=== PATIENT | female | born 1945 | race Caucasian/White ===

== ENCOUNTER → 2018-11-30 11:26 | Outpatient (CLI) | payer MEDICARE, SELFPAY ==
[2018-11-30 14:16] LABS: Anion Gap 6 (5-15); BUN 9 mg/dL (7-18); BUN/Creat Ratio 12.3 RATIO (10-20); Calcium,Total 8.5 mg/dL (8.5-10.1); Chloride 96 mmol/L (98-107); Creatinine, Serum 0.73 mg/dL (0.55-1.02); EST Glomerular Filtration Rate 82 mL/min (>60); Est Glom Filt Rate - Afr Amer 100 mL/min (>60); Glucose 95 mg/dL (74-106); Potassium 3.1 mmol/L (3.5-5.1); Sodium Level 130 mmol/L (136-145)
== END ==
PROVIDERS: Family Provider Family Medicine; PCP Family Medicine; Referring Provider Family Medicine; Visit Provider Family Medicine
DX: I10 Essential (primary) hypertension (principal)
CPT/HCPCS: 36415; 80048

== ENCOUNTER → 2019-10-04 09:54 | Outpatient (CLI) | payer MEDICARE, SELFPAY ==
[2019-10-04 12:54] LABS: ALB/GLOB Ratio 1.2 RATIO (0.9-2.4); AST(SGOT) 18 U/L (15-37); Alanine Aminotransfer ALT/SGPT 34 U/L (13-56); Alkaline Phosphatase 69 U/L (45-117); Anion Gap 4 (5-15); BUN 12 mg/dL (7-18); BUN/Creat Ratio 14.2 RATIO (10-20); Chloride 99 mmol/L (98-107); Cholesterol 236 mg/dL (200); Creatinine, Serum 0.84 mg/dL (0.55-1.02); EST Glomerular Filtration Rate 70 mL/min (>60); Est Glom Filt Rate - Afr Amer 84 mL/min (>60); Globulin 3.2 g/dL (2.2-4.2); Glucose 102 mg/dL (74-106); High Density Lipoprotein 63 mg/dL; Potassium 3.9 mmol/L (3.5-5.1); Protein, Total 7.2 g/dL (6.4-8.2); Sodium Level 133 mmol/L (136-145); Triglycerides 148 mg/dL; Very Low Density Lipoprotein 30 mg/dL (5-40)
== END ==
PROVIDERS: PCP Family Medicine; Referring Provider Family Medicine; Visit Provider Family Medicine
DX: I10 Essential (primary) hypertension (principal)
CPT/HCPCS: 36415; 80053; 80061

== ENCOUNTER → 2020-06-11 09:18 | Outpatient (CLI) | payer MEDICARE, SELFPAY ==
--- NOTE | 2020-06-11 09:27 | BD_ITS ---
STUDY: DUAL ENERGY X-RAY ABSORPTIOMETRY / DXA REASON FOR EXAM: Female, 74 years old. Age of vince 24. No hysterectomy pat just stopped having periods. Pat is 157.7# and 61.5 and quot; a loss of and gt;5 and quot; per pat. Does a little exercising. Hx of ribs and a toe fx. TECHNIQUE: Bone Mineral Density (BMD) measurements of lumbar spine and bilateral hips were obtained. COMPARISON: None. FINDINGS: Lumbar Spine (L1-L4): g/cm2 (0.719) / T-score (-4.0) / Z-score (-2.2) Findings are suggestive of osteoporosis with a high fracture risk. Left Femur Total: g/cm2 (0.742) / T-score (-2.1) / Z-score (-0.3) Left Femoral Neck: g/cm2 (0.706) / T-score (-2.4) / Z-score (-0.4) Right Femur Total: g/cm2 (0.759) / T-score (-2.0) / Z-score (-0.2) Right Femoral Neck: g/cm2 (0.75) / T-score (-2.1) / Z-score (-0.1) BD/Dexa Bone Density Study IMPRESSION: The patient is considered osteoporotic as outlined below according to World Juan David Organization (WHO) criteria with a high fracture risk. Reference Information: The T-score is the number of standard deviations above or below the standard which is normal for young adults at their peak bone mineral density. The World Health Organization (WHO) interprets the T-scores as follows: Above -1 Normal bone density Between -1 and -2.5 Osteopenia Equal to / or below -2.5 Osteoporosis As a practical clinical guideline, osteopenia may be graded as follows: Mild -1 through -1.5 Moderate -1.6 through -2.0 Severe -2.1 through -2.4 The Z-score is the number of standard deviations above or below age-matched controls. A Z-score of less than -1.5 would be considered abnormal. References: 1. NIH Osteoporosis and Related Bone Diseases http://www.osteo.org 2. International Society for Clinical Densitometry http://www.iscd.org 3. National Osteoporosis Foundation http://www.nof.org Electronically Signed: Ezekiel Hudson, at 11:11 EDT , Service support ,
== END ==
PROVIDERS: PCP Family Medicine; Referring Provider Family Medicine; Visit Provider Family Medicine
DX: M81.0 Age-related osteoporosis without current pathological fracture (principal)
CPT/HCPCS: 77080

== ENCOUNTER → 2020-11-17 10:06 | Outpatient (CLI) | payer MEDICARE, SELFPAY ==
[2020-11-17 12:37] LABS: ALB/GLOB Ratio 1.2 RATIO (0.9-2.4); AST(SGOT) 13 U/L (15-37); Alanine Aminotransfer ALT/SGPT 22 U/L (13-56); Albumin, Serum 3.8 g/dL (3.2-5.0); Alkaline Phosphatase 60 U/L (45-117); Anion Gap 6 (5-15); BUN 9 mg/dL (7-18); BUN/Creat Ratio 8.7 RATIO (10-20); Calcium,Total 8.4 mg/dL (8.5-10.1); Chloride 99 mmol/L (98-107); Cholesterol 240 mg/dL (200); Creatinine, Serum 1.03 mg/dL (0.55-1.02); EST Glomerular Filtration Rate 55 mL/min (>60); Est Glom Filt Rate - Afr Amer 67 mL/min (>60); Globulin 3.2 g/dL (2.2-4.2); Glucose 90 mg/dL (74-106); High Density Lipoprotein 44 mg/dL; Potassium 3.6 mmol/L (3.5-5.1); Sodium Level 136 mmol/L (136-145); Triglycerides 339 mg/dL; Very Low Density Lipoprotein 68 mg/dL (5-40)
== END ==
PROVIDERS: PCP Family Medicine; Referring Provider Family Medicine; Visit Provider Family Medicine
DX: M81.0 Age-related osteoporosis without current pathological fracture (principal); I10 Essential (primary) hypertension
CPT/HCPCS: 36415; 80053; 80061; 82306

== ENCOUNTER → 2021-02-22 09:50 | Outpatient (CLI) | payer MEDICARE, SELFPAY ==
[2021-02-22 12:23] LABS: ALB/GLOB Ratio 1.2 RATIO (0.9-2.4); AST(SGOT) 14 U/L (15-37); Alanine Aminotransfer ALT/SGPT 23 U/L (13-56); Albumin, Serum 3.7 g/dL (3.2-5.0); Alkaline Phosphatase 70 U/L (45-117); Anion Gap 8 (5-15); BUN 18 mg/dL (7-18); BUN/Creat Ratio 20.3 RATIO (10-20); Calcium,Total 8.9 mg/dL (8.5-10.1); Chloride 102 mmol/L (98-107); Cholesterol 139 mg/dL (200); Creatinine, Serum 0.89 mg/dL (0.55-1.02); EST Glomerular Filtration Rate 66 mL/min (>60); Est Glom Filt Rate - Afr Amer 79 mL/min (>60); Globulin 3.1 g/dL (2.2-4.2); Glucose 107 mg/dL (74-106); High Density Lipoprotein 48 mg/dL; Potassium 3.9 mmol/L (3.5-5.1); Protein, Total 6.8 g/dL (6.4-8.2); Sodium Level 138 mmol/L (136-145); Triglycerides 115 mg/dL; Very Low Density Lipoprotein 23 mg/dL (5-40)
== END ==
PROVIDERS: PCP Family Medicine; Visit Provider Family Medicine
DX: I10 Essential (primary) hypertension (principal)
CPT/HCPCS: 36415; 80053; 80061

== ENCOUNTER 2021-12-28 09:35 | Outpatient (CLI) | payer MEDICARE, SELFPAY ==
[2021-12-28 12:25] LABS: Anion Gap 8 (5-15); BUN 11 mg/dL (7-18); BUN/Creat Ratio 13.9 RATIO (10-20); Calcium,Total 8.7 mg/dL (8.5-10.1); Chloride 101 mmol/L (98-107); Cholesterol 139 mg/dL (200); Creatinine, Serum 0.79 mg/dL (0.55-1.02); EST Glomerular Filtration Rate 75 mL/min (>60); Est Glom Filt Rate - Afr Amer 91 mL/min (>60); Glucose 119 mg/dL (74-106); High Density Lipoprotein 54 mg/dL; Potassium 3.7 mmol/L (3.5-5.1); Sodium Level 134 mmol/L (136-145); Triglycerides 177 mg/dL; Very Low Density Lipoprotein 35 mg/dL (5-40)
[2021-12-29 08:26] LABS: Hepatitis C Antibody Non-Reactive (Nonreactive)
== END 2021-12-28 23:59 | disposition home or self-care (01) ==
LOC: MFPLAB 09:37
PROVIDERS: Registered Nurse; Visit Provider Nurse Practitioner Family
DX: E78.5 Hyperlipidemia, unspecified (principal); Z11.59 Encounter for screening for other viral diseases; I10 Essential (primary) hypertension
CPT/HCPCS: 36415; 80048; 80061; 86803

== ENCOUNTER → 2022-06-14 | Outpatient (CLI) | payer MEDICARE, SELFPAY ==
--- NOTE | 2022-06-14 09:17 | BD_ITS ---
STUDY: DUAL ENERGY X-RAY ABSORPTIOMETRY / DXA REASON FOR EXAM: Female, 76 years old. N95.9. The patient is postmenopausal. TECHNIQUE: Bone Mineral Density (BMD) measurements of lumbar spine and bilateral hips were obtained. COMPARISON: Comparison is made with prior study 06/11/2020. FINDINGS: Lumbar Spine (L1-L4): g/cm2 (0.772) / T-score (-2.5) / Z-score (0.1) Findings are suggestive of osteopenia with a high fracture risk. Left Femur Total: g/cm2 (0.735) / T-score (-1.7) / Z-score (0.2) Left Femoral Neck: g/cm2 (0.639) / T-score (-1.9) / Z-score (0.3) Right Femur Total: g/cm2 (0.763) / T-score (-1.5) / Z-score (0.5) Right Femoral Neck: g/cm2 (0.667) / T-score (-1.6) / Z-score (0.6) The T-Scores on the most recent prior examination were: Lumbar Spine (L1-L4): There has been improvement of bone density since the previous examination. Left Femur Total: which represents an improvement of 7.5%. Right Femur Total: which represents an improvement of 9%. BD/Dexa Bone Density Study IMPRESSION: The patient is considered osteopenic as outlined below according to World Juan David Organization (WHO) criteria with a high fracture risk. There has been improvement of bone density since the previous examination. Reference Information: The T-score is the number of standard deviations above or below the standard which is normal for young adults at their peak bone mineral density. The World Health Organization (WHO) interprets the T-scores as follows: Above -1 Normal bone density Between -1 and -2.5 Osteopenia Equal to / or below -2.5 Osteoporosis As a practical clinical guideline, osteopenia may be graded as follows: Mild -1 through -1.5 Moderate -1.6 through -2.0 Severe -2.1 through -2.4 The Z-score is the number of standard deviations above or below age-matched controls. A Z-score of less than -1.5 would be considered abnormal. References: 1. NIH Osteoporosis and Related Bone Diseases www osteo.org 2. International Society for Clinical Densitometry www iscd.org 3. National Osteoporosis Foundation www nof.org Electronically Signed: Ezekiel Hudson MD at 10:24 EDT ,
== END | disposition home or self-care (01) ==
LOC: OPBD 09:04
PROVIDERS: PCP Family Medicine; Visit Provider Nurse Practitioner Family
DX: Z78.0 Asymptomatic menopausal state (principal); M85.80 Other specified disorders of bone density and structure, unspecified site; N95.9 Unspecified menopausal and perimenopausal disorder
CPT/HCPCS: 77080

== ENCOUNTER → 2022-12-29 | Outpatient (CLI) | payer MEDICARE, SELFPAY ==
[2022-12-29 18:06] LABS: ALB/GLOB Ratio 1.3 RATIO (0.9-2.4); AST(SGOT) 18 U/L (15-37); Alanine Aminotransfer ALT/SGPT 30 U/L (13-56); Albumin, Serum 3.8 g/dL (3.2-5.0); Alkaline Phosphatase 85 U/L (45-117); Anion Gap 6 (5-15); BUN 15 mg/dL (7-18); BUN/Creat Ratio 17.2 RATIO (10-20); Calcium,Total 9.2 mg/dL (8.5-10.1); Chloride 100 mmol/L (98-107); Cholesterol 153 mg/dL (200); Creatinine, Serum 0.87 mg/dL (0.55-1.02); EST Glomerular Filtration Rate 67 mL/min (>60); Est Glom Filt Rate - Afr Amer 81 mL/min (>60); Globulin 2.9 g/dL (2.2-4.2); Glucose 122 mg/dL (74-106); High Density Lipoprotein 50 mg/dL; Potassium 3.7 mmol/L (3.5-5.1); Protein, Total 6.7 g/dL (6.4-8.2); Sodium Level 135 mmol/L (136-145); Triglycerides 189 mg/dL; Very Low Density Lipoprotein 38 mg/dL (5-40)
[2022-12-29 18:48] LABS: Hemoglobin A1c 5.9 % (3.8-5.6)
[2022-12-29 18:53] LABS: Microalbumin,Random Urine 14.4 mg/L (NO RANGE EST.)
== END | disposition home or self-care (01) ==
LOC: MFPLAB 15:35
PROVIDERS: PCP Family Medicine; Visit Provider Family Medicine
DX: I10 Essential (primary) hypertension (principal); R73.09 Other abnormal glucose; E78.00 Pure hypercholesterolemia, unspecified
CPT/HCPCS: 36415; 80053; 80061; 82043; 83036

== ENCOUNTER 2023-07-25 14:00 | Outpatient (RCR) | payer MEDICARE, SELFPAY ==
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
== END 2023-07-25 19:00 | disposition home or self-care (01) ==
LOC: PT 14:00
PROVIDERS: PCP Family Medicine; Referring Provider Orthopaedic Surgery; Visit Provider Orthopaedic Surgery
DX: M17.0 Bilateral primary osteoarthritis of knee (principal)
CPT/HCPCS: 97110; 97162

== ENCOUNTER → 2024-07-16 | Outpatient (CLI) | payer MEDICARE, SELFPAY ==
[2024-07-16 15:27] LABS: Absolute Lymphocyte Count 1.41 X10^3/uL (0.83-4.51); Absolute Neutrophil Count 5.3 X10^3/uL (2.0-7.7); Basophil# 0.05 X10^3/uL; Basophil% 0.7 % (0-1); Eosinophil# 0.05 X10^3/uL; Eosinophils% 0.7 % (0-5); Hemoglobin 13.8 g/dL (12.0-15.0); Lymphocyte # 1.41 X10^3/ul (0.83-4.51); Lymphocyte % 19.3 % (19-41); Mean Corp Hgb Conc 33.7 g/dL (32-36); Mean Corpuscular Hgb 30.4 pg (27.0-32.0); Mean Corpuscular Volume 90.3 fL (81-99); Mean Platelet Vol. 10.6 fl (6.2-12.0); Monocyte# 0.44 X10^3/uL; NRBC Flagged by Analyzer 0 % (0-5); Neutrophil # 5.33 X10^3/uL (2.7-7.7); Neutrophil % 72.9 % (47-70); Platelet Count 320 K/mm3 (150-450); RBC Distribution Width CV 12.3 % (11.6-14.6); RBC Distribution Width SD 40.6 fl (35.1-43.9); Red Blood Count 4.54 M/mm3 (4.2-5.4); White Blood Count 7.3 K/mm3 (4.4-11.0)
[2024-07-16 15:50] LABS: Vitamin D,25 Hydroxy 13.4 ng/mL
[2024-07-16 15:57] LABS: ALB/GLOB Ratio 1.3 RATIO (0.9-2.4); AST(SGOT) 32 U/L (15-37); Alanine Aminotransfer ALT/SGPT 37 U/L (13-56); Albumin, Serum 3.8 g/dL (3.2-5.0); Alkaline Phosphatase 70 U/L (45-117); Anion Gap 6 (5-15); BUN 11 mg/dL (7-18); BUN/Creat Ratio 13.1 RATIO (10-20); Calcium,Total 9.3 mg/dL (8.5-10.1); Chloride 98 mmol/L (98-107); Cholesterol 193 mg/dL (200); Creatinine, Serum 0.84 mg/dL (0.55-1.02); EST Glomerular Filtration Rate 69 mL/min (>60); Est Glom Filt Rate - Afr Amer 84 mL/min (>60); Globulin 2.9 g/dL (2.2-4.2); Glucose 96 mg/dL (74-106); High Density Lipoprotein 46 mg/dL; Potassium 3.4 mmol/L (3.5-5.1); Protein, Total 6.7 g/dL (6.4-8.2); Sodium Level 135 mmol/L (136-145); Thyroid Stim Hormone (TSH) 0.939 uIU/mL (0.358-3.740); Triglycerides 150 mg/dL; Very Low Density Lipoprotein 30 mg/dL (5-40)
[2024-07-16 16:13] LABS: Hemoglobin A1c 6.4 % (3.8-5.6)
== END | disposition home or self-care (01) ==
LOC: MFPLAB 11:06
PROVIDERS: PCP Family Medicine; Visit Provider Family Medicine
DX: R41.3 Other amnesia (principal); I10 Essential (primary) hypertension; E78.00 Pure hypercholesterolemia, unspecified; Z78.0 Asymptomatic menopausal state; R73.03 Prediabetes
CPT/HCPCS: 36415; 80053; 80061; 82306; 83036; 84443; 85025

== ENCOUNTER → 2024-10-01 | Outpatient (CLI) | payer MEDICARE, SELFPAY ==
[2024-10-01 17:37] LABS: Absolute Lymphocyte Count 1.27 X10^3/uL (0.83-4.51); Absolute Neutrophil Count 4.6 X10^3/uL (2.0-7.7); Basophil# 0.04 X10^3/uL; Basophil% 0.6 % (0-1); Eosinophil# 0.04 X10^3/uL; Eosinophils% 0.6 % (0-5); Hematocrit 39.1 % (37-47); Hemoglobin 12.7 g/dL (12.0-15.0); Lymphocyte # 1.27 X10^3/ul (0.83-4.51); Lymphocyte % 20.1 % (19-41); Mean Corp Hgb Conc 32.5 g/dL (32-36); Mean Corpuscular Hgb 30.1 pg (27.0-32.0); Mean Corpuscular Volume 92.7 fL (81-99); Mean Platelet Vol. 10.5 fl (6.2-12.0); Monocyte# 0.31 X10^3/uL; Monocyte% 4.9 % (0-10); NRBC Flagged by Analyzer 0 % (0-5); Neutrophil # 4.63 X10^3/uL (2.7-7.7); Neutrophil % 73.2 % (47-70); Platelet Count 315 K/mm3 (150-450); RBC Distribution Width CV 12.6 % (11.6-14.6); RBC Distribution Width SD 43.1 fl (35.1-43.9); Red Blood Count 4.22 M/mm3 (4.2-5.4); White Blood Count 6.3 K/mm3 (4.4-11.0)
[2024-10-01 17:56] LABS: ALB/GLOB Ratio 1.2 RATIO (0.9-2.4); AST(SGOT) 17 U/L (15-37); Alanine Aminotransfer ALT/SGPT 33 U/L (13-56); Albumin, Serum 3.5 g/dL (3.2-5.0); Alkaline Phosphatase 53 U/L (45-117); Anion Gap 6 (5-15); BUN 8 mg/dL (7-18); BUN/Creat Ratio 10.7 RATIO (10-20); Calcium,Total 9.3 mg/dL (8.5-10.1); Chloride 106 mmol/L (98-107); Creatinine, Serum 0.75 mg/dL (0.55-1.02); EST Glomerular Filtration Rate 79 mL/min (>60); Est Glom Filt Rate - Afr Amer 96 mL/min (>60); Globulin 2.9 g/dL (2.2-4.2); Glucose 108 mg/dL (74-106); Potassium 3.7 mmol/L (3.5-5.1); Protein, Total 6.4 g/dL (6.4-8.2); Sodium Level 139 mmol/L (136-145)
[2024-10-01 18:00] LABS: BNP,B-Type NATRIURETIC PEPTIDE 96.8 pg/mL (0-100)
== END | disposition home or self-care (01) ==
PROVIDERS: PCP Family Medicine; Referring Provider Family Medicine; Visit Provider Family Medicine
DX: R60.0 Localized edema (principal); R39.9 Unspecified symptoms and signs involving the genitourinary system
CPT/HCPCS: 36415; 80053; 83880; 84443; 85025

== ENCOUNTER → 2024-11-13 | Outpatient (REF) | payer MEDICARE, SELFPAY ==
[2024-11-13 08:47] LABS: Hematocrit 41.6 % (37-47); Hemoglobin 14.3 g/dL (12.0-15.0); Mean Corp Hgb Conc 34.4 g/dL (32-36); Mean Corpuscular Hgb 30.7 pg (27.0-32.0); Mean Corpuscular Volume 89.3 fL (81-99); Mean Platelet Vol. 10.5 fl (6.2-12.0); Platelet Count 314 K/mm3 (150-450); RBC Distribution Width SD 38.9 fl (35.1-43.9); Red Blood Count 4.66 M/mm3 (4.2-5.4); White Blood Count 8.2 K/mm3 (4.4-11.0)
[2024-11-13 09:22] LABS: ALB/GLOB Ratio 1.7 RATIO (0.9-2.4); AST(SGOT) 19 U/L (<=31); Alanine Aminotransfer ALT/SGPT 16 U/L (<=34); Alkaline Phosphatase 63 U/L (35-104); Anion Gap 11 (5-15); BUN 12 mg/dL (4-19); BUN/Creat Ratio 16.4 RATIO (10-20); Calcium,Total 8.9 mg/dL (7.6-11.0); Chloride 99 mmol/L (98-108); Cholesterol 212 mg/dL (<=200); Creatinine, Serum 0.73 mg/dL (0.70-1.20); EST Glomerular Filtration Rate 84 (>60); Globulin 2.4 g/dL (2.2-4.2); Glucose 111 mg/dL (70-99); High Density Lipoprotein 59 mg/dL; Low Density Lipoprotein Calc. 133 mg/dL; Protein, Total 6.4 g/dL (5.9-8.4); Sodium Level 134 mmol/L (133-145); T4 Total, Thyroxin 8.6 ug/dL (4.8-13.9); Total Bilirubin 0.46 mg/dL (0.00-1.30); Triglycerides 103 mg/dL; Very Low Density Lipoprotein 21 mg/dL (5-40); Vitamin D,25 Hydroxy 37.1 ng/mL (30-100); cholesterol:hdl ratio screen 3.62
[2024-11-13 09:26] LABS: Hemoglobin A1c 5.9 % (<=5.6)
== END ==
LOC: OLS.BROOKB 05:00
PROVIDERS: PCP Family Medicine; Visit Provider Family Medicine
DX: F03.90 Unspecified dementia, unspecified severity, without behavioral disturbance, psychotic disturbance, mood disturbance, and anxiety (principal)
CPT/HCPCS: 36415; 80053; 80061; 82306; 83036; 84436; 84443; 85027

== ENCOUNTER 2024-11-16 18:15 | Emergency (ER) | payer MEDICARE, SELFPAY ==
[2024-11-16 18:16] VITALS: BP 167/63; PULSE 83; RESP 18; TEMP 36.5; O2SAT 99; BMI 32.5
--- NOTE | 2024-11-16 18:30 | RAD_ITS ---
PROCEDURE: SHOULDER MIN 2 VIEWS REASON FOR EXAM: Status post fall. Pain. TECHNIQUE: 4 view(s) of the left shoulder COMPARISON: None. FINDINGS: No fracture. No suspicious bone lesion. Normal alignment of the acromioclavicular and glenohumeral joints. Soft tissues are unremarkable. RAD/Shoulder min 2 Views IMPRESSION: NO ACUTE FRACTURE OR DISLOCATION. Reading Location: [facility]
--- NOTE | 2024-11-16 18:31 | EX.ED.DYSGE1 ---
HPI <RUSTAM Shepard - Last Filed: 11/16/24 20:10> History of Present Illness Chief Complaint: Fall Narrative Narrative: 79-year-old female had an unwitnessed fall at [facility] care unit. She was apparently found on the ground facedown near the dining area. She has no external signs of injury but complains of left shoulder pain. She is not on blood thinners. Daughter states she has dementia and moved into [place] in September 2024 and since then has fallen a total of 2 times including today. She ambulates well without assistance or assistive devices. Patient is not sure why she fell off but can provide limited history secondary to dementia. Her daughter is here and states she is acting at baseline. [facility] <RUSTAM Shepard - Last Filed: 11/16/24 20:10> [facility] Medical History (Updated 11/16/24 @ 19:22 by RUSTAM Shepard) Dementia Basal cell carcinoma Hypertension Osteoporosis Hypercholesteremia Prediabetes Home Medications ?Medication ?Instructions ?Recorded ?Last Taken ?Type alendronate 70 mg tablet 70 mg PO QWEEK 09/30/24 Unknown History atorvastatin 20 mg tablet 20 mg PO QHS 09/30/24 Unknown History azelastine 137 mcg (0.1 %) nasal 2 spray intranasal BID 09/30/24 Unknown History spray diphenhydramine HCl 25 mg capsule 25 mg PO BID PRN 09/30/24 Unknown History ergocalciferol (vitamin D2) 1,250 1,250 mcg PO QWEEK 09/30/24 Unknown History mcg (50,000 unit) capsule hydrochlorothiazide 25 mg tablet 25 mg PO QDAY 09/30/24 Unknown History potassium chloride 10 mEq 10 meq PO QDAY 09/30/24 Unknown History capsule,extended release Allergy/AdvReac Type Severity Reaction Status Date / Time albuterol Allergy swollen Verified 09/30/24 14:37 lips Corticosteroids Allergy other Verified 09/30/24 14:37 (Glucocorticoids) (steroids) diphtheria, pertussis, Allergy unknown Verified 09/30/24 14:37 tetanus vacc doxycycline Allergy GI upset Verified 09/30/24 14:37 influenza virus vaccine, Allergy unknown Verified 09/30/24 14:37 specific montelukast (From Singulair) Allergy Hives Verified 09/30/24 14:37 Penicillins Allergy unknown Verified 09/30/24 14:37 Family History Mother , 85 Heart disease Myocardial infarction Father , 91 Heart disease Surgical History History of phacoemulsification of cataract of left eye with intraocular lens implantation Social History household members: none current occupational status: retired pets and animals: Yes pets and animals: dog(s) Smoking Status: Never smoker alcohol intake: never caffeine: No do you feel safe at home: Yes ROS <RUSTAM Shepard - Last Filed: 11/16/24 20:10> ROS ED ROS Narrative Denies headache, nausea or vomiting. EXAM <RUSTAM Shepard - Last Filed: 11/16/24 20:10> Physical Exam Narrative Exam Narrative: CONST: Patient sitting in no acute distress. EYES: Normal inspection. PERRL, EOMI. HEAD: Normocephalic atraumatic. NECK: Normal inspection. No midline tenderness or step-offs. RESP: No respiratory distress, CTAB. Tender over left ribs without deformity or crepitus. CVS: Regular rate and rhythm, no murmur, no gallop. ABD: Soft and nontender, no guarding or rebound, nondistender. Back: Normal inspection, no midline tenderness. SKIN: Color normal, no rash, warm, dry, intact. EXTREMITIES: Normal appearance, tender over left anterior shoulder and left distal radius. No deformity or crepitus. Full passive range of motion. Normal sensation in axillary median radial and ulnar distributions. 2+ radial pulses. Brisk cap refill. No tenderness right upper extremity. Pelvis stable, no tenderness of lower extremities, 2+ DP pulses. NEURO: Alert and oriented to self, age, place PSYCH: Normal affect. Const Vital Signs: 11/16/24 18:16 11/16/24 18:28 Temperature 97.7 F L Temperature Source Temporal Pulse Rate 83 Respiratory Rate 18 Respiratory Effort Normal Non-Labored Respiratory Depth Normal Respiratory Pattern Normal Blood Pressure 167/63 H Blood Pressure Mean 97 Pulse Ox 99 Oxygen Delivery Method Room Air <Dr. Kalyan Dozier MD - Last Filed: 11/16/24 20:26> Physical Exam Const Vital Signs: 11/16/24 18:16 11/16/24 18:28 Temperature 97.7 F L Temperature Source Temporal Pulse Rate 83 Respiratory Rate 18 Respiratory Effort Normal Non-Labored Respiratory Depth Normal Respiratory Pattern Normal Blood Pressure 167/63 H Blood Pressure Mean 97 Pulse Ox 99 Oxygen Delivery Method Room Air MDM <RUSTAM Shepard - Last Filed: 11/16/24 20:10> [facility] MDM Narrative Medical decision making narrative: History gathered from: Patient and daughter Differential includes but not limited to extremity contusion versus fracture, rib contusion, fracture, pneumothorax 79-year-old female from memory care unit had an unwitnessed fall. She is awake and alert x 3. She cannot provide further history due to dementia. She has no external signs of trauma. No neurological deficits. Since she is DNR CC and has no signs of head trauma and is acting at baseline per her daughter I do not think CT imaging of the head or neck is indicated. She is tender over the left shoulder, left wrist, and left ribs so x-rays were obtained of these areas and are all negative. She was treated with Tylenol and advised to use ice. She was discharged in stable condition. I have personally performed a face to face assessment of the patient and have reviewed the REI Note. I performed a substantive portion of the visit including all aspects of the following. My ochoa findings include: History is remarkable for fall. Patient landed against a piece of furniture/dresser. She is complaining of left shoulder pain, left wrist pain and left chest pain anteriorly. She is DNR CCA only. There is no complaint of headache. There is no known history of head trauma. She denies ringing or ears or decreased hearing. She is right-hand dominant. She denies shortness of breath. She denies abdominal pain. Denies flank pain. She has not urinated since this occurred. Incident occurred at approximately 1700. Exam is remarkable for pleasant elderly woman who appears in no distress. HEENT exams unremarkable with no evidence of trauma or clinical findings of basilar skull fracture. Neck is nontender full active range of motion. She has pain ovation over the proximal humerus left shoulder. There is no point tenderness over the left clavicle or AC joint. There is superficial tenderness over the left elbow. There is no point tenderness over the lateral medial epicondyle, olecranon process or radial head with supination pronation. She complained of wrist pain and there is an area of discomfort over the distal radius. Axillary, median, radial and ulnar function intact. Radial pulses palpable. Patient has significant tenderness to palpation anterior left chest ribs 5 through 8. There is no crepitus subcutaneous air. Breath sounds are symmetric but diminished because she is reluctant take a deep breath. Heart is regular. There is no murmur, gallop or rub. There is no click noted. Abdomen is soft nontender with no evidence hepatosplenomegaly. There is no CVA tenderness noted. Medical Decision Making since patient is DNR comfort care only CT of the head and neck was not obtained and especially since patient has no objective findings or subjective findings of trauma. X-ray of the shoulder, wrist and ribs were obtained to evaluate contusion versus fracture. Patient was offered pain medicine. Daughter states this makes her very confused and would like to hold off at this time. Other additions or changes: [None] Radiography Diagnostic Testing: Clinical Impression(s) from Imaging Studies Shoulder X-Ray 11/16/24 18:30 IMPRESSION: NO ACUTE FRACTURE OR DISLOCATION. Reading Location: [facility] Ribs w/Chest X-Ray 11/16/24 18:41 IMPRESSION: NO EVIDENCE OF ACUTE RIB FRACTURE OR PNEUMOTHORAX. Reading Location: [facility] Wrist X-Ray 11/16/24 18:41 IMPRESSION: No acute fracture or dislocation. Reading Location: [facility] ED attending interpretation of left shoulder shows no fracture or dislocation. ED attending interpretation of left wrist shows no fracture or dislocation. ED attending interpretation of left rib series shows no displaced rib fracture or pneumothorax. <Dr. Kalyan Dozier MD - Last Filed: 11/16/24 20:26> [facility] Narrative Medical decision making narrative: I have personally performed a face to face assessment of the patient and have reviewed the REI Note. I performed a substantive portion of the visit including all aspects of the following. My ochoa findings include: History is remarkable for fall. Patient landed against a piece of furniture/dresser. She is complaining of left shoulder pain, left wrist pain and left chest pain anteriorly. She is DNR CCA only. There is no complaint of headache. There is no known history of head trauma. She denies ringing or ears or decreased hearing. She is right-hand dominant. She denies shortness of breath. She denies abdominal pain. Denies flank pain. She has not urinated since this occurred. Incident occurred at approximately 1700. Exam is remarkable for pleasant elderly woman who appears in no distress. HEENT exams unremarkable with no evidence of trauma or clinical findings of basilar skull fracture. Neck is nontender full active range of motion. She has pain ovation over the proximal humerus left shoulder. There is no point tenderness over the left clavicle or AC joint. There is superficial tenderness over the left elbow. There is no point tenderness over the lateral medial epicondyle, olecranon process or radial head with supination pronation. She complained of wrist pain and there is an area of discomfort over the distal radius. Axillary, median, radial and ulnar function intact. Radial pulses palpable. Patient has significant tenderness to palpation anterior left chest ribs 5 through 8. There is no crepitus subcutaneous air. Breath sounds are symmetric but diminished because she is reluctant take a deep breath. Heart is regular. There is no murmur, gallop or rub. There is no click noted. Abdomen is soft nontender with no evidence hepatosplenomegaly. There is no CVA tenderness noted. Medical Decision Making since patient is DNR comfort care only CT of the head and neck was not obtained and especially since patient has no objective findings or subjective findings of trauma. X-ray of the shoulder, wrist and ribs were obtained to evaluate contusion versus fracture. Patient was offered pain medicine. Daughter states this makes her very confused and would like to hold off at this time. Other additions or changes: [None] Radiography Chest X-Ray - ED: 2 View (Three-view x-ray of the wrist reveals no evidence of fracture, subluxation dislocation. The spaces of the carpal bones are symmetric. There is no evidence of a volar fat pad.) and Read by ED Physician (Three-view x-ray of the left shoulder reveals no acute abnormality i.e. fracture, subluxation or dislocation. There is minimal arthritic changes of the AC joint. The clavicle appears normal as well. There is no evidence of pneumothorax.) CTA PE Study: - (5 view x-ray of the left ribs with chest x-ray reveals normal cardiac silhouette and size. No evidence of pneumothorax or hemothorax. There is no fractured ribs noted. Plan is to discharge to home.) Diagnostic Testing: Clinical Impression(s) from Imaging Studies Shoulder X-Ray 11/16/24 18:30 IMPRESSION: NO ACUTE FRACTURE OR DISLOCATION. Reading Location: [facility] Ribs w/Chest X-Ray 11/16/24 18:41 IMPRESSION: NO EVIDENCE OF ACUTE RIB FRACTURE OR PNEUMOTHORAX. Reading Location: [facility] Wrist X-Ray 11/16/24 18:41 IMPRESSION: No acute fracture or dislocation. Reading Location: [facility] Discharge Plan Triage Chief Complaint: Fall ED Midlevel Provider: Astrid Monae ED Provider: Kalyan Dozier Dx/Rx/DC Orders Clinical Impression: Fall, Contusion of left shoulder, Contusion of left wrist, Contusion of rib on left side Instructions: Bruises (Contusions) Prescriptions: No Action hydrochlorothiazide 25 mg tablet 25 mg PO QDAY azelastine 137 mcg (0.1 %) spray,non-aerosol 2 spray intranasal BID Rx Instructions: administer into each nostril alendronate 70 mg tablet 70 mg PO QWEEK atorvastatin 20 mg tablet 20 mg PO QHS ergocalciferol (vitamin D2) 1,250 mcg (50,000 unit) capsule 1,250 mcg PO QWEEK potassium chloride 10 mEq capsule, extended release 10 meq PO QDAY diphenhydramine HCl 25 mg capsule 25 mg PO BID PRN Primary Care Provider: Epifanio Zamora Referrals: Roseann Eli MD [Med Staff - [facility]] - Activity Restrictions/Additional Instructions: The x-ray showed no broken bones. I would treat your contusions with ice and Tylenol every 6 hours as needed. Print Language: Finnish Disposition Disposition: Home, Self Care
--- NOTE | 2024-11-16 18:41 | RAD_ITS ---
PROCEDURE: WRIST MIN 3 VIEWS REASON FOR EXAM: Trauma. Pain. TECHNIQUE: 3 views of the left wrist COMPARISON: None FINDINGS: No visible fracture. No suspicious bone lesion. Normal alignment. Soft tissues are unremarkable. RAD/Wrist min 3 Views IMPRESSION: No acute fracture or dislocation. [facility]
--- NOTE | 2024-11-16 18:41 | RAD_ITS ---
PROCEDURE: RIBS UNI MIN 3V W/PA CHEST REASON FOR EXAM: Trauma. TECHNIQUE: Frontal and oblique views of the left ribs. Frontal view of the chest. COMPARISON: None. FINDINGS: The heart size is normal. The lungs are clear. No pneumothorax or pleural effusion. No displaced rib fractures are identified. RAD/Ribs Uni Min 3V w/PA Chest IMPRESSION: NO EVIDENCE OF ACUTE RIB FRACTURE OR PNEUMOTHORAX. Reading Location: [facility]
[2024-11-16] MEDS: Acetaminophen 325 MG Tablet 650 MG PO (19:18)
[2024-11-16 20:28] VITALS: BP 149/73; PULSE 72; RESP 18; TEMP 36.7; O2SAT 97
== END 2024-11-16 20:35 | disposition home or self-care (01) ==
PROVIDERS: Emergency Provider Emergency Medicine; Visit Provider Emergency Medicine
DX: S40.012A Contusion of left shoulder, initial encounter (principal); F03.90 Unspecified dementia, unspecified severity, without behavioral disturbance, psychotic disturbance, mood disturbance, and anxiety; S20.212A Contusion of left front wall of thorax, initial encounter; S60.212A Contusion of left wrist, initial encounter; W01.190A Fall on same level from slipping, tripping and stumbling with subsequent striking against furniture, initial encounter; R73.03 Prediabetes; I10 Essential (primary) hypertension; E78.00 Pure hypercholesterolemia, unspecified; Z66 Do not resuscitate; Z79.899 Other long term (current) drug therapy
CPT/HCPCS: 71101; 73030; 73110; 99284

== ENCOUNTER 2024-11-29 11:49 | Emergency (ER) | payer MEDICARE, SELFPAY ==
--- NOTE | 2024-11-29 12:19 | CT_ITS ---
PROCEDURE: BRAIN/HEAD WITHOUT CONTRAST (CTBR), 11/29/2024 REASON FOR EXAM: VERTIGO, FALL COMPARISON: None TECHNIQUE: CT head was performed without IV contrast. Multiplanar reformats were generated. RADIATION DOSE SUMMARY: CTDlvol: 47.06 mGy DLP: 837.39 mGycm One or more dose reduction techniques were used (e.g., Automated exposure control, adjustment of the mA and/or kV according to patient size, use of iterative reconstruction technique). FINDINGS: Cerebrum: No visible intracranial hemorrhage, definite acute territorial infarct, or mass. Mild/moderate cerebral volume loss. Minimal patchy supratentorial white matter hypodensity, nonspecific but compatible with chronic microvascular ischemic changes. Cerebellum/brainstem: Unremarkable. Note slight limitation due to beam hardening artifact. Ventricles/extra-axial spaces: 3rd and lateral ventriculomegaly appears borderline slightly out of proportion to the degree of volume loss with relative sulcal effacement at the vertex. Paranasal sinuses/mastoid air cells: Mild mucosal thickening in the ethmoid air cells.. Scalp/calvarium: Unremarkable. Other: Intracranial atherosclerosis. CT/Brain/Head without Contrast IMPRESSION: 1. No visible acute intracranial findings. If there is persistent concern for a n acute intracranial process, consider MRI. 2. Borderline findings which are nonspecific but may be seen in the setting of communicating/normal pressure hydrocephalus, given the appropriate clinical context. 3. Mild ethmoid paranasal sinus disease. 4. Additional description as above. Reading Location: [id number]
--- NOTE | 2024-11-29 12:19 | RAD_ITS ---
PROCEDURE: RIBS UNI MIN 3V W/PA CHEST 11/29/2024 REASON FOR EXAM: INJURY/FALL TECHNIQUE: Frontal and bilateral oblique views of the bilateral ribs. COMPARISON: Comparison is made with prior study dated November 16, 2024. FINDINGS: Findings: The lungs are well inflated. No focal infiltrate is seen. No evidence of pneumothorax. Other: No rib fracture is seen. Degenerative changes of the visualized thoracic vertebrae. Calcification of the aortic arch. RAD/Ribs Uni Min 3V w/PA Chest IMPRESSION: No acute abnormality is seen. Reading Location: [facility]
--- NOTE | 2024-11-29 12:19 | EX.ED.DYSGE1 ---
HPI History of Present Illness Chief Complaint: Fall Informant: patient Narrative Narrative: 79-year-old female states she has had intermittent episodic dizziness that feels like spinning/movement for the last 3 days. This morning she had an episode when she turned her head and she fell while in the hallway of her building, injuring her left chest wall/rib cage, she denies pain or injury elsewhere. She is not currently feeling dizzy. She denies any vomiting. No recent illness. PFSH PFS Medical History Dementia Basal cell carcinoma Hypertension Osteoporosis Hypercholesteremia Prediabetes Home Medications ?Medication ?Instructions ?Recorded ?Last Taken ?Type alendronate 70 mg tablet 70 mg PO QWEEK 09/30/24 Unknown History atorvastatin 20 mg tablet 20 mg PO QHS 09/30/24 Unknown History azelastine 137 mcg (0.1 %) nasal 2 spray intranasal BID 09/30/24 Unknown History spray diphenhydramine HCl 25 mg capsule 25 mg PO BID PRN 09/30/24 Unknown History ergocalciferol (vitamin D2) 1,250 1,250 mcg PO QWEEK 09/30/24 Unknown History mcg (50,000 unit) capsule hydrochlorothiazide 25 mg tablet 25 mg PO QDAY 09/30/24 Unknown History potassium chloride 10 mEq 10 meq PO QDAY 09/30/24 Unknown History capsule,extended release Allergy/AdvReac Type Severity Reaction Status Date / Time albuterol Allergy swollen Verified 09/30/24 14:37 lips Corticosteroids Allergy other Verified 09/30/24 14:37 (Glucocorticoids) (steroids) diphtheria, pertussis, Allergy unknown Verified 09/30/24 14:37 tetanus vacc doxycycline Allergy GI upset Verified 09/30/24 14:37 influenza virus vaccine, Allergy unknown Verified 09/30/24 14:37 specific montelukast (From Singulair) Allergy Hives Verified 09/30/24 14:37 Penicillins Allergy unknown Verified 09/30/24 14:37 Family History Mother , 85 Heart disease Myocardial infarction Father , 91 Heart disease Surgical History History of phacoemulsification of cataract of left eye with intraocular lens implantation Social History household members: none current occupational status: retired pets and animals: Yes pets and animals: dog(s) Smoking Status: Never smoker alcohol intake: never caffeine: No do you feel safe at home: Yes ROS ROS ED Review of Systems ROS Unobtainable: due to mental condition Constitutional Constitutional ED: Denies chills or fever(s) Eyes Eyes: Denies change in vision or diplopia ENT ENT ED: Reports vertigo; Denies rhinorrhea or sore throat Cardiovascular Cardiovascular: Reports as per HPI and chest pain; Denies palpitations Respiratory/Chest Respiratory/Chest: Denies cough or dyspnea Gastrointestinal Gastrointestinal: Denies abdominal pain, diarrhea, nausea or vomiting Musculoskeletal Musculoskeletal: Denies back pain or neck pain Integumentary Denies abscess or rash Neurologic Neurologic: Denies headache(s), paresthesias or weakness Psychiatric Psychiatric: Denies anxiety or suicidal thoughts EXAM Physical Exam Const Vital Signs: 11/29/24 11:58 11/29/24 12:30 11/29/24 12:35 Temperature 98.0 F Temperature Source Oral Pulse Rate 78 79 Respiratory Rate 14 18 Respiratory Effort Normal Non-Labored Respiratory Depth Normal Respiratory Pattern Normal Blood Pressure 183/72 H 183/72 H Blood Pressure Mean 109 109 Pulse Ox 99 99 Oxygen Delivery Method Room Air Room Air Room Air Positive well nourished and well developed General Appearance ED: well developed and NAD HEENT Reports TM's clear and moist mucous membranes HEENT Narrative: Kan[place]-Hallpike recreates dizziness transiently bilaterally. No direction changing nystagmus. normocephalic and atraumatic Tympanic Membrane ED: Yes TM's clear Eyes PERRL and EOMs intact bilaterally Neck full ROM and supple Chest Wall Chest Narrative: Chest wall tender left anterior axillary line, no subcutaneous emphysema or step-off, no splinting with deep inspiration no other areas of chest wall tenderness. Resp normal respiratory effort and clear to auscultation bilaterally Cardio regular rate and regular rhythm Rate: other Other Details: Soft systolic ejection murmur GI non-tender and non-distended Auscultation: normoactive bowel sounds Palpation: soft Back/Spine no CVA tenderness General Back: other FROM Extremity normal to inspection General Extremety ED: Negative for edema, pulses abnormal or tenderness General Extremity: Negative for edema or pulses abnormal Neuro oriented x3, CN's II-XII intact bilaterally and no sensory deficits noted Sensorium / Orientation: awake and alert Motor Exam: strength 5/5 throughout Skin no rashes or lesions noted and no wounds MDM MDM MDM Narrative Medical decision making narrative: Obtain CT of the head given that her pressure is up a little, and she has cognitive impairment and is not a great historian; I reviewed the images and report which I agree with, it is negative for any acute. Basic labs unremarkable. Patient was observed, she did walk to and from the bathroom with the nurse without any recurrent symptoms. She has positive Kanosh-Hallpike but she reports symptoms bilaterally and I cannot get her to follow commands enough to show me if she has nystagmus or not but there certainly is no spontaneous nonfatigable nystagmus or direction changing nystagmus at all. I suspect this is all peripheral given that it is episodic, brief, and triggered by position changes according to the patient's report. She is in assisted living. I am comfortable with her going home. I prescribed her a walker to use. She is comfortable with that. Lab Data Attestation: I reviewed the patient's lab results. Labs: Laboratory Results - last 24 hr 11/29/24 13:01 WBC 9.2 RBC 4.55 Hgb 13.9 Hct 39.8 MCV 87.5 MCH 30.5 MCHC 34.9 RDW Std Deviation 38.4 RDW Coeff of Becki 11.9 Plt Count 302 MPV 9.7 Immature Gran % (Auto) 0.300 Neut % (Auto) 81.5 H Lymph % (Auto) 12.8 L Ceiba % (Auto) 4.5 Eos % (Auto) 0.4 Baso % (Auto) 0.5 Absolute Neuts (auto) 7.5 Absolute Lymphs (auto) 1.17 Nucleated RBC % 0 Sodium 129 L Potassium 4.8 Chloride 94 L Carbon Dioxide 22.8 Anion Gap 12 BUN 13 Creatinine 0.78 Estim Creat Clear Calc 57.61 Est GFR (MDRD) Non-Af 77 BUN/Creatinine Ratio 16.9 Glucose 114 H Calcium 9.2 Radiography Diagnostic Testing: Clinical Impression(s) from Imaging Studies Brain CT 11/29/24 12:19 IMPRESSION: 1. No visible acute intracranial findings. If there is persistent concern for an acute intracranial process, consider MRI. 2. Borderline findings which are nonspecific but may be seen in the setting of communicating/normal pressure hydrocephalus, given the appropriate clinical context. 3. Mild ethmoid paranasal sinus disease. 4. Additional description as above. Reading Location: [facility] Ribs w/Chest X-Ray 11/29/24 12:19 IMPRESSION: No acute abnormality is seen. [facility] Rhythm Strip Rhythm Strip: Sinus Rhythm Rate: 79 Ectopy: None Discharge Plan Triage Chief Complaint: Fall ED Provider: Kenney Weber Dx/Rx/DC Orders Clinical Impression: Episodic peripheral vertigo, Cognitive impairment, Bradykinesia, Contusion of rib on left side Instructions: ED BPV Vertigo, ED Bruise, Rib Prescriptions: No Action hydrochlorothiazide 25 mg tablet 25 mg PO QDAY azelastine 137 mcg (0.1 %) spray,non-aerosol 2 spray intranasal BID Rx Instructions: administer into each nostril alendronate 70 mg tablet 70 mg PO QWEEK atorvastatin 20 mg tablet 20 mg PO QHS ergocalciferol (vitamin D2) 1,250 mcg (50,000 unit) capsule 1,250 mcg PO QWEEK potassium chloride 10 mEq capsule, extended release 10 meq PO QDAY diphenhydramine HCl 25 mg capsule 25 mg PO BID PRN Other Ambulatory Orders: Wheeled Walker (Routine) Location: None Selected Ordered By: Dr. Kenney Weber Primary Care Provider: Epifanio Zamora Referrals: Pierre Manning MD [Med Staff - Active Staff] - 1 Week if not improving Epifanio Zamora DO [Primary Care Provider] - Print Language: Korean Disposition Disposition: Home, Self Care
[2024-11-29 12:30] VITALS: BP 183/72; PULSE 78; RESP 14; O2SAT 99
[2024-11-29 12:35] VITALS: BP 183/72; PULSE 79; RESP 18; TEMP 36.7; O2SAT 99; BMI 26.2
[2024-11-29 13:15] LABS: Absolute Lymphocyte Count 1.17 X10^3/uL (0.83-4.51); Absolute Neutrophil Count 7.5 X10^3/uL (2.0-7.7); Basophil# 0.05 X10^3/uL; Basophil% 0.5 % (0-1); Eosinophil# 0.04 X10^3/uL; Eosinophils% 0.4 % (0-5); Hematocrit 39.8 % (37-47); Hemoglobin 13.9 g/dL (12.0-15.0); Lymphocyte # 1.17 X10^3/ul (0.83-4.51); Lymphocyte % 12.8 % (19-41); Mean Corp Hgb Conc 34.9 g/dL (32-36); Mean Corpuscular Hgb 30.5 pg (27.0-32.0); Mean Corpuscular Volume 87.5 fL (81-99); Mean Platelet Vol. 9.7 fl (6.2-12.0); Monocyte# 0.41 X10^3/uL; Monocyte% 4.5 % (0-10); NRBC Flagged by Analyzer 0 % (0-5); Neutrophil # 7.45 X10^3/uL (2.7-7.7); Neutrophil % 81.5 % (47-70); Platelet Count 302 K/mm3 (150-450); RBC Distribution Width CV 11.9 % (11.6-14.6); RBC Distribution Width SD 38.4 fl (35.1-43.9); Red Blood Count 4.55 M/mm3 (4.2-5.4); White Blood Count 9.2 K/mm3 (4.4-11.0)
[2024-11-29 13:47] LABS: Anion Gap 12 (5-15); BUN 13 mg/dL (4-19); BUN/Creat Ratio 16.9 RATIO (10-20); Calcium,Total 9.2 mg/dL (7.6-11.0); Carbon Dioxide 22.8 mmol/L (21.0-32.0); Chloride 94 mmol/L (98-108); Creatinine, Serum 0.78 mg/dL (0.70-1.20); EST Glomerular Filtration Rate 77 (>60); Estimated Creatinine Clearance 57.61 ml/min (50-250); Glucose 114 mg/dL (70-99); Potassium 4.8 mmol/L (3.3-5.1); Sodium Level 129 mmol/L (133-145)
[2024-11-29 15:46] VITALS: BP 183/72; PULSE 79; RESP 18; TEMP 36.7; O2SAT 99
== END 2024-11-29 15:48 | disposition home or self-care (01) ==
PROVIDERS: Emergency Provider Emergency Medicine; Visit Provider Emergency Medicine
DX: S20.212A Contusion of left front wall of thorax, initial encounter (principal); F03.90 Unspecified dementia, unspecified severity, without behavioral disturbance, psychotic disturbance, mood disturbance, and anxiety; R25.8 Other abnormal involuntary movements; H81.399 Other peripheral vertigo, unspecified ear; W19.XXXA Unspecified fall, initial encounter; R73.03 Prediabetes; I10 Essential (primary) hypertension; E78.00 Pure hypercholesterolemia, unspecified; Z79.899 Other long term (current) drug therapy
CPT/HCPCS: 70450; 71101; 80048; 85025; 99284

== ENCOUNTER 2024-12-05 12:11 | Emergency (ER) | payer MEDICARE, SELFPAY ==
[2024-12-05 12:11] VITALS: BP 182/71; PULSE 76; RESP 16; TEMP 36.4; O2SAT 98; BMI 25.7
--- NOTE | 2024-12-05 12:58 | RAD_ITS ---
PROCEDURE: KNEE 4 OR MORE VIEWS 12/05/2024 REASON FOR EXAM: INJURY TECHNIQUE: 4 view(s) of the right knee COMPARISON: 12/05/2024 FINDINGS: No acute fracture or dislocation.No degenerative changes. No joint effusion. No soft tissue abnormality. RAD/Knee 4 or More Views IMPRESSION: No acute abnormality. Reading Location: [facility]
--- NOTE | 2024-12-05 12:58 | CT_ITS ---
PROCEDURE: BRAIN/HEAD WITHOUT CONTRAST 12/05/2024 REASON FOR EXAM: FALL INJURY TECHNIQUE: Head CT without intravenous contrast. Coronal and Sagittal reconstruction series were provided. One or more dose reduction techniques were used (e.g., Automated exposure control, adjustment of the mA and/or kV according to patient size, use of iterative reconstruction technique. COMPARISON: 11/29/2024 FINDINGS: No acute intracranial hemorrhage. No loss of young-white differentiation.The ventricles and sulci are normal in appearance. The osseous structures are unremarkable. No soft tissue abnormality identified. There is a small mucous retention cyst or polyp in the left maxillary sinus. CT/Brain/Head without Contrast IMPRESSION: 1. No acute intracranial abnormality. Reading Location: [facility]
--- NOTE | 2024-12-05 13:35 | RAD_ITS ---
PROCEDURE: HIP, UNI W/ PELVIS 2-3 VIEWS 12/05/2024 REASON FOR EXAM: INJURY TECHNIQUE: Single frontal view of the pelvis and two views of the right hip. COMPARISON: 12/05/2024 FINDINGS: No acute fracture or dislocation.Very mild degenerative loss of joint space and marginal spurring is present. No soft tissue abnormality. The pelvic soft tissues are unremarkable. RAD/HIP, UNI W/ Pelvis 2-3 Views IMPRESSION: 1. No acute abnormality. Reading Location: [facility]
--- NOTE | 2024-12-05 14:23 | ED.VIS.FALL ---
HPI HPI - Fall History of Present Illness Chief Complaint: Fall Informant: patient, family, EMS and SNF Narrative Narrative: 79-year-old female from long-term facility presenting to the emergency room with a fall. Patient herself has significant dementia and cannot provide accurate history. It was reported that she fell off her bed today possibly injuring her right knee. Patient states she has pain in her right hip. But she also forgets about the right hip pain and tells me that her pain is in her knee. She then also forgets about her knee. There is no reported head injury. Patient's denying any neck or significant back pain. There is no report of being on anticoagulants. [facility] Medical History Dementia Basal cell carcinoma Hypertension Osteoporosis Hypercholesteremia Prediabetes Home Medications ?Medication ?Instructions ?Recorded ?Last Taken ?Type alendronate 70 mg tablet 70 mg PO QWEEK 09/30/24 Unknown History atorvastatin 20 mg tablet 20 mg PO QHS 09/30/24 Unknown History azelastine 137 mcg (0.1 %) nasal 2 spray intranasal BID 09/30/24 Unknown History spray diphenhydramine HCl 25 mg capsule 25 mg PO BID PRN 09/30/24 Unknown History ergocalciferol (vitamin D2) 1,250 1,250 mcg PO QWEEK 09/30/24 Unknown History mcg (50,000 unit) capsule hydrochlorothiazide 25 mg tablet 25 mg PO QDAY 09/30/24 Unknown History potassium chloride 10 mEq 10 meq PO QDAY 09/30/24 Unknown History capsule,extended release Allergy/AdvReac Type Severity Reaction Status Date / Time albuterol Allergy swollen Verified 12/05/24 12:18 lips Corticosteroids Allergy other Verified 12/05/24 12:18 (Glucocorticoids) (steroids) diphtheria, pertussis, Allergy unknown Verified 12/05/24 12:18 tetanus vacc doxycycline Allergy GI upset Verified 12/05/24 12:18 influenza virus vaccine, Allergy unknown Verified 12/05/24 12:18 specific montelukast (From Singulair) Allergy Hives Verified 12/05/24 12:18 Penicillins Allergy unknown Verified 12/05/24 12:18 Family History Mother , 85 Heart disease Myocardial infarction Father , 91 Heart disease Surgical History History of phacoemulsification of cataract of left eye with intraocular lens implantation Social History household members: none current occupational status: retired pets and animals: Yes pets and animals: dog(s) Smoking Status: Never smoker alcohol intake: never caffeine: No do you feel safe at home: Yes ROS ROS ED Constitutional Constitutional ED: Denies chills or weight loss Eyes Eyes: Denies change in vision or diplopia ENT ENT ED: Denies ear pain, rhinorrhea or sore throat Cardiovascular Cardiovascular: Denies chest pain, orthopnea, palpitations or racing heartbeat Respiratory/Chest Respiratory/Chest: Denies cough, dyspnea or orthopnea Gastrointestinal Gastrointestinal: Denies abdominal pain, diarrhea, nausea or vomiting Genitourinary Genitourinary ED: Denies dysuria, hematuria or urinary frequency Musculoskeletal Musculoskeletal: Reports other Details: See history of present illness ; Denies arthralgias, back pain, myalgias or neck pain Integumentary Denies abscess or rash Neurologic Neurologic: Denies headache(s) or weakness Psychiatric Psychiatric: Denies anxiety, depression, suicidal ideation or suicidal thoughts Endocrine Endocrinology: Denies polydipsia, polyphagia or polyuria Allergic/Immunologic Allergic/Immunologic ED: Denies mouth swelling, tongue swelling or urticaria EXAM Physical Exam Const Vital Signs: 12/05/24 12:11 Temperature 97.6 F L Temperature Source Oral Pulse Rate 76 Respiratory Rate 16 Blood Pressure 182/71 H Blood Pressure Mean 108 Pulse Ox 98 Oxygen Delivery Method Room Air Positive well nourished and well developed General Appearance ED: well developed HEENT Reports normocephalic, head/scalp atraumatic and moist mucous membranes Eyes PERRL and EOMs intact bilaterally Neck no lymphadenopathy, supple and no JVD Resp normal respiratory effort and clear to auscultation bilaterally Cardio regular rate, regular rhythm and no murmurs GI normal to inspection, nondistended, normoactive bowel sounds and non-tender Palpation: soft Back/Spine no CVA tenderness and normal ROM Extremity Extremity Narrative: Right knee demonstrates no significant effusion ecchymosis or swelling. She reports tenderness over the patella. Ligaments appear stable. Right hip does not demonstrate any shortening. No pain with logroll. Unable to range the hip. No contusion is seen. General Extremety ED: Negative for edema General Extremity: Negative for edema Neuro CN's II-XII intact bilaterally Neuro Narrative: Patient is alert but pleasantly demented. She tells a story of getting the kids on and off the bus in a man with keys that is causing problems getting her door unlocked. Sensorium / Orientation: alert Motor Exam: strength 5/5 throughout Psych mental status grossly normal Mood & Affect: Negative for depressed or tearful Skin no rashes or lesions noted and no wounds MDM MDM MDM Narrative Medical decision making narrative: Differential diagnosis includes but not limited to knee and hip contusion knee fracture hip fracture pelvic fracture intracranial hemorrhage contusion sprain strain My independent interpretation the plain films of the right knee is no acute fracture. My independent interpretation of the plain films of the right hip with pelvis is no acute fracture. CT of the brain was negative for intracranial hemorrhage. At this point I believe the patient can be discharged back to long-term facility. Follow-up as needed Tylenol for pain.. History & Record Review Discussion w/independent historian: Patient and Family Radiography Diagnostic Testing: Clinical Impression(s) from Imaging Studies Brain CT 12/05/24 12:58 IMPRESSION: 1. No acute intracranial abnormality. Reading Location: [facility] Knee X-Ray 12/05/24 12:58 IMPRESSION: No acute abnormality. Reading Location: [facility] Hip/Pelvis X-Ray 12/05/24 13:35 IMPRESSION: 1. No acute abnormality. Reading Location: [facility] Discharge Plan Triage Chief Complaint: Fall ED Provider: Sushil Gutierrez Dx/Rx/DC Orders Clinical Impression: Fall, Acute knee pain, Acute hip pain Instructions: ED Fall Prevention Prescriptions: No Action hydrochlorothiazide 25 mg tablet 25 mg PO QDAY azelastine 137 mcg (0.1 %) spray,non-aerosol 2 spray intranasal BID Rx Instructions: administer into each nostril alendronate 70 mg tablet 70 mg PO QWEEK atorvastatin 20 mg tablet 20 mg PO QHS ergocalciferol (vitamin D2) 1,250 mcg (50,000 unit) capsule 1,250 mcg PO QWEEK potassium chloride 10 mEq capsule, extended release 10 meq PO QDAY diphenhydramine HCl 25 mg capsule 25 mg PO BID PRN Primary Care Provider: Epifanio Zamora Referrals: Epifanio Zamora DO [Primary Care Provider] - As Needed Print Language: German Disposition Disposition: Home, Self Care
[2024-12-05 16:56] VITALS: BP 119/94; PULSE 73; RESP 16; TEMP 35.9; O2SAT 100
== END 2024-12-05 16:56 | disposition home or self-care (01) ==
PROVIDERS: Emergency Provider Emergency Medicine; Visit Provider Emergency Medicine
DX: M25.561 Pain in right knee (principal); F03.90 Unspecified dementia, unspecified severity, without behavioral disturbance, psychotic disturbance, mood disturbance, and anxiety; M25.551 Pain in right hip; W06.XXXA Fall from bed, initial encounter; Y92.122 Bedroom in nursing home as the place of occurrence of the external cause; I10 Essential (primary) hypertension; E78.00 Pure hypercholesterolemia, unspecified; R73.03 Prediabetes; Z79.899 Other long term (current) drug therapy
CPT/HCPCS: 70450; 73502; 73564; 99284

== ENCOUNTER 2025-02-26 09:43 | Emergency (ER) | payer MEDICARE, SELFPAY ==
[2025-02-26 09:44] VITALS: BP 189/64; PULSE 74; RESP 14; TEMP 36.5; O2SAT 98; BMI 26.1
--- NOTE | 2025-02-26 09:57 | CT_ITS ---
PROCEDURE: BRAIN/HEAD WITHOUT CONTRAST 02/26/2025 REASON FOR EXAM: FALL Dizziness. TECHNIQUE: BRAIN/HEAD WITHOUT CONTRAST Coronal and Sagittal reconstruction series were provided. One or more dose reduction techniques were used (e.g., Automated exposure control, adjustment of the mA and/or kV according to patient size, use of iterative reconstruction technique. RADIATION DOSE SUMMARY: CTDlvol: 44.99 mGy DLP: 779.24 mGycm COMPARISON: Prior study dated December 05, 2004. FINDINGS: Brain: Low density in the periventricular white matter suggests mild chronic small vessel ischemic changes. CSF Spaces: Mild generalized cerebral atrophy Sinuses/Mastoids: Clear at visualized levels Bones: Hyperostosis frontalis interna. CT/Brain/Head without Contrast IMPRESSION: CHRONIC CHANGES. NO ACUTE FINDINGS. Reading Location: [place] [id number]
--- NOTE | 2025-02-26 09:58 | EDS_ITS ---
HPI History of Present Illness Chief Complaint: Fall Detail of Chief Complaint: Fall Informant: patient Narrative Narrative: Patient presents to the emergency department complaint of a fall that occurred today. Patient states she think she got dizzy which happens frequently. She injured her left hip. She is not sure if she hit her head. There is no loss of consciousness. Patient from a long term and has history of dementia. Pat ient not anticoagulated. She denies neck pain. She denies chest pain or abdominal pain. [facility] Medical History (Updated 02/26/25 @ 11:[address] Sofia Marrero, DO) Type 1 diabetes mellitus without complications Dementia Basal cell carcinoma Hypertension Osteoporosis Hypercholesteremia Prediabetes Home Medications ?Medication ?Instructions ?Recorded ?Last Taken ?Type alendronate 70 mg tablet 70 mg PO QWEEK SUPPLEMENT Unknown History ergocalciferol (vitamin D2) 1,250 1,250 mcg PO QWEEK S UPPLEMENT 09/30/24 Unknown History mcg (50,000 unit) capsule hydrochlorothiazide 25 mg tablet 25 mg PO DAILY SUPPLE MENT 09/30/24 Unknown History potassium chloride 10 mEq 10 meq PO DAILY SUPPLEMENT 0 09/30/24 Unknown History capsule,extended release acetaminophen 500 mg tablet 500 mg PO TID PRN fever or pain 02/26/25 Unknown History folic acid 1 mg tablet 1 mg PO DAILY SUPPLEMENT Unknown History loperamide 2 mg capsule 2 mg PO DAILY 02/26/25 Unkno wn History loratadine 10 mg tablet 10 mg PO DAILY 02/26/25 Unkn own History (Allerclear) meclizine 25 mg tablet 12.5 mg PO TID VERTIGO 02/26 Unknown History mecobalamin (vitamin B12) 1,000 1,000 mcg PO DAILY SUP PLEMENT 02/26/25 Unknown History mcg chewable tablet Allergy/AdvReac Type Severity Reaction Status Date / Time albuterol Allergy swollen Verified 02/26/25 09:48 lips Corticosteroids Allergy other Verified 02/26/25 09:48 (Glucocorticoids) (steroids) diphtheria, pertussis, Allergy unknown Verified 02/26/25 09:48 tetanus vacc doxycycline Allergy GI upset Verified 02/26/25 09:48 influenza virus vaccine, Allergy unknown Verified 02/26/25 09:48 specific montelukast (From Singulair) Allergy Hives Verified 02/26/25 09:48 Penicillins Allergy unknown Verified 02/26/25 09:48 Family History Mother , 85 Heart disease Myocardial infarction Father , 91 Heart disease Surgical History History of phacoemulsification of cataract of left eye with intraocular lens implantation Social History household members: none current occupational status: retired pets and animals: Yes pets and animals: dog(s) Smoking Status: Never smoker alcohol intake: never caffeine: No do you feel safe at home: Yes ROS ROS ED ROS Narrative Fall Review of Systems ROS Unobtainable: other Constitutional Constitutional ED: Reports lethargy; Denies chills, fever(s), sweats or weight loss Eyes Eyes: Denies blurry vision, change in vision or diplopia ENT ENT ED: Denies rhinorrhea or sore throat Cardiovascular Cardiovascular: Denies chest pain, orthopnea or racing heartbeat Respiratory/Chest Respiratory/Chest: Denies cough, dyspnea, dyspnea on exertion, orthopnea or sputum Gastrointestinal Gastrointestinal: Denies abdominal pain, diarrhea, nausea or vomiting Genitourinary Genitourinary ED: Denies dysuria, hematuria or urinary frequency Musculoskeletal Musculoskeletal: Reports other Details: Left hip pain ; Denies arthralgias, back pain, myalgias or neck pain Integumentary Denies abscess, Abrasions or rash Neurologic Neurologic: Denies headache(s) or weakness Psychiatric Psychiatric: Denies anxiety, depression or suicidal thoughts Endocrine Endocrinology: Denies polydipsia, polyphagia or polyuria Hematologic/Lymphatic Hematologic/Lymphatic: Denies easy bleeding, easy bruising or lymphadenopathy Allergic/Immunologic Allergic/Immunologic ED: Denies mouth swelling, tongue swelling or urticaria EXAM Physical Exam Const Vital Signs: 02/26/25 09:44 02/26/25 09:50 Temperature 97.7 F L Temperature Source Oral Pulse Rate 74 Respiratory Rate 14 Respiratory Effort Normal Non-Labored Blood Pressure 189/64 H Blood Pressure Mean 105 Pulse Ox 98 Oxygen Delivery Method Room Air Positive well nourished and well developed General Appearance ED: well developed and NAD HEENT Reports TM's clear and moist mucous membranes normocephalic and atraumatic; Negative for trauma or tenderness Tympanic Membrane ED: Yes TM's clear Eyes PERRL and EOMs intact bilaterally General Eye ED: Negative for pale conjunctiva or scleral icterus Neck no lymphadenopathy, supple and no JVD General: Negative for tenderness Chest Wall inspection of chest normal and palpation of chest normal Chest: Negative for tenderness Resp normal respiratory effort and clear to auscultation bilaterally Effort and Inspection: Negative for respiratory distress or pain with movement Auscultation: Negative for rhonchi, wheezes or diminished lung sounds Cardio regular rate, regular rhythm, S1 normal heart sound, S2 normal heart sound and no murmurs Peripheral Pulses: pulses 2+ throughout GI normal to inspection, nondistended, normoactive bowel sounds, soft to palpation, non-tender, non-distended and no masses Back/Spine no CVA tenderness and no thoracic nor lumbar tenderness Extremity Extremity Narrative: Left hip-no obvious deformity or shortening. She has some tenderness over the left hip on exam. Some mild pain with logrolling. Neurovascular intact distall y. General Extremety ED: Negative for edema General Extremity: Negative for edema Neuro oriented x3, CN's II-XII intact bilaterally, no sensory deficits noted and gait normal Sensorium / Orientation: awake, alert, oriented to person, oriented to place and oriented to time Motor Exam: strength 5/5 throughout and strength abnormal Psych mental status grossly normal Skin no rashes or lesions noted and no wounds MDM MDM MDM Narrative Medical decision making narrative: Patient presents from long term after a fall. She is a poor historian and has history of dementia. She states that she got dizzy which happens frequently. Injured her left hip. Denies loss of consciousness. No significant evidence of trauma to her head. She has no C-spine tenderness. CT scan of the brain without contrast obtained was unremarkable other than atrophy. CBC with a show white count 7.9 with hemoglobin 14 and platelet count of 297. X-rays of the left hip and pelvis obtained showed no fractures on my interpretation. Patient was able to ambulate in the department without difficulty and is asking to the long term. She clinically looks well. Lab Data Attestation: I reviewed the patient's lab results. Labs: Laboratory Results - last 24 hr 02/26/25 10:10 WBC 7.9 RBC 4.67 Hgb 14.0 Hct 39.7 MCV 85.0 MCH 30.0 MCHC 35.3 RDW Std Deviation 37.8 RDW Coeff of Becki 12.3 Plt Count 297 MPV 9.6 Immature Gran % (Auto) 0.500 Neut % (Auto) 78.9 H Lymph % (Auto) 14.4 L Jennings % (Auto) 5.1 Eos % (Auto) 0.5 Baso % (Auto) 0.6 Absolute Neuts (auto) 6.2 Absolute Lymphs (auto) 1.13 Nucleated RBC % 0 Sodium Cancelled Potassium Cancelled Chloride Cancelled Carbon Dioxide Cancelled Anion Gap Cancelled BUN Cancelled Creatinine Cancelled Estim Creat Clear Calc Cancelled Est GFR (MDRD) Non-Af Cancelled BUN/Creatinine Ratio Cancelled Glucose Cancelled Calcium Cancelled Radiography Diagnostic Testin view x-rays left hip and pelvis obtained interpreted by myself as no evidence of fracture or dislocation Discharge Plan Triage Chief Complaint: Fall ED Provider: Sofia Marrero Dx/Rx/DC Orders Clinical Impression: Fall, Contusion of hip, left Instructions: ED Mechanical Fall, ED Hip Contusion Prescriptions: No Action hydrochlorothiazide 25 mg tablet 25 mg PO DAILY alendronate 70 mg tablet 70 mg PO QWEEK Patient Comments: PT TAKES ON SATURDAYS ergocalciferol (vitamin D2) 1,250 mcg (50,000 unit) capsule 1,250 mcg PO QWEEK Patient Comments: PT TAKES ON MONDAYS potassium chloride 10 mEq capsule, extended release 10 meq PO DAILY acetaminophen 500 mg tablet 500 mg PO TID PRN (Reason: fever or pain) folic acid 1 mg tablet 1 mg PO DAILY loperamide 2 mg capsule 2 mg PO DAILY loratadine [Allerclear] 10 mg tablet 10 mg PO DAILY meclizine 25 mg tablet 12.5 mg PO TID mecobalamin (vitamin B12) 1,000 mcg tablet,chewable 1,000 mcg PO DAILY Primary Care Provider: Epifanio Zamora Referrals: Epifanio Zamora DO [Primary Care Provider] - 3-5 Days Print Language: Algerian Disposition Disposition: Home, Self Care
[2025-02-26 10:23] LABS: Absolute Lymphocyte Count 1.13 X10^3/uL (0.83-4.51); Absolute Neutrophil Count 6.2 X10^3/uL (2.0-7.7); Basophil# 0.05 X10^3/uL; Basophil% 0.6 % (0-1); Eosinophil# 0.04 X10^3/uL; Eosinophils% 0.5 % (0-5); Hematocrit 39.7 % (37-47); Lymphocyte # 1.13 X10^3/ul (0.83-4.51); Lymphocyte % 14.4 % (19-41); Mean Corp Hgb Conc 35.3 g/dL (32-36); Mean Platelet Vol. 9.6 fl (6.2-12.0); Monocyte% 5.1 % (0-10); NRBC Flagged by Analyzer 0 % (0-5); Neutrophil # 6.21 X10^3/uL (2.7-7.7); Neutrophil % 78.9 % (47-70); Platelet Count 297 K/mm3 (150-450); RBC Distribution Width CV 12.3 % (11.6-14.6); RBC Distribution Width SD 37.8 fl (35.1-43.9); Red Blood Count 4.67 M/mm3 (4.2-5.4); White Blood Count 7.9 K/mm3 (4.4-11.0)
--- NOTE | 2025-02-26 10:50 | RAD_ITS ---
PROCEDURE: HIP, UNI W/ PELVIS 2-3 VIEWS 02/26/2025 REASON FOR EXAM: FALL TECHNIQUE: HIP, UNI W/ PELVIS 2-3 VIEWS COMPARISON: Prior study dated December 05, 2024. FINDINGS: Bones: No fracture. Joints: Joint space narrowing involving both hip joints. Soft tissues: Calcified phleboliths are seen in the pelvis. Other: No acute abnormality is seen. RAD/HIP, UNI W/ Pelvis 2-3 Views IMPRESSION: No acute abnormality is seen. Reading Location: [place] [id number]
[2025-02-26 12:02] LABS: Anion Gap 12 (5-15); BUN 10 mg/dL (4-19); BUN/Creat Ratio 13.4 RATIO (10-20); Calcium,Total 9.2 mg/dL (7.6-11.0); Carbon Dioxide 25.9 mmol/L (21.0-32.0); Chloride 93 mmol/L (98-108); Creatinine, Serum 0.72 mg/dL (0.70-1.20); EST Glomerular Filtration Rate 85 (>60); Glucose 117 mg/dL (70-99); Sodium Level 130 mmol/L (133-145)
[2025-02-26 12:07] VITALS: BP 160/72; PULSE 78; RESP 18; TEMP 36.5; O2SAT 100
--- NOTE | 2025-02-26 12:08 | ED.RN ---
spoke with Jailyn atkins at [facility] for pt update that she will be being discharged back to facility. Nurse stated that daughter Anyi has been notified.
--- OUTSIDE RECORDS SUMMARY | 2025-02-26 20:49 | XMS RPT_ITS | CCD ---
Author Organization [facility] Care Team Providers Care Meters Superintendent Name Role Phone Mylene JONES, Pili Primary Care Provider [phone] Mylene JONES, Pili Referring Provider Dr. Silver Doe MD Attending Provider Dr. Roseann Eli MD Primary Care Provider Dr. Roseann Eli MD Attending Provider Dr. Roseann Eli MD Referring Provider Dr. Epifanio Zamora MD Attending Provider Unavail Dr. Kalyan Khan MD Emergency Provider Dr. Epifanio Zamora DO Primary Care Provider [phone] Mylene JONES, Pili Primary Care Provider Pili Chakraborty MD Referring Provider Dr. Silver Doe MD Attending Provider Dr. Roseann Eli MD Primary Care Provider Dr. Roseann Eli MD Attending Provider Dr. Roseann Eli MD Referring Provider Dr. Epifanio Zamora MD Attending Provider Unavail Dr. Kalyan Khan MD Attending Provider Dr. Kalyan Dozier MD Emergency Provider Dr. Epifanio Zamora DO Primary Care Provider [phone] Dr. Kenney Weber MD Emergency Provider Dr. Sushil Gutierrez DO Emergency Provider Dr. Kenney Weber MD Attending Provider Mylene, Chalon Primary Care Unavailable Mylene, Chalon Referring Unavailable Silver Doe Attending Unavailable Noah, Epifanio Primary Care Unavailable Sushil Gutierrez Attending Unavailable Santiagoer, Brianna Attending Unavailable Sherlydner, Brianna Referring Unavailable Jolliff, Roseann S Primary Care Unavailable Jolliff, Roseann S Primary Care Unavailable Mylene, Chalon Attending Unavailable Mylene, Chalon Referring Unavailable Jolliff, Roseann S Primary Care Unavailable Epifanio Bowman Attending Unavailable Jolliff, Roseann S Primary Care Unavailable Jolliff, Roseann S Attending Unavailable Jolliff, Roseann S Referring Unavailable Mylene, Chalon Primary Care Unavailable Mylene, Pili Attending Unavailable Noah, Epifanio Primary Care Unavailable Dozier, Kalyan Attending Unavailable Epifanio Zamora Primary Care Unavailable Kenney Weber Attending Unavailable Dr. Roseann Eli MD Primary Care Provider [phone] Dr. Sushil Gutierrez DO Attending Provider [phone] Dr. 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 and steroids can make this worse (5 sources) montelukast Drug Allergy 5 Hives [facility] (5 sources) Penicillins Allergy to substance 5 unknown [facility] (6 sources) diphtheria, pertussis, tetanus vacc; Translations: [diphtheria, pertussis, tetanus vacc] Allergy to substance 5 [facility] (6 sources) influenza virus vaccine, specific; Translations: [influenza virus vaccine, specific] Allergy to substance 5 [facility] (1 source) Albuterol Drug Allergy 5 [facility] (1 source) Corticosteroids Drug allergy (disorder) 5 [facility] (1 source) Doxycycline Drug Allergy 5 [facility] (1 source) montelukast Drug Allergy 5 [facility] (1 source) Penicillins Drug allergy (disorder) 5 [facility] Medications Current Medications Medication Drug Class(es) Dates Sig (Normalized) Sig (Original) acetaminophen 500 mg oral tablet (1 source) Start: 02-27-20 take 1 tablet by mouth three times daily as needed for pain Acetaminophen 500 mg tablet Active 500 mg PO THREE TIMES A DAY as needed for fever or pain February 26, 2025 12:00am alendronic acid 70 mg oral tablet (5 sources) Bisphosphonate Start: 09-30-19 take 1 tablet by mouth every week Alendronate 70 mg tablet Active 70 mg PO EVERY WEEK September 30, 2024 1:00am ergocalciferol 1.25 mg oral capsule (5 sources) Provitamin D2 Compound Start: 09-30-19 Ergocalciferol (Vitamin D2) 1,250 mcg (50,000 unit) capsule Active 1250 ug PO EVERY WEEK September 30, 2024 1:00am folic acid 1 mg oral tablet (1 source) Start: 02-27-20 take 1 tablet by mouth once daily Folic Acid 1 mg tablet Active 1 mg PO DAILY February 26, 2025 12:00am hydroCHLOROthiazide 25 mg oral tablet (5 sources) Thiazide Diuretic Start: 09-30-19 take 1 tablet by mouth once daily Hydrochlorothiazide 25 mg tablet Active 25 mg PO DAILY September 30, 2024 1:00am loperamide hydrochloride 2 mg oral capsule (1 source) Opioid Agonist Start: 02-27-20 take 1 capsule by mouth once daily Loperamide 2 mg capsule Active 2 mg PO DAILY February 26, 2025 12:00am loratadine 10 mg oral tablet (1 source) Start: 02-27-20 take 1 tablet by mouth once daily Loratadine (Allerclear) 10 mg tablet Active 10 mg PO DAILY February 26, 2025 12:00am meclizine hydrochloride 25 mg oral tablet (1 source) Antiemetic Start: 02-27-20 Meclizine 25 mg tablet Active 12.5 mg PO THREE TIMES A DAY February 26, 2025 12:00am mecobalamin 1 mg chewable tablet (1 source) Start: 02-27-20 take 1 tablet by mouth once daily Mecobalamin (Vitamin B12) 1,000 mcg tablet,chewable Active 1000 ug PO DAILY February 26, 2025 12:00am potassium chloride 10 meq extended release oral capsule (5 sources) Start: 09-30-19 take 1 capsule by mouth once daily Potassium Chloride 10 mEq capsule, extended release Active 10 meq PO DAILY September 30, 2024 1:00am Completed/Discontinued Medications Medication Drug Class(es) Dates Sig (Normalized) Sig (Original) atorvastatin 20 mg oral tablet (5 sources) HMG-CoA Reductase Inhibitor Start: 09-30-2024 End: 02-26-2025 take 1 tablet by mouth at bedtime Atorvastatin 20 mg tablet Discontinued 20 mg PO AT BEDTIME September 30, 2024 1:00am February 26, 2025 10:22am azelastine hydrochloride 0.137 mg/actuat metered dose nasal spray (5 sources) Histamine-1 Receptor Antagonist Start: 09-30-2024 End: 02-26-2025 Azelastine 137 mcg (0.1 %) spray,non-aerosol Discontinued 2 NMA INTRANASAL TWICE A DAY September 30, 2024 1:00am February 26, 2025 10:22am administer into each nostril diphenhydrAMINE hydrochloride 25 mg oral capsule (5 sources) Histamine-1 Receptor Antagonist Start: 09-30-2024 End: 02-26-2025 take 1 capsule by mouth twice daily as needed Diphenhydramine Hcl 25 mg capsule Discontinued 25 mg PO TWICE A DAY as needed September 30, 2024 1:00am February 26, 2025 10:22am Problems Active Problems Problem Classification Problem Date Documented Date Episodic/Chronic Conditions associated with dizziness or vertigo (4 sources) Peripheral vertigo; Translations: [Other peripheral vertigo, unspecified ear] 11-29-2024 Episodic Delirium, dementia, and amnestic and other cognitive disorders (2 sources) Unspecified dementia without behavioral disturbance; Translations: [Unspecified dementia, unspecified severity, without behavioral disturbance, psychotic disturbance, mood disturbance, and anxiety] Onset: 10-18-2024 Chronic E Codes: Fall (9 sources) Fall; Translations: [Unspecified fall, initial encounter] 11-16-2024 Episodic Other injuries and conditions due to external causes (1 source) Encounter for examination and observation following other accident; Translations: [Encounter for examination and observation following other accident] Onset: 01-17-2025 Episodic Other nervous system disorders (9 sources) Bradykinesia; Translations: [Other abnormal involuntary movements] 09-30-2024 Ep[facility]odic Comment on above: Suspect patient's br adykinesia is chronic and present at least a year. Other nervous system disorders (9 sources) Impaired cognition; Translations: [Other symptoms and signs involving cognitive functions and awareness] 09-30-2024 Episodic Comment on above: Patient appears to h ave had cognitive decline over a period of time which I suspect is at least 1 year. More recently is becoming a greater problem and patient has expressed concerns about being at home alone because of a possibly disruptive neighbor who is not necessarily doing anything to her. She is concerned that he uses drugs and that he has friends over and makes her worry.No obvious paranoia or delusional thinking identified. Isolation, loneliness and depression may warrant consideration although patient denies this is a problem.Recommendation would be to consider an MRI of the brain without contrast to assess for areas of atrophy and cerebrovascular disease. Other non-traumatic joint disorders (3 sources) Hip pain; Translations: [Pain in unspecified hip] 12-05-2024 Episodic Other non-traumatic joint disorders (3 sources) Pain in unspecified knee; Translations: [Acute knee pain] 12-05-2024 Episodic Residual codes; unclassified (1 source) Localized edema; Translations: [Localized edema] Onset: 10-23-2024 Episodic Residual codes; unclassified (1 source) Other amnesia; Translations: [Other amnesia] Onset: 10-28-2024 Episodic Superficial injury; contusion (20 sources) Contusion of left front wall of thorax, initial encounter; Translations: [Contusion of rib on left side] 11-16-2024 Episodic Past or Other Problems Problem Classification Problem Date Documented Da te Episodic/Chronic Other nervous system disorders (2 sources) Other symptoms and signs involving cognitive functions and awareness; Translations: [Other symptoms and signs involving cognitive functions and awareness] Onset: 09-30-2024 Episodic Results Test Name Value Interpretation Reference Range Facility Absolute lymphocyte countOrd ered By: Sofia Marrero on 02-26-2025 Lymphocytes Auto (Unsp spec) [#/Vol] 1.13 10*3/uL 0.83-4.51 [facility] Absolute neutrophil countOrd ered By: Sofia Janes on 02-26-2025 Neutrophils (Bld) [#/Vol] 6.2 10*3/uL 2.0-7.7 [facility] Anion gap in Serum or Plasma Ordered By: Sofia Marrero on 02-26-2025 Anion gap [Moles/Vol] 12 mmol/L 5-15 [facility] Automated lymphocyte count a s percentage of total leukocytesOrdered By: Sofia Marrero on 02-26-2025 Lymphocytes/100 WBC Auto (Unsp spec) 14.4 % Low 19-41 [facility] BUN/creatinine ratioOrdered By: Sofia Marrero on 02-26-2025 Urea nitrogen/Creatinine [Mass ratio] 13.4 mg/mg 10-20 [facility] Basophil percentageOrdered B y: Sofia Marrero on 02-26-2025 Basophils/100 WBC (Bld) 0.6 % 0-1 [facility] Carbon dioxide, total [Moles /volume] in Central venous bloodOrdered By: Sofia Marrero on 02-26-2025 CO2 [Moles/Vol] 25.9 mmol/L 21.0-32.0 [facility] Chloride assayOrdered By: Re rudy Marrero on 02-26-2025 Chloride [Moles/Vol] 93 mmol/L Low 98-108 [facility] Eosinophil percentageOrdered By: Sofia Marrero on 02-26-2025 Eosinophils/100 WBC (Bld) 0.5 % 0-5 [facility] Erythrocyte distribution wid th ratioOrdered By: Remus Marrero on 02-26-2025 Erythrocyte distribution width (RBC) [Ratio] 12.3 % 11.6-14.6 [facility] Erythrocyte distribution wid th standard deviationOrdered By: Rem Ungrhina on 02-26-2025 Erythrocyte distribution width (RBC) [Ratio] 37.8 fl 35.1-43.9 [facility] Glomerular filtration rate ( GFR) estimation/1.73 sq m using serum, plasma, or whole bOrdered By: Sofia Marrero on 02-26-2025 GFR/1.73 sq M.predicted among non-blacks MDRD (S/P/Bld) [Vol rate/Area] 85 mL/min/{1.73_m2} >60 [facility] Comment on above: mL/min/1.73m2 CKD-EP I Creatinine Equation (2020) Hematocrit Auto (Bld) [Volum e fraction]Ordered By: Sofia Marrero on 02-26-2025 Hematocrit (Bld) [Volume fraction] 39.7 % 37-47 [facility] Hemoglobin measurementOrdere d By: Sofia Marrero on 02-26-2025 Hemoglobin (Bld) [Mass/Vol] 14.0 g/dL 12.0-15.0 [facility] Immature granulocytes/100 WB C Auto (Bld)Ordered By: Sofia Marrero on 02-26-2025 Immature granulocytes/100 WBC (Bld) 0.500 % 0.0-0.9 [facility] Comment on above: IG% - Immature Granu locytes (promyelocytes, myelocytes and metamyelocytes) > 1% indicates that a LEFT SHIFT is Present. MCV (mean corpuscular volume ) determinationOrdered By: Sofia Marrero on 02-26-2025 MCV (RBC) [Entitic vol] 85.0 fL 81-99 [facility] Mean corpuscular hemoglobin (MCH) determinationOrdered By: Sofia Marrero on 02-26-2025 MCH (RBC) [Entitic mass] 30.0 pg 27.0-32.0 [facility] Mean corpuscular hemoglobin concentration (MCHC) determinationOrdered By: Sofia Marrero on 02-26-2025 MCHC (RBC) [Mass/Vol] 35.3 g/dL 32-36 [facility] Mean platelet volume determi nationOrdered By: Sofia Marrero on 02-26-2025 Platelet mean volume (Bld) [Entitic vol] 9.6 fL 6.2-12.0 [facility] Monocyte percentageOrdered B y: Sofia Marrero on 02-26-2025 Monocytes/100 WBC (Bld) 5.1 % 0-10 [facility] Neutrophil percentageOrdered By: Sofia Marrero on 02-26-2025 Neutrophils/100 WBC (Bld) 78.9 % High 47-70 [facility] Nucleated red blood cell per centageOrdered By: Sofia Marrero on 02-26-2025 Nucleated RBC/100 WBC (Bld) [Ratio] 0 % 0-5 [facility] Platelet countOrdered By: Radha Marrero on 02-26-2025 Platelets (Bld) [#/Vol] 297 10*3/uL 150-450 [facility] Potassium measurement (mass/ volume)Ordered By: Sofia Marrero on 02-26-2025 Potassium (Unsp spec) [Mass/Vol] 4.0 mmol/L 3.3-5.1 [facility] Comment on above: Hemolysis present, R esults could be affected. RBC Auto (Bld) [#/Vol]Ordere d By: Sofia Marrero on 02-26-2025 RBC (Bld) [#/Vol] 4.67 10*6/uL 4.2-5.4 [facility] Serum creatinine measurement (mass/volume)Ordered By: Sofia Marrero on 02-26-2025 Creatinine [Mass/Vol] 0.72 mg/dL 0.70-1.20 [facility] Serum glucose measurement (m ass/volume)Ordered By: Sofia Marrero on 02-26-2025 Glucose [Mass/Vol] 117 mg/dL High 70-99 [facility] Serum or plasma calcium roel urement (mass/volume)Ordered By: Sofia Marrero on 02-26-2025 Calcium [Mass/Vol] 9.2 mg/dL 7.6-11.0 [facility] Serum or plasma urea nitroge n measurement (mass/volume)Ordered By: Sofia Marrero on 02-26-2025 Urea nitrogen [Mass/Vol] 10 mg/dL 4-19 [facility] Sodium levelOrdered By: Edwina juan diego Janes on 02-26-2025 Sodium [Moles/Vol] 130 mmol/L Low 133-145 [facility] White blood cell (WBC) count Ordered By: Sofia Marrero on 02-26-2025 WBC (Bld) [#/Vol] 7.9 10*3/uL 4.4-11.0 [facility] Brain/Head without Contrasto n 12-05-2024 Brain/Head without Contrast [facility] Imaging Services [address] [place] [address] Brain/Head without Contrast MR#: [id number] Acct: [id number] Name: ZHENG ROY Rep #: [id number] : 1945 F 79 From: Mary Ann Llanos MD PCP: Dr. Epifanio Zamora DO Status: REG ER Study: Brain/Head without Contrast Date of Exam: 11/10 04/04 Exam# [id number] Ordering Dr: Sushil Gutierrez DO PROCEDURE: BRAIN/HEAD WITHOUT CONTRAST 12/05/2024 REASON FOR EXAM: FALL INJURY TECHNIQUE: Head CT without intravenous contrast. Coronal and Sagittal reconstruction series were provided. One or more dose reduction techniques were used (e.g., Automated exposure control, adjustment of the mA and/or kV according to patient size, use of iterative reconstruction technique. COMPARISON: 11/29/2024 FINDINGS: No acute intracranial hemorrhage. No loss of young-white differentiation.The ventricles and sulci are normal in appearance. The osseous structures are unremarkable. No soft tissue abnormality identified. There is a small mucous retention cyst or polyp in the left maxillary sinus. CT/Brain/Head without Contrast IMPRESSION: 1. No acute intracranial abnormality. Reading Location: [facility] CC: Dr. Sushil Gutierrez DO; Dr. Epifanio Zamora DO Board Certified Family Physician: Signed Normal [facility] Emergency Department Summary on 12-05-2024 Emergency Department Summary [facility] Medical Records Department [address] [place] [address] Emergency Department Summary 12/05/24 MR#: [id number] Acct: [id number] Name: ZHENG ROY Rep #: [id number] : 1945 79 From: Sushil Gutierrez DO PCP: Dr. Epifanio Zamora DO Status:REG ER Location: ED HPI HPI - Fall History of Present Illness Chief Complaint: Fall Informant: patient, family, EMS and SNF Narrative Narrative: 79[facility]-old [facility] presenting [facility] emergency room with a fall. Patient herself has significant dementia and cannot provide accurate history. It was reported that she fell off her bed today possibly injuring her right knee. Patient states she has pain in her right hip. But she also forgets about the right hip pain and tells me that her pain is in her knee. She then also forgets about her knee. There is no reported head injury. Patient's denying any neck or significant back pain. There is no report of being on anticoagulants. [facility] Medical History Dementia Basal cell carcinoma Hypertension Osteoporosis Hypercholesteremia Prediabetes Home Medications ???Medication ???Instructions ???Recorded ???Last Taken ???Type alendronate 70 mg tablet 70 mg PO QWEEK 09/30/24 Unknown Hi story atorvastatin 20 mg tablet 20 mg PO QHS 09/30/24 Unknown Hist ory azelastine 137 mcg (0.1 %) nasal 2 spray intranasal BID 09/30/24 Un known History spray diphenhydramine HCl 25 mg capsule 25 mg PO BID PRN 09/30/24 Unknown History ergocalciferol (vitamin D2) 1,250 1,250 mcg PO QWEEK 09/30/24 Unkno wn History mcg (50,000 unit) capsule hydrochlorothiazide 25 mg tablet 25 mg PO QDAY 09/30/24 Unknown His tory potassium chloride 10 mEq 10 meq PO QDAY 09/30/24 Unknown Hi story capsule,extended release Allergy/AdvReac Type Severity Reaction Status Date / Time albuterol Allergy swollen Verified 12/05/24 12:18 lips Corticosteroids Allergy other Verified 12/05/24 12:18 (Glucocorticoids) (steroids) diphtheria, pertussis, Allergy unknown Verified 12/05/24 12:18 tetanus vacc doxycycline Allergy GI upset Verified 12/05/24 12:18 influenza virus vaccine, Allergy unknown Verified 12/05/24 12:18 specific montelukast (From Singulair) Allergy Hives Verified 12/05/24 12:18 Penicillins Allergy unknown Verified 12/05/24 12:18 Family History Mother , 85 Heart disease Myocardial infarction Father , 91 Heart disease Surgical History History of phacoemulsification of cataract of left eye with intraocular lens implantation Social History household members: none current occupational status: retired pets and animals: Yes pets and animals: dog(s) Smoking Status: Never smoker alcohol intake: never caffeine: No do you feel safe at home: Yes ROS ROS ED Constitutional Constitutional ED: Denies chills or weight loss Eyes Eyes: Denies change in vision or diplopia ENT ENT ED: Denies ear pain, rhinorrhea or sore throat Cardiovascular Cardiovascular: Denies chest pain, orthopnea, palpitations or racing heartbeat Respiratory/Chest Respiratory/Chest: Denies cough, dyspnea or orthopnea Gastrointestinal Gastrointestinal: Denies abdominal pain, diarrhea, nausea or vomiting Genitourinary Genitourinary ED: Denies dysuria, hematuria or urinary frequency Musculoskeletal Musculoskeletal: Reports other Details: See history of present illness ; Denies arthralgias, back pain, myalgias or neck pain Integumentary Denies abscess or rash Neurologic Neurologic: Denies headache(s) or weakness Psychiatric Psychiatric: Denies anxiety, depression, suicidal ideation or suicidal thoughts Endocrine Endocrinology: Denies polydipsia, polyphagia or polyuria Allergic/Immunologic Allergic/Immunologic ED: Denies mouth swelling, tongue swelling or urticaria EXAM Physical Exam Const Vital Signs: 12/05/24 12:11 Temperature 97.6 F L Temperature Source Oral Pulse Rate 76 Respiratory Rate 16 Blood Pressure 182/71 H Blood Pressure Mean 108 Pulse Ox 98 Oxygen Delivery Method Room Air Positive well nourished and well developed General Appearance ED: well developed HEENT Reports normocephalic, head/scalp atraumatic and moist mucous membranes Eyes PERRL and EOMs intact bilaterally Neck no lymphadenopathy, supple and no JVD Resp normal respiratory effort and clear to auscultation bilaterally Cardio regular rate, regular rhythm and no murmurs GI normal to inspection, nondistended, normoactive bowel sounds and non-tender Palpation: (more content not included)... Normal [facility] HIP, UNI W/ Pelvis 2-3 Views on 12-05-2024 HIP, UNI W/ Pelvis 2-3 Views [facility] Imaging Services [address] [place], [place] [id number] HIP, UNI W/ Pelvis 2-3 Views MR#: [id number] Acct: [id number] Name: ZHENG ROY Rep #: [id number] : 1945 F 79 From: Mary Ann Llanos MD PCP: Dr. Epifanio Zamora DO Status: REG ER Study: HIP, UNI W/ Pelvis 2-3 Views Date of Exam: Exam# [id number] Ordering Dr: Sushil Gutierrez DO PROCEDURE: HIP, UNI W/ PELVIS 2-3 VIEWS 12/05/2024 REASON FOR EXAM: INJURY TECHNIQUE: Single frontal view of the pelvis and two views of the right hip. COMPARISON: 12/05/2024 FINDINGS: No acute fracture or dislocation.Very mild degenerative loss of joint space and marginal spurring is present. No soft tissue abnormality. The pelvic soft tissues are unremarkable. RAD/HIP, UNI W/ Pelvis 2-3 Views IMPRESSION: 1. No acute abnormality. Reading Location: [facility] CC: Dr. Sushil Gutierrez DO; Dr. Epifanio Zamora DO Board Certified Family Physician: Signed Normal [facility] Knee 4 or More Viewson 12-05 Knee 4 or More Views [facility] Imaging Services [address] [place] [address] [id number] Knee 4 or More Views MR#: [id number] Acct: [id number] Name: ZHENG ROY Rep #: [id number] : 1945 F 79 From: Mary Ann Llanos MD PCP: Dr. Epifanio Zamora DO Status: REG ER Study: Knee 4 or More Views Date of Exam: 12/05/24 Exam# [id number] Ordering Dr: Sushil Gutierrez DO PROCEDURE: KNEE 4 OR MORE VIEWS 12/05/2024 REASON FOR EXAM: INJURY TECHNIQUE: 4 view(s) of the right knee COMPARISON: 12/05/2024 FINDINGS: No acute fracture or dislocation.No degenerative changes. No joint effusion. No soft tissue abnormality. RAD/Knee 4 or More Views IMPRESSION: No acute abnormality. [facility] CC: Dr. Sushil Gutierrez DO; Dr. Epifanio Zamora DO Board Certified Family Physician: Signed Normal [facility] Absolute lymphocyte countOrd ered By: Kenney Weber on 11-29-2024 Lymphocytes Auto (Unsp spec) [#/Vol] 1.17 10*3/uL 0.83-4.51 [facility] Absolute neutrophil countOrd ered By: Kenney Weber on 11-29-2024 Neutrophils (Bld) [#/Vol] 7.5 10*3/uL 2.0-7.7 [facility] Anion gap in Serum or Plasma Ordered By: Kenney Weber on 11-29-2024 Anion gap [Moles/Vol] 12 mmol/L 5-15 [facility] Automated lymphocyte count a s percentage of total leukocytesOrdered By: Kenney Weber on 11-29-2024 Lymphocytes/100 WBC Auto (Unsp spec) 12.8 % Low 19-41 [facility] BUN/creatinine ratioOrdered By: Kenney Weber on 11-29-2024 Urea nitrogen/Creatinine [Mass ratio] 16.9 mg/mg 10- [facility] Basic Metabolic Profile (BMP )on 11-29-2024 BUN/CRE 16.9 RATIO Normal - [facility] Comment on above: Performed By: #### L 100.0100, L500.2500 ####[facility] [address] [place], [address] Calcium [Mass/Vol] 9.2 mg/dL Normal 7.6-11.0 [facility] Comment on above: Performed By: #### L 100.0100, L500.2500 ####[facility] [address] [place], [address] Chloride [Moles/Vol] 94 mmol/L Low 98-108 [facility] Comment on above: Performed By: #### L 100.0100, L500.2500 ####[facility] [address] [place], [address] CO2 [Moles/Vol] 22.8 mmol/L Normal 21.0-32.0 [facility] Comment on above: Performed By: #### L 100.0100, L500.2500 ####[facility] [address] [place], [address] Creatinine [Mass/Vol] 0.78 mg/dL Normal 0.70-1.20 [facility] Comment on above: Performed By: #### L 100.0100, L500.2500 ####[facility] [address] [place], [address] ECRCL 57.61 ml/min Normal 50-250 [facility] Comment on above: Performed By: #### L 100.0100, L500.2500 ####[facility] [address] [place], [address] GAP 12 Normal 5-15 [facility] Comment on above: Performed By: #### L 100.0100, L500.2500 ####[facility] [address] [place], [address] GFR/1.73 sq M.predicted among non-blacks MDRD (S/P/Bld) [Vol rate/Area] 77 mL/min/{1.73_m2} Normal >60 [facility] Comment on above: Result Comment: mL/m in/1.73m2 CKD-EPI Creatinine Equation (2020) Performed By: #### L 100.0100, L500.2500 ####[facility] [address] [place], [address] Glucose [Mass/Vol] 114 mg/dL High 70-99 [facility] Comment on above: Performed By: #### L 100.0100, L500.2500 ####[facility] [address] [place], [address] Potassium [Moles/Vol] 4.8 mmol/L Normal 3.3-5.1 [facility] Comment on above: Result Comment: Hemo lysis present, Results??could be affected. ?? Performed By: #### L 100.0100, L500.2500 ####[facility] [address] [place], [address] Sodium [Moles/Vol] 129 mmol/L Low 133-145 [facility] Comment on above: Performed By: #### L 100.0100, L500.2500 ####[facility] [address] [place], [address] Urea nitrogen [Mass/Vol] 13 mg/dL Normal 4-19 [facility] Comment on above: Performed By: #### L 100.0100, L500.2500 ####[facility] [address] [place], [address] Basophil percentageOrdered B y: Kenney Weber on 11-29-2024 Basophils/100 WBC (Bld) 0.5 % 0-1 [facility] Brain/Head without Contrasto n 11-29-2024 Brain/Head without Contrast [facility] Imaging Services [address] [place] [address] Brain/Head without Contrast MR#: [id number] Acct: [id number] Name: ZHENG ROY Rep #: [id number] : 1945 F 79 From: Cornell Pressley MD PCP: Dr. Epifanio Zamora, DO Status: REG ER Study: Brain/Head without Contrast Date of Exam: 11/10 10/05 Exam# [id number] Ordering Dr: Kenney Weber MD PROCEDURE: BRAIN/HEAD WITHOUT CONTRAST (CTBR), 11/29/2024 REASON FOR EXAM: VERTIGO, FALL COMPARISON: None TECHNIQUE: CT head was performed without IV contrast. Multiplanar reformats were generated. RADIATION DOSE SUMMARY: CTDlvol: 47.06 mGy DLP: 837.39 mGycm One or more dose reduction techniques were used (e.g., Automated exposure control, adjustment of the mA and/or kV according to patient size, use of iterative reconstruction technique). FINDINGS: Cerebrum: No visible intracranial hemorrhage, definite acute territorial infarct, or mass. Mild/moderate cerebral volume loss. Minimal patchy supratentorial white matter hypodensity, nonspecific but compatible with chronic microvascular ischemic changes. Cerebellum/brainstem: Unremarkable. Note slight limitation due to beam hardening artifact. Ventricles/extra-axial spaces: 3rd and lateral ventriculomegaly appears borderline slightly out of proportion to the degree of volume loss with relative sulcal effacement at the vertex. Paranasal sinuses/mastoid air cells: Mild mucosal thickening in the ethmoid air cells.. Scalp/calvarium: Unremarkable. Other: Intracranial atherosclerosis. CT/Brain/Head without Contrast IMPRESSION: 1. No visible acute intracranial findings. If there is persistent concern for an acute intracranial process, consider MRI. 2. Borderline findings which are nonspecific but may be seen in the setting of communicating/normal pressure hydrocephalus, given the appropriate clinical context. 3. Mild ethmoid paranasal sinus disease. 4. Additional description as above. Reading Location: [id number] CC: Dr. Kenney Weber MD; Dr. Epifanio Zamora DO Board Certified Family Physician: Signed Normal [facility] CBC W/Diff, Automatedon 11-10 Absolute Lymph 1.17 X10 3/uL Normal 0.83-4.51 [facility] Comment on above: Performed By: #### L 100.0100, L500.2500 ####[facility] [address] [place], [address] Absolute Neut 7.5 X10 3/uL Normal 2.0-7.7 [facility] Comment on above: Performed By: #### L 100.0100, L500.2500 ####[facility] [address] [place], [address] Basophils/100 WBC (Bld) 0.5 % Normal 0-1 [facility] Comment on above: Performed By: #### L 100.0100, L500.2500 ####[facility] [address] [place], [address] Eosinophils/100 WBC (Bld) 0.4 % Normal 0-5 [facility] Comment on above: Performed By: #### L 100.0100, L500.2500 ####[facility] [address] [place], [address] Erythrocyte distribution width (RBC) [Ratio] 11.9 % Normal 11.6-14.6 [facility] Comment on above: Performed By: #### L 100.0100, L500.2500 ####[facility] [address] [place], [address] Hematocrit (Bld) [Volume fraction] 39.8 % Normal 37-47 [facility] Comment on above: Performed By: #### L 100.0100, L500.2500 ####[facility] [address] [place], [address] Hemoglobin (Bld) [Mass/Vol] 13.9 g/dL Normal 12.0-15.0 [facility] Comment on above: Performed By: #### L 100.0100, L500.2500 ####[facility] [address] [place], [address] IG% 0.300 Normal 0.0-0.9 [facility] Comment on above: Result Comment: IG% - Immature Granulocytes (promyelocytes, myelocytes and metamyelocytes) > 1% indicates that a LEFT SHIFT is Present. Performed By: #### L 100.0100, L500.2500 ####[facility] [address] [place], [address] Lymphocytes/100 WBC (Bld) 12.8 % Low 19-41 [facility] Comment on above: Performed By: #### L 100.0100, L500.2500 ####[facility] [address] [place], [address] MCH (RBC) [Entitic mass] 30.5 pg Normal 27.0-32.0 [facility] Comment on above: Performed By: #### L 100.0100, L500.2500 ####[facility] [address] [place], [address] MCHC (RBC) [Mass/Vol] 34.9 g/dL Normal 32-36 [facility] Comment on above: Performed By: #### L 100.0100, L500.2500 ####[facility] [address] [place], [address] MCV (RBC) [Entitic vol] 87.5 fL Normal 81-99 [facility] Comment on above: Performed By: #### L 100.0100, L500.2500 ####[facility] [address] [place], [address] Monocytes/100 WBC (Bld) 4.5 % Normal 0-10 [facility] Comment on above: Performed By: #### L 100.0100, L500.2500 ####[facility] [address] [place], [address] Neutrophils/100 WBC (Bld) 81.5 % High 47-70 [facility] Comment on above: Performed By: #### L 100.0100, L500.2500 ####[facility] [address] [place], [address] Nucleated RBC (Bld) [#/Vol] 0 10*3/uL Normal 0-5 [facility] Comment on above: Performed By: #### L 100.0100, L500.2500 ####[facility] [address] [place], [address] Platelet mean volume (Bld) [Entitic vol] 9.7 fL Normal 6.2-12.0 [facility] Comment on above: Performed By: #### L 100.0100, L500.2500 ####[facility] [address] [place], [address] Platelets (Bld) [#/Vol] 302 10*3/uL Normal 150-450 [facility] Comment on above: Performed By: #### L 100.0100, L500.2500 ####[facility] [address] [place], [address] RBC (Bld) [#/Vol] 4.55 10*6/uL Normal 4.2-5.4 [facility] Comment on above: Performed By: #### L 100.0100, L500.2500 ####[facility] [address] [place], [address] RDW SD 38.4 fl Normal 35.1-43.9 [facility] Comment on above: Performed By: #### L 100.0100, L500.2500 ####[facility] [address] [place], [address] WBC (Bld) [#/Vol] 9.2 10*3/uL Normal 4.4-11.0 [facility] Comment on above: Performed By: #### L 100.0100, L500.2500 ####[facility] [address] [place], [address] Carbon dioxide, total [Moles /volume] in Central venous bloodOrdered By: Kenney Weber on 11-29-2024 CO2 [Moles/Vol] 22.8 mmol/L 21.0-32.0 [facility] Chloride assayOrdered By: Jostin Weber on 11-29-2024 Chloride [Moles/Vol] 94 mmol/L Low 98-108 [facility] Summary on 11-29-2024 Emergency Department Summary [facility] Medical Records Department [address] [place] [address] Emergency Department Summary 11/29/24 MR#: [id number] Acct: [id number] Name: ZHENG ROY Rep #: [id number] : 1945 79 From: Kenney Weber MD PCP: Dr. Epifanio Zamora, DO Status:DEP ER Location: ED HPI History of Present Illness Chief Complaint: Fall Informant: patient Narrative Narrative: 79-year-old female states she has had intermittent episodic dizziness that feels like spinning/movement for the last 3 days. This morning she had an episode when she turned her head and she fell while in the hallway of her building, injuring her left chest wall/rib cage, she denies pain or injury elsewhere. She is not currently feeling dizzy. She denies any vomiting. No recent illness. [facility] Medical History Dementia Basal cell carcinoma Hypertension Osteoporosis Hypercholesteremia Prediabetes Home Medications ???Medication ???Instructions ???Recorded ???Last Taken ???Type alendronate 70 mg tablet 70 mg PO QWEEK 09/30/24 Unknown Hi story atorvastatin 20 mg tablet 20 mg PO QHS 09/30/24 Unknown Hist ory azelastine 137 mcg (0.1 %) nasal 2 spray intranasal BID 09/30/24 Un known History spray diphenhydramine HCl 25 mg capsule 25 mg PO BID PRN 09/30/24 Unknown History ergocalciferol (vitamin D2) 1,250 1,250 mcg PO QWEEK 09/30/24 Unkno wn History mcg (50,000 unit) capsule hydrochlorothiazide 25 mg tablet 25 mg PO QDAY 09/30/24 Unknown His tory potassium chloride 10 mEq 10 meq PO QDAY 09/30/24 Unknown Hi story capsule,extended release Allergy/AdvReac Type Severity Reaction Status Date / Time albuterol Allergy swollen Verified 09/30/24 14:37 lips Corticosteroids Allergy other Verified 09/30/24 14:37 (Glucocorticoids) (steroids) diphtheria, pertussis, Allergy unknown Verified 09/30/24 14:37 tetanus vacc doxycycline Allergy GI upset Verified 09/30/24 14:37 influenza virus vaccine, Allergy unknown Verified 09/30/24 14:37 specific montelukast (From Singulair) Allergy Hives Verified 09/30/24 14:37 Penicillins Allergy unknown Verified 09/30/24 14:37 Family History Mother , 85 Heart disease Myocardial infarction Father , 91 Heart disease Surgical History History of phacoemulsification of cataract of left eye with intraocular lens implantation Social History household members: none current occupational status: retired pets and animals: Yes pets and animals: dog(s) Smoking Status: Never smoker alcohol intake: never caffeine: No do you feel safe at home: Yes ROS ROS ED Review of Systems ROS Unobtainable: due to mental condition Constitutional Constitutional ED: Denies chills or fever(s) Eyes Eyes: Denies change in vision or diplopia ENT ENT ED: Reports vertigo; Denies rhinorrhea or sore throat Cardiovascular Cardiovascular: Reports as per HPI and chest pain; Denies palpitations Respiratory/Chest Respiratory/Chest: Denies cough or dyspnea Gastrointestinal Gastrointestinal: Denies abdominal pain, diarrhea, nausea or vomiting Musculoskeletal Musculoskeletal: Denies back pain or neck pain Integumentary Denies abscess or rash Neurologic Neurologic: Denies headache(s), paresthesias or weakness Psychiatric Psychiatric: Denies anxiety or suicidal thoughts EXAM Physical Exam Const Vital Signs: 11/29/24 11:58 11/29/24 12:30 11/29/24 12:35 Temperature 98.0 F Temperature Source Oral Pulse Rate 78 79 Respiratory Rate 14 18 Respiratory Effort Normal Non-Labored Respiratory Depth Normal Respiratory Pattern Normal Blood Pressure 183/72 H 183/72 H Blood Pressure Mean 109 109 Pulse Ox 99 99 Oxygen Delivery Method Room Air Room Air Room Air Positive well nourished and well developed General Appearance ED: well developed and NAD HEENT Reports TM's clear and moist mucous membranes HEENT Narrative: [place] recreates dizziness transiently bilaterally. No direction changing nystagmus. normocephalic and atraumatic Tympanic Membrane ED: Yes TM's clear Eyes PERRL and EOMs intact bilaterally Neck full ROM and supple Chest Wall Chest Narrative: Chest wall tender left anterior axillary line, no subcutaneous emphysema or step-off, no splinting with deep inspiration no other areas of chest wall tenderness. Resp normal respiratory effort and clear to auscultation bilaterally Cardio regular rate and regular rhythm Rate: other Other Details: Soft systolic ejection murmur GI non-tender and non-distended Aus (more content not included)... Normal [facility] Eosinophil percentageOrdered By: Kenney Weber on 11-29-2024 Eosinophils/100 WBC (Bld) 0.4 % 0-5 [facility] Erythrocyte distribution wid th ratioOrdered By: Kenney Weber on 11-29-2024 Erythrocyte distribution width (RBC) [Ratio] 11.9 % 11.6-14.6 [facility] Erythrocyte distribution wid th standard deviationOrdered By: Kenney Weber on 11-29-2024 Erythrocyte distribution width (RBC) [Entitic vol] 38.4 fL 35.1-43.9 [facility] Erythrocyte distribution width (RBC) [Ratio] 38.4 fl 35.1-43.9 [facility] Estimation of creatinine quinn aranceOrdered By: Kenney Weber on 11-29-2024 Estimated Creatinine Clearance Calc 57.61 ml/min 50-250 [facility] GFR/1.73 sq M.predicted anali g non-blacks MDRD (S/P/Bld) [Vol rate/Area]Ordered By: Kenney Weber on 11-29-2024 Estimated GFR (MDRD) Non-Af Amer 77 >60 [facility] Comment on above: mL/min/1.73m2 CKD-EP I Creatinine Equation (2020) Glomerular filtration rate ( GFR) estimation/1.73 sq m using serum, plasma, or whole bOrdered By: Kenney Weber on 11-29-2024 GFR/1.73 sq M.predicted among non-blacks MDRD (S/P/Bld) [Vol rate/Area] 77 mL/min/{1.73_m2} >60 [facility] Comment on above: mL/min/1.73m2 CKD-EP I Creatinine Equation (2020) Hematocrit Auto (Bld) [Volum e fraction]Ordered By: Kenney Weber on 11-29-2024 Hematocrit (Bld) [Volume fraction] 39.8 % 37-47 [facility] Hemoglobin measurementOrdere d By: Kenney Weber on 11-29-2024 Hemoglobin (Bld) [Mass/Vol] 13.9 g/dL 12.0-15.0 [facility] Immature granulocytes/100 WB C Auto (Bld)Ordered By: Kenney Weber on 11-29-2024 Immature granulocytes/100 WBC (Bld) 0.300 % 0.0-0.9 [facility] Comment on above: IG% - Immature Granu locytes (promyelocytes, myelocytes and metamyelocytes) > 1% indicates that a LEFT SHIFT is Present. Lymphocytes Auto (Unsp spec) [#/Vol]Ordered By: Kenney Weber on 11-29-2024 Lymphocytes (Bld) [#/Vol] 1.17 10*3/uL 0.83-4.51 [facility] Lymphocytes/100 WBC Auto (Un sp spec)Ordered By: Kenney Weber on 11-29-2024 Lymphocytes/100 WBC (Bld) 12.8 % Low 19-41 [facility] MCV (mean corpuscular volume ) determinationOrdered By: Kenney Weber on 11-29-2024 MCV (RBC) [Entitic vol] 87.5 fL 81-99 [facility] Mean corpuscular hemoglobin (MCH) determinationOrdered By: Kenney Weber on 11-29-2024 MCH (RBC) [Entitic mass] 30.5 pg 27.0-32.0 [facility] Mean corpuscular hemoglobin concentration (MCHC) determinationOrdered By: Kenney Weber on 11-29-2024 MCHC (RBC) [Mass/Vol] 34.9 g/dL 32-36 [facility] Mean platelet volume determi nationOrdered By: Kenney Weber on 11-29-2024 Platelet mean volume (Bld) [Entitic vol] 9.7 fL 6.2-12.0 [facility] Monocyte percentageOrdered B y: Kenney Weber on 11-29-2024 Monocytes/100 WBC (Bld) 4.5 % 0-10 [facility] Neutrophil percentageOrdered By: Kenney Weber on 11-29-2024 Neutrophils/100 WBC (Bld) 81.5 % High 47-70 [facility] Nucleated red blood cell per centageOrdered By: Kennye Weber on 11-29-2024 Nucleated RBC/100 WBC (Bld) [Ratio] 0 % 0-5 [facility] Platelet countOrdered By: Jostin Weber on 11-29-2024 Platelets (Bld) [#/Vol] 302 10*3/uL 150-450 [facility] Potassium (Unsp spec) [Mass/ Vol]Ordered By: Kenney Weber on 11-29-2024 Potassium [Moles/Vol] 4.8 mmol/L 3.3-5.1 [facility] Comment on above: Hemolysis present, R esults could be affected. Potassium measurement (mass/ volume)Ordered By: Kenney Weber on 11-29-2024 Potassium (Unsp spec) [Mass/Vol] 4.8 mmol/L 3.3-5.1 [facility] Comment on above: Hemolysis present, R esults could be affected. RBC Auto (Bld) [#/Vol]Ordere d By: Kenney Weber on 11-29-2024 RBC (Bld) [#/Vol] 4.55 10*6/uL 4.2-5.4 [facility] Ribs Uni Min 3V w/PA Cheston 11-29-2024 Ribs Uni Min 3V w/PA Chest [facility] Imaging Services [address] [place] [address] Ribs Uni Min 3V w/PA Chest MR#: [id number] Acct: [id number] Name: ZHENG ROY Rep #: [id number] : 1945 F 79 From: Ezekiel lovelace MD PCP: Dr. Epifanio Zamora, DO Status: [facility] ER Study: Ribs Uni Min 3V w/PA Chest Date of Exam: 11/29 Exam# [id number] Ordering Dr: Kenney Weber MD PROCEDURE: RIBS UNI MIN 3V W/PA CHEST 11/29/2024 REASON FOR EXAM: INJURY/FALL TECHNIQUE: Frontal and bilateral oblique views of the bilateral ribs. COMPARISON: Comparison is made with prior study dated November 16, 2024. FINDINGS: Findings: The lungs are well inflated. No focal infiltrate is seen. No evidence of pneumothorax. Other: No rib fracture is seen. Degenerative changes of the visualized thoracic vertebrae. Calcification of the aortic arch. RAD/Ribs Uni Min 3V w/PA Chest IMPRESSION: No acute abnormality is seen. Reading Location: [place] [address] CC: Dr. Kenney Weber MD; Dr. Epifanio Zamora DO Board Certified Family Physician: Signed Normal [facility] Serum creatinine measurement (mass/volume)Ordered By: Kenney Weber on 11-29-2024 Creatinine [Mass/Vol] 0.78 mg/dL 0.70-1.20 [facility] Serum glucose measurement (m ass/volume)Ordered By: Kenney Weber on 11-29-2024 Glucose [Mass/Vol] 114 mg/dL High 70-99 [facility] Serum or plasma calcium roel urement (mass/volume)Ordered By: Kenney Weber on 11-29-2024 Calcium [Mass/Vol] 9.2 mg/dL 7.6-11.0 [facility] Serum or plasma urea nitroge n measurement (mass/volume)Ordered By: Kenney Weber on 11-29-2024 Urea nitrogen [Mass/Vol] 13 mg/dL 4-19 [facility] Sodium levelOrdered By: Favio Weber on 11-29-2024 Sodium [Moles/Vol] 129 mmol/L Low 133-145 [facility] White blood cell (WBC) count Ordered By: Kenney Weber on 11-29-2024 WBC (Bld) [#/Vol] 9.2 10*3/uL 4.4-11.0 [facility] Emergency Department Summary on 11-16-2024 Emergency Department Summary [facility] Medical Records Department [address] [place] [address] Emergency Department Summary 11/16/24 MR#: [id number] Acct: [id number] Name: ZHENG ROY Rep #: [id number] : 1945 79 From: Astrid EASTON PCP: Dr. Epifanio Zamora DO Status:REG ER Location: ED HPI History of Present Illness Chief Complaint: Fall Narrative Narrative: 79-year-old female had an unwitnessed fall at [facility]. She was apparently found on the ground facedown near the dining area. She has no external signs of injury but complains of left shoulder pain. She is not on blood thinners. Daughter states she has dementia and moved into [facility] in September 2024 and since then has fallen a total of 2 times including today. She ambulates well without assistance or assistive devices. Patient is not sure why she fell off but can provide limited history secondary to dementia. Her daughter is here and states she is acting at baseline. [facility] Medical History (Updated 11/16/24 @ 19:22 by RUSTAM Shepard) Dementia Basal cell carcinoma Hypertension Osteoporosis Hypercholesteremia Prediabetes Home Medications ???Medication ???Instructions ???Recorded ???Last Taken ???Type alendronate 70 mg tablet 70 mg PO QWEEK 09/30/24 Unknown Hi story atorvastatin 20 mg tablet 20 mg PO QHS 09/30/24 Unknown Hist ory azelastine 137 mcg (0.1 %) nasal 2 spray intranasal BID 09/30/24 Un known History spray diphenhydramine HCl 25 mg capsule 25 mg PO BID PRN 09/30/24 Unknown History ergocalciferol (vitamin D2) 1,250 1,250 mcg PO QWEEK 09/30/24 Unkno wn History mcg (50,000 unit) capsule hydrochlorothiazide 25 mg tablet 25 mg PO QDAY 09/30/24 Unknown His tory potassium chloride 10 mEq 10 meq PO QDAY 09/30/24 Unknown Hi story capsule,extended release Allergy/AdvReac Type Severity Reaction Status Date / Time albuterol Allergy swollen Verified 09/30/24 14:37 lips Corticosteroids Allergy other Verified 09/30/24 14:37 (Glucocorticoids) (steroids) diphtheria, pertussis, Allergy unknown Verified 09/30/24 14:37 tetanus vacc doxycycline Allergy GI upset Verified 09/30/24 14:37 influenza virus vaccine, Allergy unknown Verified 09/30/24 14:37 specific montelukast (From Singulair) Allergy Hives Verified 09/30/24 14:37 Penicillins Allergy unknown Verified 09/30/24 14:37 Family History Mother , 85 Heart disease Myocardial infarction Father , 91 Heart disease Surgical History History of phacoemulsification of cataract of left eye with intraocular lens implantation Social History household members: none current occupational status: retired pets and animals: Yes pets and animals: dog(s) Smoking Status: Never smoker alcohol intake: never caffeine: No do you feel safe at home: Yes ROS ROS ED ROS Narrative Denies headache, nausea or vomiting. EXAM Physical Exam Narrative Exam Narrative: CONST: Patient sitting in no acute distress. EYES: Normal inspection. PERRL, EOMI. HEAD: Normocephalic atraumatic. NECK: Normal inspection. No midline tenderness or step-offs. RESP: No respiratory distress, CTAB. Tender over left ribs without deformity or crepitus. CVS: Regular rate and rhythm, no murmur, no gallop. ABD: Soft and nontender, no guarding or rebound, nondistender. Back: Normal inspection, no midline tenderness. SKIN: Color normal, no rash, warm, dry, intact. EXTREMITIES: Normal appearance, tender over left anterior shoulder and left distal radius. No deformity or crepitus. Full passive range of motion. Normal sensation in axillary median radial and ulnar distributions. 2+ radial pulses. Brisk cap refill. No tenderness right upper extremity. Pelvis stable, no tenderness of lower extremities, 2+ DP pulses. NEURO: Alert and oriented to self, age, place PSYCH: Normal affect. Const Vital Signs: 11/16/24 18:16 11/16/24 18:28 Temperature 97.7 F L Temperature Source Temporal Pulse Rate 83 Respiratory Rate 18 Respiratory Effort Normal Non-Labored Respiratory Depth Normal Respiratory Pattern Normal Blood Pressure 167/63 H Blood Pressure Mean 97 Pulse Ox 99 Oxygen Delivery Method Room Air Physical Exam Const Vital Signs: 11/16/24 18:16 11/16/24 18:28 Temperature 97.7 F L Temperature Source Temporal Pulse Rate 83 Respiratory Rate 18 Respiratory Effort Normal Non-Labored Respiratory Depth Normal Respiratory Pattern Normal Blood Pressure 167/63 H Blood Pressure Mean 97 Pulse Ox 99 Oxygen Delivery Method Room (more content not included)... Normal [facility] Ribs Uni Min 3V w/PA Cheston 11-16-2024 Ribs Uni Min 3V w/PA Chest [facility] Imaging Services [address] [place], [place] [address] Ribs Uni Min 3V w/PA Chest MR#: [id number] Acct: [id number] Name: ZHENG ROY Rep #: [id number] : 1945 F 79 From: Meron Rocha DO PCP: Dr. Epifanio Zamora DO Status: REG ER Study: Ribs Uni Min 3V w/PA Chest Date of Exam: 11/16 Exam# [id number] Ordering Dr: Kalyan Dozier MD PROCEDURE: RIBS UNI MIN 3V W/PA CHEST REASON FOR EXAM: Trauma. TECHNIQUE: Frontal and oblique views of the left ribs. Frontal view of the chest. COMPARISON: None. FINDINGS: The heart size is normal. The lungs are clear. No pneumothorax or pleural effusion. No displaced rib fractures are identified. RAD/Ribs Uni Min 3V w/PA Chest IMPRESSION: NO EVIDENCE OF ACUTE RIB FRACTURE OR PNEUMOTHORAX. Reading Location: [facility] CC: Dr. Epifanio Zamora DO; Dr. Kalyan Dozier MD Board Certified Family Physician: Signed Normal [facility] Shoulder min 2 Viewson 11-16 Shoulder min 2 Views [facility] Imaging Services [address] [place] [address] Shoulder min 2 Views MR#: [id number] Acct: [id number] Name: ZHENG ROY Rep #: [id number] : 1945 F 79 From: Meron Rocha DO PCP: Dr. Epifanio Zamora DO Status: REG ER Study: Shoulder min 2 Views Date of Exam: 11/16/24 Exam# [id number] Ordering Dr: Astrid Monae PROCEDURE: SHOULDER MIN 2 VIEWS REASON FOR EXAM: Status post fall. Pain. TECHNIQUE: 4 view(s) of the left shoulder COMPARISON: None. FINDINGS: No fracture. No suspicious bone lesion. Normal alignment of the acromioclavicular and glenohumeral joints. Soft tissues are unremarkable. RAD/Shoulder min 2 Views IMPRESSION: NO ACUTE FRACTURE OR DISLOCATION. Reading Location: [facility] CC: Dr. Epifanio Zamora DO; RUSTAM Shepard Board Certified Family Physician: Signed Normal [facility] Wrist min 3 Viewson 11-17-19 Wrist min 3 Views [facility] Imaging Services [address], [place] [address] Wrist min 3 Views MR#: [id number] Acct: [id number] Name: ZHENG ROY Rep #: [id number] : 1945 F 79 From: Meron Rocha DO PCP: Dr. Epifanio Zamora DO Status: REG ER Study: Wrist min 3 Views Date of Exam: 11/16/24 Exam# [id number] Ordering Dr: Kalyan Dozier MD PROCEDURE: WRIST MIN 3 VIEWS REASON FOR EXAM: Trauma. Pain. TECHNIQUE: 3 views of the left wrist COMPARISON: None FINDINGS: No visible fracture. No suspicious bone lesion. Normal alignment. Soft tissues are unremarkable. RAD/Wrist min 3 Views IMPRESSION: No acute fracture or dislocation. [facility]: Dr. Epifanio Zamora DO; Dr. Kalyan Dozier MD Board Certified Family Physician: Signed Normal [facility] Anion gap in Serum or Plasma Ordered By: Epifanio Zamora on 11-13-2024 Anion gap [Moles/Vol] 11 mmol/L - [facility] BUN/creatinine ratioOrdered By: Epifanio Zamora on 11-13-2024 Urea nitrogen/Creatinine [Mass ratio] 16.4 mg/mg - [facility] Bilirubin, totalOrdered By: Epifanio Zamora on 11-13-2024 Bilirubin [Mass/Vol] 0.46 mg/dL 0.00-1.30 [facility] Calculated very low density lipoprotein (VLDL) cholesterol measurementOrdered By: Epifanio Zamora on 11-13-2024 Calculated very low density lipoprotein (VLDL) cholesterol measurement 21 mg/dL 5-40 [facility] VLDL Cholesterol 21 mg/dL 5-40 [facility] Carbon dioxide, total [Moles /volume] in Central venous bloodOrdered By: Epifanio Zamora on 11-13-2024 CO2 [Moles/Vol] 24.0 mmol/L 21.0-32.0 [facility] Chloride assayOrdered By: Oswaldo Zamora on 11-13-2024 Chloride [Moles/Vol] 99 mmol/L 98-108 [facility] Erythrocyte distribution wid th ratioOrdered By: Epifanio Zamora on 11-13-2024 Erythrocyte distribution width (RBC) [Ratio] 12.0 % 11.6-14.6 [facility] Erythrocyte distribution wid th standard deviationOrdered By: Epifanio Zamora on 11-13-2024 Erythrocyte distribution width (RBC) [Entitic vol] 38.9 fL 35.1-43.9 [facility] Erythrocyte distribution width (RBC) [Ratio] 38.9 fl 35.1-43.9 [facility] GFR/1.73 sq M.predicted anali g non-blacks MDRD (S/P/Bld) [Vol rate/Area]Ordered By: Epifanio Zamora on 11-13-2024 Estimated GFR (MDRD) Non-Af Amer 84 >60 [facility] Comment on above: mL/min/1.73m2 CKD-EP I Creatinine Equation (2020) Glomerular filtration rate ( GFR) estimation/1.73 sq m using serum, plasma, or whole bOrdered By: Epifanio Zamora on 11-13-2024 GFR/1.73 sq M.predicted among non-blacks MDRD (S/P/Bld) [Vol rate/Area] 84 mL/min/{1.73_m2} >60 [facility] Comment on above: mL/min/1.73m2 CKD-EP I Creatinine Equation (2020) Hematocrit Auto (Bld) [Volum e fraction]Ordered By: Epifanio Zamora on 11-13-2024 Hematocrit (Bld) [Volume fraction] 41.6 % 37-47 [facility] Hemoglobin A1c percentageOrd ered By: Epifanio Zamora on 11-13-2024 HbA1c (Bld) [Mass fraction] 5.9 % >5.7 [facility] Hemoglobin measurementOrdere d By: Epifanio Zamora on 11-13-2024 Hemoglobin (Bld) [Mass/Vol] 14.3 g/dL 12.0-15.0 [facility] LDL calc ser/plasOrdered By: Epifanio Zamora on 11-13-2024 Cholesterol in LDL [Mass/Vol] 133 mg/dL [facility] Comment on above: Xkvpisnpbo=505-605 m g/dL & Higher Htmu=637 mg/dL or greater LDL Cholesterol, Calculated 133 mg/dL [facility] Comment on above: Jxzaqifaja=742-047 m g/dL & Higher Vcwt=650 mg/dL or greater Laboratory - Chemistry and C hemistry - challengeOrdered By: Epifanio Zamora on 11-13-2024 AST [Catalytic activity/Vol] 19 U/L <32 [facility] MCV (mean corpuscular volume ) determinationOrdered By: Epifanio Zamora on 11-13-2024 MCV (RBC) [Entitic vol] 89.3 fL 81-99 [facility] Mean corpuscular hemoglobin (MCH) determinationOrdered By: Epifanio Zamora on 11-13-2024 MCH (RBC) [Entitic mass] 30.7 pg 27.0-32.0 [facility] Mean corpuscular hemoglobin concentration (MCHC) determinationOrdered By: Epifanio Zamora on 11-13-2024 MCHC (RBC) [Mass/Vol] 34.4 g/dL 32-36 [facility] Mean platelet volume determi nationOrdered By: Epifanio Zamora on 11-13-2024 Platelet mean volume (Bld) [Entitic vol] 10.5 fL 6.2-12.0 [facility] Platelet countOrdered By: Oswaldo Zamora on 11-13-2024 Platelets (Bld) [#/Vol] 314 10*3/uL 150-450 [facility] Potassium (Unsp spec) [Mass/ Vol]Ordered By: Epifanio Zamora on 11-13-2024 Potassium [Moles/Vol] 4.0 mmol/L 3.3-5.1 [facility] Potassium measurement (mass/ volume)Ordered By: Epifanio Zamora on 11-13-2024 Potassium (Unsp spec) [Mass/Vol] 4.0 mmol/L 3.3-5.1 [facility] RBC Auto (Bld) [#/Vol]Ordere d By: Epifanio Zamora on 11-13-2024 RBC (Bld) [#/Vol] 4.66 10*6/uL 4.2-5.4 [facility] Screening total cholesterol/ high density lipoprotein (HDL) cholesterol ratioOrdered By: Epifanio Zamora on 11-13-2024 Cholesterol.total/Genia sterol in HDL [Mass ratio] 3.62 {ratio} [facility] Serum creatinine measurement (mass/volume)Ordered By: Epifanio Zamora on 11-13-2024 Creatinine [Mass/Vol] 0.73 mg/dL 0.70-1.20 [facility] Serum globulin measurementOr dered By: Epifanio Zamora on 11-13-2024 Globulin (S) [Mass/Vol] 2.4 g/dL 2.2-4.2 [facility] Serum glucose measurement (m ass/volume)Ordered By: Epifanio Zamora on 11-13-2024 Glucose [Mass/Vol] 111 mg/dL High 70-99 [facility] Serum or plasma alanine anguiano otransferase (ALT) measurementOrdered By: Epifanio Zamora on 11-13-2024 ALT [Catalytic activity/Vol] 16 U/L <35 [facility] Serum or plasma albumin roel urement (mass/volume)Ordered By: Epifanio Zamora on 11-13-2024 Albumin [Mass/Vol] 4.0 g/dL 3.4-4.8 [facility] Serum or plasma albumin/glob ulin mass ratioOrdered By: Epifanio Zamora on 11-13-2024 Albumin/Globulin [Mass ratio] 1.7 {ratio} 0.9-2.4 [facility] Serum or plasma alkaline miguel sphatase measurementOrdered By: Epifanio Zamora on 11-13-2024 ALP [Catalytic activity/Vol] 63 U/L 35-104 [facility] Serum or plasma calcium roel urement (mass/volume)Ordered By: Epifanio Zamora on 11-13-2024 Calcium [Mass/Vol] 8.9 mg/dL 7.6-11.0 [facility] Serum or plasma cholesterol in HDL measurement (mass/volume)Ordered By: Epifanio Zamora on 11-13-2024 Cholesterol in HDL [Mass/Vol] 59 mg/dL >40 [facility] Comment on above: National Cholesterol Education Program (NCEP) guidelines:<40 mg/dL: Low HDL-cholesterol (major risk factor for CHD)>= 60 mg/dL: High HDL-cholesterol (negative risk factor for CHD)HDL-cholesterol is affected by a number of factors, e.g. smoking, exercise, hormones, sex and age. Serum or plasma cholesterol measurement (mass/volume)Ordered By: Epifanio Zamora on 11-13-2024 Cholesterol [Mass/Vol] 212 mg/dL High <201 [facility] Comment on above: Cholesterol level, D esirable <200 mg/dLBorderline high cholesterol 200-239 mg/dLHigh cholesterol >=240 mg/dLRecommendations of the NCEP Adult Treatment Panel for the following risk-cutoff thresholds for the [place] population. Serum or plasma urea nitroge n measurement (mass/volume)Ordered By: Epifanio Zamora on 11-13-2024 Urea nitrogen [Mass/Vol] 12 mg/dL 4-19 [facility] Sodium levelOrdered By: Delvin Zamora on 11-13-2024 Sodium [Moles/Vol] 134 mmol/L 133-145 [facility] TSH DL <= 0.005 mIU/L QnOrde red By: Epifanio Zamora on 11-13-2024 Thyroid Stimulating Hormone (TSH) 1.320 uIU/mL 0.300-4.200 [facility] TSH Qn 1.320 uIU/mL 0.300-4.200 [facility] ThyroxineOrdered By: Epifanio arevalo on 11-13-2024 T4 [Mass/Vol] 8.6 ug/dL 4.8-13.9 [facility] Total proteinOrdered By: Eliezer Zamora on 11-13-2024 Protein [Mass/Vol] 6.4 g/dL 5.9-8.4 [facility] Triglycerides measurementOrd ered By: Epifanio Zamora on 11-13-2024 Triglyceride [Mass/Vol] 103 mg/dL <199 [facility] Comment on above: The drugs N-Acetylcy steine and Metamizole may falsely depress this assay. Normal range: <150 mg/dLBorderline High: 150-199 mg/dLHigh: 200-499 mg/dLVery High: >500 mg/dL Vitamin D, 25-hydroxyOrdered By: Epifanio Zamora on 11-13-2024 Vitamin D 25-Hydroxy 37.1 ng/mL 30-100 [facility] Comment on above: Vitamin D StatusDefi ciency: <20 ng/mL (50nmol/L)Insufficiency: 20-30 ng/mL (50-75 nmol/L)Sufficiency: 30-100 ng/mL (75-250 nmol/L)Toxicity: >100 ng/mL (>250 nmol/L) White blood cell (WBC) count Ordered By: Epifanio Zamora on 11-13-2024 WBC (Bld) [#/Vol] 8.2 10*3/uL 4.4-11.0 [facility] Absolute neutrophil countOrd ered By: Roseann Eli on 10-01-2024 Neutrophils (Bld) [#/Vol] 4.6 10*3/uL 2.0-7.7 [facility] Albumin to globulin ratioOrd ered By: Roseann Eli on 10-01-2024 Albumin/Globulin [Mass ratio] 1.2 {ratio} 0.9-2.4 [facility] BNP (brain natriuretic pepti de measurement)Ordered By: Roseann Eli on 10-01-2024 Natriuretic peptide B (Bld) [Mass/Vol] 96.8 pg/mL Normal 0-100 [facility] Comment on above: Performed By: #### L 501.9520, L100.0100, L503.6620, L500.4050 ####[facility] [address] [place], [place], [address] Basophil percentageOrdered B y: Roseann Eli on 10-01-2024 Basophils/100 WBC (Bld) 0.6 % 0-1 [facility] Bilirubin, totalOrdered By: Roseann Eli on 10-01-2024 Bilirubin [Mass/Vol] 0.30 mg/dL 0.20-1.00 [facility] Comment on above: For patients on eltr ombopag therapy, use of Dimension [place] TBIL is not recommended. Blood urea nitrogen (BUN)/cr eatinine ratioOrdered By: Roseann Eli on 10-01-2024 Urea nitrogen/Creatinine [Mass ratio] 10.7 mg/mg 10-20 [facility] CBC W/Diff, Automatedon 09-12 Absolute Lymph 1.27 X10 3/uL Normal 0.83-4.51 [facility] Comment on above: Performed By: #### L 501.9520, L100.0100, L503.6620, L500.4050 ####[facility] [address] [place], [address] Absolute Neut 4.6 X10 3/uL Normal 2.0-7.7 [facility] Comment on above: Performed By: #### L 501.9520, L100.0100, L503.6620, L500.4050 ####[facility] [address] [place], [address] Basophils/100 WBC (Bld) 0.6 % Normal 0-1 [facility] Comment on above: Performed By: #### L 501.9520, L100.0100, L503.6620, L500.4050 ####[facility] [address] [place], [address] Eosinophils/100 WBC (Bld) 0.6 % Normal 0-5 [facility] Comment on above: Performed By: #### L 501.9520, L100.0100, L503.6620, L500.4050 ####[facility] [address] [place], [address] Erythrocyte distribution width (RBC) [Ratio] 12.6 % Normal 11.6-14.6 [facility] Comment on above: Performed By: #### L 501.9520, L100.0100, L503.6620, L500.4050 ####[facility] [address] [place], [address] Hematocrit (Bld) [Volume fraction] 39.1 % Normal 37-47 [facility] Comment on above: Performed By: #### L 501.9520, L100.0100, L503.6620, L500.4050 ####[facility] [address] [place], [address] Hemoglobin (Bld) [Mass/Vol] 12.7 g/dL Normal 12.0-15.0 [facility] Comment on above: Performed By: #### L 501.9520, L100.0100, L503.6620, L500.4050 ####[facility] [address] [place], [address] IG% 0.600 Normal 0.0-0.9 [facility] Comment on above: Result Comment: IG% - Immature Granulocytes (promyelocytes, myelocytes and metamyelocytes) > 1% indicates that a LEFT SHIFT is Present. Performed By: #### L 501.9520, L100.0100, L503.6620, L500.4050 ####[facility] [address] [place], [address] Lymphocytes/100 WBC (Bld) 20.1 % Normal 19-41 [facility] Comment on above: Performed By: #### L 501.9520, L100.0100, L503.6620, L500.4050 ####[facility] [address] [place], [address] MCH (RBC) [Entitic mass] 30.1 pg Normal 27.0-32.0 [facility] Comment on above: Performed By: #### L 501.9520, L100.0100, L503.6620, L500.4050 ####[facility] [address] [place], [address] MCHC (RBC) [Mass/Vol] 32.5 g/dL Normal 32-36 [facility] Comment on above: Performed By: #### L 501.9520, L100.0100, L503.6620, L500.4050 ####[facility] [address] [place], [address] MCV (RBC) [Entitic vol] 92.7 fL Normal 81-99 [facility] Comment on above: Performed By: #### L 501.9520, L100.0100, L503.6620, L500.4050 ####[facility] [address] [place], [address] Monocytes/100 WBC (Bld) 4.9 % Normal 0-10 [facility] Comment on above: Performed By: #### L 501.9520, L100.0100, L503.6620, L500.4050 ####[facility] [address] [place], [address] Neutrophils/100 WBC (Bld) 73.2 % High 47-70 [facility] Comment on above: Performed By: #### L 501.9520, L100.0100, L503.6620, L500.4050 ####[facility] [address] [place], [address] Nucleated RBC (Bld) [#/Vol] 0 10*3/uL Normal 0-5 [facility] Comment on above: Performed By: #### L 501.9520, L100.0100, L503.6620, L500.4050 ####[facility] [address] [place], [address] Platelet mean volume (Bld) [Entitic vol] 10.5 fL Normal 6.2-12.0 [facility] Comment on above: Performed By: #### L 501.9520, L100.0100, L503.6620, L500.4050 ####[facility] [address] [place], [address] Platelets (Bld) [#/Vol] 315 10*3/uL Normal 150-450 [facility] Comment on above: Performed By: #### L 501.9520, L100.0100, L503.6620, L500.4050 ####[facility] [address] [place], [address] RBC (Bld) [#/Vol] 4.22 10*6/uL Normal 4.2-5.4 [facility] Comment on above: Performed By: #### L 501.9520, L100.0100, L503.6620, L500.4050 ####[facility] [address] [place], [address] RDW SD 43.1 fl Normal 35.1-43.9 [facility] Comment on above: Performed By: #### L 501.9520, L100.0100, L503.6620, L500.4050 ####[facility] [address] [place], [address] WBC (Bld) [#/Vol] 6.3 10*3/uL Normal 4.4-11.0 [facility] Comment on above: Performed By: #### L 501.9520, L100.0100, L503.6620, L500.4050 ####[facility] [address] [place], [address] Carbon dioxide measurementOr dered By: Roseann Eli on 10-01-2024 CO2 [Moles/Vol] 28.0 mmol/L 21.0-32.0 [facility] Chloride measurementOrdered By: Roseann Eli on 10-01-2024 Chloride [Moles/Vol] 106 mmol/L 98-107 [facility] Comprehensive Metabolic Prof ilon 10-01-2024 Albumin [Mass/Vol] 3.5 g/dL Normal 3.2-5.0 [facility] Comment on above: Performed By: #### L 501.9520, L100.0100, L503.6620, L500.4050 ####[facility] [address] [place], [address] Albumin/Globulin [Mass ratio] 1.2 {ratio} Normal 0.9-2.4 [facility] Comment on above: Performed By: #### L 501.9520, L100.0100, L503.6620, L500.4050 ####[facility] [address] [place], [address] ALK P 53 U/L Normal 45-117 [facility] Comment on above: Performed By: #### L 501.9520, L100.0100, L503.6620, L500.4050 ####[facility] [address] [place], [address] ALT [Catalytic activity/Vol] 33 U/L Normal 13-56 [facility] Comment on above: Performed By: #### L 501.9520, L100.0100, L503.6620, L500.4050 ####[facility] [address] [place], [address] AST [Catalytic activity/Vol] 17 U/L Normal 15-37 [facility] Comment on above: Performed By: #### L 501.9520, L100.0100, L503.6620, L500.4050 ####[facility] [address] [place], [address] Bilirubin [Mass/Vol] 0.30 mg/dL Normal 0.20-1.00 [facility] Comment on above: Result Comment: For patients on eltrombopag therapy, use of Dimension [place] TBIL is not recommended. Performed By: #### L 501.9520, L100.0100, L503.6620, L500.4050 ####[facility] [address] [place], [address] BUN/CRE 10.7 RATIO Normal 10-20 [facility] Comment on above: Performed By: #### L 501.9520, L100.0100, L503.6620, L500.4050 ####[facility] [address] [place], [address] CA,Total 9.3 mg/dL Normal 8.5-10.1 [facility] Comment on above: Performed By: #### L 501.9520, L100.0100, L503.6620, L500.4050 ####[facility] [address] [place], [address] Chloride [Moles/Vol] 106 mmol/L Normal 98-107 [facility] Comment on above: Performed By: #### L 501.9520, L100.0100, L503.6620, L500.4050 ####[facility] [address] [place], [address] CO2 [Moles/Vol] 28.0 mmol/L Normal 21.0-32.0 [facility] Comment on above: Performed By: #### L 501.9520, L100.0100, L503.6620, L500.4050 ####[facility] [address] [place], [address] Creatinine [Mass/Vol] 0.75 mg/dL Normal 0.55-1.02 [facility] Comment on above: Result Comment: The validity of the calculated GFR GFRAA in patients over 70 years has not been determined. Clinical correlation is essential. Performed By: #### L 501.9520, L100.0100, L503.6620, L500.4050 ####[facility] [address] [place], [address] EST GFR - AA 96 mL/min Normal >60 [facility] Comment on above: Result Comment: Afri can [place] GFR Calc Performed By: #### L 501.9520, L100.0100, L503.6620, L500.4050 ####[facility] [address] [place], [address] GAP 6 Normal 5-15 [facility] Comment on above: Performed By: #### L 501.9520, L100.0100, L503.6620, L500.4050 ####[facility] [address] [place], [address] GFR/1.73 sq M.predicted among non-blacks MDRD (S/P/Bld) [Vol rate/Area] 79 mL/min/{1.73_m2} Normal >60 [facility] Comment on above: Result Comment: Non- GFR Calc Performed By: #### L 501.9520, L100.0100, L503.6620, L500.4050 ####[facility] [address] [place], [address] Globulin (S) [Mass/Vol] 2.9 g/dL Normal 2.2-4.2 [facility] Comment on above: Performed By: #### L 501.9520, L100.0100, L503.6620, L500.4050 ####[facility] [address] [place], [address] Glucose [Mass/Vol] 108 mg/dL High 74-106 [facility] Comment on above: Result Comment: Fast ing Glucose result from 100 to 125 mg/dL suggests IMPAIRED HOMEOSTASIS per A.D.A. criteria. Performed By: #### L 501.9520, L100.0100, L503.6620, L500.4050 ####[facility] [address] [place], [address] Potassium [Moles/Vol] 3.7 mmol/L Normal 3.5-5.1 [facility] Comment on above: Performed By: #### L 501.9520, L100.0100, L503.6620, L500.4050 ####[facility] [address] [place], [address] Sodium [Moles/Vol] 139 mmol/L Normal 136-145 [facility] Comment on above: Performed By: #### L 501.9520, L100.0100, L503.6620, L500.4050 ####[facility] [address] [place], [address] T PROT 6.4 g/dL Normal 6.4-8.2 [facility] Comment on above: Performed By: #### L 501.9520, L100.0100, L503.6620, L500.4050 ####[facility] [address] [place], [address] Urea nitrogen [Mass/Vol] 8 mg/dL Normal 7-18 [facility] Comment on above: Performed By: #### L 501.9520, L100.0100, L503.6620, L500.4050 ####[facility] [address] [place], [address] Eosinophil percentageOrdered By: Roseann Eli on 10-01-2024 Eosinophils/100 WBC (Bld) 0.6 % 0-5 [facility] Erythrocyte distribution wid th ratioOrdered By: Roseann Eli on 10-01-2024 Erythrocyte distribution width (RBC) [Ratio] 12.6 % 11.6-14.6 [facility] Erythrocyte distribution wid th standard deviationOrdered By: Roseann Eli on 10-01-2024 Erythrocyte distribution width (RBC) [Entitic vol] 43.1 fL 35.1-43.9 [facility] Estimated glomerular filtrat ion rate (GFR) AmericanOrdered By: Roseann Eli on 10-01-2024 Estimated GFR (MDRD) Amer 96 mL/min >60 [facility] Comment on above: GFR Calc Glomerular filtration rate ( GFR) estimationOrdered By: Roseann Eli on 10-01-2024 Estimated GFR (MDRD) Non-Af Amer 79 mL/min >60 [facility] Comment on above: Non- GFR Calc Glucose measurementOrdered B y: Roseann Eli on 10-01-2024 Glucose [Mass/Vol] 108 mg/dL High 74-106 [facility] Comment on above: Fasting Glucose resu lt from 100 to 125 mg/dL suggests IMPAIRED HOMEOSTASIS per A.D.A. criteria. Hematocrit Auto (Bld) [Volum e fraction]Ordered By: Roseann Eli on 10-01-2024 Hematocrit (Bld) [Volume fraction] 39.1 % 37-47 [facility] Hemoglobin measurementOrdere d By: Roseann Eli on 10-01-2024 Hemoglobin (Bld) [Mass/Vol] 12.7 g/dL 12.0-15.0 [facility] Immature granulocytes/100 WB C Auto (Bld)Ordered By: Roseann Eli on 10-01-2024 Immature granulocytes/100 WBC (Bld) 0.600 % 0.0-0.9 [facility] Comment on above: IG% - Immature Granu locytes (promyelocytes, myelocytes and metamyelocytes) > 1% indicates that a LEFT SHIFT is Present. Laboratory - Chemistry and C hemistry - challengeOrdered By: Roseann Eli on 10-01-2024 AST [Catalytic activity/Vol] 17 U/L 15-37 [facility] Lymphocytes Auto (Unsp spec) [#/Vol]Ordered By: Roseann Eli on 10-01-2024 Lymphocytes (Bld) [#/Vol] 1.27 10*3/uL 0.83-4.51 [facility] Lymphocytes/100 WBC Auto (Un sp spec)Ordered By: Roseann Eli on 10-01-2024 Lymphocytes/100 WBC (Bld) 20.1 % 19-41 [facility] MCV (mean corpuscular volume ) determinationOrdered By: Roseann Eli on 10-01-2024 MCV (RBC) [Entitic vol] 92.7 fL 81-99 [facility] Mean corpuscular hemoglobin (MCH) determinationOrdered By: Roseann Eli on 10-01-2024 MCH (RBC) [Entitic mass] 30.1 pg 27.0-32.0 [facility] Mean corpuscular hemoglobin concentration (MCHC) determinationOrdered By: Roseann Eli on 10-01-2024 MCHC (RBC) [Mass/Vol] 32.5 g/dL 32-36 [facility] Mean platelet volume determi nationOrdered By: Roseann Eli on 10-01-2024 Platelet mean volume (Bld) [Entitic vol] 10.5 fL 6.2-12.0 [facility] Monocyte percentageOrdered B y: Roseann Eli on 10-01-2024 Monocytes/100 WBC (Bld) 4.9 % 0-10 [facility] Neutrophil percentageOrdered By: Roseann Eli on 10-01-2024 Neutrophils/100 WBC (Bld) 73.2 % High 47-70 [facility] Nucleated red blood cell per centageOrdered By: Roseann Eli on 10-01-2024 Nucleated RBC/100 WBC (Bld) [Ratio] 0 % 0-5 [facility] Platelet countOrdered By: Nathaly Eli on 10-01-2024 Platelets (Bld) [#/Vol] 315 10*3/uL 150-450 [facility] Potassium measurementOrdered By: Roseann Eli on 10-01-2024 Potassium [Moles/Vol] 3.7 mmol/L 3.5-5.1 [facility] RBC Auto (Bld) [#/Vol]Ordere d By: Roseann Eli on 10-01-2024 RBC (Bld) [#/Vol] 4.22 10*6/uL 4.2-5.4 [facility] Serum anion gap measurementO rdered By: Roseann Eli on 10-01-2024 Anion gap [Moles/Vol] 6 mmol/L 5-15 [facility] Serum globulin measurementOr dered By: Roseann Eli on 10-01-2024 Globulin (S) [Mass/Vol] 2.9 g/dL 2.2-4.2 [facility] Serum or plasma alanine anguiano otransferase (ALT) measurementOrdered By: Roseann Eli on 10-01-2024 ALT [Catalytic activity/Vol] 33 U/L 13-56 [facility] Serum or plasma albumin roel urement (mass/volume)Ordered By: Roseann Eli on 10-01-2024 Albumin [Mass/Vol] 3.5 g/dL 3.2-5.0 [facility] Serum or plasma alkaline miguel sphatase measurementOrdered By: Roseann Eli on 10-01-2024 ALP [Catalytic activity/Vol] 53 U/L 45-117 [facility] Serum or plasma calcium roel urement (mass/volume)Ordered By: Roseann Eli on 10-01-2024 Calcium [Mass/Vol] 9.3 mg/dL 8.5-10.1 [facility] Serum or plasma creatinine m easurement (mass/volume)Ordered By: Roseann Eli on 10-01-2024 Creatinine [Mass/Vol] 0.75 mg/dL 0.55-1.02 [facility] Comment on above: The validity of the calculated GFR & GFRAA in patients over 70 years has not been determined. Clinical correlation is essential. Serum or plasma urea nitroge n measurement (mass/volume)Ordered By: Roseann Eli on 10-01-2024 Urea nitrogen [Mass/Vol] 8 mg/dL 7-18 [facility] Sodium levelOrdered By: Roseann Eli on 10-01-2024 Sodium [Moles/Vol] 139 mmol/L 136-145 [facility] TSH QnOrdered By: Roseann hewitt on 10-01-2024 Thyroid Stimulating Hormone (TSH) 1.010 uIU/mL 0.358-3.740 [facility] Thyroid Stim Hormone (TSH)on 10-01-2024 TSH 1.010 uIU/mL Normal 0.358-3.740 [facility] Comment on above: Performed By: #### L 501.9520, L100.0100, L503.6620, L500.4050 ####[facility] [address] [place], [address] Total proteinOrdered By: Roseann Eli on 10-01-2024 Protein [Mass/Vol] 6.4 g/dL 6.4-8.2 [facility] White blood cell (WBC) count Ordered By: Roseann Eli on 10-01-2024 WBC (Bld) [#/Vol] 6.3 10*3/uL 4.4-11.0 [facility] Neurology Visit Reporton Neurology Visit Report [facility] [address], [address] [place] [address] OFFICE VISIT Date of Service: 09/30/24 MR#: [id number] Acct: [id number] Name: ZHENG ROY Rep #: [id number] : 1945 Provider: Dr. Silver sanchez MD Age/Sex: 79/F Location: [facility]. Status: Signed HPI HPI Chief Complaint: Establish Care Details: The patient is a 79-year-old right handed female who presents to [facility]. She was referred 08/07/[address] Pili Chakraborty with [facility] for cognitive impairment.??? This lady presents with her agpbtd-vc-dpk for evaluation of cognitive impairment. Patient had a recent episode of calling her kvjxbt-eb-zmg for help. It seems that there was a disruptive neighbor that was of concern for the patient. Patient does live alone. Family members feel that she has been withdrawing from social activity although she states that she likes to see her grandchildren. She likes to talk about her grandchildren and their various activities. Patient does not seem to have a great deal of perception with her current functional capabilities. She has lost perhaps 6 pounds recently for reasons that are not entirely clear. She states that she cooks and eats. Patient seems to have waxing and waning performance at times she does not recall day month or year or gets confused about her birthday and her age versus current day month and year and her current age. At other times she has misinterpretations which may possibly be related to hearing impairment. She has had bilateral IOLs placed and her vision appears intact. There are some concerns about the patient's ability to care for herself and some indication that she has more than mild cognitive impairment. Family history as far as I can determine is not positive for cognitive impairment. Patient does not appear to have a psychiatric history of depression with psychomotor retardation either. Patient is medically intact. There is evidence that patient is becoming socially isolated and withdrawn. Patient denies having feelings of isolation or loneliness. ROS Head no headache or head injury Eyes bilateral IOLs Ears appears to have intact hearing Respiratory no respiratory difficulties no hemoptysis Cardiac no chest pain or palpitations although she is said to have mitral valve prolapse and a murmur. Abdomen not distended does not cough up blood vomit blood past blood in stool urine not incontinent of urine Extremities no evidence of trauma or injury Skin intact Exam Const Other: Blood pressure is 142/68 pulse is 86 respiration 15 temperature 98.4 O2 sat 99%. HEENT: Normocephalic. Conjunctiva clear. Hearing grossly intact. Respiratory: Clear to auscultation Cardiac there is a cardiac murmur however I think it is along the aortic outflow tract. Exam limited. Abdomen not distended Extremities without trauma Skin intact on visualized areas. Neurologic examination: Mental status: Patient is awake and alert. When asked for her day month and year she gave her birthdate and said that she was 44. She did not perceive her air until sometime later on not sure she even did identify the year later. When asked months she sat June. When she asked today she said Monday. When asked the year she said 1945. Later on during the Mini-Mental Status portion of the examination she goes those questions correct. No immediate recall she was able to encode 3 words but in 5-minute recall she had 0. Language was fluent but delayed response time. She could follow commands but in a very limited fashion. Given a command to walk down the hallway she walked down the hallway and then turned the corner to go down another hallway. We had instructed her to return. Patient tends to perseverate. Patient appears to have difficulty planning and executing multiple task. Cranial nerves II through XII: Pupils appear to be equal and round about 3 mm. Attempts to check visual chapin is limited. I think she did not fully understand the questions that are being presented but did give an accurate statement when she had more precise guidelines. Extraocular muscles appear to be intact. She had intact vertical up-and-down gaze. No nystagmus noted. Smooth pursuit noted. Facial sensation expression appeared intact. Hearing may be slightly impaired. Speech was hypophonic. Swallowing appeared to be intact. Tongue was midline. Facial expression was limited and she gave the impression of having a masked facies. Motor examination no definite focal weakness identified. Muscle tone appeared normal. Cerebellar testing no cogwheeling rigidity. There is bradykinesia. When walking she has decreased arm swing. She tended to turn en bloc. Reflexes muted biceps and knees. Toes signs not checked at this time. Sensory exam showed that she did respond to tactile and vibratory sense all 4 extre (more content not included)... Normal [facility] CBC W/Diff, Automatedon 11-0 5-2023 Absolute Lymph 1.41 X10 3/uL Normal 0.83-4.51 [facility] Comment on above: Order Comment: Order Date: 07/16/24 Order Info: 0184- - CBCD Performed By: #### L 500.4050, L501.9985, L506.1000, L500.4100, L100.0100 #### [facility] [address] [place], [address] Absolute Neut 5.3 X10 3/uL Normal 2.0-7.7 [facility] Comment on above: Order Comment: Order Date: 07/16/24 Order Info: 0184- - CBCD Performed By: #### L 500.4050, L501.9985, L506.1000, L500.4100, L100.0100 #### [facility] [address] [place], [address] Basophils/100 WBC (Bld) 0.7 % Normal 0-1 [facility] Comment on above: Order Comment: Order Date: 07/16/24 Order Info: 0184 - CBCD Performed By: #### L 500.4050, L501.9985, L506.1000, L500.4100, L100.0100 #### [facility] [address] [place], [address] Eosinophils/100 WBC (Bld) 0.7 % Normal 0-5 [facility] Comment on above: Order Comment: Order Date: 07/16/24 Order Info: 0184- - CBCD Performed By: #### L 500.4050, L501.9985, L506.1000, L500.4100, L100.0100 #### [facility] [address] [place], [address] Erythrocyte distribution width (RBC) [Ratio] 12.3 % Normal 11.6-14.6 [facility] Comment on above: Order Comment: Order Date: 07/16/24 Order Info: 0184-1 - CBCD Performed By: #### L 500.4050, L501.9985, L506.1000, L500.4100, L100.0100 #### [facility] [address] [place], [address] Hematocrit (Bld) [Volume fraction] 41.0 % Normal 37-47 [facility] Comment on above: Order Comment: Order Date: 07/16/24 Order Info: 0184-1 - CBCD Performed By: #### L 500.4050, L501.9985, L506.1000, L500.4100, L100.0100 #### [facility] [address] [place], [address] Hemoglobin (Bld) [Mass/Vol] 13.8 g/dL Normal 12.0-15.0 [facility] Comment on above: Order Comment: Order Date: 07/16/24 Order Info: 0184-1 - CBCD Performed By: #### L 500.4050, L501.9985, L506.1000, L500.4100, L100.0100 #### [facility] [address] [place], [address] IG% 0.400 Normal 0.0-0.9 [facility] Comment on above: Order Comment: Order Date: 07/16/24 Order Info: 0184-1 - CBCD Result Comment: IG% - Immature Granulocytes (promyelocytes, myelocytes and metamyelocytes) > 1% indicates that a LEFT SHIFT is Present. Performed By: #### L 500.4050, L501.9985, L506.1000, L500.4100, L100.0100 #### [facility] [address] [place], [address] Lymphocytes/100 WBC (Bld) 19.3 % Normal 19-41 [facility] Comment on above: Order Comment: Order Date: 07/16/24 Order Info: 0184-1 - CBCD Performed By: #### L 500.4050, L501.9985, L506.1000, L500.4100, L100.0100 #### [facility] [address] [place], [address] MCH (RBC) [Entitic mass] 30.4 pg Normal 27.0-32.0 [facility] Comment on above: Order Comment: Order Date: 07/16/24 Order Info: 0184- - CBCD Performed By: #### L 500.4050, L501.9985, L506.1000, L500.4100, L100.0100 #### [facility] [address] [place], [address] MCHC (RBC) [Mass/Vol] 33.7 g/dL Normal 32-36 [facility] Comment on above: Order Comment: Order Date: 07/16/24 Order Info: 0184- - CBCD Performed By: #### L 500.4050, L501.9985, L506.1000, L500.4100, L100.0100 #### [facility] [address] [place], [address] MCV (RBC) [Entitic vol] 90.3 fL Normal 81-99 [facility] Comment on above: Order Comment: Order Date: 07/16/24 Order Info: 0184- - CBCD Performed By: #### L 500.4050, L501.9985, L506.1000, L500.4100, L100.0100 #### [facility] [address] [place], [address] Monocytes/100 WBC (Bld) 6.0 % Normal 0-10 [facility] Comment on above: Order Comment: Order Date: 07/16/24 Order Info: 0184- - CBCD Performed By: #### L 500.4050, L501.9985, L506.1000, L500.4100, L100.0100 #### [facility] [address] [place], [address] Neutrophils/100 WBC (Bld) 72.9 % High 47-70 [facility] Comment on above: Order Comment: Order Date: 07/16/24 Order Info: 0184-1 - CBCD Performed By: #### L 500.4050, L501.9985, L506.1000, L500.4100, L100.0100 #### [facility] [address] [place], [address] Nucleated RBC (Bld) [#/Vol] 0 10*3/uL Normal 0-5 [facility] Comment on above: Order Comment: Order Date: 07/16/24 Order Info: 0184- - CBCD Performed By: #### L 500.4050, L501.9985, L506.1000, L500.4100, L100.0100 #### [facility] [address] [place], [address] Platelet mean volume (Bld) [Entitic vol] 10.6 fL Normal 6.2-12.0 [facility] Comment on above: Order Comment: Order Date: 07/16/24 Order Info: 0184-1 - CBCD Performed By: #### L 500.4050, L501.9985, L506.1000, L500.4100, L100.0100 #### [facility] [address] [place], [address] Platelets (Bld) [#/Vol] 320 10*3/uL Normal 150-450 [facility] Comment on above: Order Comment: Order Date: 07/16/24 Order Info: 0184-1 - CBCD Performed By: #### L 500.4050, L501.9985, L506.1000, L500.4100, L100.0100 #### [facility] [address] [place], [address] RBC (Bld) [#/Vol] 4.54 10*6/uL Normal 4.2-5.4 [facility] Comment on above: Order Comment: Order Date: 07/16/24 Order Info: 0184-1 - CBCD Performed By: #### L 500.4050, L501.9985, L506.1000, L500.4100, L100.0100 #### [facility] [address] [place], [address] RDW SD 40.6 fl Normal 35.1-43.9 [facility] Comment on above: Order Comment: Order Date: 07/16/24 Order Info: 0184-1 - CBCD Performed By: #### L 500.4050, L501.9985, L506.1000, L500.4100, L100.0100 #### [facility] [address] [place], [place], [address] [phone] WBC (Bld) [#/Vol] 7.3 10*3/uL Normal 4.4-11.0 [facility] Comment on above: Order Comment: Order Date: 07/16/24 Order Info: 0184-1 - CBCD Performed By: #### L 500.4050, L501.9985, L506.1000, L500.4100, L100.0100 #### [facility] [address] [place], [place], [address] Comprehensive Metabolic Prof mson 07-16-2024 Albumin [Mass/Vol] 3.8 g/dL Normal 3.2-5.0 [facility] Comment on above: Order Comment: Order Date: 07/16/24 Order Info: 0786-1 - CMP Order Info: [id number] - LIPID Order Info: 3016-3 - TSH Performed By: #### L 500.4050, L501.9985, L506.1000, L500.4100, L100.0100 #### [facility] [address] [place], [address] Albumin/Globulin [Mass ratio] 1.3 {ratio} Normal 0.9-2.4 [facility] Comment on above: Order Comment: Order Date: 07/16/24 Order Info: 0786- - CMP Order Info: [id number] - LIPID Order Info: 3015-11 - TSH Performed By: #### L 500.4050, L501.9985, L506.1000, L500.4100, L100.0100 #### [facility] [address] [place], [address] ALK P 70 U/L Normal 45-117 [facility] Comment on above: Order Comment: Order Date: 07/16/24 Order Info: 0786- - CMP Order Info: [id number] - LIPID Order Info: 3015-11 - TSH Performed By: #### L 500.4050, L501.9985, L506.1000, L500.4100, L100.0100 #### [facility] [address] [place], [address] ALT [Catalytic activity/Vol] 37 U/L Normal 13-56 [facility] Comment on above: Order Comment: Order Date: 07/16/24 Order Info: 0786- - CMP Order Info: [id number] - LIPID Order Info: 3015-11 - TSH Performed By: #### L 500.4050, L501.9985, L506.1000, L500.4100, L100.0100 #### [facility] [address] [place], [address] AST [Catalytic activity/Vol] 32 U/L Normal 15-37 [facility] Comment on above: Order Comment: Order Date: 07/16/24 Order Info: 0786-1 - CMP Order Info: [id number] - LIPID Order Info: 3015-11 - TSH Performed By: #### L 500.4050, L501.9985, L506.1000, L500.4100, L100.0100 #### [facility] [address] [place], [place], [address] Bilirubin [Mass/Vol] 0.70 mg/dL Normal 0.20-1.00 [facility] Comment on above: Order Comment: Order Date: 07/16/24 Order Info: 785- - CMP Order Info: - LIPID Order Info: [id number] - TSH Result Comment: For patients on eltrombopag therapy, use of Dimension [place] TBIL is not recommended. Performed By: #### L 500.4050, L501.9985, L506.1000, L500.4100, L100.0100 #### [facility] [address] [place], [place], [address] BUN/CRE 13.1 RATIO Normal 10-20 [facility] Comment on above: Order Comment: Order Date: 07/16/24 Order Info: 785-09 - CMP Order Info: - LIPID Order Info: [id number] - TSH Performed By: #### L 500.4050, L501.9985, L506.1000, L500.4100, L100.0100 #### [facility] [address] [place], [place], [address] CA,Total 9.3 mg/dL Normal 8.5-10.1 [facility] Comment on above: Order Comment: Order Date: 07/16/24 Order Info: 785-09 - CMP Order Info: - LIPID Order Info: [id number] - TSH Performed By: #### L 500.4050, L501.9985, L506.1000, L500.4100, L100.0100 #### [facility] [address] [place], [place], [address] Chloride [Moles/Vol] 98 mmol/L Normal 98-107 [facility] Comment on above: Order Comment: Order Date: 07/16/24 Order Info: 785-09 - CMP Order Info: - LIPID Order Info: [id number] - TSH Performed By: #### L 500.4050, L501.9985, L506.1000, L500.4100, L100.0100 #### [facility] [address] [place], [address] CO2 [Moles/Vol] 31.0 mmol/L Normal 21.0-32.0 [facility] Comment on above: Order Comment: Order Date: 07/16/24 Order Info: 0786-1 - CMP Order Info: [id number] - LIPID Order Info: 3 - TSH Performed By: #### L 500.4050, L501.9985, L506.1000, L500.4100, L100.0100 #### [facility] [address] [place], [address] Creatinine [Mass/Vol] 0.84 mg/dL Normal 0.55-1.02 [facility] Comment on above: Order Comment: Order Date: 07/16/24 Order Info: 0786 - CMP Order Info: [id number] - LIPID Order Info: 3 - TSH Result Comment: The validity of the calculated GFR GFRAA in patients over 70 years has not been determined. Clinical correlation is essential. Performed By: #### L 500.4050, L501.9985, L506.1000, L500.4100, L100.0100 #### [facility] [address] [place], [address] EST GFR - AA 84 mL/min Normal >60 [facility] Comment on above: Order Comment: Order Date: 07/16/24 Order Info: 0786-1 - CMP Order Info: [id number] - LIPID Order Info: 6-3 - TSH Result Comment: Afri can [place] GFR Calc Performed By: #### L 500.4050, L501.9985, L506.1000, L500.4100, L100.0100 #### [facility] [address] [place], [address] GAP 6 Normal 5-15 [facility] Comment on above: Order Comment: Order Date: 07/16/24 Order Info: 785-09 - CMP Order Info: - LIPID Order Info: [id number] - TSH Performed By: #### L 500.4050, L501.9985, L506.1000, L500.4100, L100.0100 #### [facility] [address] [place], [address] GFR/1.73 sq M.predicted among non-blacks MDRD (S/P/Bld) [Vol rate/Area] 69 mL/min/{1.73_m2} Normal >60 [facility] Comment on above: Order Comment: Order Date: 07/16/24 Order Info: 785-09 - CMP Order Info: - LIPID Order Info: [id number] - TSH Result Comment: Non- GFR Calc Performed By: #### L 500.4050, L501.9985, L506.1000, L500.4100, L100.0100 #### [facility] [address] [place], [address] Globulin (S) [Mass/Vol] 2.9 g/dL Normal 2.2-4.2 [facility] Comment on above: Order Comment: Order Date: 07/16/24 Order Info: 785-09 - CMP Order Info: [id number] - LIPID Order Info: 3015-11 - TSH Performed By: #### L 500.4050, L501.9985, L506.1000, L500.4100, L100.0100 #### [facility] [address] [place], [address] Glucose [Mass/Vol] 96 mg/dL Normal 74-106 [facility] Comment on above: Order Comment: Order Date: 07/16/24 Order Info: 785-09 - CMP Order Info: - LIPID Order Info: [id number] - TSH Performed By: #### L 500.4050, L501.9985, L506.1000, L500.4100, L100.0100 #### [facility] [address] [place], [address] Potassium [Moles/Vol] 3.4 mmol/L Low 3.5-5.1 [facility] Comment on above: Order Comment: Order Date: 07/16/24 Order Info: 0786-1 - CMP Order Info: [id number] - LIPID Order Info: 3015-11 - TSH Performed By: #### L 500.4050, L501.9985, L506.1000, L500.4100, L100.0100 #### [facility] [address] [place], [address] Sodium [Moles/Vol] 135 mmol/L Low 136-145 [facility] Comment on above: Order Comment: Order Date: 07/16/24 Order Info: 0786- - CMP Order Info: - LIPID Order Info: [id number] - TSH Performed By: #### L 500.4050, L501.9985, L506.1000, L500.4100, L100.0100 #### [facility] [address] [place], [address] T PROT 6.7 g/dL Normal 6.4-8.2 [facility] Comment on above: Order Comment: Order Date: 07/16/24 Order Info: 0786- - CMP Order Info: [id number] - LIPID Order Info: 3015-11 - TSH Performed By: #### L 500.4050, L501.9985, L506.1000, L500.4100, L100.0100 #### [facility] [address] [place], [address] Urea nitrogen [Mass/Vol] 11 mg/dL Normal 7-18 [facility] Comment on above: Order Comment: Order Date: 07/16/24 Order Info: 0786-1 - CMP Order Info: [id number] - LIPID Order Info: 3015-11 - TSH Performed By: #### L 500.4050, L501.9985, L506.1000, L500.4100, L100.0100 #### [facility] [address] [place], [address] Hemoglobin A1con 07-16-2024 HbA1c (Bld) [Mass fraction] 6.4 % High 3.8-5.6 [facility] Comment on above: Order Comment: Order Date: 07/16/24Order Info: [id number] - A1C Result Comment: Norm al < 5.7 % Prediabetic 5.7 - 6.4 % Diabetic >or= 6.5 % Please note range changes. Performed By: #### L 500.4050, L501.9985, L506.1000, L500.4100, L100.0100 ####[facility] [address] [place], [address] Lipid Profileon 07-16-2024 Cholesterol [Mass/Vol] 193 mg/dL Normal 200 [facility] Comment on above: Order Comment: Order Date: 07/16/24 Order Info: 0786-1 - CMP Order Info: [id number] - LIPID Order Info: 3016-3 - TSH Result Comment: <200 mg/dL Desirable 200-240 mg/dL Borderline >240 mg/dL High Risk Performed By: #### L 500.4050, L501.9985, L506.1000, L500.4100, L100.0100 #### [facility] [address] [place], [address] Cholesterol in HDL [Mass/Vol] 46 mg/dL Normal [facility] Comment on above: Order Comment: Order Date: 07/16/24 Order Info: 0786-1 - CMP Order Info: [id number] - LIPID Order Info: [id number] - TSH Result Comment: The drugs N-Acetylcysteine and Metamizole may falsely depress this assay. Reference Range HDL <40 mg/dL Low HDL Cholesterol HDL >or= 60 mg/dL High HDL Cholesterol Performed By: #### L 500.4050, L501.9985, L506.1000, L500.4100, L100.0100 #### [facility] [address] [place], [address] Cholesterol in LDL [Mass/Vol] 117 mg/dL Normal 0-130 [facility] Comment on above: Order Comment: Order Date: 07/16/24 Order Info: 0786-1 - CMP Order Info: [id number] - LIPID Order Info: [id number] - TSH Performed By: #### L 500.4050, L501.9985, L506.1000, L500.4100, L100.0100 #### [facility] [address] [place], [address] Cholesterol in VLDL [Mass/Vol] 30 mg/dL Normal 5-40 [facility] Comment on above: Order Comment: Order Date: 07/16/24 Order Info: 0786-1 - CMP Order Info: [id number] - LIPID Order Info: 3016-3 - TSH Performed By: #### L 500.4050, L501.9985, L506.1000, L500.4100, L100.0100 #### [facility] [address] [place], [address] Triglyceride [Mass/Vol] 150 mg/dL Normal [facility] Comment on above: Order Comment: Order Date: 07/16/24 Order Info: 0786-1 - CMP Order Info: [id number] - LIPID Order Info: [id number] - TSH Result Comment: The drugs N-Acetylcysteine and Metamizole may falsely depress this assay. Serum Triglycerides Reference Interval Normal <150 mg/dL Borderline high 150 - 199 mg/dL High 200 - 499 mg/dL Very High > or = 500 mg/dL Performed By: #### L 500.4050, L501.9985, L506.1000, L500.4100, L100.0100 #### [facility] [address] [place], [address] Thyroid Stim Hormone (TSH)on 07-16-2024 TSH 0.939 uIU/mL Normal 0.358-3.740 [facility] Comment on above: Order Comment: Order Date: 07/16/24Order Info: 0786-1 - CMPOrder Info: [id number] - LIPIDOrder Info: [id number] - TSH Performed By: #### L 501.9520 ####[facility] [address] [place], [address] Vitamin D,25 Hydroxyon 07-16 Vitamin D 25-OH 13.4 ng/mL Normal [facility] Comment on above: Order Comment: Order Date: 07/16/24 Order Info: [id number] - VITD25 Result Comment: Meli min D 25(OH) Status Range Deficiency <20 ng/mL (50nmol/L) Insufficiency 20 - 30 ng/mL (50 - 75 nmol/L) Sufficiency 30 - 100 ng/mL (75 - 250 nmol/L) Toxicity >100 ng/mL (>250 nmol/L) Performed By: #### L 500.4050, L501.9985, L506.1000, L500.4100, L100.0100 #### [facility] [address] [place], [address] Basophil percentageOrdered B y: Maame Annanger on 12-29-2022 Bilirubin [Mass/Vol] 0.50 mg/dL 0.20-1.00 [facility] Comment on above: For patients on eltr ombopag therapy, use of Dimension [place] TBIL is not recommended. Chloride [Moles/Vol] 100 mmol/L 98-107 [facility] Cholesterol [Mass/Vol] 153 mg/dL <200 [facility] Comment on above: <200 mg/dL Desirable 200-240 mg/dL Borderline >240 mg/dL High Risk Glucose [Mass/Vol] 122 mg/dL 74-106 [facility] Comment on above: Fasting Glucose resu lt from 100 to 125 mg/dL suggests IMPAIRED HOMEOSTASIS per A.D.A. criteria. Potassium [Moles/Vol] 3.7 mmol/L 3.5-5.1 [facility] Comment on above: Slight Hemolysis, Re sult may be falsely increased. Protein [Mass/Vol] 6.7 g/dL 6.4-8.2 [facility] Sodium [Moles/Vol] 135 mmol/L 136-145 [facility] Triglyceride [Mass/Vol] 189 mg/dL <199 [facility] Comment on above: The drugs N-Acetylcy steine and Metamizole may falsely depress this assay.Serum Triglycerides Reference Interval Normal <150 mg/dL Borderline high 150 - 199 mg/dL High 200 - 499 mg/dL Very High > or = 500 mg/dL Laboratory - Chemistry and C hemistry - challengeOrdered By: Maame Chang on 12-29-2022 ALP [Catalytic activity/Vol] 85 U/L 45-117 [facility] ALT [Catalytic activity/Vol] 30 U/L 13-56 [facility] CO2 [Moles/Vol] 29.0 mmol/L 21.0-32.0 [facility] Globulin (S) [Mass/Vol] 2.9 g/dL 2.2-4.2 [facility] Urea nitrogen/Creatinine [Mass ratio] 17.2 mg/mg 10-20 [facility] No Panel InformationOrdered By: Maame Chang on 12-29-2022 Estimated GFR (MDRD) Amer 81 mL/min >60 [facility] Comment on above: GFR Calc Estimated GFR (MDRD) Non-Af Amer 67 mL/min >60 [facility] Comment on above: Non- GFR Calc Serum or plasma albumin roel urement (mass/volume)Ordered By: Maame Chang on 12-29-2022 Albumin [Mass/Vol] 3.8 g/dL 3.2-5.0 [facility] Serum or plasma albumin/glob ulin mass ratioOrdered By: Maame Chang on 12-29-2022 Albumin/Globulin [Mass ratio] 1.3 {ratio} 0.9-2.4 [facility] Serum or plasma calcium roel urement (mass/volume)Ordered By: Maame Chang on 12-29-2022 Calcium [Mass/Vol] 9.2 mg/dL 8.5-10.1 [facility] Serum or plasma cholesterol in HDL measurement (mass/volume)Ordered By: Maame Chang on 12-29-2022 Cholesterol in HDL [Mass/Vol] 50 mg/dL >40 [facility] Comment on above: The drugs N-Acetylcy steine and Metamizole may falsely depress this assay. Reference Range HDL <40 mg/dL Low HDL Cholesterol HDL >or= 60 mg/dL High HDL Cholesterol Serum or plasma cholesterol in VLDL measurement (mass/volume)Ordered By: Maame Chang on 12-29-2022 Cholesterol in VLDL [Mass/Vol] 38 mg/dL 5-40 [facility] Serum or plasma creatinine m easurement (mass/volume)Ordered By: Maame Chang on 12-29-2022 Creatinine [Mass/Vol] 0.87 mg/dL 0.55-1.02 [facility] Comment on above: The validity of the calculated GFR & GFRAA in patients over 70 years has not been determined. Clinical correlation is essential. Serum or plasma low density lipoprotein (LDL) cholesterol measurement (mass/volume)Ordered By: Maame Chang on 12-29-2022 Cholesterol in LDL [Mass/Vol] 65 mg/dL 0-130 [facility] Serum or plasma urea nitroge n measurement (mass/volume)Ordered By: Maame Chang on 12-29-2022 Urea nitrogen [Mass/Vol] 15 mg/dL 7-18 [facility] Thin prep Papanicolaou smear with manual screeningOrdered By: Maame Chang on 12-29-2022 Thin prep Papanicolaou smear with manual screening 18 U/L 15-37 [facility] Comment on above: Slight Hemolysis, Re sult may be falsely increased. Thin prep Papanicolaou smear with manual screening 6 5-15 [facility] Thin prep Papanicolaou smear with manual screening 14.4 mg/L NO RANGE EST. [facility] Whole blood hemoglobin A1c/t otal hemoglobin ratio (mass fraction)Ordered By: Maame Chang on 12-29-2022 HbA1c (Bld) [Mass fraction] 5.9 % 3.8-5.6 [facility] Comment on above: Normal < 5.7 % Predi abetic 5.7 - 6.4 % Diabetic >or= 6.5 % Please note range changes. Basophil percentageon 2021 Chloride [Moles/Vol] 101 mmol/L 98-107 [facility] Work Phone: Cholesterol [Mass/Vol] 139 mg/dL <200 [facility] Work Phone: Comment on above: <200 mg/dL Desirable 200-240 mg/dL Borderline >240 mg/dL High Risk Glucose [Mass/Vol] 119 mg/dL 74-106 [facility] Work Phone: Comment on above: Fasting Glucose resu lt from 100 to 125 mg/dL suggests IMPAIRED HOMEOSTASIS per A.D.A. criteria. Potassium [Moles/Vol] 3.7 mmol/L 3.5-5.1 [facility] Work Phone: Sodium [Moles/Vol] 134 mmol/L 136-145 [facility] Work Phone: Triglyceride [Mass/Vol] 177 mg/dL [facility] Work Phone: Comment on above: The drugs N-Acetylcy steine and Metamizole may falsely depress this assay.Serum Triglycerides Reference Interval Normal <150 mg/dL Borderline high 150 - 199 mg/dL High 200 - 499 mg/dL Very High > or = 500 mg/dL Laboratory - Chemistry and C hemistry - challengeon 12-28-2021 CO2 [Moles/Vol] 25.0 mmol/L 21.0-32.0 [facility] Work Phone: Urea nitrogen/Creatinine [Mass ratio] 13.9 mg/mg 10-20 [facility] Work Phone: No Panel Informationon 12-28 Hepatitis C Antibody Non-Reactive Nonreactive [facility] Work Phone: Comment on above: Non Reactive: < 0.8 Equivocal: >/= 0.8 to < 1.0 Reactive: >/= 1.0The CDC recommends that a reactive/equivocal HCV antibody result be followed up by the HCV Nucleic Acid Amplificationtest (996295) Estimated GFR (MDRD) Amer 91 mL/min >60 [facility] Work Phone: Comment on above: GFR Calc Estimated GFR (MDRD) Non-Af Amer 75 mL/min >60 [facility] Work Phone: Comment on above: Non- GFR Calc Serum or plasma calcium roel urement (mass/volume)on 12-28-2021 Calcium [Mass/Vol] 8.7 mg/dL 8.5-10.1 [facility] Work Phone: Serum or plasma cholesterol in HDL measurement (mass/volume)on 12-28-2021 Cholesterol in HDL [Mass/Vol] 54 mg/dL [facility] Work Phone: Comment on above: The drugs N-Acetylcy steine and Metamizole may falsely depress this assay. Reference Range HDL <40 mg/dL Low HDL Cholesterol HDL >or= 60 mg/dL High HDL Cholesterol Serum or plasma cholesterol in VLDL measurement (mass/volume)on 12-28-2021 Cholesterol in VLDL [Mass/Vol] 35 mg/dL 5-40 [facility] Work Phone: Serum or plasma creatinine m easurement (mass/volume)on 12-28-2021 Creatinine [Mass/Vol] 0.79 mg/dL 0.55-1.02 [facility] Work Phone: Comment on above: The validity of the calculated GFR & GFRAA in patients over 70 years has not been determined. Clinical correlation is essential. Serum or plasma low density lipoprotein (LDL) cholesterol measurement (mass/volume)on 12-28-2021 Cholesterol in LDL [Mass/Vol] 50 mg/dL 0-130 [facility] Work Phone: Serum or plasma urea nitroge n measurement (mass/volume)on 12-28-2021 Urea nitrogen [Mass/Vol] 11 mg/dL 7-18 [facility] Work Phone: Thin prep Papanicolaou smear with manual screeningon 12-28-2021 Thin prep Papanicolaou smear with manual screening 8 5-15 [facility] Work Phone: CNPTOUTREACHon 10-29-2020 CNPTOUTREACH Patient Outreach ([facility]) ZHENG ROY ([id number]) 1945 F Date Time Provider Department 10/29/20 JUSTINS, PENELOPE RIGGINS During your visit today, we recorded the following information about you: Allergies As of Date: 10/29/2020 Noted Allergy Reaction LYRICA (PREGABALIN) 05/24/2010 Comments: Muscle pain. PENICILLINS 05/24/2010 Comments: Rash. STEROIDS (BETAMETHASONE DIPROPION*05/24/2010 Comments: Eye doctor states patient is not able to take steroids of any kind due to possible loss of sight. TETANUS VACCINES AND TOXOID 05/24/2010 Comments: High fever and lips blister . Date Reviewed: 03/23/2019 Reviewed by: Marielos ([facility]) Raciel Plascencia Fully Assessed Order(s):SARS-COVID VACCINE 1ST DOSE APPT [[id number]] Order #: [id number] FUTURE Prescriptions as of 10/29/2020 Sig: POTASSIUM CHLORIDE ER 10 MEQ * HYDROCHLOROTHIAZIDE 25 MG TAB* AZELASTINE 137 MCG (0.1 %) NA* ASPIR-81 MG TABLET,DELAYED RE* Take one(1) tablet daily. * CALCIUM 500 MG TABLET takes as directed * PRILOSEC 20 MG CAPSULE,DELAYE* Take one(1) capsule daily. * DAILY VITAMIN TABLET Take one(1) tablet daily. Problem List As Of Date: 10/29/2020 (None) Letter Text Encounter Status:Closed by MARITZA PRODUSER on 11/02/20 Normal [facility] Vital Signs Date Time Vital Sign Value Performing Clinician Corie capps 02-26-2025 12:07-0400 Body temperature 97.7 [degF] Dr. Roseann Eli MD Work Phone: [facility] 02-26-2025 12:07-0400 Diastolic blood pressure 72 mm[Hg] Dr. Roseann Eli MD Work Phone: [facility] 02-26-2025 12:07-0400 Heart rate 78 /min Dr. Roseann Eli MD Work Phone: [facility] 02-26-2025 12:07-0400 Respiratory rate 18 /min Dr. Roseann Eli MD Work Phone: [facility] 02-26-2025 12:07-0400 SaO2% (BldA) [Mass fraction] 100 % Dr. Roseann Eli MD Work Phone: [facility] 02-26-2025 12:07-0400 Systolic blood pressure 160 mm[Hg] Dr. Roseann Eli MD Work Phone: [facility] 02-26-2025 09:44-0400 Body height 167.[address] Roseann Eli MD Work Phone: [facility] 02-26-2025 09:44-0400 Body mass index (BMI) [Ratio] 26.1 kg/m2 Dr. Roseann Eli MD Work Phone: [facility] 02-26-2025 09:44-0400 Body weight 73.[address] Roseann Eli MD Work Phone: [facility] 12-05-2024 16:56-0400 Body temperature 96.6 [degF] Pili Chakraborty MD Work Phone: [facility] 12-05-2024 16:56-0400 Diastolic blood pressure 94 mm[Hg] Pili Chakraborty MD Work Phone: [facility] 12-05-2024 16:56-0400 Heart rate 73 /min Pili Chakraborty MD Work Phone: [facility] 12-05-2024 16:56-0400 Respiratory rate 16 /min Pili Chakraborty MD Work Phone: [facility] 12-05-2024 16:56-0400 SaO2% (BldA) [Mass fraction] 100 % Pili Chakraborty MD Work Phone: [facility] 12-05-2024 16:56-0400 Systolic blood pressure 119 mm[Hg] Pili Chakraborty MD Work Phone: [facility] 12-05-2024 12:11-0400 Body height 167.64 cm Pili Chakraborty MD Work Phone: [facility] 12-05-2024 12:11-0400 Body mass index (BMI) [Ratio] 25.7 kg/m2 Pili Chakraborty MD Work Phone: [facility] 12-05-2024 12:11-0400 Body weight 72.5 kg Pili Chakraborty MD Work Phone: [facility] 11-29-2024 15:46-0400 Body temperature 98 [degF] Pili Chakraborty MD Work Phone: [facility] 11-29-2024 15:46-0400 Diastolic blood pressure 72 mm[Hg] Pili Chakraborty MD Work Phone: [facility] 11-29-2024 15:46-0400 Heart rate 79 /min Pili Chakraborty MD Work Phone: [facility] 11-29-2024 15:46-0400 Respiratory rate 18 /min Pili Chakraborty MD Work Phone: [facility] 11-29-2024 15:46-0400 SaO2% (BldA) [Mass fraction] 99 % Pili Chakraborty MD Work Phone: [facility] 11-29-2024 15:46-0400 Systolic blood pressure 183 mm[Hg] Pili Chakraborty MD Work Phone: [facility] 11-29-2024 12:35-0400 Body height 167.64 cm Pili Chakraborty MD Work Phone: [facility] 11-29-2024 12:35-0400 Body mass index (BMI) [Ratio] 26.2 kg/m2 Pili Chakraborty MD Work Phone: [facility] 11-29-2024 12:35-0400 Body weight 73.7 kg Pili Chakraborty MD Work Phone: [facility] 11-16-2024 20:28-0500 Body temperature 98 [degF] Pili Chakraborty MD Work Phone: [facility] 11-16-2024 20:28-0500 Diastolic blood pressure 73 mm[Hg] Pili Chakraborty MD Work Phone: [facility] 11-16-2024 20:28-0500 Heart rate 72 /min Pili Chakraborty MD Work Phone: [facility] 11-16-2024 20:28-0500 Respiratory rate 18 /min Pili Chakraborty MD Work Phone: [facility] 11-16-2024 20:28-0500 SaO2% (BldA) [Mass fraction] 97 % Pili Chakraborty MD Work Phone: [facility] 11-16-2024 20:28-0500 Systolic blood pressure 149 mm[Hg] Pili Chakraborty MD Work Phone: [facility] 11-16-2024 18:16-0500 Body height 154.99 cm Pili Chakraborty MD Work Phone: [facility] 11-16-2024 18:16-0500 Body mass index (BMI) [Ratio] 32.5 kg/m2 Pili Chakraborty MD Work Phone: [facility] 11-16-2024 18:16-0500 Body weight 78.2 kg Pili Chakraborty MD Work Phone: [facility] 09-30-2024 14:26-0500 Body mass index (BMI) [Ratio] 29.8 kg/m2 Pili Chakraborty MD Work Phone: [facility] 09-30-2024 14:26-0500 Body temperature 98.4 [degF] Pili Chakraborty MD Work Phone: [facility] 09-30-2024 14:26-0500 Body weight 71.66 kg Pili Chakraborty MD Work Phone: [facility] 09-30-2024 14:26-0500 Diastolic blood pressure 68 mm[Hg] Pili Chakraborty MD Work Phone: [facility] 09-30-2024 14:26-0500 Heart rate 86 /min Pili Chakraborty MD Work Phone: [facility] 09-30-2024 14:26-0500 Respiratory rate 15 /min Pili Chakraborty MD Work Phone: [facility] 09-30-2024 14:26-0500 SaO2% (BldA) [Mass fraction] 99 % Pili Chakraborty MD Work Phone: [facility] 09-30-2024 14:26-0500 Systolic blood pressure 142 mm[Hg] Pili Chakraborty MD Work Phone: [facility] 06-14-2022 09:13-0400 Body height 156.21 cm [facility] Work Phone: Encounters Encounter Date Encounter Type Care Provider Facility Start: 02-26-2025 End: 02-26-2025 Emergency department patient visit Dr. Roseann Eli MD Work Phone: -Emergency Department Work Phone: Start: 12-05-2024 End: 12-05-2024 Emergency department patient visit Pili Chakraborty MD Work Phone: -Emergency Department Work Phone: Start: 11-29-2024 End: 11-29-2024 Emergency department patient visit Pili Chakraborty MD Work Phone: -Emergency Department Work Phone: Start: 11-16-2024 End: 11-16-2024 Emergency department patient visit Pili Chakraborty MD Work Phone: -Emergency Department Work Phone: Start: 11-13-2024 End: 11-13-2024 ambulatory Pili Chakraborty MD Work Phone: [facility] Work Phone: Start: 11-13-2024 End: 11-13-[address] Epifanio Zamora MD -[facility] [place] Work Phone: Start: 11-13-[address] Epifanio adamson MD -[facility] [place] Work Phone: Start: 11-13-2024 End: 11-13-2024 ambulatory Roseann S Ximenaescobar Facility:[facility] Start: 11-01-2024 ambulatory Brianna Mora Facility: [facility] Start: 10-21-2024 ambulatory Roseann S Jolliff Facility: [facility] Start: 10-01-2024 End: 10-01-[address] [facility] Start: 09-30-2024 End: 09-30-[address] Silver Doe MD -[facility] Work Phone: Start: 09-30-2024 End: 10-01-2024 ambulatory Roseann S Joescobar Facility:[facility] Start: 07-16-2024 End: 07-16-2024 ambulatory Pili Chakraborty Facility:[facility] Start: 07-25-2023 End: 07-25-2023 ambulatory [facility] Work Phone: Start: 07-25-2023 End: 07-25-2023 Discharged Recurring [facility]-Physical Therapy Work Phone: Start: 12-29-2022 End: 12-29-2022 ambulatory [facility] Work Phone: Start: 12-29-2022 End: 12-29-2022 [facility] Start: 06-14-2022 End: 06-14-2022 ambulatory [facility] Work Phone: Start: 06-14-2022 End: 06-14-2022 Patient encounter procedure [facility]-Outpatient Bone Densitometry Start: 12-28-2021 End: 12-28-2021 [facility] Procedures Date Procedure Procedure Detail Performing Clinician Start: 02-26-[address] Roseann Eli MD Work Phone: Start: 02-26-2025 CT of head without contrast Dr. Roseann Eli MD Work Phone: Start: 12-05-2024 Plain x-ray of pelvi s and lower extremity Pili Chakraborty MD Work Phone: Start: 12-05-2024 CT of head without contrast Pili Chakraborty MD Work Phone: Start: 12-05-2024 X-ray of knee, four or more views Pili Chakraborty MD Work Phone: Start: 11-29-[address] Roseann Eli MD Work Phone: Start: 11-29-2024 CT of head without contrast Pili Chakraborty MD Work Phone: Start: 11-29-2024 X-ray of chest posteroanterior view Pili Chakraborty MD Work Phone: Start: 11-16-2024 Plain x-ray of wrist Ch emily Chakraborty MD Work Phone: Start: 11-16-2024 X-ray of chest posteroanterior view Pili Chakraborty MD Work Phone: Start: 11-16-2024 Plain X-ray of shoulder Pili Chakraborty MD Work Phone: Start: 11-13-2024 Vitamin D, 25-hydrox y measurement Dr. Roseann Eli MD Work Phone: Comment on above: Vitamin D StatusDefi ciency: <20 ng/mL (50nmol/L)Insufficiency: 20-30 ng/mL (50-75 nmol/L)Sufficiency: 30-100 ng/mL (75-250 nmol/L)Toxicity: >100 ng/mL (>250 nmol/L) Start: 06-14-2022 Dual energy X-ray absorptiometry Plan of Treatment Date Care Activity Detail Author Start: 02-26-2025 [facility] Start: 02-26-2025 Plain x-ray of pelvi s and lower extremity HIP, UNI W/ Pelvis 2-3 Views [facility] Start: 02-26-2025 XR Pelvis and Hip Views [facility] Start: 12-05-2024 [facility] Start: 11-29-2024 [facility] Start: 11-29-2024 [facility] Start: 11-16-2024 [facility] MR Brain WO contrast [facility] Patient Education [facility] Work Phone: Patient referral [facility] Work Phone: Payers Date Payer Category Payer Self-pay [id number] 2021 Unknown [id number] Unknown [id number] 2.16.8 [id number] Unknown [id number] 2.16.8 [id number] Unknown [id number] 2.16.8 [id number] Unknown [id number] 2.16.8 [id number] Unknown [id number] 2.16.8 [id number] Unknown [id number] 2.16.8 [id number] Unknown [id number] 2.16.8 [id number] Unknown [id number] 2.16.8 [id number] Unknown [id number] 2.16.8 [id number] Social History Date Type Detail [facility] Work Phone: Start: 1945 Sex Assigned At Female [facility] Start: 11-16-2024 End: 02-26-2025 Tobacco smoking status NHIS Never smoked tobacco (finding) [facility] Start: 11-16-2024 End: 12-10-2024 Sex Female (finding) [facility] Clinical Notes 09-30-2024 to 02-26-2025 Note Date & Type Note Facility 02-26-2025 Radiology Diagnostic study note [facility] Imaging Services [address] [place] [address] Brain/Head without Contrast MR#: [id number] Acct: [id number] Name: ZHENG ROY Rep #: [id number] : 1945 F 79 From: Christopher Hudson MD PCP: Dr. Epifanio Zamora DO Status: REG ER Study:Brain/Head without Contrast Date of Exa m: 02/26/25 Exam# [id number] Ordering Dr: Radha Marrero DO PROCEDURE: BRAIN/HEAD WITHOUT CONTRAST 02/26/2025 REASON FOR EXAM: FALL Dizziness. TECHNIQUE: BRAIN/HEAD WITHOUT CONTRAST Coronal and Sagittal reconstruction series were provided. One or more dose reduction techniques were used (e.g., Automated exposure control, adjustment of the mA and/or kV according to patient size, use of iterative reconstruction technique. RADIATION DOSE SUMMARY: CTDlvol: 44.99 mGy DLP: 779.24 mGycm COMPARISON: Prior study dated December 05, 2004. FINDINGS: Brain: Low density in the periventricular white matter suggests mild chronic small vessel ischemic changes. CSF Spaces: Mild generalized cerebral atrophy Sinuses/Mastoids: Clear at visualized levels Bones: Hyperostosis frontalis interna. CT/Brain/Head without Contrast IMPRESSION: CHRONIC CHANGES. NO ACUTE FINDINGS. Reading Location: [facility] CC: Dr. Sofia Marrero DO; Dr. Epifanio Zamora DO ~ Board Certified Family Physician: Signed [facility] 12-05-2024 Discharge summary [facility] 12-05-2024 Radiology Diagnostic study note [facility] Imaging Services [address] [place] [address] Knee 4 or More Views MR#: [id number] Acct: [id number] Name: ZHENG ROY Rep #: [id number] : 1945 F 79 From: Veronika Llanos MD PCP: Dr. Epifanio Zamora DO Status: REG ER Study:Knee 4 or More Views Date of Exam: 12/05/24 Exam# [id number] Ordering Dr: David Gutierrez DO PROCEDURE: KNEE 4 OR MORE VIEWS 12/05/2024 REASON FOR EXAM: INJURY TECHNIQUE: 4 view(s) of the right knee COMPARISON: 12/05/2024 FINDINGS: No acute fracture or dislocation.No degenerative changes. No joint effusion. No soft tissue abnormality. RAD/Knee 4 or More Views IMPRESSION: No acute abnormality. Reading Location: [facility] CC: Dr. Sushil Gutierrez DO; Dr. Epifanio Zamora DO ~ Board Certified Family Physician: Signed [facility] 12-05-2024 Radiology Diagnostic study note [facility] Imaging Services [address] [place] [id number] HIP, UNI W/ Pelvis 2-3 Views MR#: [id number] Acct: [id number] Name: ZHENG ROY Rep #: [id number] : 1945 F 79 From: Veronika Llanos MD PCP: Dr. Epifanio Zamora DO Status: REG ER Study:HIP, UNI W/ Pelvis 2-3 Views Date of Ex am: 12/05/24 Exam# [id number] Ordering Dr: David Gutierrez DO PROCEDURE: HIP, UNI W/ PELVIS 2-3 VIEWS 12/05/2024 REASON FOR EXAM: INJURY TECHNIQUE: Single frontal view of the pelvis and two views of the right hip. COMPARISON: 12/05/2024 FINDINGS: No acute fracture or dislocation.Very mild degenerative loss of joint space and marginal spurring is present. No soft tissue abnormality. The pelvic soft tissues are unremarkable. RAD/HIP, UNI W/ Pelvis 2-3 Views IMPRESSION: 1. No acute abnormality. [facility] CC: Dr. Sushil Gutierrez DO; Dr. Epifanio Zamora DO ~ Board Certified Family Physician: Signed [facility] 12-05-2024 Radiology Diagnostic study note [facility] Imaging Services [address] [place] [address] Brain/Head without Contrast MR#: [id number] Acct: [id number] Name: ZHENG ROY Rep #: [id number] : 1945 F 79 From: Veronika Llanos MD PCP: Dr. Epifanio Zamora DO Status: REG ER Study:Brain/Head without Contrast Date of Exa m: 12/05/24 Exam# [id number] Ordering Dr: David Gutierrez DO PROCEDURE: BRAIN/HEAD WITHOUT CONTRAST 12/05/2024 REASON FOR EXAM: FALL INJURY TECHNIQUE: Head CT without intravenous contrast. Coronal and Sagittal reconstruction serieswere provided. One or more dose reduction techniques were used (e.g., Automated exposure control, adjustment of the mA and/or kV according to patient size, use of iterative reconstruction technique. COMPARISON: 11/29/2024 FINDINGS: No acute intracranial hemorrhage. No loss of young-white differentiation.The ventricles and sulci are normal in appearance. The osseous structures are unremarkable. No soft tissue abnormality identified. There is a small mucous retention cyst or polyp in the left maxillary sinus. CT/Brain/Head without Contrast IMPRESSION: 1. No acute intracranial abnormality. Reading Location: [facility] CC: Dr. Sushil Gutierrez DO; Dr. Epifanio Zamora DO ~ Board Certified Family Physician: Signed [facility] 12-05-2024 Discharge summary Note Date/Time December 05, 2024 4:30pm [facility] Medical Records Department [address] [place] [address] Emergency Department Summary 12/05/24 MR#: [id number] Acct: [id number] Name: ZHENG ROY Rep #:[id number] : 1945 79 From: Sushil Gilliland PCP: Dr. Epifanio Zamora, DO Status:REG ER Location: ED HPI HPI - Fall History of Present Illness Chief Complaint: Fall Informant: patient, family, EMS and SNF Narrative Narrative: 79[facility]-old [facility] room with a fall. Patient herself has significant dementia and cannot provide accurate history. It was reported that she fell off her bed today possibly injuring her right knee. Patient states she has pain in her right hip. But shealso forgets about the right hip pain and tells me that her pain is in her knee. She then also forgets about her knee. There is no reported head injury. Patient's denying any neck or significant back pain. There is no report of being on anticoagulants. [facility] Medical History Dementia Basal cell carcinoma Hypertension Osteoporosis Hypercholesteremia Prediabetes Home Medications ?Medication ?Instructions ?Recorded ?Last Taken ?Type alendronate 70 mg tablet 70 mg PO QWEEK 09/30/24 Unkn own History atorvastatin 20 mg tablet 20 mg PO QHS 09/30/24 Unknow n History azelastine 137 mcg (0.1 %) nasal 2 spray intranasal BI D 09/30/24 Unknown History spray diphenhydramine HCl 25 mg capsule 25 mg PO BID PRN Unknown History ergocalciferol (vitamin D2) 1,250 1,250 mcg PO QWEEK 0 09/30/24 Unknown History mcg (50,000 unit) capsule hydrochlorothiazide 25 mg tablet 25 mg PO QDAY 5 Unknown History potassium chloride 10 mEq 10 meq PO QDAY 09/30/24 Unkn own History capsule,extended release Allergy/AdvReac Type Severity Reaction Status Date / Time albuterol Allergy swollen Verified 12/05/24 12:18 lips Corticosteroids Allergy other Verified 12/05/24 12:18 (Glucocorticoids) (steroids) diphtheria, pertussis, Allergy unknown Verified 12/05/24 12:18 tetanus vacc doxycycline Allergy GI upset Verified 12/05/24 12:18 influenza virus vaccine, Allergy unknown Verified 12/05/24 12:18 specific montelukast (From Singulair) Allergy Hives Verified 12/05/24 12:18 Penicillins Allergy unknown Verified 12/05/24 12:18 Family History Mother , 85 Heart disease Myocardial infarction Father , 91 Heart disease Surgical History History of phacoemulsification of cataract of left eye with intraocular lens implantation Social History household members: none current occupational status: retired pets and animals: Yes pets and animals: dog(s) Smoking Status: Never smoker alcohol intake: never caffeine: No do you feel safe at home: Yes ROS ROS ED Constitutional Constitutional ED: Denies chills or weight loss Eyes Eyes: Denies change in vision or diplopia ENT ENT ED: Denies ear pain, rhinorrhea or sore throat Cardiovascular Cardiovascular: Denies chest pain, orthopnea, palpitations or racing heartbeat Respiratory/Chest Respiratory/Chest: Denies cough, dyspnea or orthopnea Gastrointestinal Gastrointestinal: Denies abdominal pain, diarrhea, nausea or vomiting Genitourinary Genitourinary ED: Denies dysuria, hematuria or urinary frequency Musculoskeletal Musculoskeletal: Reports other Details: See history of present illness ; Denies arthralgias, back pain, myalgias or neck pain Integumentary Denies abscess or rash Neurologic Neurologic: Denies headache(s) or weakness Psychiatric Psychiatric: Denies anxiety, depression, suicidal ideation or suicidal thoughts Endocrine Endocrinology: Denies polydipsia, polyphagia or polyuria Allergic/Immunologic Allergic/Immunologic ED: Denies mouth swelling, tongue swelling or urticaria EXAM Physical Exam Const Vital Signs: 12/05/24 12:11 Temperature 97.6 F L Temperature Source Oral Pulse Rate 76 Respiratory Rate 16 Blood Pressure 182/71 H Blood Pressure Mean 108 Pulse Ox 98 Oxygen Delivery Method Room Air Positive well nourished and well developed General Appearance ED: well developed HEENT Reports normocephalic, head/scalp atraumatic and moist mucous membranes Eyes PERRL and EOMs intact bilaterally Neck no lymphadenopathy, supple and no JVD Resp normal respiratory effort and clear to auscultation bilaterally Cardio regular rate, regular rhythm and no murmurs GI normal to inspection, nondistended, normoactive bowel sounds and non-tender Palpation: soft Back/Spine no CVA tenderness and normal ROM Extremity Extremity Narrative: Right knee demonstrates no significant effusion ecchymosis or swelling. She reports tenderness over the patella. Ligaments appear stable. Right hip does not demonstrate any shortening. No pain with logroll. Unable to range the hip. No contusion is seen. General Extremety ED: Negative for edema General Extremity: Negative for edema Neuro CN's II-XII intact bilaterally Neuro Narrative: Patient is alert but pleasantly demented. She tells a story of getting the [place] and off the bus in a man with keys that is causing problems getting her door unlocked. Sensorium / Orientation: alert Motor Exam: strength 5/5 throughout Psych mental status grossly normal Mood & Affect: Negative for depressed or tearful Skin no rashes or lesions noted and no wounds MDM MDM MDM Narrative Medical decision making narrative: Differential diagnosis includes but not limited to knee and hip contusion knee fracture hip fracture pelvic fracture intracranial hemorrhage contusion sprain strain My independent interpretation the plain films of the right knee is no acute fracture. My independent interpretation of the plain films of the right hip with pelvis is no acute fracture. CT of the brain was negative for intracranialhemorrhage. At this point I believe the patient can be [facility]. Follow-up as needed Tylenol for pain.. History & Record Review Discussion w/independent historian: Patient and Family Radiography Diagnostic Testing: Clinical Impression(s) from Imaging Studies Brain CT 12/05/24 12:58 IMPRESSION: 1. No acute intracranial abnormality. Reading Location: [facility] Knee X-Ray 12/05/24 12:58 IMPRESSION: No acute abnormality. Reading Location: [facility] Hip/Pelvis X-Ray 12/05/24 13:35 IMPRESSION: 1. No acute abnormality. Reading Location: [facility] Discharge Plan Triage Chief Complaint: Fall ED Provider: Sushil Gutierrez Dx/Rx/DC Orders Clinical Impression: Fall, Acute knee pain, Acute hip pain Instructions: ED Fall Prevention Prescriptions: No Action hydrochlorothiazide 25 mg tablet 25 mg PO QDAY azelastine 137 mcg (0.1 %) spray,non-aerosol 2 spray intranasal BID Rx Instructions: administer into each nostril alendronate 70 mg tablet 70 mg PO QWEEK atorvastatin 20 mg tablet 20 mg PO QHS ergocalciferol (vitamin D2) 1,250 mcg (50,000 unit) capsule 1,250 mcg PO QWEEK potassium chloride 10 mEq capsule, extended release 10 meq PO QDAY diphenhydramine HCl 25 mg capsule 25 mg PO BID PRN Primary Care Provider: Epifanio Zamora Referrals: Epifanio Zamora DO [Primary Care Provider] - As Needed Print Language: Romanian Disposition Disposition: Home, Self Care What to do if you have Problems For any increased pain, shortness of breath, bleeding, nausea or vomiting, chestpain, or any unexpected problems, contact your Primary Care Provider. Call [facility] ([phone]) or report to the closest Emergency Room. Call 911 if necessary. 12/05/24 1630 <Electronically signed by Sushil Gutierrez DO> Cosigner Signature (if applicable): CC: Dr. Epifanio Zamora DO ~ Signed [facility] Work Phone: [phone] 637-751803-21-2025 Radiology Diagnostic study note [facility] Imaging Services [address] [place] [id number] Ribs Uni Min 3V w/PA Chest MR#: [id number] Acct: [id number] Name: ZHENG ROY Rep #: [id number] : 1945 F 79 From: Christopher Hudson MD PCP: Dr. Epifanio Zamora DO Status: REG ER Study:Ribs Uni Min 3V w/PA Chest Date of Exam : 11/29/24 Exam# [id number] Ordering Dr: Behzad Weber MD PROCEDURE: RIBS UNI MIN 3V W/PA CHEST 11/29/2024 REASON FOR EXAM: INJURY/FALL TECHNIQUE: Frontal and bilateral oblique views of the bilateral ribs. COMPARISON: Comparison is made with prior study dated November 16, 2024. FINDINGS: Findings: The lungs are well inflated. No focal infiltrate is seen. No evidence of pneumothorax. Other: No rib fracture is seen. Degenerative changes of the visualized thoracic vertebrae. Calcification of the aortic arch. RAD/Ribs Uni Min 3V w/PA Chest IMPRESSION: No acute abnormality is seen. Reading Location: [place] [address] CC: Dr. Kenney Weber MD; Dr. Epifanio Zamora DO ~ Board Certified Family Physician: Signed [facility]03-21-2025 Radiology Diagnostic study note [facility] Imaging Services [address] [place], [place] [address] Brain/Head without Contrast MR#: [id number] Acct: [id number] Name: ZHENG ROY Rep #: [id number] : 1945 F 79 From: Bobbi Pressley MD PCP: Dr. Epifanio Zamora DO Status: REG ER Study:Brain/Head without Contrast Date of Exa m: 11/29/24 Exam# [id number] Ordering Dr: Behzad Weber MD PROCEDURE: BRAIN/HEAD WITHOUT CONTRAST (CTBR), 11/29/2024 REASON FOR EXAM: VERTIGO, FALL COMPARISON: None TECHNIQUE: CT head was performed without IV contrast. Multiplanar reformats were generated. RADIATION DOSE SUMMARY: CTDlvol: 47.06 mGy DLP: 837.39 mGycm One or more dose reduction techniques were used (e.g., Automated exposure control, adjustment of the mA and/or kV according to patient size, use of iterative reconstruction technique). FINDINGS: Cerebrum: No visible intracranial hemorrhage, definite acute territorial infarct, or mass. Mild/moderate cerebral volume loss. Minimal patchy supratentorial white matter hypodensity, nonspecific but compatible with chronic microvascular ischemic changes. Cerebellum/brainstem: Unremarkable. Note slight limitation due to beam hardeningartifact. Ventricles/extra-axial spaces: 3rd and lateral ventriculomegaly appears borderline slightly out of proportion to the degree of volume loss with relative sulcal effacement at the vertex. Paranasal sinuses/mastoid air cells: Mild mucosal thickening in the ethmoid air cells.. Scalp/calvarium: Unremarkable. Other: Intracranial atherosclerosis. CT/Brain/Head without Contrast IMPRESSION: 1. No visible acute intracranial findings. If there is persistent concern for anacute intracranial process, consider MRI. 2. Borderline findings which are nonspecific but may be seen in the setting of communicating/normalpressure hydrocephalus, given the appropriate clinical context. 3. Mild ethmoid paranasal sinus disease. 4. Additional description as above. Reading Location: [id number] CC: Dr. Kenney Weber MD; Dr. Epifanio Zamora DO ~ Board Certified Family Physician: Signed [facility]03-08-2025 Discharge summary [facility] Medical Records Department [address] [place] [address] Emergency Department Summary 11/16/24 MR#: [id number] Acct: [id number] Name: ZHENG ROY Rep #:[id number] : 1945 79 From: Astrid EASTON PCP: Dr. Epifanio Zamora DO Status:REG ER Location: ED HPI History of Present Illness Chief Complaint: Fall Narrative Narrative: 79-year-old female had an unwitnessed fall at [facility]. She was apparently found on the ground facedown near the dining area. She has no external signs of injury but complains of left shoulder pain. She is not on blood thinners. Daughter states she has dementia and moved into [facility] in September 2024 and since then has fallen a total of 2 times including today. She ambulates well without assistance or assistive devices. Patient is not sure whyshe fell off but can provide limited history secondary to dementia. Her daughter is here and states she is acting at baseline. [facility] Medical History (Updated 11/16/24 @ 19:22 by RUSTAM Shepard) Dementia Basal cell carcinoma Hypertension Osteoporosis Hypercholesteremia Prediabetes Home Medications ?Medication ?Instructions ?Recorded ?Last Taken ?Type alendronate 70 mg tablet 70 mg PO QWEEK 09/30/24 Unkn own History atorvastatin 20 mg tablet 20 mg PO QHS 09/30/24 Unknow n History azelastine 137 mcg (0.1 %) nasal 2 spray intranasal BI D 09/30/24 Unknown History spray diphenhydramine HCl 25 mg capsule 25 mg PO BID PRN Unknown History ergocalciferol (vitamin D2) 1,250 1,250 mcg PO QWEEK 0 09/30/24 Unknown History mcg (50,000 unit) capsule hydrochlorothiazide 25 mg tablet 25 mg PO QDAY 5 Unknown History potassium chloride 10 mEq 10 meq PO QDAY 09/30/24 Unkn own History capsule,extended release Allergy/AdvReac Type Severity Reaction Status Date / Time albuterol Allergy swollen Verified 09/30/24 14:37 lips Corticosteroids Allergy other Verified 09/30/24 14:37 (Glucocorticoids) (steroids) diphtheria, pertussis, Allergy unknown Verified 09/30/24 14:37 tetanus vacc doxycycline Allergy GI upset Verified 09/30/24 14:37 influenza virus vaccine, Allergy unknown Verified 09/30/24 14:37 specific montelukast (From Singulair) Allergy Hives Verified 09/30/24 14:37 Penicillins Allergy unknown Verified 09/30/24 14:37 Family History Mother , 85 Heart disease Myocardial infarction Father , 91 Heart disease Surgical History History of phacoemulsification of cataract of left eye with intraocular lens implantation Social History household members: none current occupational status: retired pets and animals: Yes pets and animals: dog(s) Smoking Status: Never smoker alcohol intake: never caffeine: No do you feel safe at home: Yes ROS ROS ED ROS Narrative Denies headache, nausea or vomiting. EXAM Physical Exam Narrative Exam Narrative: CONST: Patient sitting in no acute distress. EYES: Normal inspection. PERRL, EOMI. HEAD: Normocephalic atraumatic. NECK: Normal inspection. No midline tenderness or step-offs. RESP: No respiratory distress, CTAB. Tender over left ribs without deformity orcrepitus. CVS: Regular rate and rhythm, no murmur, no gallop. ABD: Soft and nontender, no guarding or rebound, nondistender. Back: Normal inspection, no midline tenderness. SKIN: Color normal, no rash, warm, dry, intact. EXTREMITIES: Normal appearance, tender over left anterior shoulder and left distal radius. No deformity or crepitus. Full passive range of motion. Normalsensation in axillary median radial and ulnar distributions. 2+ radial pulses. Brisk cap refill. No tenderness right upper extremity. Pelvis stable, no tenderness of lower extremities, 2+ DP pulses. NEURO: Alert and oriented to self, age, place PSYCH: Normal affect. Const Vital Signs: 11/16/24 18:16 11/16/24 18:28 Temperature 97.7 F L Temperature Source Temporal Pulse Rate 83 Respiratory Rate 18 Respiratory Effort Normal Non-Labored Respiratory Depth Normal Respiratory Pattern Normal Blood Pressure 167/63 H Blood Pressure Mean 97 Pulse Ox 99 Oxygen Delivery Method Room Air Physical Exam Const Vital Signs: 11/16/24 18:16 11/16/24 18:28 Temperature 97.7 F L Temperature Source Temporal Pulse Rate 83 Respiratory Rate 18 Respiratory Effort Normal Non-Labored Respiratory Depth Normal Respiratory Pattern Normal Blood Pressure 167/63 H Blood Pressure Mean 97 Pulse Ox 99 Oxygen Delivery Method Room Air MDM MDM MDM Narrative Medical decision making narrative: History gathered from: Patient and daughter Differential includes but not limited to extremity contusion versus fracture, rib contusion, fracture, pneumothorax 79-year-old female from memory care unit had an unwitnessed fall. She is awake and alert x 3. She cannot provide further history due to dementia. She has no external signs of trauma. No neurological deficits. Since she is DNR CC and has no signs of head trauma and is acting at baseline per her daughter I do not think CT imaging of the head or neck is indicated. She is tender over the left shoulder, left wrist, and left ribs so x-rays were obtained of these areas and are all negative. She was treated with Tylenol and advised to use ice. She wasdischarged in stable condition. I have personally performed a face to face assessment of the patient and have reviewed the REI Note. I performed a substantive portion of the visit including all aspects of the following. My ochoa findings include: History is remarkable for fall. Patient landed against a piece of furniture/dresser. She is complaining of left shoulder pain, left wrist pain and left chest pain anteriorly. She is DNR CCA only. There is no complaint of headache. There is no known history of head trauma. She denies ringing or earsor decreased hearing. She is right-hand dominant. She denies shortness of breath. She denies abdominal pain. Denies flank pain. She has not urinated since thisoccurred. Incident occurred at approximately 1700. Exam is remarkable for pleasant elderly woman who appears in no distress. HEENTexams unremarkable with no evidence of trauma or clinical findings of basilar skull fracture. Neck is nontender full active range of motion. She has pain ovation over the proximal humerus left shoulder. There is no point tenderness over the left clavicle or AC joint. There is superficial tenderness over the left elbow.There is no point tenderness over the lateral medial epicondyle, olecranon process or radial head with supination pronation. She complained of wrist pain and there is an area of discomfort over the distal radius. Axillary,median, radial and ulnar function intact. Radial pulses palpable. Patient hassignificant tenderness to palpation anterior left chest ribs 5 through 8. Thereis no crepitus subcutaneous air. Breath sounds are symmetric but diminished because she is reluctant take a deep breath.Heart is regular. There is no murmur, gallop or rub. There is no click noted. Abdomen is soft nontender withno evidence hepatosplenomegaly. There is no CVA tenderness noted. Medical Decision Making since patient is DNR comfort care only CT of the head and neck was not obtained and especially since patient has no objective findingsor subjective findings of trauma. X-ray of the shoulder, wrist and ribs were obtained to evaluate contusion versus fracture. Patient was offered pain medicine. Daughter states this makes her very confused and would like to hold off at this time. Other additions or changes: [None] Radiography Diagnostic Testing: Clinical Impression(s) from Imaging Studies Shoulder X-Ray 11/16/24 18:30 IMPRESSION: NO ACUTE FRACTURE OR DISLOCATION. Reading Location: [facility] Ribs w/Chest X-Ray 11/16/24 18:41 IMPRESSION: NO EVIDENCE OF ACUTE RIB FRACTURE OR PNEUMOTHORAX. Reading Location: [facility] Wrist X-Ray 11/16/24 18:41 IMPRESSION: No acute fracture or dislocation. [facility] attending interpretation of left shoulder shows no fracture or dislocation. ED attending interpretation of left wrist shows no fracture or dislocation. ED attending interpretation of left rib series shows no displaced rib fracture or pneumothorax. MDM MDM Narrative Medical decision making narrative: I have personally performed a face to face assessment of the patient and have reviewed the REI Note. I performed a substantive portion of the visit including all aspects of the following. My ochoa findings include: History is remarkable for fall. Patient landed against a piece of furniture/dresser. She is complaining of left shoulder pain, left wrist pain and left chest pain anteriorly. She is DNR CCA only. There is no complaint of headache. There is no known history of head trauma. She denies ringing or earsor decreased hearing. She is right-hand dominant. She denies shortness of breath. She denies abdominal pain. Denies flank pain. She has not urinated since this occurred. Incident occurred at approximately 1700. Exam is remarkable for pleasant elderly woman who appears in no distress. HEENT exams unremarkable with no evidence of trauma or clinical findings of basilar skull fracture. Neck is nontender full active range of motion. She has pain ovation over the proximal humerus left shoulder. There is no point tenderness over the left clavicle or AC joint. There is superficial tenderness over the left elbow. There is no point tenderness over the lateral medial epicondyle, olecranon process or radial head with supination pronation. She complained of wrist pain and there is an area of discomfort over the distal radius. Axillary, median, radial and ulnar function intact. Radial pulses palpable. Patient has significant tenderness to palpation anterior left chest ribs 5 through 8. There is no crepitus subcutaneous air. Breath sounds are symmetric but diminished because she is reluctant take a deep breath. Heart is regular. There is no murmur, gallop or rub. There is no click noted. Abdomen is soft nontender with no evidence hepatosplenomegaly. There is no CVA tenderness noted. Medical Decision Making since patient is DNR comfort care only CT of the head and neck was not obtained and especially since patient has no objective findings or subjective findings of trauma. X-ray of the shoulder, wrist and ribs were obtained to evaluate contusion versus fracture. Patient was offered pain medicine. Daughter states this makes her very confused and would like to hold off at this time. Other additions or changes: [None] Radiography Chest X-Ray - ED: 2 View (Three-view x-ray of the wrist reveals no evidence of fracture, subluxation dislocation. The spaces of the carpal bones are symmetric. There is no evidence of a volar fat pad.) and Read by ED Physician (Three-view x-ray of the left shoulder reveals no acute abnormality i.e.fracture, subluxation or dislocation. There is minimal arthritic changes of the AC joint. The clavicle appears normal as well. There is no evidence of pneumothorax.) CTA PE Study: - (5 view x-ray of the left ribs with chest x-ray reveals normal cardiac silhouette and size. No evidence of pneumothorax or hemothorax. There is no fractured ribs noted. Plan is to discharge to home.) Diagnostic Testing: Clinical Impression(s) from Imaging Studies Shoulder X-Ray 11/16/24 18:30 IMPRESSION: NO ACUTE FRACTURE OR DISLOCATION. Reading Location: [facility] Ribs w/Chest X-Ray 11/16/24 18:41 IMPRESSION: NO EVIDENCE OF ACUTE RIB FRACTURE OR PNEUMOTHORAX. Reading Location: [facility] Wrist X-Ray 11/16/24 18:41 IMPRESSION: No acute fracture or dislocation. Reading Location: [facility] Discharge Plan Triage Chief Complaint: Fall ED Midlevel Provider: Astrid Monae ED Provider: Kalyan Dozier Dx/Rx/DC Orders Clinical Impression: Fall, Contusion of left shoulder, Contusion of left wrist, Contusion of rib on left side Instructions: Bruises (Contusions) Prescriptions: No Action hydrochlorothiazide 25 mg tablet 25 mg PO QDAY azelastine 137 mcg (0.1 %) spray,non-aerosol 2 spray intranasal BID Rx Instructions: administer into each nostril alendronate 70 mg tablet 70 mg PO QWEEK atorvastatin 20 mg tablet 20 mg PO QHS ergocalciferol (vitamin D2) 1,250 mcg (50,000 unit) capsule 1,250 mcg PO QWEEK potassium chloride 10 mEq capsule, extended release 10 meq PO QDAY diphenhydramine HCl 25 mg capsule 25 mg PO BID PRN Primary Care Provider: Epifanio Zamora Referrals: Roseann Eli MD [Med Staff - Lead Mechanic] - Activity Restrictions/Additional Instructions: The x-ray showed no broken bones. I would treat your contusions with ice and Tylenol every 6 hours as needed. Print Language: Romanian Disposition Disposition: Home, Self Care What to do if you have Problems For any increased pain, shortness of breath, bleeding, nausea or vomiting, chestpain, or any unexpected problems, contact your Primary Care Provider. Call [facility] ([phone]) or report tothe closest Emergency Room. Call 911 if necessary. 11/16/242009 Cosigner Signature (if applicable): 11/16/242025 CC: Dr. Epifanio Zamora, ~ Signed [facility]03-08-2025 Radiology Diagnostic study note [facility] Imaging Services [address] [place] [address] Ribs Uni Min 3V w/PA Chest MR#: [id number] Acct: [id number] Name: ZHENG ROY Rep #: [id number] : 1945 F 79 From: Tyson Rocha DO PCP: Dr. Epifanio Zamora DO Status: REG ER Study:Ribs Uni Min 3V w/PA Chest Date of Exam : 11/16/24 Exam# [id number] Ordering Dr: Anil Dozier MD PROCEDURE: RIBS UNI MIN 3V W/PA CHEST REASON FOR EXAM: Trauma. TECHNIQUE: Frontal and oblique views of the left ribs. Frontal view of the chest. COMPARISON: None. FINDINGS: The heart size is normal. The lungs are clear. No pneumothorax or pleural effusion. No displaced rib fractures are identified. RAD/Ribs Uni Min 3V w/PA Chest IMPRESSION: NO EVIDENCE OF ACUTE RIB FRACTURE OR PNEUMOTHORAX. Reading Location: [facility] CC: Dr. Epifanio Zamora DO; Dr. Kalyan Dozier MD ~ Board Certified Family Physician: Signed [facility]03-08-2025 Radiology Diagnostic study note [facility] Imaging Services [address] [place], [place] [id number] ([phone] Wrist min 3 Views MR#: [id number] Acct: [id number] Name: ZHENG ROY Rep #: [id number] : 1945 F 79 From: Tyson Rocha DO PCP: Dr. Epifanio Zamora DO Status: REG ER Study:Wrist min 3 Views Date of Exam: Exam# [id number] Ordering Dr: Anil Dozier MD PROCEDURE: WRIST MIN 3 VIEWS REASON FOR EXAM: Trauma. Pain. TECHNIQUE: 3 views of the left wrist COMPARISON: None FINDINGS: No visible fracture. No suspicious bone lesion. Normal alignment. Soft tissues are unremarkable. RAD/Wrist min 3 Views IMPRESSION: No acute fracture or dislocation. Reading Location: [facility] CC: Dr. Epifanio Zamora DO; Dr. Kalyan Dozier MD ~ Board Certified Family Physician: Signed [facility]03-08-2025 Radiology Diagnostic study note [facility] Imaging Services [facility] [place] [address] Shoulder min 2 Views MR#: [id number] Acct: [id number] Name: ZHENG ROY Rep #: [id number] : 1945 F 79 From: Tyson Rocha DO PCP: Dr. Epifanio Zamora DO Status: REG ER Study:Shoulder min 2 Views Date of Exam: 11/16/24 Exam# [id number] Ordering Dr: Astrid Saleh PROCEDURE: SHOULDER MIN 2 VIEWS REASON FOR EXAM: Status post fall. Pain. TECHNIQUE: 4 view(s) of the left shoulder COMPARISON: None. FINDINGS: No fracture. No suspicious bone lesion. Normal alignment of the acromioclavicular and glenohumeral joints. Soft tissues are unremarkable. RAD/Shoulder min 2 Views IMPRESSION: NO ACUTE FRACTURE OR DISLOCATION. Reading Location: [facility] CC: Dr. Epifanio Zamora DO; RUSTAM Shepard ~ Board Certified Family Physician: Signed [facility]03-08-2025 Discharge summary Author Astrid Monae [facility] Note Date/Time November 16, 2024 8:26 pm [facility] Medical Records Department [address] [place] [address] Emergency Department Summary 11/16/24 MR#: [id number] Acct: [id number] Name: ZHENG ROY Rep #:[id number] : 1945 79 From: Astrid EASTON PCP: Dr. Epifanio Zamora DO Status:REG ER Location: ED HPI <RUSTAM Shepard - Last Filed: 11/16/24 20:10> History of Present Illness Chief Complaint: Fall Narrative Narrative: 79-year-old female had an unwitnessed fall at [facility] care [facility]. She was apparently found on the ground facedown near the dining area. She has no external signs of injury but complains of left shoulder pain. She is not on blood thinners. Daughter states she has dementia and moved into [place] in September 2024 and since then has fallen a total of 2 times including today. She ambulates well without assistance or assistive devices. Patient is not sure whyshe fell off but can provide limited history secondary to dementia. Her daughter is here and states she is acting at baseline. [facility] <RUSTAM Shepard - Last Filed: 11/16/24 20:10> [facility] Medical History (Updated 11/16/24 @ 19:22 by RUSTAM Shepard) Dementia Basal cell carcinoma Hypertension Osteoporosis Hypercholesteremia Prediabetes Home Medications ?Medication ?Instructions ?Recorded ?Last Taken ?Type alendronate 70 mg tablet 70 mg PO QWEEK 09/30/24 Unkn own History atorvastatin 20 mg tablet 20 mg PO QHS 09/30/24 Unknow n History azelastine 137 mcg (0.1 %) nasal 2 spray intranasal BI D 09/30/24 Unknown History spray diphenhydramine HCl 25 mg capsule 25 mg PO BID PRN Unknown History ergocalciferol (vitamin D2) 1,250 1,250 mcg PO QWEEK 0 09/30/24 Unknown History mcg (50,000 unit) capsule hydrochlorothiazide 25 mg tablet 25 mg PO QDAY 5 Unknown History potassium chloride 10 mEq 10 meq PO QDAY 09/30/24 Unkn own History capsule,extended release Allergy/AdvReac Type Severity Reaction Status Date / Time albuterol Allergy swollen Verified 09/30/24 14:37 lips Corticosteroids Allergy other Verified 09/30/24 14:37 (Glucocorticoids) (steroids) diphtheria, pertussis, Allergy unknown Verified 09/30/24 14:37 tetanus vacc doxycycline Allergy GI upset Verified 09/30/24 14:37 influenza virus vaccine, Allergy unknown Verified 09/30/24 14:37 specific montelukast (From Singulair) Allergy Hives Verified 09/30/24 14:37 Penicillins Allergy unknown Verified 09/30/24 14:37 Family History Mother , 85 Heart disease Myocardial infarction Father , 91 Heart disease Surgical History History of phacoemulsification of cataract of left eye with intraocular lens implantation Social History household members: none current occupational status: retired pets and animals: Yes pets and animals: dog(s) Smoking Status: Never smoker alcohol intake: never caffeine: No do you feel safe at home: Yes ROS <RUSTAM Shepard - Last Filed: 11/16/24 20:10> ROS ED ROS Narrative Denies headache, nausea or vomiting. EXAM <RUSTAM Shepard - Last Filed: 11/16/24 20:10> Physical Exam Narrative Exam Narrative: CONST: Patient sitting in no acute distress. EYES: Normal inspection. PERRL, EOMI. HEAD: Normocephalic atraumatic. NECK: Normal inspection. No midline tenderness or step-offs. RESP: No respiratory distress, CTAB. Tender over left ribs without deformity orcrepitus. CVS: Regular rate and rhythm, no murmur, no gallop. ABD: Soft and nontender, no guarding or rebound, nondistender. Back: Normal inspection, no midline tenderness. SKIN: Color normal, no rash, warm, dry, intact. EXTREMITIES: Normal appearance, tender over left anterior shoulder and left distal radius. No deformity or crepitus. Full passive range of motion. Normalsensation in axillary median radial and ulnar distributions. 2+ radial pulses. Brisk cap refill. No tenderness right upper extremity. Pelvis stable, no tenderness of lower extremities, 2+ DP pulses. NEURO: Alert and oriented to self, age, place PSYCH: Normal affect. Const Vital Signs: 11/16/24 18:16 11/16/24 18:28 Temperature 97.7 F L Temperature Source Temporal Pulse Rate 83 Respiratory Rate 18 Respiratory Effort Normal Non-Labored Respiratory Depth Normal Respiratory Pattern Normal Blood Pressure 167/63 H Blood Pressure Mean 97 Pulse Ox 99 Oxygen Delivery Method Room Air <Dr. Kalyan Dozier MD - Last Filed: 11/16/24 20:26> Physical Exam Const Vital Signs: 11/16/24 18:16 11/16/24 18:28 Temperature 97.7 F L Temperature Source Temporal Pulse Rate 83 Respiratory Rate 18 Respiratory Effort Normal Non-Labored Respiratory Depth Normal Respiratory Pattern Normal Blood Pressure 167/63 H Blood Pressure Mean 97 Pulse Ox 99 Oxygen Delivery Method Room Air MDM <RUSTAM Shepard - Last Filed: 11/16/24 20:10> [facility] Narrative Medical decision making narrative: History gathered from: Patient and daughter Differential includes but not limited to extremity contusion versus fracture, rib contusion, fracture, pneumothorax 79-year-old female from memory care unit had an unwitnessed fall. She is awake and alert x 3. She cannot provide further history due to dementia. She has no external signs of trauma. No neurological deficits. Since she is DNR CC and has no signs of head trauma and is acting at baseline per her daughter I do not think CT imaging of the head or neck is indicated. She is tender over the left shoulder, left wrist, and left ribs so x-rays were obtained of these areas and are all negative. She was treated with Tylenol and advised to use ice. She wasdischarged in stable condition. I have personally performed a face to face assessment of the patient and have reviewed the REI Note. I performed a substantive portion of the visit including all aspects of the following. My ochoa findings include: History is remarkable for fall. Patient landed against a piece of furniture/dresser. She is complaining of left shoulder pain, left wrist pain and left chest pain anteriorly. She is DNR CCA only. There is no complaint of headache. There is no known history of head trauma. She denies ringing or ears or decreased hearing. She is right-hand dominant. She denies shortness of breath. She denies abdominal pain. Denies flank pain. She has not urinated since thisoccurred. Incident occurred at approximately 1700. Exam is remarkable for pleasant elderly woman who appears in no distress. HEENTexams unremarkable with no evidence of trauma or clinical findings of basilar skull fracture. Neck is nontender full active range of motion. She has pain ovation over the proximal humerus left shoulder. There is no point tenderness over the left clavicle or AC joint. There is superficial tenderness over the left elbow. There is no point tenderness over the lateral medial epicondyle, olecranon process or radial head with supination pronation. She complained of wrist pain and there is an area of discomfort over the distal radius. Axillary,median, radial and ulnar function intact. Radial pulses palpable. Patient has significant tenderness to palpation anterior left chest ribs 5 through 8. Thereis no crepitus subcutaneous air. Breath sounds are symmetric but diminished because she is reluctant take a deep breath. Heart is regular. There is no murmur, gallop or rub. There is no click noted. Abdomen is soft nontender withno evidence hepatosplenomegaly. There is no CVA tenderness noted. Medical Decision Making since patient is DNR comfort care only CT of the head and neck was not obtained and especially since patient has no objective findingsor subjective findings of trauma. X-ray of the shoulder, wrist and ribs were obtained to evaluate contusion versus fracture. Patient was offered pain medicine. Daughter states this makes her very confused and would like to hold off at this time. Other additions or changes: [None] Radiography Diagnostic Testing: Clinical Impression(s) from Imaging Studies Shoulder X-Ray 11/16/24 18:30 IMPRESSION: NO ACUTE FRACTURE OR DISLOCATION. [facility] w/Chest [facility] 11/16/24 18:41 IMPRESSION: NO EVIDENCE OF ACUTE RIB FRACTURE OR PNEUMOTHORAX. Reading [facility] Wrist X-Ray 11/16/24 18:41 IMPRESSION: No acute fracture or dislocation. Reading Location: [facility] ED attending interpretation of left shoulder shows no fracture or dislocation. ED attending interpretation of left wrist shows no fracture or dislocation. ED attending interpretation of left rib series shows no displaced rib fracture or pneumothorax. <Dr. Kalyan Dozier MD - Last Filed: 11/16/24 20:26> [facility] MDM Narrative Medical decision making narrative: I have personally performed a face to face assessment of the patient and have reviewed the REI Note. I performed a substantive portion of the visit including all aspects of the following. My ochoa findings include: History is remarkable for fall. Patient landed against a piece of furniture/dresser. She is complaining of left shoulder pain, left wrist pain and left chest pain anteriorly. She is DNR CCA only. There is no complaint of headache. There is no known history of head trauma. She denies ringing or ears or decreased hearing. She is right-hand dominant. She denies shortness of breath. She denies abdominal pain. Denies flank pain. She has not urinated since this occurred. Incident occurred at approximately 1700. Exam is remarkable for pleasant elderly woman who appears in no distress. HEENT exams unremarkable with no evidence of trauma or clinical findings of basilar skull fracture. Neck is nontender full active range of motion. She has pain ovation over the proximal humerus left shoulder. There is no point tenderness over the left clavicle or AC joint. There is superficial tenderness over the left elbow. There is no point tenderness over the lateral medial epicondyle, olecranon process or radial head with supination pronation. She complained of wrist pain and there is an area of discomfort over the distal radius. Axillary, median, radial and ulnar function intact. Radial pulses palpable. Patient has significant tenderness to palpation anterior left chest ribs 5 through 8. There is no crepitus subcutaneous air. Breath sounds are symmetric but diminished because she is reluctant take a deep breath. Heart is regular. There is no murmur, gallop or rub. There is no click noted. Abdomen is soft nontender with no evidence hepatosplenomegaly. There is no CVA tenderness noted. Medical Decision Making since patient is DNR comfort care only CT of the head and neck was not obtained and especially since patient has no objective findings or subjective findings of trauma. X-ray of the shoulder, wrist and ribs were obtained to evaluate contusion versus fracture. Patient was offered pain medicine. Daughter states this makes her very confused and would like to hold off at this time. Other additions or changes: [None] Radiography Chest X-Ray - ED: 2 View (Three-view x-ray of the wrist reveals no evidence of fracture, subluxation dislocation. The spaces of the carpal bones are symmetric. There is no evidence of a volar fat pad.) and Read by ED Physician (Three-view x-ray of the left shoulder reveals no acute abnormality i.e. fracture, subluxation or dislocation. There is minimal arthritic changes of the AC joint. The clavicle appears normal as well. There is no evidence of pneumothorax.) CTA PE Study: - (5 view x-ray of the left ribs with chest x-ray reveals normal cardiac silhouette and size. No evidence of pneumothorax or hemothorax. There is no fractured ribs noted. Plan is to discharge to home.) Diagnostic Testing: Clinical Impression(s) from Imaging Studies Shoulder X-Ray 11/16/24 18:30 IMPRESSION: NO ACUTE FRACTURE OR DISLOCATION. Reading Location: [facility] Ribs w/Chest X-Ray 11/16/24 18:41 IMPRESSION: NO EVIDENCE OF ACUTE RIB FRACTURE OR PNEUMOTHORAX. Reading Location: [facility] Wrist X-Ray 11/16/24 18:41 IMPRESSION: No acute fracture or dislocation. Reading Location: [facility] Discharge Plan Triage Chief Complaint: Fall ED Midlevel Provider: Astrid Monae ED Provider: Kalyan Dozier Dx/Rx/DC Orders Clinical Impression: Fall, Contusion of left shoulder, Contusion of left wrist, Contusion of rib on left side Instructions: Bruises (Contusions) Prescriptions: No Action hydrochlorothiazide 25 mg tablet 25 mg PO QDAY azelastine 137 mcg (0.1 %) spray,non-aerosol 2 spray intranasal BID Rx Instructions: administer into each nostril alendronate 70 mg tablet 70 mg PO QWEEK atorvastatin 20 mg tablet 20 mg PO QHS ergocalciferol (vitamin D2) 1,250 mcg (50,000 unit) capsule 1,250 mcg PO QWEEK potassium chloride 10 mEq capsule, extended release 10 meq PO QDAY diphenhydramine HCl 25 mg capsule 25 mg PO BID PRN Primary Care Provider: Epifanio Zamora Referrals: Roseann Eli MD [[facility] Staff - Lead Mechanic] - Activity Restrictions/Additional Instructions: The x-ray showed no broken bones. I would treat your contusions with ice and Tylenol every 6 hours as needed. Print Language: Romanian Disposition Disposition: Home, Self Care What to do if you have Problems For any increased pain, shortness of breath, bleeding, nausea or vomiting, chestpain, or any unexpected problems, contact your Primary Care Provider. Call [facility] ([phone]) or report to the closest Emergency Room. Call 911 if necessary. 11/16/242009 <Electronically signed by Astrid EASTON> Cosigner Signature (if applicable): 11/16/242025 <Electronically signed by Blade JONES> CC: Dr. 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 I would treat your contusions with ice and Tylenol every 6 hours as needed.[facility] Work Phone: Hospital Discharge instructionsAmbulatory Orders* Wheeled Walker Location: None Selected [facility] Work Phone: Reason for referral (narrative)No reason for referral information availableWParkwood Hospital Work Phone: Summary Purpose Family History Relationship Condition Age at Onset Recorded Date/T paulo mother Cardiac disease Unknown Myocardial infarction Unknown father Cardiac disease Unknown Advance Directives Advance Directive Response Recorded Date/ Time Living Will Yes November 16, 2024 6:28pm Power of Steam Service Inspector Yes November 16 6:28pm Name of Medical Power of Steam Service Inspector ary November 16, 2024 6:28pm Advance Directive Response Recorded Date/ Time Living Will Yes November 16, 2024 7:28pm Do you have a Healthcare Power of Steam Service Inspector? Yes November 16, 2024 7:28pm Name of Medical Power of Steam Service Inspector ary November 16, 2024 7:28pm Living Will Yes November 29, 2024 12:42pm Do you have a Healthcare Power of Steam Service Inspector? Yes November 29, 2024 12:42pm Name of Medical Power of Steam Service Inspector daughter November 29, 2024 12:42pm Advance Directive Response Recorded Date/ Time Living Will Yes November 16, 2024 7:28pm Do you have a Healthcare Power of Steam Service Inspector? Yes November 16, 2024 7:28pm Name of Medical Power of Steam Service Inspector ary November 16, 2024 7:28pm Living Will Yes November 29, 2024 12:42pm Do you have a Healthcare Power of Steam Service Inspector? Yes November 29, 2024 12:42pm Name of Medical Power of Steam Service Inspector daughter November 29, 2024 12:42pm Living Will Yes December 05, 2024 12:18pm Do you have a Healthcare Power of Steam Service Inspector? Yes December 05, 2024 12:18pm Name of Medical Power of Steam Service Inspector ARY December 05, 2024 12:18pm Advance Directive Response Recorded Date/ Time Living Will Yes November 16, 2024 7:28pm Do you have a Healthcare Power of Steam Service Inspector? Yes November 16, 2024 7:28pm Name of Medical Power of Steam Service Inspector ary November 16, 2024 7:28pm Living Will Yes November 29, 2024 12:42pm Do you have a Healthcare Power of Steam Service Inspector? Yes November 29, 2024 12:42pm Name of Medical Power of Steam Service Inspector daughter November 29, 2024 12:42pm Living Will Yes December 05, 2024 12:18pm Do you have a Healthcare Power of Steam Service Inspector? Yes December 05, 2024 12:18pm Name of Medical Power of Steam Service Inspector ARY December 05, 2024 12:18pm Do you have a Healthcare Power of Steam Service Inspector? 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 Chief Complaint Admit Date cognitive impairment September 30, 2024 2:22pm fall November 16, 2024 6:15 pm Reason for Visit Admit Date Bradykinesia September 30, 2024 2 :22pm Cognitive impairment September 30, 2024 2:22pm Chief Complaint Admit Date cognitive impairment September 30, 2024 2:22pm fall November 16, 2024 6:15 pm fall with pain lt side rib area no loc M arch 2024 11:49am Chief Complaint Admit Date cognitive impairment September 30, 2024 2:22pm [facility] LAB WORK November 13, 2024 5: 00am fall November 16, 2024 6:15 pm fall with pain lt side rib area no loc M arch 2024 11:49am FALL December 05, 2024 12: 11pm Chief Complaint Admit Date USP LAB WORK November 13, 2024 5: 00am fall November 16, 2024 6:15 pm fall with pain lt side rib area no loc M arch 2024 11:49am FALL December 05, 2024 12: 11pm FALL February 26, 2025 9:43 am Additional Source Comments INFORMATION SOURCE (unrecogn ized section and content) DATE CREATED AUTHOR 11/02/2020 [facility] DATE CREATED AUTHOR AUTHOR'S REDD ATADRI 01/18/2025 [place] [facility] Goals (unrecognized section and content) Goals may be documented in a n alternate sectionGoals may be documented in an alternate sectionGoals may be documented in an alternate sectionGoals may be documented in an alternate sectionGoals may be documented in an alternate sectionGoals may be documented in an alternate sectionGoals may be documented in an alternate sectionGoals may be documented in an alternate sectionGoals may be documented in an alternate section Care Teams (unrecognized sec tion and content) Team Status: Active Member Role Status Dates Dr. Steven Kay MD Family Provider Active Maame Chang DO Primary Care Provider Active Team Status: Inactive Member Role Status Dates Maame Chang DO Primary Care Provider, Attending Provider Active Team Status: Inactive Member Role Status Dates Maame Chang DO Primary Care Provider Active Dr. Kristopher Zaldivar DO Attending Provider, Referring Provider Active Team Status: Active Member Role Status Dates Dr. Epifanio Zamora DO Primary Care Provider Active Team Status: Inactive Member Role Status Dates Pili Chakraborty MD Primary Care Provider Active St art: September 30, 2024 End: September 30, 2024 Pili Chakraborty MD Referring Provider Active Start : September 30, 2024 End: September 30, 2024 Dr. Silver Doe MD Attending Provider Active Start: September 30, 2024 End: September 30, 2024 Team Status: Inactive Member Role Status Dates Dr. Roseann Eli MD Primary Care Provider Active Start: October 01, 2024 End: October 01, 2024 Dr. Roseann Eli MD Attending Provider Active Start: October 01, 2024 End: October 01, 2024 Dr. Roseann Eli MD Referring Provider Active Start: October 01, 2024 End: October 01, 2024 Team Status: Active Member Role Status Dates Dr. Roseann Eli MD Primary Care Provider Active Start: November 13, 2024 Dr. Epifanio CARTER MD Attending Provider Active Start: November 13, 2024 Team Status: Inactive Member Role Status Dates Dr. Kalyan Dozier MD Emergency Provider Active Sta rt: November 16, 2024 End: November 16, 2024 Dr. Epifanio Zamora DO Primary Care Provider Active Start: November 16, 2024 End: November 16, 2024 Team Status: Inactive Member Role Status Dates Dr. Kalyan Dozier MD Attending Provider Active Sta rt: November 16, 2024 End: November 16, 2024 Dr. Kalyan Dozier MD Emergency Provider Active Sta rt: November 16, 2024 End: November 16, 2024 Dr. Epifanio Zamora DO Primary Care Provider Active Start: November 16, 2024 End: November 16, 2024 Team Status: Inactive Member Role Status Dates Dr. Epifanio Zamora DO Primary Care Provider Active Start: November 29, 2024 End: November 29, 2024 Dr. Kenney Weber MD Emergency Provider Active Start: November 29, 2024 End: November 29, 2024 Team Status: Inactive Member Role Status Dates Dr. Epifanio Zamora DO Primary Care Provider Active Start: December 05, 2024 End: December 05, 2024 Dr. Sushil Gutierrez DO Emergency Provider Active Start: December 05, 2024 End: December 05, 2024 Team Status: Inactive Member Role Status Dates Dr. Roseann Eli MD Primary Care Provider Active Start: November 13, 2024 End: November 13, 2024 Dr. Epifanio CARTER MD Attending Provider Active Start: November 13, 2024 End: November 13, 2024 Team Status: Inactive Member Role Status Dates Dr. Epifanio Zamora DO Primary Care Provider Active Start: November 29, 2024 End: November 29, 2024 Dr. Kenney Weber MD Attending Provider Active Start: November 29, 2024 End: November 29, 2024 Dr. Kenney Weber MD Emergency Provider Active Start: November 29, 2024 End: November 29, 2024 Team Status: Inactive Member Role Status Dates Dr. Epifanio Zamora DO Primary Care Provider Active Start: December 05, 2024 End: December 05, 2024 Dr. Sushil Gutierrez DO Attending Provider Active Start: December 05, 2024 End: December 05, 2024 Dr. Sushil Gutierrez DO Emergency Provider Active Start: December 05, 2024 End: December 05, 2024 Team Status: Inactive Member Role Status Dates Dr. Epifanio Zamora DO Primary Care Provider Active Start: February 26, 2025 End: February 26, 2025 Dr. Sofia Marrero DO Emergency Provider Active S tart: February 26, 2025 End: February 26, 2025 FOR RECORDS PERTAINING TO PATIENTS WHO ARE OR HAVE BEEN ENROLLED IN A CHEMICAL DEPENDENCY/SUBSTANCEABUSE PROGRAM, SOME INFORMATION MAY BE OMITTED. This clinical summary was aggregated from multiple sources. Caution should be exercised in using it in the provision of clinical care. This summary normalizes information from multiple sources, and as a consequence, information in this document may materially change the coding, format and clinical context of patient data. In addition, data may be omitted in some cases. CLINICAL DECISIONS SHOULD BE BASED ON THE PRIMARY CLINICAL RECORDS. [facility] provides no warranty or guarantee of the accuracy or completeness of information in this document.
== END 2025-02-26 12:40 | disposition home or self-care (01) ==
PROVIDERS: Emergency Provider Emergency Medicine; Visit Provider Emergency Medicine
DX: S70.02XA Contusion of left hip, initial encounter (principal); F03.90 Unspecified dementia, unspecified severity, without behavioral disturbance, psychotic disturbance, mood disturbance, and anxiety; E10.9 Type 1 diabetes mellitus without complications; E78.00 Pure hypercholesterolemia, unspecified; W19.XXXA Unspecified fall, initial encounter; I10 Essential (primary) hypertension; Z79.899 Other long term (current) drug therapy
CPT/HCPCS: 70450; 73502; 80048; 85025; 99285; A4216

== ENCOUNTER → 2025-03-24 | Outpatient (REF) | payer MEDICARE, SELFPAY ==
[2025-03-24 08:25] LABS: Mucous, Urine 0 SEEN /hpf (<or=2+); Red Blood Cells-Urine 0 SEEN /hpf (0-5)
[2025-03-24 09:04] LABS: Color, Urine Yellow (Yellow); Glucose, Dipstick Normal (Normal); Ketone-Dipstick Negative (Negative); Leukocyte Esterase-Dipstick 500 /ul (Negative); Nitrite-Dipstick Negative (Negative); Occult Blood-Urine Negative /ul (Negative); Protein-Dipstick 15 mg/dl (Negative); Specific Gravity, Urine 1.010 (1.002-1.030); Urine Bilirubin Dipstick Negative (Negative)
[2025-03-24 09:12] LABS: Squamous Epithelial Cells - UA 0-5 SEEN /hpf (5-10)
== END ==
LOC: OLS.BROOKB 02:30
PROVIDERS: Referring Provider Family Medicine; Visit Provider Family Medicine
DX: N39.0 Urinary tract infection, site not specified (principal)
CPT/HCPCS: 81001; 87086; 87088

== ENCOUNTER → 2025-03-28 | Outpatient (REF) | payer MEDICARE, SELFPAY ==
[2025-03-28 15:13] LABS: Mucous, Urine 0 SEEN /hpf (<or=2+); Red Blood Cells-Urine 0 SEEN /hpf (0-5)
[2025-03-28 15:34] LABS: Color, Urine Yellow (Yellow); Glucose, Dipstick Normal (Normal); Ketone-Dipstick Negative (Negative); Leukocyte Esterase-Dipstick 500 /ul (Negative); Nitrite-Dipstick Negative (Negative); Occult Blood-Urine Negative /ul (Negative); Protein-Dipstick 15 mg/dl (Negative); Specific Gravity, Urine 1.015 (1.002-1.030); Urine Bilirubin Dipstick Negative (Negative)
[2025-03-28 15:54] LABS: Squamous Epithelial Cells - UA 5-10 SEEN /hpf (5-10)
== END ==
LOC: OLS.BROOKB 11:00
PROVIDERS: Visit Provider Family Medicine
DX: I10 Essential (primary) hypertension (principal); N39.0 Urinary tract infection, site not specified; F03.90 Unspecified dementia, unspecified severity, without behavioral disturbance, psychotic disturbance, mood disturbance, and anxiety
CPT/HCPCS: 81001; 87086; 87088

== ENCOUNTER → 2025-04-01 | Outpatient (REF) | payer MEDICARE, SELFPAY ==
--- OUTSIDE RECORDS SUMMARY | 2025-04-01 04:16 | XMS RPT_ITS | CCD ---
Author Organization [facility] Care Team Providers Care Sole Leveler Machine Name Role Phone Pili Chakraborty MD Primary Care Provider Mylene JONES, Pili Referring Provider Dr. Silver Doe MD Attending Provider Dr. Roseann Eli MD Primary Care Provider Sreedhar JONES, Dr. Roseann Adamson Attending Provider Sreedhar JONES, Dr. Roseann Adamson Referring Provider Dr. Epifanio Zamora MD Attending Provider Unavail Dr. Kalyan Khan MD Emergency Provider Dr. Epifanio Zamora DO Primary Care Provider [phone] Pili Chakraborty MD Primary Care Provider Pili Chakraborty MD Referring Provider Dr. Silver Doe MD Attending Provider Dr. Roseann Eli MD Primary Care Provider Dr. Roseann Eli MD Attending Provider Dr. Roseann Eli MD Referring Provider Dr. Epifanio Zamora MD Attending Provider Unavail Dr. Kalyan Khan MD Attending Provider Dr. Kalyan Dozier MD Emergency Provider Dr. Epifanio Zamora DO Primary Care Provider [phone] Dr. Kenney Weber MD Emergency Provider Dr. Sushil Gutierrez DO Emergency Provider Dr. Kenney Weber MD Attending Provider Dr. Roseann Eli MD Primary Care Provider Dr. Sushil Gutierrez DO Attending Provider Dr. Sofia Marrero DO Emergency Provider [phone] Noah, Epifanio Primary Care Unavailable Sushil Gutierrez Attending Unavailable Jolliff, Roseann S Primary Care Unavailable SantiagoerBrianna Attending Unavailable Brianna Mora Referring Unavailable Jolliff, Roseann S Primary Care Unavailable Mylene, Chalon Attending Unavailable Mylene, Chalon Referring Unavailable Jolliff, Roseann S Primary Care Unavailable Zamora OLS, Epifanio Attending Unavailable Zamora OLS, Epifanio Attending Unavailable Zamora OLS, Epifanio Referring Unavailable Zamora, Epifanio Primary Care Unavailable Zamora OLS, Epifanio Attending Unavailable Zamora, Epifanio Primary Care Unavailable Jolliff, Roseann S Primary Care Unavailable Jolliff, Roseann S Attending Unavailable Jolliff, Roseann S Referring Unavailable Mylene, Chalon Primary Care Unavailable Mylene, Chalon Referring Unavailable Silver Doe Attending Unavailable Mylene, Chalon Primary Care Unavailable Mylene, Chalon Attending Unavailable Zamora, Epifanio Primary Care Unavailable Sofia Marrero Attending Unavailable Zamora, Epifanio Primary Care Unavailable Dozier, Kalyan Attending Unavailable Noah, Epifanio Primary Care Unavailable Kenney Weber Attending Unavailable Allergies Allergy Classification Reported Allergen(s) Allergy Type Date of Onset Reaction(s) Facility (5 sources) Albuterol Drug Allergy 5 swollen lips [facility] (5 sources) Doxycycline Drug Allergy 5 GI upset [facility] (5 sources) Glucocorticoid Receptor Agonists Allergy to substance 5 other [facility] Comment on above: 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 and steroids can make this worse (5 sources) montelukast Drug Allergy 5 Hives [facility] (5 sources) Penicillins Allergy to substance 5 unknown [facility] (6 sources) diphtheria, pertussis, tetanus vacc; Translations: [diphtheria, pertussis, tetanus vacc] Allergy to substance 5 unknown [facility] (6 sources) influenza virus vaccine, specific; Translations: [influenza virus vaccine, specific] Allergy to substance 5 unknown [facility] (1 source) Albuterol Drug Allergy 5 [facility] Repository (1 source) Corticosteroids Drug allergy (disorder) 5 [facility] Repository (1 source) Doxycycline Drug Allergy 5 [facility] Repository (1 source) montelukast Drug Allergy 5 [facility] Repository (1 source) Penicillins Drug allergy (disorder) 5 [facility] Repository Medications Current Medications Medication Drug Class(es) [...] psychotic disturbance, mood disturbance, and anxiety] Onset: 01-16-2025 Chronic E Codes: Fall (9 sources) Fall; Translations: [Unspecified fall, initial encounter] 11-16-2024 Episodic Essential hypertension (1 source) Essential (primary) hypertension; Translations: [Essential (primary) hypertension] Onset: 03-31-2025 Chronic Other injuries and conditions due to external causes (1 source) Encounter for examination and observation following other accident; Translations: [Encounter for examination and observation following other accident] Onset: 03-04-2025 Episodic Other nervous system disorders (9 sources) [...] knee; Translations: [Acute knee pain] 12-05-2024 Episodic Superficial injury; contusion (20 sources) Contusion of left front wall of thorax, initial encounter; Translations: [Contusion of rib on left side] 11-16-2024 Episodic Urinary tract infections (1 source) Urinary tract infection, site not specified; Translations: [Urinary tract infection, site not specified] Onset: 03-31-2025 Episodic Past or Other Problems Problem Classification Problem Date Documented Da te Episodic/Chronic Other nervous system disorders (2 sources) Other symptoms and signs involving cognitive functions and awareness; Translations: [Other symptoms and signs involving cognitive functions and awareness] Onset: 09-30-2024 Episodic Residual codes; unclassified (1 source) Localized edema; Translations: [Localized edema] Onset: 10-23-2024 Episodic Residual codes; unclassified (1 source) Other amnesia; Translations: [Other amnesia] Onset: 10-28-2024 Episodic Results Test Name Value Interpretation Reference Range Facility Absolute lymphocyte countOrd ered By: Sofia Marrero on 02-26-2025 Lymphocytes Auto (Unsp spec) [#/Vol] 1.13 10*3/uL 0.83-4.51 [facility] Absolute neutrophil countOrd ered By: [facility] Mar[facility] on 02-26-2025 Neutrophils (Bld) [#/Vol] 6.2 10*3/uL 2.0-7.7 [facility] Anion gap in Serum or Plasma Ordered By: [facility] Marrero on 02-26-2025 Anion gap [Moles/Vol] 12 mmol/L 5-15 [facility] Automated lymphocyte count a s percentage of total leukocytesOrdered By: [facility] Mar[facility] on 02-26-2025 Lymphocytes/100 WBC Auto (Unsp spec) 14.4 % Low 19-41 [facility] BUN/creatinine ratioOrdered By: [facility] on 02-26-2025 Urea nitrogen/Creatinine [Mass ratio] 13.4 mg/mg - [facility] Basic Metabolic Profile (BMP )on 02-26-2025 BUN/CRE 13.4 RATIO Normal - [facility] Comment on above: Performed By: #### L 500.2500 #### [facility] Laboratory [address] [facility] [address] Calcium [Mass/Vol] 9.2 mg/dL Normal 7.6-11.0 [facility] Comment on above: Performed By: #### L 500.2500 #### [facility] [address] [facility] [place], [address] Chloride [Moles/Vol] 93 mmol/L Low 98-108 [facility] Comment on above: Performed By: #### L 500.2500 #### [facility] Laboratory [address] [place], [address] CO2 [Moles/Vol] 25.9 mmol/L Normal 21.0-32.0 [facility] Comment on above: Performed By: #### L 500.2500 #### [facility] Laboratory [address] [place], [address] Creatinine [Mass/Vol] 0.72 mg/dL Normal 0.70-1.20 [facility] Comment on above: Performed By: #### L 500.2500 #### [facility] Laboratory [address] [place], [address] ECRCL 57.50 ml/min Normal 50-250 [facility] Comment on above: Performed By: #### L 500.2500 #### [facility] Laboratory [address] [place], [address] GAP 12 Normal 5-15 [facility] Comment on above: Performed By: #### L 500.2500 #### [facility] Laboratory [address] [place], [address] GFR/1.73 sq M.predicted among non-blacks MDRD (S/P/Bld) [Vol rate/Area] 85 mL/min/{1.73_m2} Normal >60 [facility] Comment on above: Result Comment: mL/m in/1.73m2 CKD-EPI Creatinine Equation (2020) Performed By: #### L 500.2500 #### [facility] Laboratory [address] [place], [address] Glucose [Mass/Vol] 117 mg/dL High 70-99 [facility] Comment on above: Performed By: #### L 500.2500 #### [facility] Laboratory [address] [place], [address] Potassium [Moles/Vol] 4.0 mmol/L Normal 3.3-5.1 [facility] Comment on above: Result Comment: Hemo lysis present, Results??could be affected. ?? Performed By: #### L 500.2500 #### [facility] Laboratory [address] [place], [address] Sodium [Moles/Vol] 130 mmol/L Low 133-145 [facility] Comment on above: Performed By: #### L 500.2500 #### [facility] Laboratory [address] [place], [address] Urea nitrogen [Mass/Vol] 10 mg/dL Normal 4-19 [facility] Comment on above: Performed By: #### L 500.2500 #### [facility] Laboratory [address] [place], [address] BUN Normal 4-19 [facility] Comment on above: Result Comment: This specimen has been REJECTED due to Laboratory criteria: Hemolyzed. Carrie (ED) has been notified of need of recollection. 02/26/25 1054 Ralf L White Performed By: #### L 500.2500, L100.0100 #### [facility] Laboratory [address] [place], [address] BUN/CRE Normal 10-20 [facility] Comment on above: Result Comment: This specimen has been REJECTED due to Laboratory criteria: Hemolyzed. Carrie (ED) has been notified of need of recollection. 02/26/25 1054 Ralf L White Performed By: #### L 500.2500, L100.0100 #### [facility] Laboratory [address] [place], [address] Calcium Normal 7.6-11.0 [facility] Comment on above: Result Comment: This specimen has been REJECTED due to Laboratory criteria: Hemolyzed. Carrie (ED) has been notified of need of recollection. 02/26/25 1054 Ralf L White Performed By: #### L 500.2500, L100.0100 #### [facility] Laboratory [address] [place], [address] CL Normal 98-108 [facility] Comment on above: Result Comment: This specimen has been REJECTED due to Laboratory criteria: Hemolyzed. Carrie (ED) has been notified of need of recollection. 02/26/25 1054 Ralf L White Performed By: #### L 500.2500, L100.0100 #### [facility] Laboratory [address] [place], [address] CO2 Normal 21.0-32.0 [facility] Comment on above: Result Comment: This specimen has been REJECTED due to Laboratory criteria: Hemolyzed. Carrie (ED) has been notified of need of recollection. 02/26/25 1054 Ralf L White Performed By: #### L 500.2500, L100.0100 #### [facility] Laboratory [address] [place], [address] CREAT,SERUM Normal 0.70-1.20 [facility] Comment on above: Result Comment: This specimen has been REJECTED due to Laboratory criteria: Hemolyzed. Carrie (ED) has been notified of need of recollection. 02/26/25 1054 Ralf L White Performed By: #### L 500.2500, L100.0100 #### [facility] Laboratory [address] [place], [address] eGFR Normal >60 [facility] Comment on above: Result Comment: This specimen has been REJECTED due to Laboratory criteria: Hemolyzed. Carrie (ED) has been notified of need of recollection. 02/26/25 1054 Ralf L White Performed By: #### L 500.2500, L100.0100 #### [facility] Laboratory [address] [place], [address] GAP Normal 5-15 [facility] Comment on above: Result Comment: This specimen has been REJECTED due to Laboratory criteria: Hemolyzed. Carrie (ED) has been notified of need of recollection. 02/26/25 1054 Ralf L White Performed By: #### L 500.2500, L100.0100 #### [facility] Laboratory [address] [place], [address] GLU Normal 70-99 [facility] Comment on above: Result Comment: This specimen has been REJECTED due to Laboratory criteria: Hemolyzed. Carrie (ED) has been notified of need of recollection. 02/26/25 1054 Ralf L White Performed By: #### L 500.2500, L100.0100 #### [facility] Laboratory [address] [place], [address] Potassium Normal 3.3-5.1 [facility] Comment on above: Result Comment: This specimen has been REJECTED due to Laboratory criteria: Hemolyzed. Carrie (ED) has been notified of need of recollection. 02/26/25 1054 Ralf L White Performed By: #### L 500.2500, L100.0100 #### [facility] Laboratory [address] [place], [address] Basic Metabolic Profile (BMP) Normal 133-145 [facility] Comment on above: Result Comment: This specimen has been REJECTED due to Laboratory criteria: Hemolyzed. Carrie (ED) has been notified of need of recollection. 02/26/25 1054 Ralf L White Performed By: #### L 500.2500, L100.0100 #### [facility] Laboratory [address] [place], [address] Basophil percentageOrdered B y: Remus Ungur on 02-26-2025 Basophils/100 WBC (Bld) 0.6 % 0-1 [facility] Brain/Head without Contrasto n 02-26-2025 Brain/Head without Contrast [facility] [address] [place] [address] Brain/Head without Contrast MR#: [id number] Acct: [id number] Name: ZHENG ROY Rep #: [id number] : 1945 F 79 From: Ezekiel lovelace MD PCP: Dr. Epifanio Zamora DO Status: REG ER Study: Brain/Head without Contrast Date of Exam: 02/09 05/05 Exam# [id number] Ordering Dr: Sofia Marrero DO PROCEDURE: BRAIN/HEAD WITHOUT CONTRAST 02/26/2025 [...] CHRONIC CHANGES. NO ACUTE FINDINGS. Reading Location: [place] [address] CC: Dr. Sofia Marrero DO; Dr. Epifanio Zamora DO Blade Filer: Signed Normal [facility] CBC W/Diff, Automatedon 02-09 Absolute Lymph 1.13 X10 3/uL Normal 0.83-4.51 [facility] Comment on above: Performed By: #### L 500.2500, L100.0100 #### [facility] Laboratory [address] [place], [address] Absolute Neut 6.2 X10 3/uL Normal 2.0-7.7 [facility] Comment on above: Performed By: #### L 500.2500, L100.0100 #### [facility] Laboratory [address] [place], [address] Basophils/100 WBC (Bld) 0.6 % Normal 0-1 [facility] Comment on above: Performed By: #### L 500.2500, L100.0100 #### [facility] Laboratory [address] [place], [address] Eosinophils/100 WBC (Bld) 0.5 % Normal 0-5 [facility] Comment on above: Performed By: #### L 500.2500, L100.0100 #### [facility] Laboratory [address] [place], [address] Erythrocyte distribution width (RBC) [Ratio] 12.3 % Normal 11.6-14.6 [facility] Comment on above: Performed By: #### L 500.2500, L100.0100 #### [facility] Laboratory [address] [place], [address] Hematocrit (Bld) [Volume fraction] 39.7 % Normal 37-47 [facility] Comment on above: Performed By: #### L 500.2500, L100.0100 #### [facility] Laboratory [address] [place], [address] Hemoglobin (Bld) [Mass/Vol] 14.0 g/dL Normal 12.0-15.0 [facility] Comment on above: Performed By: #### L 500.2500, L100.0100 #### [facility] Laboratory [address] [place], [address] IG% 0.500 Normal 0.0-0.9 [facility] Comment on above: Result Comment: IG% - Immature Granulocytes (promyelocytes, myelocytes and metamyelocytes) > 1% indicates that a LEFT SHIFT is Present. Performed By: #### L 500.2500, L100.0100 #### [facility] Laboratory [address] [place], [address] Lymphocytes/100 WBC (Bld) 14.4 % Low 19-41 [facility] Comment on above: Performed By: #### L 500.2500, L100.0100 #### [facility] Laboratory [address] [place], [address] MCH (RBC) [Entitic mass] 30.0 pg Normal 27.0-32.0 [facility] Comment on above: Performed By: #### L 500.2500, L100.0100 #### [facility] Laboratory [address] [place], [address] MCHC (RBC) [Mass/Vol] 35.3 g/dL Normal 32-36 [facility] Comment on above: Performed By: #### L 500.2500, L100.0100 #### [facility] Laboratory [address] [place], [address] MCV (RBC) [Entitic vol] 85.0 fL Normal 81-99 [facility] Comment on above: Performed By: #### L 500.2500, L100.0100 #### [facility] Laboratory [address] [place], [address] Monocytes/100 WBC (Bld) 5.1 % Normal 0-10 [facility] Comment on above: Performed By: #### L 500.2500, L100.0100 #### [facility] Laboratory [address] [place], [address] Neutrophils/100 WBC (Bld) 78.9 % High 47-70 [facility] Comment on above: Performed By: #### L 500.2500, L100.0100 #### [facility] Laboratory [address] [place], [address] Nucleated RBC (Bld) [#/Vol] 0 10*3/uL Normal 0-5 [facility] Comment on above: Performed By: #### L 500.2500, L100.0100 #### [facility] Laboratory [address] [place], [address] Platelet mean volume (Bld) [Entitic vol] 9.6 fL Normal 6.2-12.0 [facility] Comment on above: Performed By: #### L 500.2500, L100.0100 #### [facility] Laboratory [address] [place], [address] Platelets (Bld) [#/Vol] 297 10*3/uL Normal 150-450 [facility] Comment on above: Performed By: #### L 500.2500, L100.0100 #### [facility] Laboratory [address] [place], [address] RBC (Bld) [#/Vol] 4.67 10*6/uL Normal 4.2-5.4 [facility] Comment on above: Performed By: #### L 500.2500, L100.0100 #### [facility] Laboratory [address] [place], [address] RDW SD 37.8 fl Normal 35.1-43.9 [facility] Comment on above: Performed By: #### L 500.2500, L100.0100 #### [facility] Laboratory [address] [place], [address] WBC (Bld) [#/Vol] 7.9 10*3/uL Normal 4.4-11.0 [facility] Comment on above: Performed By: #### L 500.2500, L100.0100 #### [facility] Laboratory [address] [place], [address] Carbon dioxide, total [Moles /volume] in Central venous bloodOrdered By: Sofia Marrero on 02-26-2025 CO2 [Moles/Vol] 25.9 mmol/L 21.0-32.0 [facility] Chloride assayOrdered By: Radha Marrero on 02-26-2025 Chloride [Moles/Vol] 93 mmol/L Low 98-108 [facility] Emergency Department Summary on 02-26-2025 Emergency Department Summary [facility] Medical Records Department [address] [place] [address] Emergency Department Summary 02/26/25 MR#: [id number] Acct: [id number] Name: ZHENG ROY Rep #: [id number] : 1945 79 From: Sofia Marrero DO PCP: Dr. Epifanio Zamora DO Status:DEP ER Location: ED HPI History of Present Illness Chief Complaint: Fall Detail of Chief Complaint: Fall Informant: patient Narrative Narrative: Patient presents to the emergency department complaint of a fall that occurred today. Patient states she think she got dizzy which happens frequently. She injured her left hip. She is not sure if she hit her head. There is no loss of consciousness. Patient from a prison and has history of dementia. Patient not anticoagulated. She denies neck pain. She denies chest pain or abdominal pain. [facility] Medical History (Updated 02/26/25 @ 11:[address] Sofia Marrero DO) Type 1 diabetes mellitus without complications Dementia Basal cell carcinoma Hypertension Osteoporosis Hypercholesteremia Prediabetes Home Medications ???Medication ???Instructions ???Recorded ???Last Taken ???Type alendronate 70 mg tablet 70 mg PO QWEEK SUPPLEMENT 09/30/24 Unknown History ergocalciferol (vitamin D2) 1,250 1,250 mcg PO QWEEK SUPPLEMENT Unknown History mcg (50,000 unit) capsule hydrochlorothiazide 25 mg tablet 25 mg PO DAILY SUPPLEMENT 09/30/24 Unknown History potassium chloride 10 mEq 10 meq PO DAILY SUPPLEMENT 5 Unknown History capsule,extended release acetaminophen 500 mg tablet 500 mg PO TID PRN fever or pain Unknown History folic acid 1 mg tablet 1 mg PO DAILY SUPPLEMENT 02/26/25 Unknown History loperamide 2 mg capsule 2 mg PO DAILY 02/26/25 Unknown His tory loratadine 10 mg tablet 10 mg PO DAILY 02/26/25 Unknown Hi story (Allerclear) meclizine 25 mg tablet 12.5 mg PO TID VERTIGO 02/26/25 Un known History mecobalamin (vitamin B12) 1,000 1,000 mcg PO DAILY SUPPLEMENT 02/09 05/05 Unknown History mcg chewable tablet Allergy/AdvReac Type Severity Reaction Status Date / Time albuterol Allergy swollen Verified 02/26/25 09:48 lips Corticosteroids Allergy other Verified 02/26/25 09:48 (Glucocorticoids) (steroids) diphtheria, pertussis, Allergy unknown Verified 02/26/25 09:48 tetanus vacc doxycycline Allergy GI upset Verified 02/26/25 09:48 influenza virus vaccine, Allergy unknown Verified 02/26/25 09:48 specific montelukast (From Singulair) Allergy Hives Verified 02/26/25 09:48 Penicillins Allergy unknown Verified 02/26/25 09:48 Family History Mother , 85 Heart disease [...] home: Yes ROS ROS ED ROS Narrative Fall Review of Systems ROS Unobtainable: other Constitutional Constitutional ED: Reports lethargy; Denies chills, fever(s), sweats or weight loss Eyes Eyes: Denies blurry vision, change in vision or diplopia ENT ENT ED: Denies rhinorrhea or sore throat Cardiovascular Cardiovascular: Denies chest pain, orthopnea or racing heartbeat Respiratory/Chest Respiratory/Chest: Denies cough, dyspnea, dyspnea on exertion, orthopnea or sputum Gastrointestinal Gastrointestinal: Denies abdominal pain, diarrhea, nausea or vomiting Genitourinary Genitourinary ED: Denies dysuria, hematuria or urinary frequency Musculoskeletal Musculoskeletal: Reports other Details: Left hip pain ; Denies arthralgias, back pain, myalgias or neck pain Integumentary Denies abscess, Abrasions or rash Neurologic Neurologic: Denies headache(s) or weakness Psychiatric Psychiatric: Denies anxiety, depression or suicidal thoughts Endocrine Endocrinology: Denies polydipsia, polyphagia or polyuria Hematologic/Lymphatic Hematologic/Lymphatic: Denies easy bleeding, easy bruising or lymphadenopathy Allergic/Immunologic Allergic/Immunologic ED: Denies mouth swelling, tongue swelling or urticaria EXAM Physical Exam Const Vital Signs: 02/26/25 09:44 02/26/25 09:50 Temperature 97.7 F L Temperature Source Oral Pulse Rate 74 Respiratory Rate 14 Respiratory Effort Normal Non-Labored Blood Pressure 189/64 H Blood Pressure Mean 105 Pulse Ox 98 Oxygen Delivery Method Room Air Positive well nour (more content not included)... Normal [facility] Eosinophil percentageOrdered By: Sofia Marrero on 02-26-2025 Eosinophils/100 WBC (Bld) 0.5 % 0-5 [facility] [place] Erythrocyte distribution wid th ratioOrdered By: Sofia Marrero on 02-26-2025 Erythrocyte distribution width (RBC) [Ratio] 12.3 % 11.6-14.6 [facility] [place] Erythrocyte distribution wid th standard deviationOrdered By: Sofia Marrero on 02-26-2025 Erythrocyte distribution width (RBC) [Ratio] 37.8 fl 35.1-43.9 [facility] [place] Glomerular filtration rate ( GFR) estimation/1.73 sq m using serum, plasma, or whole bOrdered By: Sofia Marrero on 02-26-2025 GFR/1.73 sq M.predicted among non-blacks MDRD (S/P/Bld) [Vol rate/Area] 85 mL/min/{1.73_m2} >60 [facility] [place] Comment on above: mL/min/1.73m2 CKD-EP I Creatinine Equation (2020) HIP, UNI W/ Pelvis 2-3 Views on 02-26-2025 HIP, UNI W/ Pelvis 2-3 Views [facility] Imaging Services [address] [place] [address] HIP, UNI W/ Pelvis 2-3 Views MR#: [id number] Acct: [id number] Name: ZHENG ROY Rep #: [id number] : 1945 F 79 From: Ezekiel lovelace MD PCP: Dr. Epifanio Zamora DO Status: DEP ER Study: HIP, UNI W/ Pelvis 2-3 Views Date of Exam: Exam# [id number] Ordering Dr: Sofia Marrero DO PROCEDURE: HIP, UNI W/ PELVIS 2-3 VIEWS 02/26/2025 REASON FOR EXAM: FALL TECHNIQUE: HIP, UNI W/ PELVIS 2-3 VIEWS COMPARISON: Prior study dated December 05, 2024. FINDINGS: Bones: No fracture. Joints: Joint space narrowing involving both hip joints. Soft tissues: Calcified phleboliths are seen in the pelvis. Other: No acute abnormality is seen. RAD/HIP, UNI W/ Pelvis 2-3 Views IMPRESSION: No acute abnormality is seen. Reading Location: [facility] CC: Dr. Sofia Marrero, DO; Dr. Epifanio Zamora, DO Blade Filer: Signed Normal [facility] [place] Hematocrit Auto (Bld) [Volum e fraction]Ordered By: Sofia Marrero on 02-26-2025 Hematocrit (Bld) [Volume fraction] 39.7 % 37-47 [facility] [place] Hemoglobin measurementOrdere d By: Sofia Marrero on 02-26-2025 Hemoglobin (Bld) [Mass/Vol] 14.0 g/dL 12.0-15.0 [facility] [place] Immature granulocytes/100 WB C Auto (Bld)Ordered By: Sofia Marrero on 02-26-2025 Immature granulocytes/100 WBC (Bld) 0.500 % 0.0-0.9 [facility] [place] Comment on above: IG% - Immature Granu locytes (promyelocytes, myelocytes and metamyelocytes) > 1% indicates that a LEFT SHIFT is Present. MCV (mean corpuscular volume ) determinationOrdered By: Sofia Marrero on 02-26-2025 MCV (RBC) [Entitic vol] 85.0 fL 81-99 [facility] Mean corpuscular hemoglobin (MCH) determinationOrdered By: Sofia Marrero on 02-26-2025 MCH (RBC) [Entitic mass] 30.0 pg 27.0-32.0 [facility] [place] Mean corpuscular hemoglobin concentration (MCHC) determinationOrdered By: Sofia Marrero on 02-26-2025 MCHC (RBC) [Mass/Vol] 35.3 g/dL 32-36 [facility] Mean platelet volume determi nationOrdered By: Sofia Marrero on 02-26-2025 Platelet mean volume (Bld) [Entitic vol] 9.6 fL 6.2-12.0 [facility] [place] Monocyte percentageOrdered B y: Sofia Marrero on 02-26-2025 Monocytes/100 WBC (Bld) 5.1 % 0-10 [facility] Neutrophil percentageOrdered By: Sofia Marrero on 02-26-2025 Neutrophils/100 WBC (Bld) 78.9 % High 47-70 [facility] [place] Nucleated red blood cell per centageOrdered By: Sofia Marrero on 02-26-2025 Nucleated RBC/100 WBC (Bld) [Ratio] 0 % 0-5 [facility] [place] Platelet countOrdered By: Radha Marrero on 02-26-2025 Platelets (Bld) [#/Vol] 297 10*3/uL 150-450 [facility] [place] Potassium measurement (mass/ volume)Ordered By: Sofia Marrero on 02-26-2025 Potassium (Unsp spec) [Mass/Vol] 4.0 mmol/L 3.3-5.1 [facility] [place] Comment on above: Hemolysis present, R esults could be affected. RBC Auto (Bld) [#/Vol]Ordere d By: Sofia Marrero on 02-26-2025 RBC (Bld) [#/Vol] 4.67 10*6/uL 4.2-5.4 [facility] Serum creatinine measurement (mass/volume)Ordered By: Sofia Marrero on 02-26-2025 Creatinine [Mass/Vol] 0.72 mg/dL 0.70-1.20 [facility] Serum glucose measurement (m ass/volume)Ordered By: Sofia Marrero on 02-26-2025 Glucose [Mass/Vol] 117 mg/dL High 70-99 [facility] Serum or plasma calcium roel urement (mass/volume)Ordered By: Sofia Marrero on 02-26-2025 Calcium [Mass/Vol] 9.2 mg/dL 7.6-11.0 [facility] Serum or plasma urea nitroge n measurement (mass/volume)Ordered By: Sofia Marrero on 02-26-2025 Urea nitrogen [Mass/Vol] 10 mg/dL 4-19 [facility] [place] Sodium levelOrdered By: Edwina Marrero on 02-26-2025 Sodium [Moles/Vol] 130 mmol/L Low 133-145 [facility] White blood cell (WBC) count Ordered By: Sofia Marrero on 02-26-2025 WBC (Bld) [#/Vol] 7.9 10*3/uL 4.4-11.0 [facility] Brain/Head without Contrasto n 12-05-2024 Brain/Head without Contrast [facility] Imaging Services [address] [place] [address] Brain/Head without Contrast MR#: [id number] Acct: [id number] Name: ZHENG ROY Rep #: [id number] : 1945 F 79 From: Mary Ann Llanos MD PCP: Dr. Epifanio Zamora DO Status: REG ER Study: Brain/Head without Contrast Date of Exam: 11/10 04/04 Exam# [id number] Ordering Dr: Sushil Gutierrez DO PROCEDURE: BRAIN/HEAD [...] 1. No acute intracranial abnormality. [facility] CC: Dr. Sushil Gutierrez DO; Dr. Epifanio Zamora DO Blade Filer: Signed Normal [facility] [place] Emergency Department Summary on 12-05-2024 Emergency Department Summary [facility] Medical Records Department [address] [place] [address] Emergency Department Summary 12/05/24 MR#: [id number] Acct: [id number] Name: ZHENG ROY Rep #: [id number] : 1945 79 From: Sushil Gutierrez DO PCP: Dr. Epifanio Zamora DO Status:REG ER Location: ED HPI HPI - Fall History of Present Illness Chief Complaint: Fall Informant: patient, family, EMS and SNF Narrative Narrative: 79-year-old female from group home facility presenting to the emergency room with [...] is no report of being on anticoagulants. [facility] Medical History Dementia Basal cell carcinoma Hypertension [...] non-tender Palpation: (more content not included)... Normal [facility] HIP, UNI W/ Pelvis 2-3 Views on 12-05-2024 HIP, UNI W/ Pelvis 2-3 Views [facility] Imaging Services [address] [place], [place] [address] HIP, UNI W/ Pelvis 2-3 Views MR#: [id number] Acct: [id number] Name: ZHENG ROY Rep #: [id number] : 1945 F 79 From: Mary Ann Llanos MD PCP: Dr. Epifanio Zamora DO Status: REG ER Study: HIP, UNI W/ Pelvis 2-3 Views Date of Exam: Exam# [id number] Ordering Dr: Sushil Gutierrez DO PROCEDURE: HIP, [...] IMPRESSION: 1. No acute abnormality. Reading Location: [facility] CC: Dr. Sushil Gutierrez DO; Dr. Epifanio Zamora DO Blade Filer: Signed Normal [facility] Knee 4 or More Viewson 12-05 Knee 4 or More Views [facility] Imaging Services [address] [place] [address] Knee 4 or More Views MR#: [id number] Acct: [id number] Name: ZHENG ROY Rep #: [id number] : 1945 F 79 From: Mary Ann Llanos MD PCP: Dr. Epifanio Zamora DO Status: REG ER Study: Knee 4 or More Views Date of Exam: 12/05/24 Exam# [id number] Ordering Dr: Sushil Gutierrez DO PROCEDURE: KNEE 4 OR MORE VIEWS 12/05/2024 REASON FOR EXAM: INJURY TECHNIQUE: 4 view(s) of the right knee COMPARISON: 12/05/2024 FINDINGS: No acute fracture or dislocation.No degenerative changes. No joint effusion. No soft tissue abnormality. RAD/Knee 4 or More Views IMPRESSION: No acute abnormality. [facility] CC: Dr. Sushil Gutierrez, DO; Dr. Epiafnio Zamora, DO Blade Filer: Signed Normal [facility] [place] Absolute lymphocyte countOrd ered By: Kenney Weber on 11-29-2024 Lymphocytes Auto (Unsp spec) [#/Vol] 1.17 10*3/uL 0.83-4.51 [facility] [place] Absolute neutrophil countOrd ered By: Kenney Weber on 11-29-2024 Neutrophils (Bld) [#/Vol] 7.5 10*3/uL 2.0-7.7 [facility] [place] Anion gap in Serum or Plasma Ordered By: Kenney Weber on 11-29-2024 Anion gap [Moles/Vol] 12 mmol/L 5-15 [facility] Automated lymphocyte count a s percentage of total leukocytesOrdered By: Kenney Weber on 11-29-2024 Lymphocytes/100 WBC Auto (Unsp spec) 12.8 % Low 19-41 [facility] [place] BUN/creatinine ratioOrdered By: Kenney Weber on 11-29-2024 Urea nitrogen/Creatinine [Mass ratio] 16.9 mg/mg 10- [facility] Basic Metabolic Profile (BMP )on 11-29-2024 BUN/CRE 16.9 RATIO Normal - [facility] [place] Comment on above: Performed By: #### L 500.2500, L100.0100 ####[facility] [place] [address] [place], [address] Calcium [Mass/Vol] 9.2 mg/dL Normal 7.6-11.0 [facility] Comment on above: Performed By: #### L 500.2500, L100.0100 ####[facility] [address] [place], [address] Chloride [Moles/Vol] 94 mmol/L Low 98-108 [facility] Comment on above: Performed By: #### L 500.2500, L100.0100 ####[facility] [address] [place], [address] CO2 [Moles/Vol] 22.8 mmol/L Normal 21.0-32.0 [facility] [place] Comment on above: Performed By: #### L 500.2500, L100.0100 ####[facility] [address] [place], [address] Creatinine [Mass/Vol] 0.78 mg/dL Normal 0.70-1.20 [facility] Comment on above: Performed By: #### L 500.2500, L100.0100 ####[facility] [address] [place], [address] ECRCL 57.61 ml/min Normal 50-250 [facility] Comment on above: Performed By: #### L 500.2500, L100.0100 ####[facility] [address] [place], [address] GAP 12 Normal 5-15 [facility] Comment on above: Performed By: #### L 500.2500, L100.0100 ####[facility] [address] [place], [address] GFR/1.73 sq M.predicted among non-blacks MDRD (S/P/Bld) [Vol rate/Area] 77 mL/min/{1.73_m2} Normal >60 [facility] [place] Comment on above: Result Comment: mL/m in/1.73m2 CKD-EPI Creatinine Equation (2020) Performed By: #### L 500.2500, L100.0100 ####[facility] [place] [address] [place], [address] Glucose [Mass/Vol] 114 mg/dL High 70-99 [facility] Comment on above: Performed By: #### L 500.2500, L100.0100 ####[facility] [place] [address] [place], [address] Potassium [Moles/Vol] 4.8 mmol/L Normal 3.3-5.1 [facility] Comment on above: Result Comment: Hemo lysis present, Results??could be affected. ?? Performed By: #### L 500.2500, L100.0100 ####[facility] [place] [address] [place], [address] Sodium [Moles/Vol] 129 mmol/L Low 133-145 [facility] Comment on above: Performed By: #### L 500.2500, L100.0100 ####[facility] [place] [address] [place], [address] Urea nitrogen [Mass/Vol] 13 mg/dL Normal 4-19 [facility] [place] Comment on above: Performed By: #### L 500.2500, L100.0100 ####[facility] [address] [place], [address] Basophil percentageOrdered B y: Kenney Weber on 11-29-2024 Basophils/100 WBC (Bld) 0.5 % 0-1 [facility] Brain/Head without Contrasto n 11-29-2024 Brain/Head without Contrast [facility] Imaging Services [address] [facility] [address] Brain/Head without Contrast MR#: [id number] Acct: [id number] Name: ZHENG ROY Rep #: [id number] : 1945 F 79 From: Cornell Pressley MD PCP: Dr. Epifanio Zamora, DO Status: REG ER Study: Brain/Head without Contrast Date of Exam: 11/10 10/05 Exam# [id number] Ordering Dr: Kenney Weber MD PROCEDURE: BRAIN/HEAD [...] 4. Additional description as above. Reading Location: [id number] CC: Dr. Kenney Weber MD; Dr. Epifanio Zamora DO Blade Filer: Signed Normal [facility] CBC W/Diff, Automatedon 11-10 Absolute Lymph 1.17 X10 3/uL Normal 0.83-4.51 [facility] [place] Comment on above: Performed By: #### L 500.2500, L100.0100 ####[facility] [place] [address] [place], [address] Absolute Neut 7.5 X10 3/uL Normal 2.0-7.7 [facility] [place] Comment on above: Performed By: #### L 500.2500, L100.0100 ####[facility] [address] [place], [address] Basophils/100 WBC (Bld) 0.5 % Normal 0-1 [facility] Comment on above: Performed By: #### L 500.2500, L100.0100 ####[facility] [place] [address] [place], [address] Eosinophils/100 WBC (Bld) 0.4 % Normal 0-5 [facility] Comment on above: Performed By: #### L 500.2500, L100.0100 ####[facility] [place] [address] [place], [address] Erythrocyte distribution width (RBC) [Ratio] 11.9 % Normal 11.6-14.6 [facility] Comment on above: Performed By: #### L 500.2500, L100.0100 ####[facility] [address] [place], [address] Hematocrit (Bld) [Volume fraction] 39.8 % Normal 37-47 [facility] [place] Comment on above: Performed By: #### L 500.2500, L100.0100 ####[facility] [place] [address] [place], [address] Hemoglobin (Bld) [Mass/Vol] 13.9 g/dL Normal 12.0-15.0 [facility] Comment on above: Performed By: #### L 500.2500, L100.0100 ####[facility] [address] [place], [address] IG% 0.300 Normal 0.0-0.9 [facility] Comment on above: Result Comment: IG% - Immature Granulocytes (promyelocytes, myelocytes and metamyelocytes) > 1% indicates that a LEFT SHIFT is Present. Performed By: #### L 500.2500, L100.0100 ####[facility] [address] [place], [address] Lymphocytes/100 WBC (Bld) 12.8 % Low 19-41 [facility] Comment on above: Performed By: #### L 500.2500, L100.0100 ####[facility] [address] [place], [address] MCH (RBC) [Entitic mass] 30.5 pg Normal 27.0-32.0 [facility] Comment on above: Performed By: #### L 500.2500, L100.0100 ####[facility] [address] [place], [address] MCHC (RBC) [Mass/Vol] 34.9 g/dL Normal 32-36 [facility] Comment on above: Performed By: #### L 500.2500, L100.0100 ####[facility] [address] [place], [address] MCV (RBC) [Entitic vol] 87.5 fL Normal 81-99 [facility] Comment on above: Performed By: #### L 500.2500, L100.0100 ####[facility] [address] [place], [address] Monocytes/100 WBC (Bld) 4.5 % Normal 0-10 [facility] Comment on above: Performed By: #### L 500.2500, L100.0100 ####[facility] [address] [place], [address] Neutrophils/100 WBC (Bld) 81.5 % High 47-70 [facility] Comment on above: Performed By: #### L 500.2500, L100.0100 ####[facility] [address] [place], [address] Nucleated RBC (Bld) [#/Vol] 0 10*3/uL Normal 0-5 [facility] Comment on above: Performed By: #### L 500.2500, L100.0100 ####[facility] [address] [place], [address] Platelet mean volume (Bld) [Entitic vol] 9.7 fL Normal 6.2-12.0 [facility] Comment on above: Performed By: #### L 500.2500, L100.0100 ####[facility] [address] [place], [address] Platelets (Bld) [#/Vol] 302 10*3/uL Normal 150-450 [facility] Comment on above: Performed By: #### L 500.2500, L100.0100 ####[facility] [address] [place], [address] RBC (Bld) [#/Vol] 4.55 10*6/uL Normal 4.2-5.4 [facility] Comment on above: Performed By: #### L 500.2500, L100.0100 ####[facility] [address] [place], [address] RDW SD 38.4 fl Normal 35.1-43.9 [facility] Comment on above: Performed By: #### L 500.2500, L100.0100 ####[facility] [address] [place], [address] WBC (Bld) [#/Vol] 9.2 10*3/uL Normal 4.4-11.0 [facility] Comment on above: Performed By: #### L 500.2500, L100.0100 ####[facility] [address] [place], [address] Carbon dioxide, total [Moles /volume] in Central venous bloodOrdered By: Kenney Weber on 11-29-2024 CO2 [Moles/Vol] 22.8 mmol/L 21.0-32.0 [facility] Chloride assayOrdered By: Jostin Weber on 11-29-2024 Chloride [Moles/Vol] 94 mmol/L Low 98-108 [facility] Emergency Department Summary on 11-29-2024 Emergency Department Summary [facility] Medical Records Department [address] [place] [address] Emergency Department Summary 11/29/24 MR#: [id number] Acct: [id number] Name: ZHENG ROY Rep #: [id number] : 1945 79 From: Kenney Weber MD [...] She denies any vomiting. No recent illness. [facility] Medical History Dementia Basal cell carcinoma Hypertension [...] clear and moist mucous membranes HEENT Narrative: [place] recreates dizziness transiently bilaterally. No direction changing [...] non-distended Aus (more content not included)... Normal [facility] Eosinophil percentageOrdered By: Kenney Weber on 11-29-2024 Eosinophils/100 WBC (Bld) 0.4 % 0-5 [facility] Erythrocyte distribution wid th ratioOrdered By: Kenney Weber on 11-29-2024 Erythrocyte distribution width (RBC) [Ratio] 11.9 % 11.6-14.6 [facility] Erythrocyte distribution wid th standard deviationOrdered By: Kenney Weber on 11-29-2024 Erythrocyte distribution width (RBC) [Entitic vol] 38.4 fL 35.1-43.9 [facility] Erythrocyte distribution width (RBC) [Ratio] 38.4 fl 35.1-43.9 [facility] Estimation of creatinine quinn aranceOrdered By: Kenney Weber on 11-29-2024 Estimated Creatinine Clearance Calc 57.61 ml/min 50-250 [facility] GFR/1.73 sq M.predicted anali g non-blacks MDRD (S/P/Bld) [Vol rate/Area]Ordered By: Kenney Weber on 11-29-2024 Estimated GFR (MDRD) Non-Af Amer 77 >60 [facility] Comment on above: mL/min/1.73m2 CKD-EP I Creatinine Equation (2020) Glomerular filtration rate ( GFR) estimation/1.73 sq m using serum, plasma, or whole bOrdered By: Kenney Weber on 11-29-2024 GFR/1.73 sq M.predicted among non-blacks MDRD (S/P/Bld) [Vol rate/Area] 77 mL/min/{1.73_m2} >60 [facility] Comment on above: mL/min/1.73m2 CKD-EP I Creatinine Equation (2020) Hematocrit Auto (Bld) [Volum e fraction]Ordered By: Kenney Weber on 11-29-2024 Hematocrit (Bld) [Volume fraction] 39.8 % 37-47 [facility] Hemoglobin measurementOrdere d By: eKnney Weber on 11-29-2024 Hemoglobin (Bld) [Mass/Vol] 13.9 g/dL 12.0-15.0 [facility] Immature granulocytes/100 WB C Auto (Bld)Ordered By: Kenney Weber on 11-29-2024 Immature granulocytes/100 WBC (Bld) 0.300 % 0.0-0.9 [facility] Comment on above: IG% - Immature Granu locytes (promyelocytes, myelocytes and metamyelocytes) > 1% indicates that a LEFT SHIFT is Present. Lymphocytes Auto (Unsp spec) [#/Vol]Ordered By: Kenney Weber on 11-29-2024 Lymphocytes (Bld) [#/Vol] 1.17 10*3/uL 0.83-4.51 [facility] Lymphocytes/100 WBC Auto (Un sp spec)Ordered By: Kenney Weber on 11-29-2024 Lymphocytes/100 WBC (Bld) 12.8 % Low 19-41 [facility] MCV (mean corpuscular volume ) determinationOrdered By: Kenney Weber on 11-29-2024 MCV (RBC) [Entitic vol] 87.5 fL 81-99 [facility] Mean corpuscular hemoglobin (MCH) determinationOrdered By: Kenney Weber on 11-29-2024 MCH (RBC) [Entitic mass] 30.5 pg 27.0-32.0 [facility] Mean corpuscular hemoglobin concentration (MCHC) determinationOrdered By: Kenney Weber on 11-29-2024 MCHC (RBC) [Mass/Vol] 34.9 g/dL 32-36 [facility] Mean platelet volume determi nationOrdered By: Kenney Weber on 11-29-2024 Platelet mean volume (Bld) [Entitic vol] 9.7 fL 6.2-12.0 [facility] Monocyte percentageOrdered B y: Kenney Weber on 11-29-2024 Monocytes/100 WBC (Bld) 4.5 % 0-10 [facility] Neutrophil percentageOrdered By: Kenney Weber on 11-29-2024 Neutrophils/100 WBC (Bld) 81.5 % High 47-70 [facility] Nucleated red blood cell per centageOrdered By: Kenney Weber on 11-29-2024 Nucleated RBC/100 WBC (Bld) [Ratio] 0 % 0-5 [facility] Platelet countOrdered By: Jostin Weber on 11-29-2024 Platelets (Bld) [#/Vol] 302 10*3/uL 150-450 [facility] Potassium (Unsp spec) [Mass/ Vol]Ordered By: Kenney Weber on 11-29-2024 Potassium [Moles/Vol] 4.8 mmol/L 3.3-5.1 [facility] Comment on above: Hemolysis present, R esults could be affected. Potassium measurement (mass/ volume)Ordered By: Kenney Weber on 11-29-2024 Potassium (Unsp spec) [Mass/Vol] 4.8 mmol/L 3.3-5.1 [facility] Comment on above: Hemolysis present, R esults could be affected. RBC Auto (Bld) [#/Vol]Ordere d By: Kenney Weber on 11-29-2024 RBC (Bld) [#/Vol] 4.55 10*6/uL 4.2-5.4 [facility] Ribs Uni Min 3V w/PA Cheston 11-29-2024 Ribs Uni Min 3V w/PA Chest [facility] Imaging Services [address] [place] [address] Ribs Uni Min 3V w/PA Chest MR#: [id number] Acct: [id number] Name: ZHENG ROY Rep #: [id number] : 1945 F 79 From: Ezekiel lovelace MD PCP: Dr. Epifanio Zamora, DO Status: REG ER Study: Ribs Uni Min 3V w/PA Chest Date of Exam: 11/29 Exam# [id number] Ordering Dr: Kenney Weber MD PROCEDURE: RIBS [...] No acute abnormality is seen. Reading Location: [place] [address] CC: Dr. Kenney Weber MD; Dr. Epifanio Zamora DO Blade Filer: Signed Normal [facility] Serum creatinine measurement (mass/volume)Ordered By: Kenney Weber on 11-29-2024 Creatinine [Mass/Vol] 0.78 mg/dL 0.70-1.20 [facility] Serum glucose measurement (m ass/volume)Ordered By: Kenney Weber on 11-29-2024 Glucose [Mass/Vol] 114 mg/dL High 70-99 [facility] Serum or plasma calcium roel urement (mass/volume)Ordered By: Kenney Weber on 11-29-2024 Calcium [Mass/Vol] 9.2 mg/dL 7.6-11.0 [facility] Serum or plasma urea nitroge n measurement (mass/volume)Ordered By: Kenney Weber on 11-29-2024 Urea nitrogen [Mass/Vol] 13 mg/dL 4-19 [facility] Sodium levelOrdered By: Favio Weber on 11-29-2024 Sodium [Moles/Vol] 129 mmol/L Low 133-145 [facility] White blood cell (WBC) count Ordered By: Kenney Weber on 11-29-2024 WBC (Bld) [#/Vol] 9.2 10*3/uL 4.4-11.0 [facility] Emergency Department Summary on 11-16-2024 Emergency Department Summary [facility] Medical Records Department [address] [place] [address] Emergency Department Summary 11/16/24 MR#: [id number] Acct: [id number] Name: ZHENG ROY Rep #: [id number] : 1945 79 From: Astrid EASTON PCP: Dr. Epifanio Zamora, DO Status:REG ER Location: ED HPI History of Present Illness Chief Complaint: Fall Narrative Narrative: 79-year-old female had an unwitnessed fall at [facility] unit. She was apparently found on the ground facedown near the dining area. She has no external signs of injury but complains of left shoulder pain. She is not on blood thinners. Daughter states she has dementia and moved into [place] in September 2024 and since then has fallen a total of 2 times including today. She ambulates well without assistance or assistive devices. Patient is not sure why she fell off but can provide limited history secondary to dementia. Her daughter is here and states she is acting at baseline. [facility] Medical History (Updated 11/16/24 @ 19:22 by [...] Method Room (more content not included)... Normal [facility] Ribs Uni Min 3V w/PA Cheston 11-16-2024 Ribs Uni Min 3V w/PA Chest [facility] Imaging Services [address] [place] [address] Ribs Uni Min 3V w/PA Chest MR#: [id number] Acct: [id number] Name: ZHENG ROY Rep #: [id number] : 1945 F 79 From: Meron Rocha DO PCP: Dr. Epifanio Zamora DO Status: REG ER Study: Ribs Uni Min 3V w/PA Chest Date of Exam: 11/16 Exam# [id number] Ordering Dr: Kalyan Dozier MD PROCEDURE: RIBS [...] ACUTE RIB FRACTURE OR PNEUMOTHORAX. Reading Location: [facility] CC: Dr. Epifanio Zamora DO; Dr. Kalyan Dozier MD Blade Filer: Signed Normal [facility] Shoulder min 2 Viewson 11-16 Shoulder min 2 Views [facility] Imaging Services [address] [place] [address] Shoulder min 2 Views MR#: [id number] Acct: [id number] Name: ZHENG ROY Rep #: [id number] : 1945 F 79 From: Meron Rocha DO PCP: Dr. Epifanio Zamora DO Status: REG ER Study: Shoulder min 2 Views Date of Exam: 11/16/24 Exam# [id number] Ordering Dr: Astrid Monae PROCEDURE: SHOULDER MIN 2 VIEWS REASON FOR EXAM: Status post fall. Pain. TECHNIQUE: 4 view(s) of the left shoulder COMPARISON: None. FINDINGS: No fracture. No suspicious bone lesion. Normal alignment of the acromioclavicular and glenohumeral joints. Soft tissues are unremarkable. RAD/Shoulder min 2 Views IMPRESSION: NO ACUTE FRACTURE OR DISLOCATION. [facility]: Dr. Epifanio Zamora DO; RUSTAM Shepard Blade Filer: Signed Normal [facility] Wrist min 3 Viewson 11-17-19 25 Wrist min 3 Views [facility] Imaging Services [address] [place] [address] Wrist min 3 Views MR#: [id number] Acct: [id number] Name: ZHENG ROY Rep #: [id number] : 1945 F 79 From: Meron Rocha DO PCP: Dr. Epifanio Zamora DO Status: REG ER Study: Wrist min 3 Views Date of Exam: 11/16/24 Exam# [id number] Ordering Dr: Kalyan Dozier MD PROCEDURE: WRIST MIN 3 VIEWS REASON FOR EXAM: Trauma. Pain. TECHNIQUE: 3 views of the left wrist COMPARISON: None FINDINGS: No visible fracture. No suspicious bone lesion. Normal alignment. Soft tissues are unremarkable. RAD/Wrist min 3 Views IMPRESSION: No acute fracture or dislocation. Reading Location: [facility] CC: Dr. Epifanio Zamora DO; Dr. Kalyan Dozier MD Blade Filer: Signed Normal [facility] Anion gap in Serum or Plasma Ordered By: Epifanio Zamora on 11-13-2024 Anion gap [Moles/Vol] 11 mmol/L 5-15 [facility] BUN/creatinine ratioOrdered By: Epifanio Zamora on 11-13-2024 Urea nitrogen/Creatinine [Mass ratio] 16.4 mg/mg 10-20 [facility] Bilirubin, totalOrdered By: Epifanio Zamora on 11-13-2024 Bilirubin [Mass/Vol] 0.46 mg/dL 0.00-1.30 [facility] Calculated very low density lipoprotein (VLDL) cholesterol measurementOrdered By: Epifanio Zamora on 11-13-2024 Calculated very low density lipoprotein (VLDL) cholesterol measurement 21 mg/dL 5-40 [facility] VLDL Cholesterol 21 mg/dL 5-40 [facility] Carbon dioxide, total [Moles /volume] in Central venous bloodOrdered By: Epifanio Zamora on 11-13-2024 CO2 [Moles/Vol] 24.0 mmol/L 21.0-32.0 [facility] Chloride assayOrdered By: Oswaldo Zamora on 11-13-2024 Chloride [Moles/Vol] 99 mmol/L 98-108 [facility] Erythrocyte distribution wid th ratioOrdered By: Epifanio Zamora on 11-13-2024 Erythrocyte distribution width (RBC) [Ratio] 12.0 % 11.6-14.6 [facility] Erythrocyte distribution wid th standard deviationOrdered By: Epifanio Zamora on 11-13-2024 Erythrocyte distribution width (RBC) [Entitic vol] 38.9 fL 35.1-43.9 [facility] Erythrocyte distribution width (RBC) [Ratio] 38.9 fl 35.1-43.9 [facility] GFR/1.73 sq M.predicted anali g non-blacks MDRD (S/P/Bld) [Vol rate/Area]Ordered By: Epifanio Zamora on 11-13-2024 Estimated GFR (MDRD) Non-Af Amer 84 >60 [facility] Comment on above: mL/min/1.73m2 CKD-EP I Creatinine Equation (2020) Glomerular filtration rate ( GFR) estimation/1.73 sq m using serum, plasma, or whole bOrdered By: Epifanio Zamora on 11-13-2024 GFR/1.73 sq M.predicted among non-blacks MDRD (S/P/Bld) [Vol rate/Area] 84 mL/min/{1.73_m2} >60 [facility] Comment on above: mL/min/1.73m2 CKD-EP I Creatinine Equation (2020) Hematocrit Auto (Bld) [Volum e fraction]Ordered By: Epifanio Zamora on 11-13-2024 Hematocrit (Bld) [Volume fraction] 41.6 % 37-47 [facility] Hemoglobin A1c percentageOrd ered By: Epifanio Zamora on 11-13-2024 HbA1c (Bld) [Mass fraction] 5.9 % >5.7 [facility] Hemoglobin measurementOrdere d By: Epifanio Zamora on 11-13-2024 Hemoglobin (Bld) [Mass/Vol] 14.3 g/dL 12.0-15.0 [facility] LDL calc ser/plasOrdered By: Epifanio Zamora on 11-13-2024 Cholesterol in LDL [Mass/Vol] 133 mg/dL [facility] Comment on above: Gefbrcrfij=927-762 m g/dL & Higher Wxql=802 mg/dL or greater LDL Cholesterol, Calculated 133 mg/dL [facility] Comment on above: Wqilghkqnh=237-562 m g/dL & Higher Vses=606 mg/dL or greater Laboratory - Chemistry and C hemistry - challengeOrdered By: Epifanio Zamora on 11-13-2024 AST [Catalytic activity/Vol] 19 U/L <32 [facility] MCV (mean corpuscular volume ) determinationOrdered By: Epifanio Zamora on 11-13-2024 MCV (RBC) [Entitic vol] 89.3 fL 81-99 [facility] Mean corpuscular hemoglobin (MCH) determinationOrdered By: Epifanio Zamora on 11-13-2024 MCH (RBC) [Entitic mass] 30.7 pg 27.0-32.0 [facility] Mean corpuscular hemoglobin concentration (MCHC) determinationOrdered By: Epifanio Zamora on 11-13-2024 MCHC (RBC) [Mass/Vol] 34.4 g/dL 32-36 [facility] Mean platelet volume determi nationOrdered By: Epifanio Zamora on 11-13-2024 Platelet mean volume (Bld) [Entitic vol] 10.5 fL 6.2-12.0 [facility] Platelet countOrdered By: Oswaldo Zamora on 11-13-2024 Platelets (Bld) [#/Vol] 314 10*3/uL 150-450 [facility] Potassium (Unsp spec) [Mass/ Vol]Ordered By: Epifanio Zamora on 11-13-2024 Potassium [Moles/Vol] 4.0 mmol/L 3.3-5.1 [facility] Potassium measurement (mass/ volume)Ordered By: Epifanio Zamora on 11-13-2024 Potassium (Unsp spec) [Mass/Vol] 4.0 mmol/L 3.3-5.1 [facility] RBC Auto (Bld) [#/Vol]Ordere d By: Epifanio Zamora on 11-13-2024 RBC (Bld) [#/Vol] 4.66 10*6/uL 4.2-5.4 [facility] Screening total cholesterol/ high density lipoprotein (HDL) cholesterol ratioOrdered By: Epifanio Zamora on 11-13-2024 Cholesterol.total/Genia sterol in HDL [Mass ratio] 3.62 {ratio} [facility] Serum creatinine measurement (mass/volume)Ordered By: Epifanio Zamora on 11-13-2024 Creatinine [Mass/Vol] 0.73 mg/dL 0.70-1.20 [facility] Serum globulin measurementOr dered By: Epifanio Zamora on 11-13-2024 Globulin (S) [Mass/Vol] 2.4 g/dL 2.2-4.2 [facility] Serum glucose measurement (m ass/volume)Ordered By: Epifanio Zamora on 11-13-2024 Glucose [Mass/Vol] 111 mg/dL High 70-99 [facility] Serum or plasma alanine anguiano otransferase (ALT) measurementOrdered By: Epifanio Zamora on 11-13-2024 ALT [Catalytic activity/Vol] 16 U/L <35 [facility] Serum or plasma albumin roel urement (mass/volume)Ordered By: Epifanio Zamora on 11-13-2024 Albumin [Mass/Vol] 4.0 g/dL 3.4-4.8 [facility] Serum or plasma albumin/glob ulin mass ratioOrdered By: Epifanio Zamora on 11-13-2024 Albumin/Globulin [Mass ratio] 1.7 {ratio} 0.9-2.4 [facility] Serum or plasma alkaline miguel sphatase measurementOrdered By: Epifanio Zamora on 11-13-2024 ALP [Catalytic activity/Vol] 63 U/L 35-104 [facility] Serum or plasma calcium roel urement (mass/volume)Ordered By: Epifanio Zamora on 11-13-2024 Calcium [Mass/Vol] 8.9 mg/dL 7.6-11.0 [facility] Serum or plasma cholesterol in HDL measurement (mass/volume)Ordered By: Epifanio Zamora on 11-13-2024 Cholesterol in HDL [Mass/Vol] 59 mg/dL >40 [facility] Comment on above: National Cholesterol Education Program (NCEP) guidelines:<40 mg/dL: Low HDL-cholesterol (major risk factor for CHD)>= 60 mg/dL: High HDL-cholesterol (negative risk factor for CHD)HDL-cholesterol is affected by a number of factors, e.g. smoking, exercise, hormones, sex and age. Serum or plasma cholesterol measurement (mass/volume)Ordered By: Epifanio Zamora on 11-13-2024 Cholesterol [Mass/Vol] 212 mg/dL High <201 [facility] Comment on above: Cholesterol level, D esirable <200 mg/dLBorderline high cholesterol 200-239 mg/dLHigh cholesterol >=240 mg/dLRecommendations of the NCEP Adult Treatment Panel for the following risk-cutoff thresholds for the [place] population. Serum or plasma urea nitroge n measurement (mass/volume)Ordered By: Epifanio Zamora on 11-13-2024 Urea nitrogen [Mass/Vol] 12 mg/dL 4-19 [facility] Sodium levelOrdered By: Delvin Zamora on 11-13-2024 Sodium [Moles/Vol] 134 mmol/L 133-145 [facility] TSH DL <= 0.005 mIU/L QnOrde red By: Epifanio Zamora on 11-13-2024 Thyroid Stimulating Hormone (TSH) 1.320 uIU/mL 0.300-4.200 [facility] TSH Qn 1.320 uIU/mL 0.300-4.200 [facility] ThyroxineOrdered By: Epifanio arevalo on 11-13-2024 T4 [Mass/Vol] 8.6 ug/dL 4.8-13.9 [facility] Total proteinOrdered By: Eliezer Zamora on 11-13-2024 Protein [Mass/Vol] 6.4 g/dL 5.9-8.4 [facility] Triglycerides measurementOrd ered By: Epifanio Zamora on 11-13-2024 Triglyceride [Mass/Vol] 103 mg/dL <199 [facility] Comment on above: The drugs N-Acetylcy steine and Metamizole may falsely depress this assay. Normal range: <150 mg/dLBorderline High: 150-199 mg/dLHigh: 200-499 mg/dLVery High: >500 mg/dL Vitamin D, 25-hydroxyOrdered By: Epifanio Zamora on 11-13-2024 Vitamin D 25-Hydroxy 37.1 ng/mL 30-100 [facility] Comment on above: Vitamin D StatusDefi ciency: <20 ng/mL (50nmol/L)Insufficiency: 20-30 ng/mL (50-75 nmol/L)Sufficiency: 30-100 ng/mL (75-250 nmol/L)Toxicity: >100 ng/mL (>250 nmol/L) White blood cell (WBC) count Ordered By: Epifanio Zamora on 11-13-2024 WBC (Bld) [#/Vol] 8.2 10*3/uL 4.4-11.0 [facility] Absolute neutrophil countOrd ered By: Roseann Eli on 10-01-2024 Neutrophils (Bld) [#/Vol] 4.6 10*3/uL 2.0-7.7 [facility] Albumin to globulin ratioOrd ered By: Roseann Eli on 10-01-2024 Albumin/Globulin [Mass ratio] 1.2 {ratio} 0.9-2.4 [facility] BNP (brain natriuretic pepti de measurement)Ordered By: Roseann Eli on 10-01-2024 Natriuretic peptide B (Bld) [Mass/Vol] 96.8 pg/mL Normal 0-100 [facility] Comment on above: Performed By: #### L 501.9520, L100.0100, L503.6620, L500.4050 ####[facility] [address] [place], [address] Basophil percentageOrdered B y: Roseann Eli on 10-01-2024 Basophils/100 WBC (Bld) 0.6 % 0-1 [facility] Bilirubin, totalOrdered By: Roseann Eli on 10-01-2024 Bilirubin [Mass/Vol] 0.30 mg/dL 0.20-1.00 [facility] Comment on above: For patients on eltr ombopag therapy, use of Dimension [place] TBIL is not recommended. Blood urea nitrogen (BUN)/cr eatinine ratioOrdered By: Roseann Eli on 10-01-2024 Urea nitrogen/Creatinine [Mass ratio] 10.7 mg/mg - [facility] CBC W/Diff, Automatedon 09-12 Absolute Lymph 1.27 X10 3/uL Normal 0.83-4.51 [facility] Comment on above: Performed By: #### L 501.9520, L100.0100, L503.6620, L500.4050 #### [facility] Laboratory [address] [place], [address] Absolute Neut 4.6 X10 3/uL Normal 2.0-7.7 [facility] Comment on above: Performed By: #### L 501.9520, L100.0100, L503.6620, L500.4050 #### [facility] Laboratory [address] [place], [address] Basophils/100 WBC (Bld) 0.6 % Normal 0-1 [facility] Comment on above: Performed By: #### L 501.9520, L100.0100, L503.6620, L500.4050 #### [facility] Laboratory [address] [place], [address] Eosinophils/100 WBC (Bld) 0.6 % Normal 0-5 [facility] Comment on above: Performed By: #### L 501.9520, L100.0100, L503.6620, L500.4050 #### [facility] Laboratory [address] [place], [address] Erythrocyte distribution width (RBC) [Ratio] 12.6 % Normal 11.6-14.6 [facility] Comment on above: Performed By: #### L 501.9520, L100.0100, L503.6620, L500.4050 #### [facility] Laboratory [address] [place], [address] Hematocrit (Bld) [Volume fraction] 39.1 % Normal 37-47 [facility] Comment on above: Performed By: #### L 501.9520, L100.0100, L503.6620, L500.4050 #### [facility] Laboratory [address] [place], [address] Hemoglobin (Bld) [Mass/Vol] 12.7 g/dL Normal 12.0-15.0 [facility] Comment on above: Performed By: #### L 501.9520, L100.0100, L503.6620, L500.4050 #### [facility] Laboratory [address] [place], [address] IG% 0.600 Normal 0.0-0.9 [facility] Comment on above: Result Comment: IG% - Immature Granulocytes (promyelocytes, myelocytes and metamyelocytes) > 1% indicates that a LEFT SHIFT is Present. Performed By: #### L 501.9520, L100.0100, L503.6620, L500.4050 #### [facility] Laboratory [address] [place], [address] Lymphocytes/100 WBC (Bld) 20.1 % Normal 19-41 [facility] Comment on above: Performed By: #### L 501.9520, L100.0100, L503.6620, L500.4050 #### [facility] Laboratory [address] [place], [address] MCH (RBC) [Entitic mass] 30.1 pg Normal 27.0-32.0 [facility] Comment on above: Performed By: #### L 501.9520, L100.0100, L503.6620, L500.4050 #### [facility] Laboratory [address] [place], [address] MCHC (RBC) [Mass/Vol] 32.5 g/dL Normal 32-36 [facility] Comment on above: Performed By: #### L 501.9520, L100.0100, L503.6620, L500.4050 #### [facility] Laboratory [address] [place], [address] MCV (RBC) [Entitic vol] 92.7 fL Normal 81-99 [facility] Comment on above: Performed By: #### L 501.9520, L100.0100, L503.6620, L500.4050 #### [facility] Laboratory [address] [place], [address] Monocytes/100 WBC (Bld) 4.9 % Normal 0-10 [facility] Comment on above: Performed By: #### L 501.9520, L100.0100, L503.6620, L500.4050 #### [facility] Laboratory [address] [place], [address] Neutrophils/100 WBC (Bld) 73.2 % High 47-70 [facility] Comment on above: Performed By: #### L 501.9520, L100.0100, L503.6620, L500.4050 #### [facility] Laboratory [address] [place], [address] Nucleated RBC (Bld) [#/Vol] 0 10*3/uL Normal 0-5 [facility] Comment on above: Performed By: #### L 501.9520, L100.0100, L503.6620, L500.4050 #### [facility] Laboratory [address] [place], [address] Platelet mean volume (Bld) [Entitic vol] 10.5 fL Normal 6.2-12.0 [facility] Comment on above: Performed By: #### L 501.9520, L100.0100, L503.6620, L500.4050 #### [facility] Laboratory [address] [place], [address] Platelets (Bld) [#/Vol] 315 10*3/uL Normal 150-450 [facility] Comment on above: Performed By: #### L 501.9520, L100.0100, L503.6620, L500.4050 #### [facility] Laboratory [address] [place], [address] RBC (Bld) [#/Vol] 4.22 10*6/uL Normal 4.2-5.4 [facility] Comment on above: Performed By: #### L 501.9520, L100.0100, L503.6620, L500.4050 #### [facility] Laboratory [address] [place], [address] RDW SD 43.1 fl Normal 35.1-43.9 [facility] Comment on above: Performed By: #### L 501.9520, L100.0100, L503.6620, L500.4050 #### [facility] Laboratory [address] [place], [address] WBC (Bld) [#/Vol] 6.3 10*3/uL Normal 4.4-11.0 [facility] Comment on above: Performed By: #### L 501.9520, L100.0100, L503.6620, L500.4050 #### [facility] Laboratory [address] [place], [address] Carbon dioxide measurementOr dered By: Roseann Eli on 10-01-2024 CO2 [Moles/Vol] 28.0 mmol/L 21.0-32.0 [facility] Chloride measurementOrdered By: Roseann Eli on 10-01-2024 Chloride [Moles/Vol] 106 mmol/L 98-107 [facility] Comprehensive Metabolic Prof ilon 10-01-2024 Albumin [Mass/Vol] 3.5 g/dL Normal 3.2-5.0 [facility] Comment on above: Performed By: #### L 501.9520, L100.0100, L503.6620, L500.4050 ####[facility] [address] [place], [address] Albumin/Globulin [Mass ratio] 1.2 {ratio} Normal 0.9-2.4 [facility] Comment on above: Performed By: #### L 501.9520, L100.0100, L503.6620, L500.4050 ####[facility] [address] [place], [address] ALK P 53 U/L Normal 45-117 [facility] Comment on above: Performed By: #### L 501.9520, L100.0100, L503.6620, L500.4050 ####[facility] [address] [place], [address] ALT [Catalytic activity/Vol] 33 U/L Normal 13-56 [facility] Comment on above: Performed By: #### L 501.9520, L100.0100, L503.6620, L500.4050 ####[facility] [address] [place], [address] AST [Catalytic activity/Vol] 17 U/L Normal 15-37 [facility] Comment on above: Performed By: #### L 501.9520, L100.0100, L503.6620, L500.4050 ####[facility] [address] [place], [address] Bilirubin [Mass/Vol] 0.30 mg/dL Normal 0.20-1.00 [facility] Comment on above: Result Comment: For patients on eltrombopag therapy, use of Dimension [place] TBIL is not recommended. Performed By: #### L 501.9520, L100.0100, L503.6620, L500.4050 ####[facility] [address] [place], [address] BUN/CRE 10.7 RATIO Normal 10-20 [facility] Comment on above: Performed By: #### L 501.9520, L100.0100, L503.6620, L500.4050 ####[facility] [address] [place], [address] CA,Total 9.3 mg/dL Normal 8.5-10.1 [facility] Comment on above: Performed By: #### L 501.9520, L100.0100, L503.6620, L500.4050 ####[facility] [address] [place], [address] Chloride [Moles/Vol] 106 mmol/L Normal 98-107 [facility] Comment on above: Performed By: #### L 501.9520, L100.0100, L503.6620, L500.4050 ####[facility] [address] [place], [address] CO2 [Moles/Vol] 28.0 mmol/L Normal 21.0-32.0 [facility] Comment on above: Performed By: #### L 501.9520, L100.0100, L503.6620, L500.4050 ####[facility] [address] [place], [address] Creatinine [Mass/Vol] 0.75 mg/dL Normal 0.55-1.02 [facility] Comment on above: Result Comment: The validity of the calculated GFR GFRAA in patients over 70 years has not been determined. Clinical correlation is essential. Performed By: #### L 501.9520, L100.0100, L503.6620, L500.4050 ####[facility] [address] [place], [address] EST GFR - AA 96 mL/min Normal >60 [facility] Comment on above: Result Comment: Afri can [place] GFR Calc Performed By: #### L 501.9520, L100.0100, L503.6620, L500.4050 ####[facility] [address] [place], [address] GAP 6 Normal 5-15 [facility] Comment on above: Performed By: #### L 501.9520, L100.0100, L503.6620, L500.4050 ####[facility] [address] [place], [address] GFR/1.73 sq M.predicted among non-blacks MDRD (S/P/Bld) [Vol rate/Area] 79 mL/min/{1.73_m2} Normal >60 [facility] Comment on above: Result Comment: Non- GFR Calc Performed By: #### L 501.9520, L100.0100, L503.6620, L500.4050 ####[facility] [address] [place], [address] Globulin (S) [Mass/Vol] 2.9 g/dL Normal 2.2-4.2 [facility] Comment on above: Performed By: #### L 501.9520, L100.0100, L503.6620, L500.4050 ####[facility] [address] [place], [address] Glucose [Mass/Vol] 108 mg/dL High 74-106 [facility] Comment on above: Result Comment: Fast ing Glucose result from 100 to 125 mg/dL suggests IMPAIRED HOMEOSTASIS per A.D.A. criteria. Performed By: #### L 501.9520, L100.0100, L503.6620, L500.4050 ####[facility] [address] [place], [address] Potassium [Moles/Vol] 3.7 mmol/L Normal 3.5-5.1 [facility] Comment on above: Performed By: #### L 501.9520, L100.0100, L503.6620, L500.4050 ####[facility] [address] [place], [address] Sodium [Moles/Vol] 139 mmol/L Normal 136-145 [facility] Comment on above: Performed By: #### L 501.9520, L100.0100, L503.6620, L500.4050 ####[facility] [address] [place], [address] T PROT 6.4 g/dL Normal 6.4-8.2 [facility] Comment on above: Performed By: #### L 501.9520, L100.0100, L503.6620, L500.4050 ####[facility] [address] [place], [address] Urea nitrogen [Mass/Vol] 8 mg/dL Normal 7-18 [facility] Comment on above: Performed By: #### L 501.9520, L100.0100, L503.6620, L500.4050 ####[facility] [address] [place], [address] Eosinophil percentageOrdered By: Roseann Eli on 10-01-2024 Eosinophils/100 WBC (Bld) 0.6 % 0-5 [facility] Erythrocyte distribution wid th ratioOrdered By: Roseann Eli on 10-01-2024 Erythrocyte distribution width (RBC) [Ratio] 12.6 % 11.6-14.6 [facility] Erythrocyte distribution wid th standard deviationOrdered By: Roseann Eli on 10-01-2024 Erythrocyte distribution width (RBC) [Entitic vol] 43.1 fL 35.1-43.9 [facility] Estimated glomerular filtrat ion rate (GFR) AmericanOrdered By: Roseann Eli on 10-01-2024 Estimated GFR (MDRD) Amer 96 mL/min >60 [facility] Comment on above: GFR Calc Glomerular filtration rate ( GFR) estimationOrdered By: Roseann Eli on 10-01-2024 Estimated GFR (MDRD) Non-Af Amer 79 mL/min >60 [facility] Comment on above: Non- GFR Calc Glucose measurementOrdered B y: Roseann Eli on 10-01-2024 Glucose [Mass/Vol] 108 mg/dL High 74-106 [facility] Comment on above: Fasting Glucose resu lt from 100 to 125 mg/dL suggests IMPAIRED HOMEOSTASIS per A.D.A. criteria. Hematocrit Auto (Bld) [Volum e fraction]Ordered By: Roseann Eli on 10-01-2024 Hematocrit (Bld) [Volume fraction] 39.1 % 37-47 [facility] Hemoglobin measurementOrdere d By: Roseann Eli on 10-01-2024 Hemoglobin (Bld) [Mass/Vol] 12.7 g/dL 12.0-15.0 [facility] Immature granulocytes/100 WB C Auto (Bld)Ordered By: Roseann Eli on 10-01-2024 Immature granulocytes/100 WBC (Bld) 0.600 % 0.0-0.9 [facility] Comment on above: IG% - Immature Granu locytes (promyelocytes, myelocytes and metamyelocytes) > 1% indicates that a LEFT SHIFT is Present. Laboratory - Chemistry and C hemistry - challengeOrdered By: Roseann Eli on 10-01-2024 AST [Catalytic activity/Vol] 17 U/L 15-37 [facility] Lymphocytes Auto (Unsp spec) [#/Vol]Ordered By: Roseann Eli on 10-01-2024 Lymphocytes (Bld) [#/Vol] 1.27 10*3/uL 0.83-4.51 [facility] Lymphocytes/100 WBC Auto (Un sp spec)Ordered By: Roseann Eli on 10-01-2024 Lymphocytes/100 WBC (Bld) 20.1 % 19-41 [facility] MCV (mean corpuscular volume ) determinationOrdered By: Roseann Eli on 10-01-2024 MCV (RBC) [Entitic vol] 92.7 fL 81-99 [facility] Mean corpuscular hemoglobin (MCH) determinationOrdered By: Roseann Eli on 10-01-2024 MCH (RBC) [Entitic mass] 30.1 pg 27.0-32.0 [facility] Mean corpuscular hemoglobin concentration (MCHC) determinationOrdered By: Roseann Eli on 10-01-2024 MCHC (RBC) [Mass/Vol] 32.5 g/dL 32-36 [facility] Mean platelet volume determi nationOrdered By: Roseann Eli on 10-01-2024 Platelet mean volume (Bld) [Entitic vol] 10.5 fL 6.2-12.0 [facility] Monocyte percentageOrdered B y: Roseann Eli on 10-01-2024 Monocytes/100 WBC (Bld) 4.9 % 0-10 [facility] Neutrophil percentageOrdered By: Roseann Eli on 10-01-2024 Neutrophils/100 WBC (Bld) 73.2 % High 47-70 [facility] Nucleated red blood cell per centageOrdered By: Roseann Eli on 10-01-2024 Nucleated RBC/100 WBC (Bld) [Ratio] 0 % 0-5 [facility] Platelet countOrdered By: Nathaly Eli on 10-01-2024 Platelets (Bld) [#/Vol] 315 10*3/uL 150-450 [facility] Potassium measurementOrdered By: Roseann Eli on 10-01-2024 Potassium [Moles/Vol] 3.7 mmol/L 3.5-5.1 [facility] RBC Auto (Bld) [#/Vol]Ordere d By: Roseann Eli on 10-01-2024 RBC (Bld) [#/Vol] 4.22 10*6/uL 4.2-5.4 [facility] Serum anion gap measurementO rdered By: Roseann Eli on 10-01-2024 Anion gap [Moles/Vol] 6 mmol/L 5-15 [facility] Serum globulin measurementOr dered By: Roseann Eli on 10-01-2024 Globulin (S) [Mass/Vol] 2.9 g/dL 2.2-4.2 [facility] Serum or plasma alanine anguiano otransferase (ALT) measurementOrdered By: Roseann Eli on 10-01-2024 ALT [Catalytic activity/Vol] 33 U/L 13-56 [facility] Serum or plasma albumin roel urement (mass/volume)Ordered By: Roseann Eli on 10-01-2024 Albumin [Mass/Vol] 3.5 g/dL 3.2-5.0 [facility] Serum or plasma alkaline miguel sphatase measurementOrdered By: Roseann Eli on 10-01-2024 ALP [Catalytic activity/Vol] 53 U/L 45-117 [facility] Serum or plasma calcium roel urement (mass/volume)Ordered By: Roseann Eli on 10-01-2024 Calcium [Mass/Vol] 9.3 mg/dL 8.5-10.1 [facility] Serum or plasma creatinine m easurement (mass/volume)Ordered By: Roseann Eli on 10-01-2024 Creatinine [Mass/Vol] 0.75 mg/dL 0.55-1.02 [facility] Comment on above: The validity of the calculated GFR & GFRAA in patients over 70 years has not been determined. Clinical correlation is essential. Serum or plasma urea nitroge n measurement (mass/volume)Ordered By: Roseann Eli on 10-01-2024 Urea nitrogen [Mass/Vol] 8 mg/dL 7-18 [facility] Sodium levelOrdered By: Roseann lEi on 10-01-2024 Sodium [Moles/Vol] 139 mmol/L 136-145 [facility] TSH QnOrdered By: Roseann hewitt on 10-01-2024 Thyroid Stimulating Hormone (TSH) 1.010 uIU/mL 0.358-3.740 [facility] Thyroid Stim Hormone (TSH)on 10-01-2024 TSH 1.010 uIU/mL Normal 0.358-3.740 [facility] Comment on above: Performed By: #### L 501.9520, L100.0100, L503.6620, L500.4050 ####[facility] [address] [place], [address] Total proteinOrdered By: Roseann Eli on 10-01-2024 Protein [Mass/Vol] 6.4 g/dL 6.4-8.2 [facility] White blood cell (WBC) count Ordered By: Roseann Eli on 10-01-2024 WBC (Bld) [#/Vol] 6.3 10*3/uL 4.4-11.0 [facility] Neurology Visit Reporton Neurology Visit Report [facility] [address], [address] [place] [address] OFFICE VISIT Date of Service: 09/30/24 MR#: [id number] Acct: [id number] Name: ZHENG ROY Rep #: [id number] : 1945 Provider: Dr. Silver sanchez MD Age/Sex: 79/F Location: [facility] Status: Signed HPI HPI Chief Complaint: Establish Care Details: The patient is a 79-year-old right handed female who presents to [facility]. She was referred 08/07/[address] Pili Chakraborty with [facility] for cognitive impairment.??? This lady presents with her rarbzc-gm-mhu for evaluation of cognitive impairment. Patient had a recent episode of calling her ggewpi-dv-mbh for help. It seems that there was [...] 4 extre (more content not included)... Normal [facility] CBC W/Diff, Automatedon 11-0 -2023 Absolute Lymph 1.41 X10 3/uL Normal 0.83-4.51 [facility] Comment on above: Order Comment: Order Date: 07/16/24Order Info: [id number] - CBCD Performed By: #### L 500.4050, L501.9985, L506.1000, L500.4100, L100.0100 ####[facility] [address] [place], [address] Absolute Neut 5.3 X10 3/uL Normal 2.0-7.7 [facility] Comment on above: Order Comment: Order Date: 07/16/24Order Info: [id number] - CBCD Performed By: #### L 500.4050, L501.9985, L506.1000, L500.4100, L100.0100 ####[facility] [address] [place], [address] Basophils/100 WBC (Bld) 0.7 % Normal 0-1 [facility] Comment on above: Order Comment: Order Date: 07/16/24Order Info: [id number] - CBCD Performed By: #### L 500.4050, L501.9985, L506.1000, L500.4100, L100.0100 ####[facility] [address] [place], [address] Eosinophils/100 WBC (Bld) 0.7 % Normal 0-5 [facility] Comment on above: Order Comment: Order Date: 07/16/24Order Info: [id number] - CBCD Performed By: #### L 500.4050, L501.9985, L506.1000, L500.4100, L100.0100 ####[facility] [address] [place], [address] Erythrocyte distribution width (RBC) [Ratio] 12.3 % Normal 11.6-14.6 [facility] Comment on above: Order Comment: Order Date: 07/16/24Order Info: [id number] - CBCD Performed By: #### L 500.4050, L501.9985, L506.1000, L500.4100, L100.0100 ####[facility] [address] [place], [address] Hematocrit (Bld) [Volume fraction] 41.0 % Normal 37-47 [facility] Comment on above: Order Comment: Order Date: 07/16/24Order Info: [id number] - CBCD Performed By: #### L 500.4050, L501.9985, L506.1000, L500.4100, L100.0100 ####[facility] [address] [place], [address] Hemoglobin (Bld) [Mass/Vol] 13.8 g/dL Normal 12.0-15.0 [facility] Comment on above: Order Comment: Order Date: 07/16/24Order Info: [id number] - CBCD Performed By: #### L 500.4050, L501.9985, L506.1000, L500.4100, L100.0100 ####[facility] [address] [place], [address] IG% 0.400 Normal 0.0-0.9 [facility] Comment on above: Order Comment: Order Date: 07/16/24Order Info: [id number] - CBCD Result Comment: IG% - Immature Granulocytes (promyelocytes, myelocytes and metamyelocytes) > 1% indicates that a LEFT SHIFT is Present. Performed By: #### L 500.4050, L501.9985, L506.1000, L500.4100, L100.0100 ####[facility] [address] [place], [address] Lymphocytes/100 WBC (Bld) 19.3 % Normal 19-41 [facility] Comment on above: Order Comment: Order Date: 07/16/24Order Info: [id number] - CBCD Performed By: #### L 500.4050, L501.9985, L506.1000, L500.4100, L100.0100 ####[facility] [address] [place], [address] MCH (RBC) [Entitic mass] 30.4 pg Normal 27.0-32.0 [facility] Comment on above: Order Comment: Order Date: 07/16/24Order Info: [id number] - CBCD Performed By: #### L 500.4050, L501.9985, L506.1000, L500.4100, L100.0100 ####[facility] [address] [place], [address] MCHC (RBC) [Mass/Vol] 33.7 g/dL Normal 32-36 [facility] Comment on above: Order Comment: Order Date: 07/16/24Order Info: [id number] - CBCD Performed By: #### L 500.4050, L501.9985, L506.1000, L500.4100, L100.0100 ####[facility] [address] [place], [address] MCV (RBC) [Entitic vol] 90.3 fL Normal 81-99 [facility] Comment on above: Order Comment: Order Date: 07/16/24Order Info: [id number] - CBCD Performed By: #### L 500.4050, L501.9985, L506.1000, L500.4100, L100.0100 ####[facility] [address] [place], [address] Monocytes/100 WBC (Bld) 6.0 % Normal 0-10 [facility] Comment on above: Order Comment: Order Date: 07/16/24Order Info: [id number] - CBCD Performed By: #### L 500.4050, L501.9985, L506.1000, L500.4100, L100.0100 ####[facility] [address] [place], [address] Neutrophils/100 WBC (Bld) 72.9 % High 47-70 [facility] Comment on above: Order Comment: Order Date: 07/16/24Order Info: [id number] - CBCD Performed By: #### L 500.4050, L501.9985, L506.1000, L500.4100, L100.0100 ####[facility] [address] [place], [address] Nucleated RBC (Bld) [#/Vol] 0 10*3/uL Normal 0-5 [facility] Comment on above: Order Comment: Order Date: 07/16/24Order Info: [id number]- - CBCD Performed By: #### L 500.4050, L501.9985, L506.1000, L500.4100, L100.0100 ####[facility] [address] [place], [address] Platelet mean volume (Bld) [Entitic vol] 10.6 fL Normal 6.2-12.0 [facility] Comment on above: Order Comment: Order Date: 07/16/24Order Info: [id number] - CBCD Performed By: #### L 500.4050, L501.9985, L506.1000, L500.4100, L100.0100 ####[facility] [address] [place], [address] Platelets (Bld) [#/Vol] 320 10*3/uL Normal 150-450 [facility] Comment on above: Order Comment: Order Date: 07/16/24Order Info: [id number] - CBCD Performed By: #### L 500.4050, L501.9985, L506.1000, L500.4100, L100.0100 ####[facility] [address] [place], [address] RBC (Bld) [#/Vol] 4.54 10*6/uL Normal 4.2-5.4 [facility] Comment on above: Order Comment: Order Date: 07/16/24Order Info: [id number] - CBCD Performed By: #### L 500.4050, L501.9985, L506.1000, L500.4100, L100.0100 ####[facility] [address] [place], [address] RDW SD 40.6 fl Normal 35.1-43.9 [facility] Comment on above: Order Comment: Order Date: 07/16/24Order Info: [id number] - CBCD Performed By: #### L 500.4050, L501.9985, L506.1000, L500.4100, L100.0100 ####[facility] [address] [place], [address] WBC (Bld) [#/Vol] 7.3 10*3/uL Normal 4.4-11.0 [facility] Comment on above: Order Comment: Order Date: 07/16/24Order Info: [id number] - CBCD Performed By: #### L 500.4050, L501.9985, L506.1000, L500.4100, L100.0100 ####[facility] [address] [place], [address] Comprehensive Metabolic Prof ilon 07-16-2024 Albumin [Mass/Vol] 3.8 g/dL Normal 3.2-5.0 [facility] Comment on above: Order Comment: Order Date: 07/16/24Order Info: [id number] - CMPOrder Info: [id number] - LIPIDOrder Info: [id number] - TSH Performed By: #### L 500.4050, L501.9985, L506.1000, L500.4100, L100.0100 ####[facility] [address] [place], [address] Albumin/Globulin [Mass ratio] 1.3 {ratio} Normal 0.9-2.4 [facility] Comment on above: Order Comment: Order Date: 07/16/24Order Info: [id number] - CMPOrder Info: [id number] - LIPIDOrder Info: [id number] - TSH Performed By: #### L 500.4050, L501.9985, L506.1000, L500.4100, L100.0100 ####[facility] [address] [place], [address] ALK P 70 U/L Normal 45-117 [facility] Comment on above: Order Comment: Order Date: 07/16/24Order Info: [id number] - CMPOrder Info: [id number] - LIPIDOrder Info: [id number] - TSH Performed By: #### L 500.4050, L501.9985, L506.1000, L500.4100, L100.0100 ####[facility] [address] [place], [address] ALT [Catalytic activity/Vol] 37 U/L Normal 13-56 [facility] Comment on above: Order Comment: Order Date: 07/16/24Order Info: [id number] - CMPOrder Info: [id number] - LIPIDOrder Info: [id number] - TSH Performed By: #### L 500.4050, L501.9985, L506.1000, L500.4100, L100.0100 ####[facility] [address] [place], [address] AST [Catalytic activity/Vol] 32 U/L Normal 15-37 [facility] Comment on above: Order Comment: Order Date: 07/16/24Order Info: [id number] - CMPOrder Info: [id number] - LIPIDOrder Info: [id number] - TSH Performed By: #### L 500.4050, L501.9985, L506.1000, L500.4100, L100.0100 ####[facility] [address] [place], [address] Bilirubin [Mass/Vol] 0.70 mg/dL Normal 0.20-1.00 [facility] Comment on above: Order Comment: Order Date: 07/16/24Order Info: [id number] - CMPOrder Info: [id number] - LIPIDOrder Info: [id number] - TSH Result Comment: For patients on eltrombopag therapy, use of Dimension [place] TBIL is not recommended. Performed By: #### L 500.4050, L501.9985, L506.1000, L500.4100, L100.0100 ####[facility] [address] [place], [address] BUN/CRE 13.1 RATIO Normal 10-20 [facility] Comment on above: Order Comment: Order Date: 07/16/24Order Info: [id number] - CMPOrder Info: [id number] - LIPIDOrder Info: [id number] - TSH Performed By: #### L 500.4050, L501.9985, L506.1000, L500.4100, L100.0100 ####[facility] [address] [place], [address] CA,Total 9.3 mg/dL Normal 8.5-10.1 [facility] Comment on above: Order Comment: Order Date: 07/16/24Order Info: [id number] - CMPOrder Info: [id number] - LIPIDOrder Info: [id number] - TSH Performed By: #### L 500.4050, L501.9985, L506.1000, L500.4100, L100.0100 ####[facility] [address] [place], [address] Chloride [Moles/Vol] 98 mmol/L Normal 98-107 [facility] Comment on above: Order Comment: Order Date: 07/16/24Order Info: [id number] - CMPOrder Info: [id number] - LIPIDOrder Info: [id number] - TSH Performed By: #### L 500.4050, L501.9985, L506.1000, L500.4100, L100.0100 ####[facility] [address] [place], [address] CO2 [Moles/Vol] 31.0 mmol/L Normal 21.0-32.0 [facility] Comment on above: Order Comment: Order Date: 07/16/24Order Info: [id number] - CMPOrder Info: [id number] - LIPIDOrder Info: [id number] - TSH Performed By: #### L 500.4050, L501.9985, L506.1000, L500.4100, L100.0100 ####[facility] [address] [place], [address] Creatinine [Mass/Vol] 0.84 mg/dL Normal 0.55-1.02 [facility] Comment on above: Order Comment: Order Date: 07/16/24Order Info: [id number] - CMPOrder Info: - LIPIDOrder Info: [id number] - TSH Result Comment: The validity of the calculated GFR GFRAA in patients over 70 years has not been determined. Clinical correlation is essential. Performed By: #### L 500.4050, L501.9985, L506.1000, L500.4100, L100.0100 ####[facility] [address] [place], [address] EST GFR - AA 84 mL/min Normal >60 [facility] Comment on above: Order Comment: Order Date: 07/16/24Order Info: [id number] - CMPOrder Info: [id number] - LIPIDOrder Info: [id number] - TSH Result Comment: Afri can Camb[place]ian GFR Calc Performed By: #### L 500.4050, L501.9985, L506.1000, L500.4100, L100.0100 ####[facility] [address] [place], [address] GAP 6 Normal 5-15 [facility] Comment on above: Order Comment: Order Date: 07/16/24Order Info: [id number] - CMPOrder Info: [id number] - LIPIDOrder Info: [id number] - TSH Performed By: #### L 500.4050, L501.9985, L506.1000, L500.4100, L100.0100 ####[facility] [address] [place], [address] GFR/1.73 sq M.predicted among non-blacks MDRD (S/P/Bld) [Vol rate/Area] 69 mL/min/{1.73_m2} Normal >60 [facility] Comment on above: Order Comment: Order Date: 07/16/24Order Info: [id number] - CMPOrder Info: [id number] - LIPIDOrder Info: [id number] - TSH Result Comment: Non- GFR Calc Performed By: #### L 500.4050, L501.9985, L506.1000, L500.4100, L100.0100 ####[facility] [address] [facility] [place], [address] Globulin (S) [Mass/Vol] 2.9 g/dL Normal 2.2-4.2 [facility] Comment on above: Order Comment: Order Date: 07/16/24Order Info: [id number]- - CMPOrder Info: [id number] - LIPIDOrder Info: [id number] - TSH Performed By: #### L 500.4050, L501.9985, L506.1000, L500.4100, L100.0100 ####[facility] [address] [place], [address] Glucose [Mass/Vol] 96 mg/dL Normal 74-106 [facility] Comment on above: Order Comment: Order Date: 07/16/24Order Info: [id number] - CMPOrder Info: [id number] - LIPIDOrder Info: [id number] - TSH Performed By: #### L 500.4050, L501.9985, L506.1000, L500.4100, L100.0100 ####[facility] [address] [place], [address] Potassium [Moles/Vol] 3.4 mmol/L Low 3.5-5.1 [facility] Comment on above: Order Comment: Order Date: 07/16/24Order Info: [id number] - CMPOrder Info: [id number] - LIPIDOrder Info: [id number] - TSH Performed By: #### L 500.4050, L501.9985, L506.1000, L500.4100, L100.0100 ####[facility] [address] [place], [address] Sodium [Moles/Vol] 135 mmol/L Low 136-145 [facility] Comment on above: Order Comment: Order Date: 07/16/24Order Info: [id number] - CMPOrder Info: [id number] - LIPIDOrder Info: [id number] - TSH Performed By: #### L 500.4050, L501.9985, L506.1000, L500.4100, L100.0100 ####[facility] [address] [place], [address] T PROT 6.7 g/dL Normal 6.4-8.2 [facility] Comment on above: Order Comment: Order Date: 07/16/24Order Info: [id number] - CMPOrder Info: [id number] - LIPIDOrder Info: [id number] - TSH Performed By: #### L 500.4050, L501.9985, L506.1000, L500.4100, L100.0100 ####[facility] [address] [place], [address] Urea nitrogen [Mass/Vol] 11 mg/dL Normal 7-18 [facility] Comment on above: Order Comment: Order Date: 07/16/24Order Info: [id number] - CMPOrder Info: [id number] - LIPIDOrder Info: [id number] - TSH Performed By: #### L 500.4050, L501.9985, L506.1000, L500.4100, L100.0100 ####[facility] [address] [place], [address] Hemoglobin A1con 07-16-2024 HbA1c (Bld) [Mass fraction] 6.4 % High 3.8-5.6 [facility] Comment on above: Order Comment: Order Date: 07/16/24Order Info: [id number] - A1C Result Comment: Norm al < 5.7 % Prediabetic 5.7 - 6.4 % Diabetic >or= 6.5 % Please note range changes. Performed By: #### L 500.4050, L501.9985, L506.1000, L500.4100, L100.0100 ####[facility] [address] [place], [address] Lipid Profileon 07-16-2024 Cholesterol [Mass/Vol] 193 mg/dL Normal 200 [facility] Comment on above: Order Comment: Order Date: 07/16/24Order Info: [id number] - CMPOrder Info: [id number] - LIPIDOrder Info: [id number] - TSH Result Comment: <200 mg/dL Desirable 200-240 mg/dL Borderline >240 mg/dL High Risk Performed By: #### L 500.4050, L501.9985, L506.1000, L500.4100, L100.0100 ####[facility] [address] [place], [address] Cholesterol in HDL [Mass/Vol] 46 mg/dL Normal [facility] Comment on above: Order Comment: Order Date: 07/16/24Order Info: [id number] - CMPOrder Info: [id number] - LIPIDOrder Info: [id number] - TSH Result Comment: The drugs N-Acetylcysteine and Metamizole may falsely depress this assay. Reference Range HDL <40 mg/dL Low HDL Cholesterol HDL >or= 60 mg/dL High HDL Cholesterol Performed By: #### L 500.4050, L501.9985, L506.1000, L500.4100, L100.0100 ####[facility] [address] [place], [address] Cholesterol in LDL [Mass/Vol] 117 mg/dL Normal 0-130 [facility] Comment on above: Order Comment: Order Date: 07/16/24Order Info: [id number] - CMPOrder Info: [id number] - LIPIDOrder Info: [id number] - TSH Performed By: #### L 500.4050, L501.9985, L506.1000, L500.4100, L100.0100 ####[facility] [address] [place], [address] Cholesterol in VLDL [Mass/Vol] 30 mg/dL Normal 5-40 [facility] Comment on above: Order Comment: Order Date: 07/16/24Order Info: [id number] - CMPOrder Info: [id number] - LIPIDOrder Info: [id number] - TSH Performed By: #### L 500.4050, L501.9985, L506.1000, L500.4100, L100.0100 ####[facility] [address] [place], [address] Triglyceride [Mass/Vol] 150 mg/dL Normal [facility] Comment on above: Order Comment: Order Date: 07/16/24Order Info: [id number] - CMPOrder Info: [id number] - LIPIDOrder Info: [id number] - TSH Result Comment: The drugs N-Acetylcysteine and Metamizole may falsely depress this assay. Serum Triglycerides Reference Interval Normal <150 mg/dL Borderline high 150 - 199 mg/dL High 200 - 499 mg/dL Very High > or = 500 mg/dL Performed By: #### L 500.4050, L501.9985, L506.1000, L500.4100, L100.0100 ####[facility] [address] [place], [address] Thyroid Stim Hormone (TSH)on 07-16-2024 TSH 0.939 uIU/mL Normal 0.358-3.740 [facility] Comment on above: Order Comment: Order Date: 07/16/24Order Info: [id number] - CMPOrder Info: [id number] - LIPIDOrder Info: [id number] - TSH Performed By: #### L 501.9520 ####[facility] [address] [place], [address] Vitamin D,25 Hydroxyon 07-16 Vitamin D 25-OH 13.4 ng/mL Normal [facility] Comment on above: Order Comment: Order Date: 07/16/24Order Info: [id number] - VITD25 Result Comment: Meli min D 25(OH) Status Range Deficiency <20 ng/mL (50nmol/L) Insufficiency 20 - 30 ng/mL (50 - 75 nmol/L) Sufficiency 30 - 100 ng/mL (75 - 250 nmol/L) Toxicity >100 ng/mL (>250 nmol/L) Performed By: #### L 500.4050, L501.9985, L506.1000, L500.4100, L100.0100 ####[facility] [address] [place], [place], [id number] Basophil percentageOrdered B y: Maame Annanger on 12-29-2022 Bilirubin [Mass/Vol] 0.50 mg/dL 0.20-1.00 [facility] Comment on above: For patients on eltr ombopag therapy, use of Dimension [place] TBIL is not recommended. Chloride [Moles/Vol] 100 mmol/L 98-107 [facility] Cholesterol [Mass/Vol] 153 mg/dL <200 [facility] Comment on above: <200 mg/dL Desirable 200-240 mg/dL Borderline >240 mg/dL High Risk Glucose [Mass/Vol] 122 mg/dL 74-106 [facility] Comment on above: Fasting Glucose resu lt from 100 to 125 mg/dL suggests IMPAIRED HOMEOSTASIS per A.D.A. criteria. Potassium [Moles/Vol] 3.7 mmol/L 3.5-5.1 [facility] Comment on above: Slight Hemolysis, Re sult may be falsely increased. Protein [Mass/Vol] 6.7 g/dL 6.4-8.2 [facility] Sodium [Moles/Vol] 135 mmol/L 136-145 [facility] Triglyceride [Mass/Vol] 189 mg/dL <199 [facility] Comment on above: The drugs N-Acetylcy steine and Metamizole may falsely depress this assay.Serum Triglycerides Reference Interval Normal <150 mg/dL Borderline high 150 - 199 mg/dL High 200 - 499 mg/dL Very High > or = 500 mg/dL Laboratory - Chemistry and C hemistry - challengeOrdered By: Maame Chang on 12-29-2022 ALP [Catalytic activity/Vol] 85 U/L 45-117 [facility] ALT [Catalytic activity/Vol] 30 U/L 13-56 [facility] CO2 [Moles/Vol] 29.0 mmol/L 21.0-32.0 [facility] Globulin (S) [Mass/Vol] 2.9 g/dL 2.2-4.2 [facility] Urea nitrogen/Creatinine [Mass ratio] 17.2 mg/mg 10-20 [facility] No Panel InformationOrdered By: Maame Chang on 12-29-2022 Estimated GFR (MDRD) Amer 81 mL/min >60 [facility] Comment on above: GFR Calc Estimated GFR (MDRD) Non-Af Amer 67 mL/min >60 [facility] Comment on above: Non- GFR Calc Serum or plasma albumin roel urement (mass/volume)Ordered By: Maame Chang on 12-29-2022 Albumin [Mass/Vol] 3.8 g/dL 3.2-5.0 [facility] Serum or plasma albumin/glob ulin mass ratioOrdered By: Maame Chang on 12-29-2022 Albumin/Globulin [Mass ratio] 1.3 {ratio} 0.9-2.4 [facility] Serum or plasma calcium roel urement (mass/volume)Ordered By: Maame Chang on 12-29-2022 Calcium [Mass/Vol] 9.2 mg/dL 8.5-10.1 [facility] Serum or plasma cholesterol in HDL measurement (mass/volume)Ordered By: Maame Chang on 12-29-2022 Cholesterol in HDL [Mass/Vol] 50 mg/dL >40 [facility] Comment on above: The drugs N-Acetylcy steine and Metamizole may falsely depress this assay. Reference Range HDL <40 mg/dL Low HDL Cholesterol HDL >or= 60 mg/dL High HDL Cholesterol Serum or plasma cholesterol in VLDL measurement (mass/volume)Ordered By: Maame Chang on 12-29-2022 Cholesterol in VLDL [Mass/Vol] 38 mg/dL 5-40 [facility] Serum or plasma creatinine m easurement (mass/volume)Ordered By: Maame Chang on 12-29-2022 Creatinine [Mass/Vol] 0.87 mg/dL 0.55-1.02 [facility] Comment on above: The validity of the calculated GFR & GFRAA in patients over 70 years has not been determined. Clinical correlation is essential. Serum or plasma low density lipoprotein (LDL) cholesterol measurement (mass/volume)Ordered By: Maame Chang on 12-29-2022 Cholesterol in LDL [Mass/Vol] 65 mg/dL 0-130 [facility] Serum or plasma urea nitroge n measurement (mass/volume)Ordered By: Maame Chang on 12-29-2022 Urea nitrogen [Mass/Vol] 15 mg/dL 7-18 [facility] Thin prep Papanicolaou smear with manual screeningOrdered By: Maame Chang on 12-29-2022 Thin prep Papanicolaou smear with manual screening 18 U/L 15-37 [facility] Comment on above: Slight Hemolysis, Re sult may be falsely increased. Thin prep Papanicolaou smear with manual screening 6 5-15 [facility] Thin prep Papanicolaou smear with manual screening 14.4 mg/L NO RANGE EST. [facility] Whole blood hemoglobin A1c/t otal hemoglobin ratio (mass fraction)Ordered By: Maame Chang on 12-29-2022 HbA1c (Bld) [Mass fraction] 5.9 % 3.8-5.6 [facility] Comment on above: Normal < 5.7 % Predi abetic 5.7 - 6.4 % Diabetic >or= 6.5 % Please note range changes. Basophil percentageon 2021 Chloride [Moles/Vol] 101 mmol/L 98-107 [facility] Work Phone: Cholesterol [Mass/Vol] 139 mg/dL <200 [facility] Work Phone: Comment on above: <200 mg/dL Desirable 200-240 mg/dL Borderline >240 mg/dL High Risk Glucose [Mass/Vol] 119 mg/dL 74-106 [facility] Work Phone: Comment on above: Fasting Glucose resu lt from 100 to 125 mg/dL suggests IMPAIRED HOMEOSTASIS per A.D.A. criteria. Potassium [Moles/Vol] 3.7 mmol/L 3.5-5.1 [facility] Work Phone: Sodium [Moles/Vol] 134 mmol/L 136-145 [facility] Work Phone: Triglyceride [Mass/Vol] 177 mg/dL [facility] Work Phone: Comment on above: The drugs N-Acetylcy steine and Metamizole may falsely depress this assay.Serum Triglycerides Reference Interval Normal <150 mg/dL Borderline high 150 - 199 mg/dL High 200 - 499 mg/dL Very High > or = 500 mg/dL Laboratory - Chemistry and C hemistry - challengeon 12-28-2021 CO2 [Moles/Vol] 25.0 mmol/L 21.0-32.0 [facility] Work Phone: Urea nitrogen/Creatinine [Mass ratio] 13.9 mg/mg 10-20 [facility] Work Phone: No Panel Informationon 12-28 Hepatitis C Antibody Non-Reactive Nonreactive [facility] Work Phone: Comment on above: Non Reactive: < 0.8 Equivocal: >/= 0.8 to < 1.0 Reactive: >/= 1.0The CDC recommends that a reactive/equivocal HCV antibody result be followed up by the HCV Nucleic Acid Amplificationtest (684750) Estimated GFR (MDRD) Amer 91 mL/min >60 [facility] Work Phone: Comment on above: GFR Calc Estimated GFR (MDRD) Non-Af Amer 75 mL/min >60 [facility] Work Phone: Comment on above: Non- GFR Calc Serum or plasma calcium roel urement (mass/volume)on 12-28-2021 Calcium [Mass/Vol] 8.7 mg/dL 8.5-10.1 [facility] Work Phone: Serum or plasma cholesterol in HDL measurement (mass/volume)on 12-28-2021 Cholesterol in HDL [Mass/Vol] 54 mg/dL [facility] Work Phone: Comment on above: The drugs N-Acetylcy steine and Metamizole may falsely depress this assay. Reference Range HDL <40 mg/dL Low HDL Cholesterol HDL >or= 60 mg/dL High HDL Cholesterol Serum or plasma cholesterol in VLDL measurement (mass/volume)on 12-28-2021 Cholesterol in VLDL [Mass/Vol] 35 mg/dL 5-40 [facility] Work Phone: Serum or plasma creatinine m easurement (mass/volume)on 12-28-2021 Creatinine [Mass/Vol] 0.79 mg/dL 0.55-1.02 [facility] Work Phone: Comment on above: The validity of the calculated GFR & GFRAA in patients over 70 years has not been determined. Clinical correlation is essential. Serum or plasma low density lipoprotein (LDL) cholesterol measurement (mass/volume)on 12-28-2021 Cholesterol in LDL [Mass/Vol] 50 mg/dL 0-130 [facility] Work Phone: Serum or plasma urea nitroge n measurement (mass/volume)on 12-28-2021 Urea nitrogen [Mass/Vol] 11 mg/dL 7-18 [facility] Work Phone: Thin prep Papanicolaou smear with manual screeningon 12-28-2021 Thin prep Papanicolaou smear with manual screening 8 5-15 [facility] Work Phone: CNPTOUTREACHon 10-29-2020 CNPTOUTREACH Patient Outreach ([facility]) ZHENG ROY MARIE ([id number]) 1945 F Date Time Provider Department 10/29/20 PENELOPE HARRINGTON During your visit today, we recorded the [...] . Date Reviewed: 03/23/2019 Reviewed by: Marielos ([facility]) Raciel - Fully Assessed Order(s):SARS-COVID VACCINE 1ST DOSE APPT [10191CBW] Order #: [id number] FUTURE Prescriptions as of 10/29/2020 Sig: POTASSIUM [...] 10/29/2020 (None) Letter Text Encounter Status:Closed by MARITZA, PRODUSER on 11/02/[address] [facility] Vital Signs Date Time Vital Sign Value Performing Clinician Corie capps 02-26-2025 12:07-0400 Body temperature 97.7 [degF] Dr. Roseann Eli MD Work Phone: [facility] 02-26-2025 12:07-0400 Diastolic blood pressure 72 mm[Hg] Dr. Roseann Eli MD Work Phone: 4(981)827-172470 [place] [address] 02-26-2025 12:07-0400 Heart rate 78 /min Dr. Roseann Eli MD Work Phone: 2(145)080-345698 [place] [address] 02-26-2025 12:07-0400 Respiratory rate 18 /min Dr. Roseann Eli MD Work Phone: 2(010)388-012898 [place] [address] 02-26-2025 12:07-0400 SaO2% (BldA) [Mass fraction] 100 % Dr. Roseann Eli MD Work Phone: 0(211)532-303298 [place] [address] 02-26-2025 12:07-0400 Systolic blood pressure 160 mm[Hg] Dr. Roseann Eli MD Work Phone: 8(992)902-406098 [place] [address] 02-26-2025 09:44-0400 Body height 167.[address] Roseann Eli MD Work Phone: 8(770)091-846598 [place] [address] 02-26-2025 09:44-0400 Body mass index (BMI) [Ratio] 26.1 kg/m2 Dr. Roseann Eli MD Work Phone: 3(436)314-520998 [place] [address] 02-26-2025 09:44-0400 Body weight 73.[address] Roseann Eli MD Work Phone: 9(297)099-047798 [place] [address] 12-05-2024 16:56-0400 Body temperature 96.6 [degF] Pili Chakraborty MD Work Phone: 5(320)526-905298 [place] [address] 12-05-2024 16:56-0400 Diastolic blood pressure 94 mm[Hg] Pili Chakraborty MD Work Phone: 2(538)191-613798 [place] [address] 12-05-2024 16:56-0400 Heart rate 73 /min Pili Chakraborty MD Work Phone: 6(719)823-117798 [place] [address] 12-05-2024 16:56-0400 Respiratory rate 16 /min Pili Chakraborty MD Work Phone: 5(418)221-217170 [place] [address] 12-05-2024 16:56-0400 SaO2% (BldA) [Mass fraction] 100 % Pili Chakraborty MD Work Phone: [facility] 12-05-2024 16:56-0400 Systolic blood pressure 119 mm[Hg] Pili Chakraborty MD Work Phone: [facility] 12-05-2024 12:11-0400 Body height 167.64 cm Pili Chakraborty MD Work Phone: [facility] 12-05-2024 12:11-0400 Body mass index (BMI) [Ratio] 25.7 kg/m2 Pili Chakraborty MD Work Phone: [facility] 12-05-2024 12:11-0400 Body weight 72.5 kg Piil Chakraborty MD Work Phone: [facility] 11-29-2024 15:46-0400 Body temperature 98 [degF] Pili Chakraborty MD Work Phone: [facility] 11-29-2024 15:46-0400 Diastolic blood pressure 72 mm[Hg] Pili Chakraborty MD Work Phone: [facility] 11-29-2024 15:46-0400 Heart rate 79 /min Pili Chakraborty MD Work Phone: [facility] 11-29-2024 15:46-0400 Respiratory rate 18 /min Pili Chakraborty MD Work Phone: [facility] 11-29-2024 15:46-0400 SaO2% (BldA) [Mass fraction] 99 % Pili Chakraborty MD Work Phone: [facility] 11-29-2024 15:46-0400 Systolic blood pressure 183 mm[Hg] Pili Chakraborty MD Work Phone: [facility] 11-29-2024 12:35-0400 Body height 167.64 cm Pili Chakraborty MD Work Phone: [facility] 11-29-2024 12:35-0400 Body mass index (BMI) [Ratio] 26.2 kg/m2 Pili Chakraborty MD Work Phone: [facility] 11-29-2024 12:35-0400 Body weight 73.7 kg Pili Chakraborty MD Work Phone: [facility] 11-16-2024 20:28-0500 Body temperature 98 [degF] Pili Chakraborty MD Work Phone: [facility] 11-16-2024 20:28-0500 Diastolic blood pressure 73 mm[Hg] Pili Chakraborty MD Work Phone: [facility] 11-16-2024 20:28-0500 Heart rate 72 /min Pili Chakraborty MD Work Phone: 5(641)361-887298 [place] [address] 11-16-2024 20:28-0500 Respiratory rate 18 /min Pili Chakraborty MD Work Phone: 5(548)576-786549 [address] 11-16-2024 20:28-0500 SaO2% (BldA) [Mass fraction] 97 % Pili Chakraborty MD Work Phone: 7(730)482-515570 [place] [address] 11-16-2024 20:28-0500 Systolic blood pressure 149 mm[Hg] Pili Chakraborty MD Work Phone: 1(028)083-247898 [place] [address] 11-16-2024 18:16-0500 Body height 154.99 cm Pili Chakraborty MD Work Phone: 0(947)397-920098 [place] [address] 11-16-2024 18:16-0500 Body mass index (BMI) [Ratio] 32.5 kg/m2 Pili Chakraborty MD Work Phone: 7(789)396-991670 [place] [address] 11-16-2024 18:16-0500 Body weight 78.2 kg Pili Chakraborty MD Work Phone: 4(392)260-911249 [address] 09-30-2024 14:26-0500 Body mass index (BMI) [Ratio] 29.8 kg/m2 Pili Chakraborty MD Work Phone: 8(992)760-864370 [place] [address] 09-30-2024 14:26-0500 Body temperature 98.4 [degF] Pili Chakraborty MD Work Phone: 3(165)637-899370 [place] [address] 09-30-2024 14:26-0500 Body weight 71.66 kg Pili Chakraborty MD Work Phone: [facility] 09-30-2024 14:26-0500 Diastolic blood pressure 68 mm[Hg] Pili Chakraborty MD Work Phone: [facility] 09-30-2024 14:26-0500 Heart rate 86 /min Pili Chakraborty MD Work Phone: [facility] 09-30-2024 14:26-0500 Respiratory rate 15 /min Pili Chakraborty MD Work Phone: [facility] 09-30-2024 14:26-0500 SaO2% (BldA) [Mass fraction] 99 % Pili Chakraborty MD Work Phone: [facility] 09-30-2024 14:26-0500 Systolic blood pressure 142 mm[Hg] Pili Chakraborty MD Work Phone: [facility] 06-14-2022 09:13-0400 Body height 156.21 cm [facility] Work Phone: Encounters Encounter Date Encounter Type Care Provider Facility Start: 03-28-2025 ambulatory Epifanio Zamora OLS Facil ity:[facility] Start: 03-24-2025 ambulatory Epifanio Zamora OLS Facil ity:[facility] Start: 02-26-2025 End: 02-26-2025 Emergency department patient [...] 11-13-2024 ambulatory Pili Chakraborty MD Work Phone: [facility] Work Phone: Start: 11-13-2024 End: 11-13-[address] Epifanio Zamora MD -[facility] [place] Work Phone: Start: 11-13-[address] Epifanio adamson MD -[facility] [place] Work Phone: Start: 11-13-2024 End: 11-13-2024 ambulatory Roseann S Joescobar Facility:[facility] Start: 11-01-2024 ambulatory Roseann S Jollimmanuel Facility: [facility] Start: 10-21-2024 ambulatory Roseann S Jolliff Facility: [facility] Start: 10-01-2024 End: 10-01-[address] Roseann Eli MD -[facility] Start: 09-30-2024 End: 09-30-[address] Silver Doe MD -[facility] Work Phone: Start: 09-30-2024 End: 10-01-2024 ambulatory Roseann S Jolliff Facility:[facility] Start: 07-16-2024 End: 07-16-2024 ambulatory Pili Chakraborty Facility:[facility] Start: 07-25-2023 End: 07-25-2023 ambulatory [facility] Work Phone: Start: 07-25-2023 End: 07-25-2023 Discharged Recurring [facility]-Physical Therapy Work Phone: Start: 12-29-2022 End: 12-29-2022 ambulatory [facility] Work Phone: Start: 12-29-2022 End: 12-29-2022 Patient encounter procedure [facility] Start: 06-14-2022 End: 06-14-2022 ambulatory [facility] Work Phone: Start: 06-14-2022 End: 06-14-2022 Patient encounter procedure [facility]-Outpatient Bone Densitometry Start: 12-28-2021 End: 12-28-2021 Patient encounter procedure [facility]atory[facility] Procedures Date Procedure Procedure Detail Performing Clinician Start: 02-26-[address] Roseann Eli MD Work Phone: Start: 02-26-2025 CT of head without contrast Dr. Roseann Eil MD Work Phone: Start: 12-05-2024 Plain x-ray [...] Date Care Activity Detail Author Start: 02-26-2025 [facility] Start: 02-26-2025 Plain x-ray of pelvi s and lower extremity HIP, UNI W/ Pelvis 2-3 Views [facility] Start: 02-26-2025 XR Pelvis and Hip Views [facility] Start: 12-05-2024 [facility] Start: 11-29-2024 [facility] Start: 11-29-2024 [facility] Start: 11-16-2024 [facility] MR Brain contrast [facility] Patient Education [facility] Work Phone: Patient referral [facility] Work Phone: Payers Date Payer Category Payer Self-pay [id number] 2021 Unknown [id number] Unknown [id number] 2.16.8 [id number] Unknown [id number] 2.16.8 [id number] Unknown [id number] 2.16.8 [id number] Unknown [id number] 2.16.8 [id number] Unknown [id number] 2.16.8 [id number] Unknown [id number] 2.16.8 [id number] Unknown [id number] 2.16.8 [id number] Unknown [id number] 2.16.8 [id number] Unknown [id number] 2.16.8 [id number] Unknown [id number] 2.16.8 [id number] Unknown [id number] 2.16.8 [id number] Unknown [id number] 2.16.8 [id number] Social History Date Type Detail Facility Tobacco smoking stat us MNIS Unknown if ever smoked [facility] Work Phone: Start: 1945 Sex Assigned At Female [facility] Start: 11-16-2024 End: 02-26-2025 Tobacco smoking status NHIS Never smoked tobacco (finding) [facility] Start: 11-16-2024 End: 12-10-2024 Sex Female (finding) [facility] Clinical Notes 09-30-2024 to 02-26-2025 Note Date & Type Note Facility 02-26-2025 Radiology Diagnostic study note [facility] Imaging Services [address] [place] [address] [id number] Brain/Head without Contrast MR#: [id number] Acct: [id number] Name: ZHENG ROY Rep #: [id number] : 1945 F 79 From: Christopher Hudson MD PCP: Dr. Epifanio Zamora DO Status: REG ER Study:Brain/Head without Contrast Date of Exa m: 02/26/25 Exam# [id number] Ordering Dr: Radha Marrero DO PROCEDURE: BRAIN/HEAD [...] CHRONIC CHANGES. NO ACUTE FINDINGS. Reading Location: [place] [address] CC: Dr. Sofia Marrero DO; Dr. Epifanio Zamora DO ~ Blade Filer: Signed [facility] 12-05-2024 Discharge summary [facility] 12-05-2024 Radiology Diagnostic study note [facility] [address] [place] [address] Knee 4 or More Views MR#: [id number] Acct: [id number] Name: ZHENG ROY Rep #: [id number] : 1945 F 79 From: Veronika Llanos MD PCP: Dr. Epifanio Zamora DO Status: REG ER Study:Knee 4 or More Views Date of Exam: 12/05/24 Exam# [id number] Ordering Dr: David Gutierrez DO PROCEDURE: KNEE 4 OR MORE VIEWS 12/05/2024 REASON FOR EXAM: INJURY TECHNIQUE: 4 view(s) of the right knee COMPARISON: 12/05/2024 FINDINGS: No acute fracture or dislocation.No degenerative changes. No joint effusion. No soft tissue abnormality. RAD/Knee 4 or More Views IMPRESSION: No acute abnormality. Reading Location: [facility] CC: Dr. Sushil Gutierrez DO; Dr. Epifanio Zamora DO ~ Blade Filer: Signed [facility] 12-05-2024 Radiology Diagnostic study note [facility] Services [address] [place] [address] HIP, UNI W/ Pelvis 2-3 Views MR#: [id number] Acct: [id number] Name: KIRILLBALAJI Rep #: [id number] : 1945 F 79 From: Veronika Llanos MD PCP: Dr. Epifanio Zamora DO Status: REG ER Study:HIP, UNI W/ Pelvis 2-3 Views Date of Ex am: 12/05/24 Exam# [id number] Ordering Dr: David Gutierrez DO PROCEDURE: HIP, [...] Gutierrez DO; Dr. Epifanio Zamora DO ~ Blade Filer: Signed [facility] 12-05-2024 Radiology Diagnostic study note [facility] Imaging Services [address] [place] [address] [id number] Brain/Head without Contrast MR#: [id number] Acct: [id number] Name: ZHENG ROY Rep #: [id number] : 1945 F 79 From: Veronika Llanos MD PCP: Dr. Epifanio Zamora DO Status: REG ER Study:Brain/Head without Contrast Date of Exa m: 12/05/24 Exam# [id number] Ordering Dr: David Gutierrez DO PROCEDURE: BRAIN/HEAD [...] Gutierrez DO; Dr. Epifanio Zamora DO ~ Blade Filer: Signed [facility] 12-05-2024 Discharge summary Note Date/Time December 05, 2024 4:30pm [facility] Medical Records Department [address] [place] [address] Emergency Department Summary 12/05/24 MR#: [id number] Acct: [id number] Name: ZHENG ROY Rep #:[id number] : 1945 79 From: Sushil Gilliland PCP: Dr. Epifanio Zamora DO Status:REG ER Location: ED HPI HPI - Fall History of Present Illness Chief Complaint: Fall Informant: patient, family, EMS and SNF Narrative Narrative: 79-year-old female from group home facility presenting to the emergency room with [...] is no report of being on anticoagulants. [facility] Medical History Dementia Basal cell carcinoma Hypertension [...] the patient can be discharged back to group home facility. Follow-up as needed Tylenol for pain.. History & Record Review Discussion w/independent historian: Patient and Family Radiography Diagnostic Testing: Clinical Impression(s) from Imaging Studies Brain CT 12/05/24 12:58 IMPRESSION: 1. No acute intracranial abnormality. Reading Location: [facility] Knee X-Ray 12/05/24 12:58 IMPRESSION: No acute abnormality. Reading Location: [facility] Hip/Pelvis X-Ray 12/05/24 13:35 IMPRESSION: 1. No acute abnormality. Reading Location: [facility] Discharge Plan Triage Chief Complaint: Fall [...] Care Provider] - As Needed Print Language: Citizen Of [place] Disposition Disposition: Home, Self Care What to do if you have Problems For any increased pain, shortness of breath, bleeding, nausea or vomiting, chestpain, or any unexpected problems, contact your Primary Care Provider. Call [facility] ([phone]) or report to the closest Emergency Room. Call 911 if necessary. 12/05/24 1630 <Electronically signed by Sushil Gutierrez DO> Cosigner Signature (if applicable): CC: Dr. Epifanio Zamora DO ~ Signed [facility] Work Phone: 1(885) 297-917503-21-2025 Radiology Diagnostic study note [facility] Imaging Services [address] [place] [address] Ribs Uni Min 3V w/PA Chest MR#: [id number] Acct: [id number] Name: ZHENG ROY Rep #: [id number] : 1945 F 79 From: Christopher Hudson MD PCP: Dr. Epifanio Zamora DO Status: REG ER Study:Ribs Uni Min 3V w/PA Chest Date of Exam : 11/29/24 Exam# [id number] Ordering Dr: Behzad Weber MD PROCEDURE: RIBS [...] No acute abnormality is seen. Reading Location: [place] [address] CC: Dr. Kenney Weber MD; Dr. Epifaino Zamora DO ~ Blade Filer: Signed [facility]03-21-2025 Radiology Diagnostic study note [facility] Imaging Services [address] [place] [address] Brain/Head without Contrast MR#: [id number] Acct: [id number] Name: ZHENG ROY Rep #: [id number] : 1945 F 79 From: Bobbi Pressley MD PCP: Dr. Epifanio Zamora, Status: REG ER Study:Brain/Head without Contrast Date of Exa m: 11/29/24 Exam# [id number] Ordering Dr: Behzad Weber MD PROCEDURE: BRAIN/HEAD [...] 4. Additional description as above. Reading Location: [id number] CC: Dr. Kenney Weber MD; Dr. Epifanio Zamora DO ~ Blade Filer: Signed [facility]03-08-2025 Discharge summary [facility] Medical Records Department [address] [place] [address] Emergency Department Summary 11/16/24 MR#: [id number] Acct: [id number] Name: ZHENG ROY Rep #:[id number] : 1945 79 From: Astrid EASTON PCP: Dr. Epifanio Zamora DO Status:REG ER Location: ED HPI History of Present Illness Chief Complaint: Fall Narrative Narrative: 79-year-old female had an unwitnessed fall at [facility]. She was apparently found on the ground facedown near the dining area. She has no external signs of injury but complains of left shoulder pain. She is not on blood thinners. Daughter states she has dementia and moved into [place] in September 2024 and since then has fallen a total of 2 times including today. She ambulates well without assistance or assistive devices. Patient is not sure whyshe fell off but can provide limited history secondary to dementia. Her daughter is here and states she is acting at baseline. [facility] Medical History (Updated 11/16/24 @ 19:22 by [...] NO ACUTE FRACTURE OR DISLOCATION. Reading Location: [facility] Ribs w/Chest X-Ray 11/16/24 18:41 IMPRESSION: NO EVIDENCE OF ACUTE RIB FRACTURE OR PNEUMOTHORAX. Reading Location: [facility] Wrist X-Ray 11/16/24 18:41 IMPRESSION: No acute fracture or dislocation. Reading Location: [facility] ED attending interpretation of left shoulder shows [...] No acute fracture or dislocation. [facility] Dis[facility] Triage Chief Complaint: Fall ED [...] Referrals: Roseann Eli MD [Med Staff - Wafer Slicer] - Activity Restrictions/Additional Instructions: The x-ray showed no broken bones. I would treat your contusions with ice and Tylenol every 6 hours as needed. Print Language: Citizen Of [place] Disposition Disposition: Home, Self Care What to do if you have Problems For any increased pain, shortness of breath, bleeding, nausea or vomiting, chestpain, or any unexpected problems, contact your Primary Care Provider. Call [facility] ([phone]) or report tothe closest Emergency Room. Call 911 if necessary. 11/16/242009 Cosigner Signature (if applicable): 11/16/242025 CC: Dr. Epifanio Zamora DO ~ Signed [facility]03-08-2025 Radiology Diagnostic study note [facility] Imaging Services [address] [place], [place] [address] Ribs Uni Min 3V w/PA Chest MR#: [id number] Acct: [id number] Name: ZHENG ROY Rep #: [id number] : 1945 F 79 From: Tyson Rocha DO PCP: Dr. Epifanio Zamora DO Status: REG ER Study:Ribs Uni Min 3V w/PA Chest Date of Exam : 11/16/24 Exam# [id number] Ordering Dr: Anil Dozier MD PROCEDURE: RIBS [...] Zamora DO; Dr. Kalyan Dozier MD ~ Blade Filer: Signed [facility]03-08-2025 Radiology Diagnostic study note [facility] Imaging Services [address] [place] [address] Wrist min 3 Views MR#: [id number] Acct: [id number] Name: ZHENG ROY Rep #: [id number] : 1945 F 79 From: Tyson Rocha DO PCP: Dr. Epifanio Zamora DO Status: REG ER Study:Wrist min 3 Views Date of Exam: Exam# [id number] Ordering Dr: Anil Dozier MD PROCEDURE: WRIST MIN 3 VIEWS REASON FOR EXAM: Trauma. Pain. TECHNIQUE: 3 views of the left wrist COMPARISON: None FINDINGS: No visible fracture. No suspicious bone lesion. Normal alignment. Soft tissues are unremarkable. RAD/Wrist min 3 Views IMPRESSION: No acute fracture or dislocation. Reading Location: [facility] CC: Dr. Epifanio Zamora DO; Dr. Kalyan Dozier MD ~ Blade Filer: Signed [facility]03-08-2025 Radiology Diagnostic study note [facility] Imaging Services [address] [place], [place] [id number] Shoulder min 2 Views MR#: [id number] Acct: [id number] Name: ZHENG ROY Rep #: [id number] : 1945 F 79 From: Tyson Rocha DO PCP: Dr. Epifanio Zamora DO Status: REG ER Study:Shoulder min 2 Views Date of Exam: 11/16/24 Exam# [id number] Ordering Dr: Astrid Saleh PROCEDURE: SHOULDER MIN [...] Dr. Epifanio Zamora DO; RUSTAM Shepard ~ Blade Filer: Signed [facility]03-08-2025 Discharge summary Author Astrid Monae [facility] Note Date/Time November 16, 2024 8:26 pm [facility] Medical Records Department [address] [place] [address] Emergency Department Summary 11/16/24 MR#: [id number] Acct: [id number] Name: ZHENG ROY Rep #:[id number] : 1945 79 From: Astrid EASTON PCP: Dr. Epifanio Zamora DO Status:REG ER Location: ED HPI <RUSTAM Shepard - Last Filed: 11/16/24 20:10> History of Present Illness Chief Complaint: Fall Narrative Narrative: 79-year-old female had an unwitnessed fall at [facility]. She was apparently found on the ground facedown near the dining area. She has no external signs of injury but complains of left shoulder pain. She is not on blood thinners. Daughter states she has dementia and moved into [place] in September 2024 and since then has fallen a total of 2 times including today. She ambulates well without assistance or assistive devices. Patient is not sure whyshe fell off but can provide limited history secondary to dementia. Her daughter is here and states she is acting at baseline. [facility] <RUSTAM Shepard - Last Filed: 11/16/24 20:10> [facility] Medical History (Updated 11/16/24 @ 19:22 by [...] <RUSTAM Shepard - Last Filed: 11/16/24 20:10> MDM MDM Narrative Medical decision making narrative: [...] NO ACUTE FRACTURE OR DISLOCATION. Reading Location: [facility] Ribs w/Chest X-Ray 11/16/24 18:41 IMPRESSION: NO EVIDENCE OF ACUTE RIB FRACTURE OR PNEUMOTHORAX. [facility] Wrist X-Ray 11/16/24 18:41 IMPRESSION: No acute fracture or dislocation. Reading Location: [facility] ED attending interpretation of left shoulder shows no fracture or dislocation. ED attending interpretation of left wrist shows no fracture or dislocation. ED attending interpretation of left rib series shows no displaced rib fracture or pneumothorax. <Dr. Kalayn Dozier MD - Last Filed: 11/16/24 20:26> [facility] Narrative Medical decision making narrative: I have [...] NO ACUTE FRACTURE OR DISLOCATION. Reading Location: [facility] Ribs w/Chest X-Ray 11/16/24 18:41 IMPRESSION: NO EVIDENCE OF ACUTE RIB FRACTURE OR PNEUMOTHORAX. Reading Location: [facility] Wrist X-Ray 11/16/24 18:41 IMPRESSION: No acute fracture or dislocation. Reading Location: [facility] Discharge Plan Triage Chief Complaint: Fall ED [...] Referrals: Roseann Eli MD [Med Staff - Wafer Slicer] - Activity Restrictions/Additional Instructions: The x-ray showed no broken bones. I would treat your contusions with ice and Tylenol every 6 hours as needed. Print Language: Citizen [place] Disposition Disposition: Home, Self Care What to do if you have Problems For any increased pain, shortness of breath, bleeding, nausea or vomiting, chestpain, or any unexpected problems, contact your Primary Care Provider. Call [facility] ([phone]) or report to the closest Emergency Room. Call 911 if necessary. 11/16/242009 <Electronically signed by Astrid EASTON> Cosigner Signature (if applicable): 11/16/242025 <Electronically signed by Blade JONES> CC: Dr. Epifanio Zamora, DO ~ Signed [facility] Work Phone: 1(640) 591-154001-20-2025 Evaluation note* Diagnosis Onset Date Resolution Status Admit Date Bradykinesia chronic September 2:22pm Cognitive impairment chronic Rolando leah2024 2:22pm [facility] Work Phone: Evaluation noteNo assessment information available [facility] Work Phone: Hospital Discharge instructions Additional Instructions The x-ray showed no broken bones. I would treat your contusions with ice and Tylenol every 6 hours as needed.[facility] Work Phone: Hospital Discharge instructionsAmbulatory Orders* Wheeled Walker Location: None Selected [facility] Work Phone: Reason for referral (narrative)No [facility] for [facility] Work Phone: Summary Purpose Family History No Family History Records Found Relationship Condition Age at Onset Recorded Date/T paulo mother Cardiac disease Unknown Myocardial infarction Unknown father Cardiac disease Unknown Advance Directives No Advanced Directives Records Found Advance Directive Response Recorded Date/ Time Living Will Yes November 16, 2024 6:28pm Power of Managing Consultant Yes November 16 6:28pm Name of Medical Power of Managing Consultant ary November 16, 2024 6:28pm Advance Directive Response Recorded Date/ Time Living Will Yes November 16, 2024 7:28pm Do you have a Healthcare Power of Managing Consultant? Yes November 16, 2024 7:28pm Name of Medical Power of Managing Consultant ary November 16, 2024 7:28pm Living Will Yes November 29, 2024 12:42pm Do you have a Healthcare Power of Managing Consultant? Yes November 29, 2024 12:42pm Name of Medical Power of Managing Consultant daughter November 29, 2024 12:42pm Advance Directive Response Recorded Date/ Time Living Will Yes November 16, 2024 7:28pm Do you have a Healthcare Power of Managing Consultant? Yes November 16, 2024 7:28pm Name of Medical Power of Managing Consultant ary November 16, 2024 7:28pm Living Will Yes November 29, 2024 12:42pm Do you have a Healthcare Power of Managing Consultant? Yes November 29, 2024 12:42pm Name of Medical Power of Managing Consultant daughter November 29, 2024 12:42pm Living Will Yes December 05, 2024 12:18pm Do you have a Healthcare Power of Managing Consultant? Yes December 05, 2024 12:18pm Name of Medical Power of Managing Consultant ARY December 05, 2024 12:18pm Advance Directive Response Recorded Date/ Time Living Will Yes November 16, 2024 7:28pm Do you have a Healthcare Power of Managing Consultant? Yes November 16, 2024 7:28pm Name of Medical Power of Managing Consultant ary November 16, 2024 7:28pm Living Will Yes November 29, 2024 12:42pm Do you have a Healthcare Power of Managing Consultant? Yes November 29, 2024 12:42pm Name of Medical Power of Managing Consultant daughter November 29, 2024 12:42pm Living Will Yes December 05, 2024 12:18pm Do you have a Healthcare Power of Managing Consultant? Yes December 05, 2024 12:18pm Name of Medical Power of Managing Consultant ARY December 05, 2024 12:18pm Do you have a Healthcare Power of Managing Consultant? Yes February 26, 2025 9:49am Chief Complaint [...] Date cognitive impairment September 30, 2024 2:22pm ASSISTED LAB WORK November 13, 2024 5: 00am fall November 16, 2024 6:15 pm fall with pain lt side rib area no loc M arch 2024 11:49am FALL December 05, 2024 12: 11pm Chief Complaint Admit Date ASSISTED LAB WORK November 13, 2024 5: 00am fall November 16, 2024 6:15 pm fall with pain lt side rib area no loc M arch 2024 11:49am FALL December 05, 2024 12: 11pm FALL February 26, 2025 9:43 am Additional Source Comments INFORMATION SOURCE (unrecogn ized section and content) DATE CREATED AUTHOR 11/02/2020 [facility] DATE CREATED AUTHOR AUTHOR'S ORGANIZ ATION 04/01/2025 [facility] Goals (unrecognized section and content) Goals may [...] Primary Care Provider Active Dr. Kristopher Zaldivar , Attending Provider, Referring Provider Active Team Status: [...] 2024 End: December 05, 2024 Dr. Sushil Braggs , DO Emergency Provider Active Start: December 05, 2024 End: December 05, 2024 Team Status: Inactive Member Role Status Dates Dr. Epifanio Zamora , DO Primary Care Provider Active Start: February 26, 2025 End: February 26, 2025 Dr. Sofia Marrero , DO Emergency Provider Active S tart: February [...] BE BASED ON THE PRIMARY CLINICAL RECORDS. [facility] [employer] [facility]. provides no warranty or guarantee of the accuracy or completeness of information in this document.
--- OUTSIDE RECORDS SUMMARY | 2025-04-01 04:16 | XMS RPT_ITS | CCD ---
Author Organization [facility] Care Team Providers Care Aoc Airspace Control Officer Name Role Phone Pili Chakraborty MD Primary Care Provider Mylene JONES, Pili Referring Provider Dr. Silver Doe MD Attending Provider Dr. Roseann Eli MD Primary Care Provider Sredehar JONES, Dr. Roseann Adamson Attending Provider Sreedhar JONES, Dr. Roseann Adamson Referring Provider Dr. Epifanio Zamora MD Attending Provider Unavail Dr. Kalyan Khan MD Emergency Provider Dr. Epifanio Zamora DO Primary Care Provider [phone] Pili Chakraborty MD Primary Care Provider Pili Chakraborty MD Referring Provider Dr. Silver Doe MD Attending Provider Dr. Roseann Eli MD Primary Care Provider Dr. Roesann Eli MD Attending Provider Dr. Roseann Eli [...] Dr. Sushil Gutierrez DO Attending Provider Dr. 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 and steroids can make this worse (5 sources) montelukast Drug Allergy 5 Hives [facility] (5 sources) Penicillins Allergy to substance 5 unknown [facility] (6 sources) diphtheria, pertussis, tetanus vacc; Translations: [diphtheria, pertussis, tetanus vacc] Allergy to substance 5 unknown [facility] (6 sources) influenza virus vaccine, specific; Translations: [influenza virus vaccine, specific] Allergy to substance 5 unknown [facility] (1 source) Albuterol Drug Allergy 5 [facility] (1 source) Corticosteroids Drug allergy (disorder) 5 [facility] (1 source) Doxycycline Drug Allergy 5 [facility] (1 source) montelukast Drug Allergy 5 [facility] (1 source) Penicillins Drug allergy (disorder) 5 [facility] Medications Current Medications Medication Drug [...] Auto (Unsp spec) [#/Vol] 1.13 10*3/uL 0.83-4.51 [facility] Absolute neutrophil countOrd ered By: [facility] on 02-26-2025 Neutrophils (Bld) [#/Vol] 6.2 10*3/uL 2.0-7.7 [facility] Anion gap in Serum or Plasma Ordered By: [facility] on 02-26-2025 Anion gap [Moles/Vol] 12 mmol/L 5-15 [facility] Automated lymphocyte count a s percentage of total leukocytesOrdered By: [facility] on 02-26-2025 Lymphocytes/100 WBC Auto (Unsp spec) 14.4 % Low 19-41 [facility] BUN/creatinine ratioOrdered By: [facility] on 02-26-2025 Urea nitrogen/Creatinine [Mass ratio] 13.4 mg/mg - [facility] Basic Metabolic Profile (BMP )on 02-26-2025 BUN/CRE 13.4 RATIO Normal - [facility] Comment on above: Performed By: #### L 500.2500 #### [facility] [address] [facility] [address] Calcium [Mass/Vol] 9.2 mg/dL Normal 7.6-11.0 [facility] Comment on above: Performed By: #### L 500.2500 #### [facility] [address] [facility] [place], [address] Chloride [Moles/Vol] 93 mmol/L Low 98-108 [facility] Comment on above: Performed By: #### L 500.2500 #### [facility] [address] [place], [address] CO2 [Moles/Vol] 25.9 mmol/L Normal 21.0-32.0 [facility] Comment on above: Performed By: #### L 500.2500 #### [facility] [address] [place], [address] Creatinine [Mass/Vol] 0.72 mg/dL Normal 0.70-1.20 [facility] Comment on above: Performed By: #### L 500.2500 #### [facility] [address] [place], [address] ECRCL 57.50 ml/min Normal 50-250 [facility] Comment on above: Performed By: #### L 500.2500 #### [facility] [address] [place], [address] GAP 12 Normal 5-15 [facility] Comment on above: Performed By: #### L 500.2500 #### [facility] [address] [place], [address] GFR/1.73 sq M.predicted among non-blacks MDRD (S/P/Bld) [Vol rate/Area] 85 mL/min/{1.73_m2} Normal >60 [facility] Comment on above: Result Comment: mL/m in/1.73m2 CKD-EPI Creatinine Equation (2020) Performed By: #### L 500.2500 #### [facility] [address] [place], [address] Glucose [Mass/Vol] 117 mg/dL High 70-99 [facility] Comment on above: Performed By: #### L 500.2500 #### [facility] [address] [place], [address] Potassium [Moles/Vol] 4.0 mmol/L Normal 3.3-5.1 [facility] Comment on above: Result Comment: Hemo lysis present, Results??could be affected. ?? Performed By: #### L 500.2500 #### [facility] [address] [place], [address] Sodium [Moles/Vol] 130 mmol/L Low 133-145 [facility] Comment on above: Performed By: #### L 500.2500 #### [facility] [address] [place], [address] Urea nitrogen [Mass/Vol] 10 mg/dL Normal 4-19 [facility] Comment on above: Performed By: #### L 500.2500 #### [facility] [address] [place], [address] BUN Normal 4-19 [facility] Comment on above: Result Comment: This specimen has been REJECTED due to Laboratory criteria: Hemolyzed. Carrie (ED) has been notified of need of recollection. 02/26/25 1054 Ralf L White Performed By: #### L 500.2500, L100.0100 #### [facility] [address] [place], [address] BUN/CRE Normal 10-20 [facility] Comment on above: Result Comment: This specimen has been REJECTED due to Laboratory criteria: Hemolyzed. Carrie (ED) has been notified of need of recollection. 02/26/25 1054 Ralf L White Performed By: #### L 500.2500, L100.0100 #### [facility] [address] [place], [address] Calcium Normal 7.6-11.0 [facility] Comment on above: Result Comment: This specimen has been REJECTED due to Laboratory criteria: Hemolyzed. Carrie (ED) has been notified of need of recollection. 02/26/25 1054 Ralf L White Performed By: #### L 500.2500, L100.0100 #### [facility] [address] [place], [address] CL Normal 98-108 [facility] Comment on above: Result Comment: This specimen has been REJECTED due to Laboratory criteria: Hemolyzed. Carrie (ED) has been notified of need of recollection. 02/26/25 1054 Ralf L White Performed By: #### L 500.2500, L100.0100 #### [facility] [address] [place], [address] CO2 Normal 21.0-32.0 [facility] Comment on above: Result Comment: This specimen has been REJECTED due to Laboratory criteria: Hemolyzed. Carrie (ED) has been notified of need of recollection. 02/26/25 1054 Ralf L White Performed By: #### L 500.2500, L100.0100 #### [facility] [address] [place], [address] CREAT,SERUM Normal 0.70-1.20 [facility] Comment on above: Result Comment: This specimen has been REJECTED due to Laboratory criteria: Hemolyzed. Carrie (ED) has been notified of need of recollection. 02/26/25 1054 Ralf L White Performed By: #### L 500.2500, L100.0100 #### [facility] [address] [place], [address] eGFR Normal >60 [facility] Comment on above: Result Comment: This specimen has been REJECTED due to Laboratory criteria: Hemolyzed. Carrie (ED) has been notified of need of recollection. 02/26/25 1054 Ralf L White Performed By: #### L 500.2500, L100.0100 #### [facility] [address] [place], [address] GAP Normal 5-15 [facility] Comment on above: Result Comment: This specimen has been REJECTED due to Laboratory criteria: Hemolyzed. Carrie (ED) has been notified of need of recollection. 02/26/25 1054 Ralf L White Performed By: #### L 500.2500, L100.0100 #### [facility] [address] [place], [address] GLU Normal 70-99 [facility] Comment on above: Result Comment: This specimen has been REJECTED due to Laboratory criteria: Hemolyzed. Carrie (ED) has been notified of need of recollection. 02/26/25 1054 Ralf L White Performed By: #### L 500.2500, L100.0100 #### [facility] [address] [place], [address] Potassium Normal 3.3-5.1 [facility] Comment on above: Result Comment: This specimen has been REJECTED due to Laboratory criteria: Hemolyzed. Carrie (ED) has been notified of need of recollection. 02/26/25 1054 Ralf L White Performed By: #### L 500.2500, L100.0100 #### [facility] [address] [place], [address] Basic Metabolic Profile (BMP) Normal 133-145 [facility] Comment on above: Result Comment: This specimen has been REJECTED due to Laboratory criteria: Hemolyzed. Carrie (ED) has been notified of need of recollection. 02/26/25 1054 Ralf L White Performed By: #### L 500.2500, L100.0100 #### [facility] [address] [place], [address] Basophil percentageOrdered B y: Remus Ungur on 02-26-2025 Basophils/100 WBC (Bld) 0.6 % 0-1 [facility] Brain/Head without Contrasto n 02-26-2025 Brain/Head without Contrast [facility] [address] [place] [address] Brain/Head without Contrast MR#: [id number] Acct: [id number] Name: ZHENG ROY Rep #: [id number] : 1945 F 79 From: Ezekiel lovelace MD PCP: Dr. Epifanio Zamora DO Status: REG ER Study: Brain/Head without Contrast Date of Exam: 02/09 05/05 Exam# [id number] Ordering Dr: Sofia Marrero DO PROCEDURE: BRAIN/HEAD [...] CHRONIC CHANGES. NO ACUTE FINDINGS. Reading Location: [place] [address] CC: Dr. Sofia Marrero DO; Dr. Epifanio Zamora DO Estate Administrator: Signed Normal [facility] CBC W/Diff, Automatedon 02-09 Absolute Lymph 1.13 X10 3/uL Normal 0.83-4.51 [facility] Comment on above: Performed By: #### L 500.2500, L100.0100 #### [facility] [address] [place], [address] Absolute Neut 6.2 X10 3/uL Normal 2.0-7.7 [facility] Comment on above: Performed By: #### L 500.2500, L100.0100 #### [facility] [address] [place], [address] Basophils/100 WBC (Bld) 0.6 % Normal 0-1 [facility] Comment on above: Performed By: #### L 500.2500, L100.0100 #### [facility] [address] [place], [address] Eosinophils/100 WBC (Bld) 0.5 % Normal 0-5 [facility] Comment on above: Performed By: #### L 500.2500, L100.0100 #### [facility] [address] [place], [address] Erythrocyte distribution width (RBC) [Ratio] 12.3 % Normal 11.6-14.6 [facility] Comment on above: Performed By: #### L 500.2500, L100.0100 #### [facility] [address] [place], [address] Hematocrit (Bld) [Volume fraction] 39.7 % Normal 37-47 [facility] Comment on above: Performed By: #### L 500.2500, L100.0100 #### [facility] [address] [place], [address] Hemoglobin (Bld) [Mass/Vol] 14.0 g/dL Normal 12.0-15.0 [facility] Comment on above: Performed By: #### L 500.2500, L100.0100 #### [facility] [address] [place], [address] IG% 0.500 Normal 0.0-0.9 [facility] Comment on above: Result Comment: IG% - Immature Granulocytes (promyelocytes, myelocytes and metamyelocytes) > 1% indicates that a LEFT SHIFT is Present. Performed By: #### L 500.2500, L100.0100 #### [facility] [address] [place], [address] Lymphocytes/100 WBC (Bld) 14.4 % Low 19-41 [facility] Comment on above: Performed By: #### L 500.2500, L100.0100 #### [facility] [address] [place], [address] MCH (RBC) [Entitic mass] 30.0 pg Normal 27.0-32.0 [facility] Comment on above: Performed By: #### L 500.2500, L100.0100 #### [facility] [address] [place], [address] MCHC (RBC) [Mass/Vol] 35.3 g/dL Normal 32-36 [facility] Comment on above: Performed By: #### L 500.2500, L100.0100 #### [facility] [address] [place], [address] MCV (RBC) [Entitic vol] 85.0 fL Normal 81-99 [facility] Comment on above: Performed By: #### L 500.2500, L100.0100 #### [facility] [address] [place], [address] Monocytes/100 WBC (Bld) 5.1 % Normal 0-10 [facility] Comment on above: Performed By: #### L 500.2500, L100.0100 #### [facility] [address] [place], [address] Neutrophils/100 WBC (Bld) 78.9 % High 47-70 [facility] Comment on above: Performed By: #### L 500.2500, L100.0100 #### [facility] [address] [place], [address] Nucleated RBC (Bld) [#/Vol] 0 10*3/uL Normal 0-5 [facility] Comment on above: Performed By: #### L 500.2500, L100.0100 #### [facility] [address] [place], [address] Platelet mean volume (Bld) [Entitic vol] 9.6 fL Normal 6.2-12.0 [facility] Comment on above: Performed By: #### L 500.2500, L100.0100 #### [facility] [address] [place], [address] Platelets (Bld) [#/Vol] 297 10*3/uL Normal 150-450 [facility] Comment on above: Performed By: #### L 500.2500, L100.0100 #### [facility] [address] [place], [address] RBC (Bld) [#/Vol] 4.67 10*6/uL Normal 4.2-5.4 [facility] Comment on above: Performed By: #### L 500.2500, L100.0100 #### [facility] [address] [place], [address] RDW SD 37.8 fl Normal 35.1-43.9 [facility] Comment on above: Performed By: #### L 500.2500, L100.0100 #### [facility] [address] [place], [address] WBC (Bld) [#/Vol] 7.9 10*3/uL Normal 4.4-11.0 [facility] Comment on above: Performed By: #### L 500.2500, L100.0100 #### [facility] [address] [place], [address] Carbon dioxide, total [Moles /volume] in Central venous bloodOrdered By: Sofia Marrero on 02-26-2025 CO2 [Moles/Vol] 25.9 mmol/L 21.0-32.0 [facility] Chloride assayOrdered By: Radha Marrero on 02-26-2025 Chloride [Moles/Vol] 93 mmol/L Low 98-108 [facility] Emergency Department Summary on 02-26-2025 Emergency Department Summary [facility] Medical Records Department [address] [place] [address] Emergency Department Summary 02/26/25 MR#: [id number] Acct: [id number] Name: ZHENG ROY Rep #: [id number] : 1945 79 From: Sofia Marrero DO [...] no loss of consciousness. Patient from a alf and has history of dementia. Patient not anticoagulated. She denies neck pain. She denies chest pain or abdominal pain. [facility] Medical History (Updated 02/26/25 @ 11:52 [...] well nour (more content not included)... Normal [facility] Eosinophil percentageOrdered By: Sofia Marrero on 02-26-2025 Eosinophils/100 WBC (Bld) 0.5 % 0-5 [facility] Erythrocyte distribution wid th ratioOrdered By: Sofia Marrero on 02-26-2025 Erythrocyte distribution width (RBC) [Ratio] 12.3 % 11.6-14.6 [facility] Erythrocyte distribution wid th standard deviationOrdered By: Sofia Marrero on 02-26-2025 Erythrocyte distribution width (RBC) [Ratio] 37.8 fl 35.1-43.9 [facility] Glomerular filtration rate ( GFR) estimation/1.73 sq m using serum, plasma, or whole bOrdered By: Sofia Marrero on 02-26-2025 GFR/1.73 sq M.predicted among non-blacks MDRD (S/P/Bld) [Vol rate/Area] 85 mL/min/{1.73_m2} >60 [facility] Comment on above: mL/min/1.73m2 CKD-EP I Creatinine Equation (2020) HIP, UNI W/ Pelvis 2-3 Views on 02-26-2025 HIP, UNI W/ Pelvis 2-3 Views [facility] [address] [place] [address] HIP, UNI W/ Pelvis 2-3 Views MR#: [id number] Acct: [id number] Name: ZHENG ROY Rep #: [id number] : 1945 F 79 From: Ezekiel lovelace MD PCP: Dr. Epifanio Zamora DO Status: DEP ER Study: HIP, UNI W/ Pelvis 2-3 Views Date of Exam: Exam# [id number] Ordering Dr: Sofia Marrero DO PROCEDURE: HIP, [...] No acute abnormality is seen. Reading Location: [facility] CC: Dr. Sofia Marrero, DO; Dr. Epifanio Zamora, DO Estate Administrator: Signed Normal [facility] Hematocrit Auto (Bld) [Volum e fraction]Ordered By: Sofia Marrero on 02-26-2025 Hematocrit (Bld) [Volume fraction] 39.7 % 37-47 [facility] Hemoglobin measurementOrdere d By: Sofia Marrero on 02-26-2025 Hemoglobin (Bld) [Mass/Vol] 14.0 g/dL 12.0-15.0 [facility] Immature granulocytes/100 WB C Auto (Bld)Ordered By: Sofia Marrero on 02-26-2025 Immature granulocytes/100 WBC (Bld) 0.500 % 0.0-0.9 [facility] Comment on above: IG% - Immature Granu locytes (promyelocytes, myelocytes and metamyelocytes) > 1% indicates that a LEFT SHIFT is Present. MCV (mean corpuscular volume ) determinationOrdered By: Sofia Marrero on 02-26-2025 MCV (RBC) [Entitic vol] 85.0 fL 81-99 [facility] Mean corpuscular hemoglobin (MCH) determinationOrdered By: Sofia Marrero on 02-26-2025 MCH (RBC) [Entitic mass] 30.0 pg 27.0-32.0 [facility] Mean corpuscular hemoglobin concentration (MCHC) determinationOrdered By: Sofia Marrero on 02-26-2025 MCHC (RBC) [Mass/Vol] 35.3 g/dL 32-36 [facility] Mean platelet volume determi nationOrdered By: Sofia Marrero on 02-26-2025 Platelet mean volume (Bld) [Entitic vol] 9.6 fL 6.2-12.0 [facility] Monocyte percentageOrdered B y: Sofia Marrero on 02-26-2025 Monocytes/100 WBC (Bld) 5.1 % 0-10 [facility] Neutrophil percentageOrdered By: Sofia Marrero on 02-26-2025 Neutrophils/100 WBC (Bld) 78.9 % High 47-70 [facility] Nucleated red blood cell per centageOrdered By: Sofia Marrero on 02-26-2025 Nucleated RBC/100 WBC (Bld) [Ratio] 0 % 0-5 [facility] Platelet countOrdered By: Radha Marrero on 02-26-2025 Platelets (Bld) [#/Vol] 297 10*3/uL 150-450 [facility] Potassium measurement (mass/ volume)Ordered By: Sofia Marrero on 02-26-2025 Potassium (Unsp spec) [Mass/Vol] 4.0 mmol/L 3.3-5.1 [facility] Comment on above: Hemolysis present, R esults could be affected. RBC Auto (Bld) [#/Vol]Ordere d By: Sofia Marrero on 02-26-2025 RBC (Bld) [#/Vol] 4.67 10*6/uL 4.2-5.4 [facility] Serum creatinine measurement (mass/volume)Ordered By: Sofia Marrero on 02-26-2025 Creatinine [Mass/Vol] 0.72 mg/dL 0.70-1.20 [facility] Serum glucose measurement (m ass/volume)Ordered By: Sofia Marrero on 02-26-2025 Glucose [Mass/Vol] 117 mg/dL High 70-99 [facility] Serum or plasma calcium roel urement (mass/volume)Ordered By: Sofia Marrero on 02-26-2025 Calcium [Mass/Vol] 9.2 mg/dL 7.6-11.0 [facility] Serum or plasma urea nitroge n measurement (mass/volume)Ordered By: Sofia Marrero on 02-26-2025 Urea nitrogen [Mass/Vol] 10 mg/dL 4-19 [facility] Sodium levelOrdered By: Edwina Marrero on 02-26-2025 Sodium [Moles/Vol] 130 mmol/L Low 133-145 [facility] White blood cell (WBC) count Ordered By: Sofia Marrero on 02-26-2025 WBC (Bld) [#/Vol] 7.9 10*3/uL 4.4-11.0 [facility] Brain/Head without Contrasto n 12-05-2024 Brain/Head without Contrast [facility] [address] [place] [address] Brain/Head without Contrast MR#: [id number] Acct: [id number] Name: ZHENG ROY Rep #: [id number] : 1945 F 79 From: Mary Ann Llanos MD PCP: Dr. Epifanio Zamora DO Status: REG ER Study: Brain/Head without Contrast Date of Exam: 11/10 04/04 Exam# [id number] Ordering Dr: Sushil Gutierrez DO PROCEDURE: BRAIN/HEAD [...] 1. No acute intracranial abnormality. [facility] CC: Dr. Sushil Gutierrez DO; Dr. Epifanio Zamora DO Estate Administrator: Signed Normal [facility] Emergency Department Summary on 12-05-2024 Emergency Department Summary [facility] Medical Records Department [address] [place] [address] Emergency Department Summary 12/05/24 MR#: [id number] Acct: [id number] Name: ZHENG ROY Rep #: [id number] : 1945 79 From: Sushil Gutierrez DO PCP: Dr. Epifanio Zamora DO Status:REG ER Location: ED HPI HPI - Fall History of Present Illness Chief Complaint: Fall Informant: patient, family, EMS and SNF Narrative Narrative: 79-year-old female from [facility]way facility presenting to the emergency room with [...] is no report of being on anticoagulants. [facility] Medical History Dementia Basal cell carcinoma [...] non-tender Palpation: (more content not included)... Normal [facility] HIP, UNI W/ Pelvis 2-3 Views on 12-05-2024 HIP, UNI W/ Pelvis 2-3 Views [facility] [address] [place], [place] [address] HIP, UNI W/ Pelvis 2-3 Views MR#: [id number] Acct: [id number] Name: ZHENG ROY Rep #: [id number] : 1945 F 79 From: Mary Ann Llanos MD PCP: Dr. Epifanio Zamora DO Status: REG ER Study: HIP, UNI W/ Pelvis 2-3 Views Date of Exam: Exam# [id number] Ordering Dr: Sushil Gutierrez DO PROCEDURE: HIP, [...] IMPRESSION: 1. No acute abnormality. Reading Location: [facility] CC: Dr. Sushil Gutierrez DO; Dr. Epifanio Zamora DO Estate Administrator: Signed Normal [facility] Knee 4 or More Viewson 12-05 Knee 4 or More Views [facility] [address] [place] [address] Knee 4 or More Views MR#: [id number] Acct: [id number] Name: ZHENG ROY Rep #: [id number] : 1945 F 79 From: Mary Ann Llanos MD PCP: Dr. Epifanio Zamora DO Status: REG ER Study: Knee 4 or More Views Date of Exam: 12/05/24 Exam# [id number] Ordering Dr: Sushil Gutierrez DO PROCEDURE: KNEE 4 OR MORE VIEWS 12/05/2024 REASON FOR EXAM: INJURY TECHNIQUE: 4 view(s) of the right knee COMPARISON: 12/05/2024 FINDINGS: No acute fracture or dislocation.No degenerative changes. No joint effusion. No soft tissue abnormality. RAD/Knee 4 or More Views IMPRESSION: No acute abnormality. [facility] CC: Dr. Sushil Gutierrez, DO; Dr. Epifanio Zamora, DO Estate Administrator: Signed Normal [facility] Absolute lymphocyte countOrd ered By: Kenney Weber on 11-29-2024 Lymphocytes Auto (Unsp spec) [#/Vol] 1.17 10*3/uL 0.83-4.51 [facility] Absolute neutrophil countOrd ered By: Kenney Weber on 11-29-2024 Neutrophils (Bld) [#/Vol] 7.5 10*3/uL 2.0-7.7 [facility] Anion gap in Serum or Plasma Ordered By: Kenney Weber on 11-29-2024 Anion gap [Moles/Vol] 12 mmol/L 5-15 [facility] Automated lymphocyte count a s percentage of total leukocytesOrdered By: Kenney Weber on 11-29-2024 Lymphocytes/100 WBC Auto (Unsp spec) 12.8 % Low 19-41 [facility] BUN/creatinine ratioOrdered By: Kenney Weber on 11-29-2024 Urea nitrogen/Creatinine [Mass ratio] 16.9 mg/mg 10- [facility] Basic Metabolic Profile (BMP )on 11-29-2024 BUN/CRE 16.9 RATIO Normal - [facility] Comment on above: Performed By: #### L 500.2500, L100.0100 ####[facility] [address] [place], [address] Calcium [Mass/Vol] 9.2 mg/dL Normal 7.6-11.0 [facility] Comment on above: Performed By: #### L 500.2500, L100.0100 ####[facility] [address] [place], [address] Chloride [Moles/Vol] 94 mmol/L Low 98-108 [facility] Comment on above: Performed By: #### L 500.2500, L100.0100 ####[facility] [address] [place], [address] CO2 [Moles/Vol] 22.8 mmol/L Normal 21.0-32.0 [facility] Comment on above: Performed By: #### L 500.2500, L100.0100 ####[facility] [address] [place], [address] Creatinine [Mass/Vol] 0.78 mg/dL Normal 0.70-1.20 [facility] Comment on above: Performed By: #### L 500.2500, L100.0100 ####[facility] [address] [place], [address] ECRCL 57.61 ml/min Normal 50-250 [facility] Comment on above: Performed By: #### L 500.2500, L100.0100 ####[facility] [address] [place], [address] GAP 12 Normal 5-15 [facility] Comment on above: Performed By: #### L 500.2500, L100.0100 ####[facility] [address] [place], [address] GFR/1.73 sq M.predicted among non-blacks MDRD (S/P/Bld) [Vol rate/Area] 77 mL/min/{1.73_m2} Normal >60 [facility] Comment on above: Result Comment: mL/m in/1.73m2 CKD-EPI Creatinine Equation (2020) Performed By: #### L 500.2500, L100.0100 ####[facility] [address] [place], [address] Glucose [Mass/Vol] 114 mg/dL High 70-99 [facility] Comment on above: Performed By: #### L 500.2500, L100.0100 ####[facility] [address] [place], [address] Potassium [Moles/Vol] 4.8 mmol/L Normal 3.3-5.1 [facility] Comment on above: Result Comment: Hemo lysis present, Results??could be affected. ?? Performed By: #### L 500.2500, L100.0100 ####[facility] [address] [place], [address] Sodium [Moles/Vol] 129 mmol/L Low 133-145 [facility] Comment on above: Performed By: #### L 500.2500, L100.0100 ####[facility] [address] [place], [address] Urea nitrogen [Mass/Vol] 13 mg/dL Normal 4-19 [facility] Comment on above: Performed By: #### L 500.2500, L100.0100 ####[facility] [address] [place], [address] Basophil percentageOrdered B y: Kenney Weber on 11-29-2024 Basophils/100 WBC (Bld) 0.5 % 0-1 [facility] Brain/Head without Contrasto n 11-29-2024 Brain/Head without Contrast [facility] Imaging Services [address] [address] Brain/Head without Contrast MR#: [id number] Acct: [id number] Name: ZHENG ROY Rep #: [id number] : 1945 F 79 From: Cornell Pressley MD PCP: Dr. Epifanio Zamora, DO Status: REG ER Study: Brain/Head without Contrast Date of Exam: 11/10 10/05 Exam# [id number] Ordering Dr: Kenney Weber MD PROCEDURE: BRAIN/HEAD [...] 4. Additional description as above. Reading Location: [id number] CC: Dr. Kenney Weber MD; Dr. Epifanio Zamora DO Estate Administrator: Signed Normal [facility] CBC W/Diff, Automatedon 11-10 Absolute Lymph 1.17 X10 3/uL Normal 0.83-4.51 [facility] Comment on above: Performed By: #### L 500.2500, L100.0100 ####[facility] [address] [place], [address] Absolute Neut 7.5 X10 3/uL Normal 2.0-7.7 [facility] Comment on above: Performed By: #### L 500.2500, L100.0100 ####[facility] [address] [place], [address] Basophils/100 WBC (Bld) 0.5 % Normal 0-1 [facility] Comment on above: Performed By: #### L 500.2500, L100.0100 ####[facility] [address] [place], [address] Eosinophils/100 WBC (Bld) 0.4 % Normal 0-5 [facility] Comment on above: Performed By: #### L 500.2500, L100.0100 ####[facility] [address] [place], [address] Erythrocyte distribution width (RBC) [Ratio] 11.9 % Normal 11.6-14.6 [facility] Comment on above: Performed By: #### L 500.2500, L100.0100 ####[facility] [address] [place], [address] Hematocrit (Bld) [Volume fraction] 39.8 % Normal 37-47 [facility] Comment on above: Performed By: #### L 500.2500, L100.0100 ####[facility] [address] [place], [address] Hemoglobin (Bld) [Mass/Vol] 13.9 g/dL Normal 12.0-15.0 [facility] Comment on above: Performed By: #### L 500.2500, L100.0100 ####[facility] [address] [place], [address] IG% 0.300 Normal 0.0-0.9 [facility] Comment on above: Result Comment: IG% - Immature Granulocytes (promyelocytes, myelocytes and metamyelocytes) > 1% indicates that a LEFT SHIFT is Present. Performed By: #### L 500.2500, L100.0100 ####[facility] [address] [place], [address] Lymphocytes/100 WBC (Bld) 12.8 % Low 19-41 [facility] Comment on above: Performed By: #### L 500.2500, L100.0100 ####[facility] [address] [place], [address] MCH (RBC) [Entitic mass] 30.5 pg Normal 27.0-32.0 [facility] Comment on above: Performed By: #### L 500.2500, L100.0100 ####[facility] [address] [place], [address] MCHC (RBC) [Mass/Vol] 34.9 g/dL Normal 32-36 [facility] Comment on above: Performed By: #### L 500.2500, L100.0100 ####[facility] [address] [place], [address] MCV (RBC) [Entitic vol] 87.5 fL Normal 81-99 [facility] Comment on above: Performed By: #### L 500.2500, L100.0100 ####[facility] [address] [place], [address] Monocytes/100 WBC (Bld) 4.5 % Normal 0-10 [facility] Comment on above: Performed By: #### L 500.2500, L100.0100 ####[facility] [address] [place], [address] Neutrophils/100 WBC (Bld) 81.5 % High 47-70 [facility] Comment on above: Performed By: #### L 500.2500, L100.0100 ####[facility] [address] [place], [address] Nucleated RBC (Bld) [#/Vol] 0 10*3/uL Normal 0-5 [facility] Comment on above: Performed By: #### L 500.2500, L100.0100 ####[facility] [address] [place], [address] Platelet mean volume (Bld) [Entitic vol] 9.7 fL Normal 6.2-12.0 [facility] Comment on above: Performed By: #### L 500.2500, L100.0100 ####[facility] [address] [place], [address] Platelets (Bld) [#/Vol] 302 10*3/uL Normal 150-450 [facility] Comment on above: Performed By: #### L 500.2500, L100.0100 ####[facility] [address] [place], [address] RBC (Bld) [#/Vol] 4.55 10*6/uL Normal 4.2-5.4 [facility] Comment on above: Performed By: #### L 500.2500, L100.0100 ####[facility] [address] [place], [address] RDW SD 38.4 fl Normal 35.1-43.9 [facility] Comment on above: Performed By: #### L 500.2500, L100.0100 ####[facility] [address] [place], [address] WBC (Bld) [#/Vol] 9.2 10*3/uL Normal 4.4-11.0 [facility] Comment on above: Performed By: #### L 500.2500, L100.0100 ####[facility] [address] [place], [address] Carbon dioxide, total [Moles /volume] in Central venous bloodOrdered By: Kenney Weber on 11-29-2024 CO2 [Moles/Vol] 22.8 mmol/L 21.0-32.0 [facility] Chloride assayOrdered By: Jostin Weber on 11-29-2024 Chloride [Moles/Vol] 94 mmol/L Low 98-108 [facility] Emergency Department Summary on 11-29-2024 Emergency Department Summary [facility] Medical Records Department [address] [place] [address] Emergency Department Summary 11/29/24 MR#: [id number] Acct: [id number] Name: ZHENG ROY Rep #: [id number] : 1945 79 From: Kenney Weber MD [...] She denies any vomiting. No recent illness. [facility] Medical History Dementia Basal cell carcinoma [...] clear and moist mucous membranes HEENT Narrative: [place] recreates dizziness transiently bilaterally. No direction changing [...] non-distended Aus (more content not included)... Normal [facility] Eosinophil percentageOrdered By: Kenney Weber on 11-29-2024 Eosinophils/100 WBC (Bld) 0.4 % 0-5 [facility] Erythrocyte distribution wid th ratioOrdered By: Kenney Weber on 11-29-2024 Erythrocyte distribution width (RBC) [Ratio] 11.9 % 11.6-14.6 [facility] Erythrocyte distribution wid th standard deviationOrdered By: Kenney Weber on 11-29-2024 Erythrocyte distribution width (RBC) [Entitic vol] 38.4 fL 35.1-43.9 [facility] Erythrocyte distribution width (RBC) [Ratio] 38.4 fl 35.1-43.9 [facility] Estimation of creatinine quinn aranceOrdered By: Kenney Weber on 11-29-2024 Estimated Creatinine Clearance Calc 57.61 ml/min 50-250 [facility] GFR/1.73 sq M.predicted anali g non-blacks MDRD (S/P/Bld) [Vol rate/Area]Ordered By: Kenney Weber on 11-29-2024 Estimated GFR (MDRD) Non-Af Amer 77 >60 [facility] Comment on above: mL/min/1.73m2 CKD-EP I Creatinine Equation (2020) Glomerular filtration rate ( GFR) estimation/1.73 sq m using serum, plasma, or whole bOrdered By: Kenney Weber on 11-29-2024 GFR/1.73 sq M.predicted among non-blacks MDRD (S/P/Bld) [Vol rate/Area] 77 mL/min/{1.73_m2} >60 [facility] Comment on above: mL/min/1.73m2 CKD-EP I Creatinine Equation (2020) Hematocrit Auto (Bld) [Volum e fraction]Ordered By: Kenney Weber on 11-29-2024 Hematocrit (Bld) [Volume fraction] 39.8 % 37-47 [facility] Hemoglobin measurementOrdere d By: Kenney Weber on 11-29-2024 Hemoglobin (Bld) [Mass/Vol] 13.9 g/dL 12.0-15.0 [facility] Immature granulocytes/100 WB C Auto (Bld)Ordered By: Kenney Weber on 11-29-2024 Immature granulocytes/100 WBC (Bld) 0.300 % 0.0-0.9 [facility] Comment on above: IG% - Immature Granu locytes (promyelocytes, myelocytes and metamyelocytes) > 1% indicates that a LEFT SHIFT is Present. Lymphocytes Auto (Unsp spec) [#/Vol]Ordered By: Kenney Weber on 11-29-2024 Lymphocytes (Bld) [#/Vol] 1.17 10*3/uL 0.83-4.51 [facility] Lymphocytes/100 WBC Auto (Un sp spec)Ordered By: Kenney Weber on 11-29-2024 Lymphocytes/100 WBC (Bld) 12.8 % Low 19-41 [facility] MCV (mean corpuscular volume ) determinationOrdered By: Kenney Weber on 11-29-2024 MCV (RBC) [Entitic vol] 87.5 fL 81-99 [facility] Mean corpuscular hemoglobin (MCH) determinationOrdered By: Kenney Weber on 11-29-2024 MCH (RBC) [Entitic mass] 30.5 pg 27.0-32.0 [facility] Mean corpuscular hemoglobin concentration (MCHC) determinationOrdered By: Kenney Weber on 11-29-2024 MCHC (RBC) [Mass/Vol] 34.9 g/dL 32-36 [facility] Mean platelet volume determi nationOrdered By: Kenney Weber on 11-29-2024 Platelet mean volume (Bld) [Entitic vol] 9.7 fL 6.2-12.0 [facility] Monocyte percentageOrdered B y: Kenney Weber on 11-29-2024 Monocytes/100 WBC (Bld) 4.5 % 0-10 [facility] Neutrophil percentageOrdered By: Kenney Weber on 11-29-2024 Neutrophils/100 WBC (Bld) 81.5 % High 47-70 [facility] Nucleated red blood cell per centageOrdered By: Kenney Weber on 11-29-2024 Nucleated RBC/100 WBC (Bld) [Ratio] 0 % 0-5 [facility] Platelet countOrdered By: Jostin Weber on 11-29-2024 Platelets (Bld) [#/Vol] 302 10*3/uL 150-450 [facility] Potassium (Unsp spec) [Mass/ Vol]Ordered By: Kenney Weber on 11-29-2024 Potassium [Moles/Vol] 4.8 mmol/L 3.3-5.1 [facility] Comment on above: Hemolysis present, R esults could be affected. Potassium measurement (mass/ volume)Ordered By: Kenney Weber on 11-29-2024 Potassium (Unsp spec) [Mass/Vol] 4.8 mmol/L 3.3-5.1 [facility] Comment on above: Hemolysis present, R esults could be affected. RBC Auto (Bld) [#/Vol]Ordere d By: Kenney Weber on 11-29-2024 RBC (Bld) [#/Vol] 4.55 10*6/uL 4.2-5.4 [facility] Ribs Uni Min 3V w/PA Cheston 11-29-2024 Ribs Uni Min 3V w/PA Chest [facility] Imaging Services [address] [place] [address] Ribs Uni Min 3V w/PA Chest MR#: [id number] Acct: [id number] Name: ZHENG ROY Rep #: [id number] : 1945 F 79 From: Ezekiel lovelace MD PCP: Dr. Epifanio Zamora, DO Status: REG ER Study: Ribs Uni Min 3V w/PA Chest Date of Exam: 11/29 Exam# [id number] Ordering Dr: Kenney Weber MD PROCEDURE: RIBS [...] No acute abnormality is seen. Reading Location: [place] [address] CC: Dr. Kenney Weber MD; Dr. Epifanio Zamora DO Estate Administrator: Signed Normal [facility] Serum creatinine measurement (mass/volume)Ordered By: Kenney Weber on 11-29-2024 Creatinine [Mass/Vol] 0.78 mg/dL 0.70-1.20 [facility] Serum glucose measurement (m ass/volume)Ordered By: Kenney Weber on 11-29-2024 Glucose [Mass/Vol] 114 mg/dL High 70-99 [facility] Serum or plasma calcium roel urement (mass/volume)Ordered By: Kenney Weber on 11-29-2024 Calcium [Mass/Vol] 9.2 mg/dL 7.6-11.0 [facility] Serum or plasma urea nitroge n measurement (mass/volume)Ordered By: Kenney Weber on 11-29-2024 Urea nitrogen [Mass/Vol] 13 mg/dL 4-19 [facility] Sodium levelOrdered By: Favio Weber on 11-29-2024 Sodium [Moles/Vol] 129 mmol/L Low 133-145 [facility] White blood cell (WBC) count Ordered By: Kenney Weber on 11-29-2024 WBC (Bld) [#/Vol] 9.2 10*3/uL 4.4-11.0 [facility] Emergency Department Summary on 11-16-2024 Emergency Department Summary [facility] Medical Records Department [address] [place] [address] Emergency Department Summary 11/16/24 MR#: [id number] Acct: [id number] Name: ZHENG ROY Rep #: [id number] : 1945 79 From: Astrid EASTON PCP: Dr. Epifanio Zamora, DO Status:REG ER Location: ED HPI History of Present Illness Chief Complaint: Fall Narrative Narrative: 79-year-old female had an unwitnessed fall at [facility] unit. She was apparently found on the ground facedown near the dining area. She has no external signs of injury but complains of left shoulder pain. She is not on blood thinners. Daughter states she has dementia and moved into [place] in September 2024 and since then has fallen a total of 2 times including today. She ambulates well without assistance or assistive devices. Patient is not sure why she fell off but can provide limited history secondary to dementia. Her daughter is here and states she is acting at baseline. [facility] Medical History (Updated 11/16/24 @ 19:22 [...] Method Room (more content not included)... Normal [facility] Ribs Uni Min 3V w/PA Cheston 11-16-2024 Ribs Uni Min 3V w/PA Chest [facility] Imaging Services [address] [place] [address] Ribs Uni Min 3V w/PA Chest MR#: [id number] Acct: [id number] Name: ZHENG ROY Rep #: [id number] : 1945 F 79 From: Meron Rocha DO PCP: Dr. Epifanio Zamora DO Status: REG ER Study: Ribs Uni Min 3V w/PA Chest Date of Exam: 11/16 Exam# [id number] Ordering Dr: Kalyan Dozier MD PROCEDURE: RIBS [...] Epifanio Zamora DO; Dr. Kalyan Dozier MD Estate Administrator: Signed Normal [facility] Shoulder min 2 Viewson 11-16 Shoulder min 2 Views [facility] [address] [place] [address] Shoulder min 2 Views MR#: [id number] Acct: [id number] Name: ZHENG ROY Rep #: [id number] : 1945 F 79 From: Meron Rocha DO PCP: Dr. Epifanio Zamora DO Status: REG ER Study: Shoulder min 2 Views Date of Exam: 11/16/24 Exam# [id number] Ordering Dr: Astrid Monae PROCEDURE: SHOULDER MIN 2 VIEWS REASON FOR EXAM: Status post fall. Pain. TECHNIQUE: 4 view(s) of the left shoulder COMPARISON: None. FINDINGS: No fracture. No suspicious bone lesion. Normal alignment of the acromioclavicular and glenohumeral joints. Soft tissues are unremarkable. RAD/Shoulder min 2 Views IMPRESSION: NO ACUTE FRACTURE OR DISLOCATION. [facility] CC: Dr. Epifanio Zamora DO; RUSTAM Shepard Estate Administrator: Signed Normal [facility] Wrist min 3 Viewson 11-17-19 25 Wrist min 3 Views [facility] [address] [place] [address] Wrist min 3 Views MR#: [id number] Acct: [id number] Name: ZHENG ROY Rep #: [id number] : 1945 F 79 From: Meron Rocha DO PCP: Dr. Epifanio Zamora DO Status: REG ER Study: Wrist min 3 Views Date of Exam: 11/16/24 Exam# [id number] Ordering Dr: Kalyan Dozier MD PROCEDURE: WRIST MIN 3 VIEWS REASON FOR EXAM: Trauma. Pain. TECHNIQUE: 3 views of the left wrist COMPARISON: None FINDINGS: No visible fracture. No suspicious bone lesion. Normal alignment. Soft tissues are unremarkable. RAD/Wrist min 3 Views IMPRESSION: No acute fracture or dislocation. Reading Location: [facility] CC: Dr. Epifanio Zamora DO; Dr. Kalyan Dozier MD Estate Administrator: Signed Normal [facility] Anion gap in Serum or Plasma Ordered By: Epifanio Zamora on 11-13-2024 Anion gap [Moles/Vol] 11 mmol/L 5-15 [facility] BUN/creatinine ratioOrdered By: Epifanio Zamora on 11-13-2024 Urea nitrogen/Creatinine [Mass ratio] 16.4 mg/mg 10-20 [facility] Bilirubin, totalOrdered By: Epifanio Zamora on 11-13-2024 Bilirubin [Mass/Vol] 0.46 mg/dL 0.00-1.30 [facility] Calculated very low density lipoprotein (VLDL) cholesterol measurementOrdered By: Epifanio Zamora on 11-13-2024 Calculated very low density lipoprotein (VLDL) cholesterol measurement 21 mg/dL 5-40 [facility] VLDL Cholesterol 21 mg/dL 5-40 [facility] Carbon dioxide, total [Moles /volume] in Central venous bloodOrdered By: Epifanio Zamora on 11-13-2024 CO2 [Moles/Vol] 24.0 mmol/L 21.0-32.0 [facility] Chloride assayOrdered By: Oswaldo Zamora on 11-13-2024 Chloride [Moles/Vol] 99 mmol/L 98-108 [facility] Erythrocyte distribution wid th ratioOrdered By: Epifanio Zamora on 11-13-2024 Erythrocyte distribution width (RBC) [Ratio] 12.0 % 11.6-14.6 [facility] Erythrocyte distribution wid th standard deviationOrdered By: Epifanio Zamora on 11-13-2024 Erythrocyte distribution width (RBC) [Entitic vol] 38.9 fL 35.1-43.9 [facility] Erythrocyte distribution width (RBC) [Ratio] 38.9 fl 35.1-43.9 [facility] GFR/1.73 sq M.predicted anali g non-blacks MDRD (S/P/Bld) [Vol rate/Area]Ordered By: Epifanio Zamora on 11-13-2024 Estimated GFR (MDRD) Non-Af Amer 84 >60 [facility] Comment on above: mL/min/1.73m2 CKD-EP I Creatinine Equation (2020) Glomerular filtration rate ( GFR) estimation/1.73 sq m using serum, plasma, or whole bOrdered By: Epifanio Zamora on 11-13-2024 GFR/1.73 sq M.predicted among non-blacks MDRD (S/P/Bld) [Vol rate/Area] 84 mL/min/{1.73_m2} >60 [facility] Comment on above: mL/min/1.73m2 CKD-EP I Creatinine Equation (2020) Hematocrit Auto (Bld) [Volum e fraction]Ordered By: Epifanio Zamora on 11-13-2024 Hematocrit (Bld) [Volume fraction] 41.6 % 37-47 [facility] Hemoglobin A1c percentageOrd ered By: Epifanio Zamora on 11-13-2024 HbA1c (Bld) [Mass fraction] 5.9 % >5.7 [facility] Hemoglobin measurementOrdere d By: Epifanio Zamora on 11-13-2024 Hemoglobin (Bld) [Mass/Vol] 14.3 g/dL 12.0-15.0 [facility] LDL calc ser/plasOrdered By: Epifanio Zamora on 11-13-2024 Cholesterol in LDL [Mass/Vol] 133 mg/dL [facility] Comment on above: Jwjhrvbmib=864-492 m g/dL & Higher Kpjk=000 mg/dL or greater LDL Cholesterol, Calculated 133 mg/dL [facility] Comment on above: Jdkkndrbgq=971-228 m g/dL & Higher Pqyv=305 mg/dL or greater Laboratory - Chemistry and C hemistry - challengeOrdered By: Epifanio Zamora on 11-13-2024 AST [Catalytic activity/Vol] 19 U/L <32 [facility] MCV (mean corpuscular volume ) determinationOrdered By: Epifanio Zamora on 11-13-2024 MCV (RBC) [Entitic vol] 89.3 fL 81-99 [facility] Mean corpuscular hemoglobin (MCH) determinationOrdered By: Epifanio Zamora on 11-13-2024 MCH (RBC) [Entitic mass] 30.7 pg 27.0-32.0 [facility] Mean corpuscular hemoglobin concentration (MCHC) determinationOrdered By: Epifanio Zamora on 11-13-2024 MCHC (RBC) [Mass/Vol] 34.4 g/dL 32-36 [facility] Mean platelet volume determi nationOrdered By: Epifanio Zamora on 11-13-2024 Platelet mean volume (Bld) [Entitic vol] 10.5 fL 6.2-12.0 [facility] Platelet countOrdered By: Oswaldo Zamora on 11-13-2024 Platelets (Bld) [#/Vol] 314 10*3/uL 150-450 [facility] Potassium (Unsp spec) [Mass/ Vol]Ordered By: Epifanio Zamora on 11-13-2024 Potassium [Moles/Vol] 4.0 mmol/L 3.3-5.1 [facility] Potassium measurement (mass/ volume)Ordered By: Epifanio Zamora on 11-13-2024 Potassium (Unsp spec) [Mass/Vol] 4.0 mmol/L 3.3-5.1 [facility] RBC Auto (Bld) [#/Vol]Ordere d By: Epifanio Zamora on 11-13-2024 RBC (Bld) [#/Vol] 4.66 10*6/uL 4.2-5.4 [facility] Screening total cholesterol/ high density lipoprotein (HDL) cholesterol ratioOrdered By: Epifanio Zamora on 11-13-2024 Cholesterol.total/Genia sterol in HDL [Mass ratio] 3.62 {ratio} [facility] Serum creatinine measurement (mass/volume)Ordered By: Epifanio Zamora on 11-13-2024 Creatinine [Mass/Vol] 0.73 mg/dL 0.70-1.20 [facility] Serum globulin measurementOr dered By: Epifanio Zamora on 11-13-2024 Globulin (S) [Mass/Vol] 2.4 g/dL 2.2-4.2 [facility] Serum glucose measurement (m ass/volume)Ordered By: Epifanio Zamora on 11-13-2024 Glucose [Mass/Vol] 111 mg/dL High 70-99 [facility] Serum or plasma alanine anguiano otransferase (ALT) measurementOrdered By: Epifanio Zamora on 11-13-2024 ALT [Catalytic activity/Vol] 16 U/L <35 [facility] Serum or plasma albumin roel urement (mass/volume)Ordered By: Epifanio Zamora on 11-13-2024 Albumin [Mass/Vol] 4.0 g/dL 3.4-4.8 [facility] Serum or plasma albumin/glob ulin mass ratioOrdered By: Epifanio Zamora on 11-13-2024 Albumin/Globulin [Mass ratio] 1.7 {ratio} 0.9-2.4 [facility] Serum or plasma alkaline miguel sphatase measurementOrdered By: Epifanio Zamora on 11-13-2024 ALP [Catalytic activity/Vol] 63 U/L 35-104 [facility] Serum or plasma calcium roel urement (mass/volume)Ordered By: Epifanio Zamora on 11-13-2024 Calcium [Mass/Vol] 8.9 mg/dL 7.6-11.0 [facility] Serum or plasma cholesterol in HDL measurement (mass/volume)Ordered By: Epifanio Zamora on 11-13-2024 Cholesterol in HDL [Mass/Vol] 59 mg/dL >40 [facility] Comment on above: National Cholesterol Education Program (NCEP) guidelines:<40 mg/dL: Low HDL-cholesterol (major risk factor for CHD)>= 60 mg/dL: High HDL-cholesterol (negative risk factor for CHD)HDL-cholesterol is affected by a number of factors, e.g. smoking, exercise, hormones, sex and age. Serum or plasma cholesterol measurement (mass/volume)Ordered By: Epifanio Zamora on 11-13-2024 Cholesterol [Mass/Vol] 212 mg/dL High <201 [facility] Comment on above: Cholesterol level, D esirable <200 mg/dLBorderline high cholesterol 200-239 mg/dLHigh cholesterol >=240 mg/dLRecommendations of the NCEP Adult Treatment Panel for the following risk-cutoff thresholds for the [place] population. Serum or plasma urea nitroge n measurement (mass/volume)Ordered By: Epifanio Zamora on 11-13-2024 Urea nitrogen [Mass/Vol] 12 mg/dL 4-19 [facility] Sodium levelOrdered By: Delvin Zamora on 11-13-2024 Sodium [Moles/Vol] 134 mmol/L 133-145 [facility] TSH DL <= 0.005 mIU/L QnOrde red By: Epifanio Zamora on 11-13-2024 Thyroid Stimulating Hormone (TSH) 1.320 uIU/mL 0.300-4.200 [facility] TSH Qn 1.320 uIU/mL 0.300-4.200 [facility] ThyroxineOrdered By: Epifanio arevalo on 11-13-2024 T4 [Mass/Vol] 8.6 ug/dL 4.8-13.9 [facility] Total proteinOrdered By: Eliezer Zamora on 11-13-2024 Protein [Mass/Vol] 6.4 g/dL 5.9-8.4 [facility] Triglycerides measurementOrd ered By: Epifanio Zamora on 11-13-2024 Triglyceride [Mass/Vol] 103 mg/dL <199 [facility] Comment on above: The drugs N-Acetylcy steine and Metamizole may falsely depress this assay. Normal range: <150 mg/dLBorderline High: 150-199 mg/dLHigh: 200-499 mg/dLVery High: >500 mg/dL Vitamin D, 25-hydroxyOrdered By: Epifanio Zamora on 11-13-2024 Vitamin D 25-Hydroxy 37.1 ng/mL 30-100 [facility] Comment on above: Vitamin D StatusDefi ciency: <20 ng/mL (50nmol/L)Insufficiency: 20-30 ng/mL (50-75 nmol/L)Sufficiency: 30-100 ng/mL (75-250 nmol/L)Toxicity: >100 ng/mL (>250 nmol/L) White blood cell (WBC) count Ordered By: Epifanio Zamora on 11-13-2024 WBC (Bld) [#/Vol] 8.2 10*3/uL 4.4-11.0 [facility] Absolute neutrophil countOrd ered By: Roseann Eli on 10-01-2024 Neutrophils (Bld) [#/Vol] 4.6 10*3/uL 2.0-7.7 [facility] Albumin to globulin ratioOrd ered By: Roseann Eli on 10-01-2024 Albumin/Globulin [Mass ratio] 1.2 {ratio} 0.9-2.4 [facility] BNP (brain natriuretic pepti de measurement)Ordered By: Roseann Eli on 10-01-2024 Natriuretic peptide B (Bld) [Mass/Vol] 96.8 pg/mL Normal 0-100 [facility] Comment on above: Performed By: #### L 501.9520, L100.0100, L503.6620, L500.4050 ####[facility] [address] [place], [address] Basophil percentageOrdered B y: Roseann Eli on 10-01-2024 Basophils/100 WBC (Bld) 0.6 % 0-1 [facility] Bilirubin, totalOrdered By: Roseann Eli on 10-01-2024 Bilirubin [Mass/Vol] 0.30 mg/dL 0.20-1.00 [facility] Comment on above: For patients on eltr ombopag therapy, use of Dimension [place] TBIL is not recommended. Blood urea nitrogen (BUN)/cr eatinine ratioOrdered By: Roseann Eli on 10-01-2024 Urea nitrogen/Creatinine [Mass ratio] 10.7 mg/mg - [facility] CBC W/Diff, Automatedon 09-12 Absolute Lymph 1.27 X10 3/uL Normal 0.83-4.51 [facility] Comment on above: Performed By: #### L 501.9520, L100.0100, L503.6620, L500.4050 #### [facility] [address] [place], [address] Absolute Neut 4.6 X10 3/uL Normal 2.0-7.7 [facility] Comment on above: Performed By: #### L 501.9520, L100.0100, L503.6620, L500.4050 #### [facility] [address] [place], [address] Basophils/100 WBC (Bld) 0.6 % Normal 0-1 [facility] Comment on above: Performed By: #### L 501.9520, L100.0100, L503.6620, L500.4050 #### [facility] [address] [place], [address] Eosinophils/100 WBC (Bld) 0.6 % Normal 0-5 [facility] Comment on above: Performed By: #### L 501.9520, L100.0100, L503.6620, L500.4050 #### [facility] [address] [place], [address] Erythrocyte distribution width (RBC) [Ratio] 12.6 % Normal 11.6-14.6 [facility] Comment on above: Performed By: #### L 501.9520, L100.0100, L503.6620, L500.4050 #### [facility] [address] [place], [address] Hematocrit (Bld) [Volume fraction] 39.1 % Normal 37-47 [facility] Comment on above: Performed By: #### L 501.9520, L100.0100, L503.6620, L500.4050 #### [facility] [address] [place], [address] Hemoglobin (Bld) [Mass/Vol] 12.7 g/dL Normal 12.0-15.0 [facility] Comment on above: Performed By: #### L 501.9520, L100.0100, L503.6620, L500.4050 #### [facility] [address] [place], [address] IG% 0.600 Normal 0.0-0.9 [facility] Comment on above: Result Comment: IG% - Immature Granulocytes (promyelocytes, myelocytes and metamyelocytes) > 1% indicates that a LEFT SHIFT is Present. Performed By: #### L 501.9520, L100.0100, L503.6620, L500.4050 #### [facility] [address] [place], [address] Lymphocytes/100 WBC (Bld) 20.1 % Normal 19-41 [facility] Comment on above: Performed By: #### L 501.9520, L100.0100, L503.6620, L500.4050 #### [facility] [address] [place], [address] MCH (RBC) [Entitic mass] 30.1 pg Normal 27.0-32.0 [facility] Comment on above: Performed By: #### L 501.9520, L100.0100, L503.6620, L500.4050 #### [facility] [address] [place], [address] MCHC (RBC) [Mass/Vol] 32.5 g/dL Normal 32-36 [facility] Comment on above: Performed By: #### L 501.9520, L100.0100, L503.6620, L500.4050 #### [facility] [address] [place], [address] MCV (RBC) [Entitic vol] 92.7 fL Normal 81-99 [facility] Comment on above: Performed By: #### L 501.9520, L100.0100, L503.6620, L500.4050 #### [facility] [address] [place], [address] Monocytes/100 WBC (Bld) 4.9 % Normal 0-10 [facility] Comment on above: Performed By: #### L 501.9520, L100.0100, L503.6620, L500.4050 #### [facility] [address] [place], [address] Neutrophils/100 WBC (Bld) 73.2 % High 47-70 [facility] Comment on above: Performed By: #### L 501.9520, L100.0100, L503.6620, L500.4050 #### [facility] [address] [place], [address] Nucleated RBC (Bld) [#/Vol] 0 10*3/uL Normal 0-5 [facility] Comment on above: Performed By: #### L 501.9520, L100.0100, L503.6620, L500.4050 #### [facility] [address] [place], [address] Platelet mean volume (Bld) [Entitic vol] 10.5 fL Normal 6.2-12.0 [facility] Comment on above: Performed By: #### L 501.9520, L100.0100, L503.6620, L500.4050 #### [facility] [address] [place], [address] Platelets (Bld) [#/Vol] 315 10*3/uL Normal 150-450 [facility] Comment on above: Performed By: #### L 501.9520, L100.0100, L503.6620, L500.4050 #### [facility] [address] [place], [address] RBC (Bld) [#/Vol] 4.22 10*6/uL Normal 4.2-5.4 [facility] Comment on above: Performed By: #### L 501.9520, L100.0100, L503.6620, L500.4050 #### [facility] [address] [place], [address] RDW SD 43.1 fl Normal 35.1-43.9 [facility] Comment on above: Performed By: #### L 501.9520, L100.0100, L503.6620, L500.4050 #### [facility] [address] [place], [address] WBC (Bld) [#/Vol] 6.3 10*3/uL Normal 4.4-11.0 [facility] Comment on above: Performed By: #### L 501.9520, L100.0100, L503.6620, L500.4050 #### [facility] [address] [place], [address] Carbon dioxide measurementOr dered By: Roseann Eli on 10-01-2024 CO2 [Moles/Vol] 28.0 mmol/L 21.0-32.0 [facility] Chloride measurementOrdered By: Roseann Eli on 10-01-2024 Chloride [Moles/Vol] 106 mmol/L 98-107 [facility] Comprehensive Metabolic Prof ilon 10-01-2024 Albumin [Mass/Vol] 3.5 g/dL Normal 3.2-5.0 [facility] Comment on above: Performed By: #### L 501.9520, L100.0100, L503.6620, L500.4050 ####[facility] [address] [place], [address] Albumin/Globulin [Mass ratio] 1.2 {ratio} Normal 0.9-2.4 [facility] Comment on above: Performed By: #### L 501.9520, L100.0100, L503.6620, L500.4050 ####[facility] [address] [place], [address] ALK P 53 U/L Normal 45-117 [facility] Comment on above: Performed By: #### L 501.9520, L100.0100, L503.6620, L500.4050 ####[facility] [address] [place], [address] ALT [Catalytic activity/Vol] 33 U/L Normal 13-56 [facility] Comment on above: Performed By: #### L 501.9520, L100.0100, L503.6620, L500.4050 ####[facility] [address] [place], [address] AST [Catalytic activity/Vol] 17 U/L Normal 15-37 [facility] Comment on above: Performed By: #### L 501.9520, L100.0100, L503.6620, L500.4050 ####[facility] [address] [place], [address] Bilirubin [Mass/Vol] 0.30 mg/dL Normal 0.20-1.00 [facility] Comment on above: Result Comment: For patients on eltrombopag therapy, use of Dimension [place] TBIL is not recommended. Performed By: #### L 501.9520, L100.0100, L503.6620, L500.4050 ####[facility] [address] [place], [address] BUN/CRE 10.7 RATIO Normal 10-20 [facility] Comment on above: Performed By: #### L 501.9520, L100.0100, L503.6620, L500.4050 ####[facility] [address] [place], [address] CA,Total 9.3 mg/dL Normal 8.5-10.1 [facility] Comment on above: Performed By: #### L 501.9520, L100.0100, L503.6620, L500.4050 ####[facility] [address] [place], [address] Chloride [Moles/Vol] 106 mmol/L Normal 98-107 [facility] Comment on above: Performed By: #### L 501.9520, L100.0100, L503.6620, L500.4050 ####[facility] [address] [place], [address] CO2 [Moles/Vol] 28.0 mmol/L Normal 21.0-32.0 [facility] Comment on above: Performed By: #### L 501.9520, L100.0100, L503.6620, L500.4050 ####[facility] [address] [place], [address] Creatinine [Mass/Vol] 0.75 mg/dL Normal 0.55-1.02 [facility] Comment on above: Result Comment: The validity of the calculated GFR GFRAA in patients over 70 years has not been determined. Clinical correlation is essential. Performed By: #### L 501.9520, L100.0100, L503.6620, L500.4050 ####[facility] [address] [place], [address] EST GFR - AA 96 mL/min Normal >60 [facility] Comment on above: Result Comment: Afri can Ukrainian GFR Calc Performed By: #### L 501.9520, L100.0100, L503.6620, L500.4050 ####[facility] [address] [place], [address] GAP 6 Normal 5-15 [facility] Comment on above: Performed By: #### L 501.9520, L100.0100, L503.6620, L500.4050 ####[facility] [address] [place], [address] GFR/1.73 sq M.predicted among non-blacks MDRD (S/P/Bld) [Vol rate/Area] 79 mL/min/{1.73_m2} Normal >60 [facility] Comment on above: Result Comment: Non- GFR Calc Performed By: #### L 501.9520, L100.0100, L503.6620, L500.4050 ####[facility] [address] [place], [address] Globulin (S) [Mass/Vol] 2.9 g/dL Normal 2.2-4.2 [facility] Comment on above: Performed By: #### L 501.9520, L100.0100, L503.6620, L500.4050 ####[facility] [address] [place], [address] Glucose [Mass/Vol] 108 mg/dL High 74-106 [facility] Comment on above: Result Comment: Fast ing Glucose result from 100 to 125 mg/dL suggests IMPAIRED HOMEOSTASIS per A.D.A. criteria. Performed By: #### L 501.9520, L100.0100, L503.6620, L500.4050 ####[facility] [address] [place], [address] Potassium [Moles/Vol] 3.7 mmol/L Normal 3.5-5.1 [facility] Comment on above: Performed By: #### L 501.9520, L100.0100, L503.6620, L500.4050 ####[facility] [address] [place], [address] Sodium [Moles/Vol] 139 mmol/L Normal 136-145 [facility] Comment on above: Performed By: #### L 501.9520, L100.0100, L503.6620, L500.4050 ####[facility] [address] [place], [address] T PROT 6.4 g/dL Normal 6.4-8.2 [facility] Comment on above: Performed By: #### L 501.9520, L100.0100, L503.6620, L500.4050 ####[facility] [address] [place], [address] Urea nitrogen [Mass/Vol] 8 mg/dL Normal 7-18 [facility] Comment on above: Performed By: #### L 501.9520, L100.0100, L503.6620, L500.4050 ####[facility] [address] [place], [address] Eosinophil percentageOrdered By: Roseann Eli on 10-01-2024 Eosinophils/100 WBC (Bld) 0.6 % 0-5 [facility] Erythrocyte distribution wid th ratioOrdered By: Roseann Eli on 10-01-2024 Erythrocyte distribution width (RBC) [Ratio] 12.6 % 11.6-14.6 [facility] Erythrocyte distribution wid th standard deviationOrdered By: Roseann Eli on 10-01-2024 Erythrocyte distribution width (RBC) [Entitic vol] 43.1 fL 35.1-43.9 [facility] Estimated glomerular filtrat ion rate (GFR) AmericanOrdered By: Roseann Eli on 10-01-2024 Estimated GFR (MDRD) Amer 96 mL/min >60 [facility] Comment on above: GFR Calc Glomerular filtration rate ( GFR) estimationOrdered By: Roseann Eli on 10-01-2024 Estimated GFR (MDRD) Non-Af Amer 79 mL/min >60 [facility] Comment on above: Non- GFR Calc Glucose measurementOrdered B y: Roseann Eli on 10-01-2024 Glucose [Mass/Vol] 108 mg/dL High 74-106 [facility] Comment on above: Fasting Glucose resu lt from 100 to 125 mg/dL suggests IMPAIRED HOMEOSTASIS per A.D.A. criteria. Hematocrit Auto (Bld) [Volum e fraction]Ordered By: Roseann Eli on 10-01-2024 Hematocrit (Bld) [Volume fraction] 39.1 % 37-47 [facility] Hemoglobin measurementOrdere d By: Roseann Eli on 10-01-2024 Hemoglobin (Bld) [Mass/Vol] 12.7 g/dL 12.0-15.0 [facility] Immature granulocytes/100 WB C Auto (Bld)Ordered By: Roseann Eli on 10-01-2024 Immature granulocytes/100 WBC (Bld) 0.600 % 0.0-0.9 [facility] Comment on above: IG% - Immature Granu locytes (promyelocytes, myelocytes and metamyelocytes) > 1% indicates that a LEFT SHIFT is Present. Laboratory - Chemistry and C hemistry - challengeOrdered By: Roseann Eli on 10-01-2024 AST [Catalytic activity/Vol] 17 U/L 15-37 [facility] Lymphocytes Auto (Unsp spec) [#/Vol]Ordered By: Roseann Eli on 10-01-2024 Lymphocytes (Bld) [#/Vol] 1.27 10*3/uL 0.83-4.51 [facility] Lymphocytes/100 WBC Auto (Un sp spec)Ordered By: Roseann Eli on 10-01-2024 Lymphocytes/100 WBC (Bld) 20.1 % 19-41 [facility] MCV (mean corpuscular volume ) determinationOrdered By: Roseann Eli on 10-01-2024 MCV (RBC) [Entitic vol] 92.7 fL 81-99 [facility] Mean corpuscular hemoglobin (MCH) determinationOrdered By: Roseann Eli on 10-01-2024 MCH (RBC) [Entitic mass] 30.1 pg 27.0-32.0 [facility] Mean corpuscular hemoglobin concentration (MCHC) determinationOrdered By: Roseann Eli on 10-01-2024 MCHC (RBC) [Mass/Vol] 32.5 g/dL 32-36 [facility] Mean platelet volume determi nationOrdered By: Roseann Eli on 10-01-2024 Platelet mean volume (Bld) [Entitic vol] 10.5 fL 6.2-12.0 [facility] Monocyte percentageOrdered B y: Roseann Eli on 10-01-2024 Monocytes/100 WBC (Bld) 4.9 % 0-10 [facility] Neutrophil percentageOrdered By: Roseann Eli on 10-01-2024 Neutrophils/100 WBC (Bld) 73.2 % High 47-70 [facility] Nucleated red blood cell per centageOrdered By: Roseann Eli on 10-01-2024 Nucleated RBC/100 WBC (Bld) [Ratio] 0 % 0-5 [facility] Platelet countOrdered By: Nathaly Eli on 10-01-2024 Platelets (Bld) [#/Vol] 315 10*3/uL 150-450 [facility] Potassium measurementOrdered By: Roseann Eli on 10-01-2024 Potassium [Moles/Vol] 3.7 mmol/L 3.5-5.1 [facility] RBC Auto (Bld) [#/Vol]Ordere d By: Roseann Eli on 10-01-2024 RBC (Bld) [#/Vol] 4.22 10*6/uL 4.2-5.4 [facility] Serum anion gap measurementO rdered By: Roseann Eli on 10-01-2024 Anion gap [Moles/Vol] 6 mmol/L 5-15 [facility] Serum globulin measurementOr dered By: Roseann Eli on 10-01-2024 Globulin (S) [Mass/Vol] 2.9 g/dL 2.2-4.2 [facility] Serum or plasma alanine anguiano otransferase (ALT) measurementOrdered By: Roseann Eli on 10-01-2024 ALT [Catalytic activity/Vol] 33 U/L 13-56 [facility] Serum or plasma albumin roel urement (mass/volume)Ordered By: Roseann Eli on 10-01-2024 Albumin [Mass/Vol] 3.5 g/dL 3.2-5.0 [facility] Serum or plasma alkaline miguel sphatase measurementOrdered By: Roseann Eli on 10-01-2024 ALP [Catalytic activity/Vol] 53 U/L 45-117 [facility] Serum or plasma calcium roel urement (mass/volume)Ordered By: Roseann Eli on 10-01-2024 Calcium [Mass/Vol] 9.3 mg/dL 8.5-10.1 [facility] Serum or plasma creatinine m easurement (mass/volume)Ordered By: Roseann Eli on 10-01-2024 Creatinine [Mass/Vol] 0.75 mg/dL 0.55-1.02 [facility] Comment on above: The validity of the calculated GFR & GFRAA in patients over 70 years has not been determined. Clinical correlation is essential. Serum or plasma urea nitroge n measurement (mass/volume)Ordered By: Roseann Eli on 10-01-2024 Urea nitrogen [Mass/Vol] 8 mg/dL 7-18 [facility] Sodium levelOrdered By: Roseann Eli on 10-01-2024 Sodium [Moles/Vol] 139 mmol/L 136-145 [facility] TSH QnOrdered By: Roseann hewitt on 10-01-2024 Thyroid Stimulating Hormone (TSH) 1.010 uIU/mL 0.358-3.740 [facility] Thyroid Stim Hormone (TSH)on 10-01-2024 TSH 1.010 uIU/mL Normal 0.358-3.740 [facility] Comment on above: Performed By: #### L 501.9520, L100.0100, L503.6620, L500.4050 ####[facility] [address] [place], [address] Total proteinOrdered By: Roseann Eli on 10-01-2024 Protein [Mass/Vol] 6.4 g/dL 6.4-8.2 [facility] White blood cell (WBC) count Ordered By: Roseann Eli on 10-01-2024 WBC (Bld) [#/Vol] 6.3 10*3/uL 4.4-11.0 [facility] Neurology Visit Reporton Neurology Visit Report [facility] [address], [address] [place] [address] OFFICE VISIT Date of Service: 09/30/24 MR#: [id number] Acct: [id number] Name: ZHENG ROY Rep #: [id number] : 1945 Provider: Dr. Silver sanchez MD Age/Sex: 79/F [facility] Status: Signed HPI HPI Chief Complaint: Establish Care Details: The patient is a 79-year-old right handed female who presents to [facility]. She was referred 08/07/[address] Pili Chakraborty with [facility] for cognitive impairment.??? This lady presents with her bcfdec-tj-yoj for evaluation of cognitive impairment. Patient had a recent episode of calling her wktykn-db-itb for help. It seems that there was [...] 4 extre (more content not included)... Normal [facility] CBC W/Diff, Automatedon 11-0 -2023 Absolute Lymph 1.41 X10 3/uL Normal 0.83-4.51 [facility] Comment on above: Order Comment: Order Date: 07/16/24Order Info: [id number] - CBCD Performed By: #### L 500.4050, L501.9985, L506.1000, L500.4100, L100.0100 ####[facility] [address] [place], [address] Absolute Neut 5.3 X10 3/uL Normal 2.0-7.7 [facility] Comment on above: Order Comment: Order Date: 07/16/24Order Info: [id number] - CBCD Performed By: #### L 500.4050, L501.9985, L506.1000, L500.4100, L100.0100 ####[facility] [address] [place], [address] Basophils/100 WBC (Bld) 0.7 % Normal 0-1 [facility] Comment on above: Order Comment: Order Date: 07/16/24Order Info: [id number] - CBCD Performed By: #### L 500.4050, L501.9985, L506.1000, L500.4100, L100.0100 ####[facility] [address] [place], [address] Eosinophils/100 WBC (Bld) 0.7 % Normal 0-5 [facility] Comment on above: Order Comment: Order Date: 07/16/24Order Info: [id number] - CBCD Performed By: #### L 500.4050, L501.9985, L506.1000, L500.4100, L100.0100 ####[facility] [address] [place], [address] Erythrocyte distribution width (RBC) [Ratio] 12.3 % Normal 11.6-14.6 [facility] Comment on above: Order Comment: Order Date: 07/16/24Order Info: [id number] - CBCD Performed By: #### L 500.4050, L501.9985, L506.1000, L500.4100, L100.0100 ####[facility] [address] [place], [address] Hematocrit (Bld) [Volume fraction] 41.0 % Normal 37-47 [facility] Comment on above: Order Comment: Order Date: 07/16/24Order Info: [id number] - CBCD Performed By: #### L 500.4050, L501.9985, L506.1000, L500.4100, L100.0100 ####[facility] [address] [place], [address] Hemoglobin (Bld) [Mass/Vol] 13.8 g/dL Normal 12.0-15.0 [facility] Comment on above: Order Comment: Order Date: 07/16/24Order Info: [id number] - CBCD Performed By: #### L 500.4050, L501.9985, L506.1000, L500.4100, L100.0100 ####[facility] [address] [place], [address] IG% 0.400 Normal 0.0-0.9 [facility] Comment on above: Order Comment: Order Date: 07/16/24Order Info: [id number] - CBCD Result Comment: IG% - Immature Granulocytes (promyelocytes, myelocytes and metamyelocytes) > 1% indicates that a LEFT SHIFT is Present. Performed By: #### L 500.4050, L501.9985, L506.1000, L500.4100, L100.0100 ####[facility] [address] [place], [address] Lymphocytes/100 WBC (Bld) 19.3 % Normal 19-41 [facility] Comment on above: Order Comment: Order Date: 07/16/24Order Info: [id number] - CBCD Performed By: #### L 500.4050, L501.9985, L506.1000, L500.4100, L100.0100 ####[facility] [address] [place], [address] MCH (RBC) [Entitic mass] 30.4 pg Normal 27.0-32.0 [facility] Comment on above: Order Comment: Order Date: 07/16/24Order Info: [id number] - CBCD Performed By: #### L 500.4050, L501.9985, L506.1000, L500.4100, L100.0100 ####[facility] [address] [place], [address] MCHC (RBC) [Mass/Vol] 33.7 g/dL Normal 32-36 [facility] Comment on above: Order Comment: Order Date: 07/16/24Order Info: [id number] - CBCD Performed By: #### L 500.4050, L501.9985, L506.1000, L500.4100, L100.0100 ####[facility] [address] [place], [address] MCV (RBC) [Entitic vol] 90.3 fL Normal 81-99 [facility] Comment on above: Order Comment: Order Date: 07/16/24Order Info: [id number] - CBCD Performed By: #### L 500.4050, L501.9985, L506.1000, L500.4100, L100.0100 ####[facility] [address] [place], [address] Monocytes/100 WBC (Bld) 6.0 % Normal 0-10 [facility] Comment on above: Order Comment: Order Date: 07/16/24Order Info: [id number] - CBCD Performed By: #### L 500.4050, L501.9985, L506.1000, L500.4100, L100.0100 ####[facility] [address] [place], [address] Neutrophils/100 WBC (Bld) 72.9 % High 47-70 [facility] Comment on above: Order Comment: Order Date: 07/16/24Order Info: [id number] - CBCD Performed By: #### L 500.4050, L501.9985, L506.1000, L500.4100, L100.0100 ####[facility] [address] [place], [address] Nucleated RBC (Bld) [#/Vol] 0 10*3/uL Normal 0-5 [facility] Comment on above: Order Comment: Order Date: 07/16/24Order Info: [id number]- - CBCD Performed By: #### L 500.4050, L501.9985, L506.1000, L500.4100, L100.0100 ####[facility] [address] [place], [address] Platelet mean volume (Bld) [Entitic vol] 10.6 fL Normal 6.2-12.0 [facility] Comment on above: Order Comment: Order Date: 07/16/24Order Info: [id number] - CBCD Performed By: #### L 500.4050, L501.9985, L506.1000, L500.4100, L100.0100 ####[facility] [address] [place], [address] Platelets (Bld) [#/Vol] 320 10*3/uL Normal 150-450 [facility] Comment on above: Order Comment: Order Date: 07/16/24Order Info: [id number] - CBCD Performed By: #### L 500.4050, L501.9985, L506.1000, L500.4100, L100.0100 ####[facility] [address] [place], [address] RBC (Bld) [#/Vol] 4.54 10*6/uL Normal 4.2-5.4 [facility] Comment on above: Order Comment: Order Date: 07/16/24Order Info: [id number] - CBCD Performed By: #### L 500.4050, L501.9985, L506.1000, L500.4100, L100.0100 ####[facility] [address] [place], [address] RDW SD 40.6 fl Normal 35.1-43.9 [facility] Comment on above: Order Comment: Order Date: 07/16/24Order Info: [id number]- - CBCD Performed By: #### L 500.4050, L501.9985, L506.1000, L500.4100, L100.0100 ####[facility] [address] [place], [address] WBC (Bld) [#/Vol] 7.3 10*3/uL Normal 4.4-11.0 [facility] Comment on above: Order Comment: Order Date: 07/16/24Order Info: [id number] - CBCD Performed By: #### L 500.4050, L501.9985, L506.1000, L500.4100, L100.0100 ####[facility] [address] [place], [address] Comprehensive Metabolic Prof ilon 07-16-2024 Albumin [Mass/Vol] 3.8 g/dL Normal 3.2-5.0 [facility] Comment on above: Order Comment: Order Date: 07/16/24Order Info: [id number] - CMPOrder Info: [id number] - LIPIDOrder Info: [id number] - TSH Performed By: #### L 500.4050, L501.9985, L506.1000, L500.4100, L100.0100 ####[facility] [address] [place], [address] Albumin/Globulin [Mass ratio] 1.3 {ratio} Normal 0.9-2.4 [facility] Comment on above: Order Comment: Order Date: 07/16/24Order Info: [id number] - CMPOrder Info: [id number] - LIPIDOrder Info: [id number] - TSH Performed By: #### L 500.4050, L501.9985, L506.1000, L500.4100, L100.0100 ####[facility] [address] [place], [address] ALK P 70 U/L Normal 45-117 [facility] Comment on above: Order Comment: Order Date: 07/16/24Order Info: [id number] - CMPOrder Info: [id number] - LIPIDOrder Info: [id number] - TSH Performed By: #### L 500.4050, L501.9985, L506.1000, L500.4100, L100.0100 ####[facility] [address] [place], [address] ALT [Catalytic activity/Vol] 37 U/L Normal 13-56 [facility] Comment on above: Order Comment: Order Date: 07/16/24Order Info: [id number] - CMPOrder Info: [id number] - LIPIDOrder Info: [id number] - TSH Performed By: #### L 500.4050, L501.9985, L506.1000, L500.4100, L100.0100 ####[facility] [address] [place], [address] AST [Catalytic activity/Vol] 32 U/L Normal 15-37 [facility] Comment on above: Order Comment: Order Date: 07/16/24Order Info: [id number] - CMPOrder Info: [id number] - LIPIDOrder Info: [id number] - TSH Performed By: #### L 500.4050, L501.9985, L506.1000, L500.4100, L100.0100 ####[facility] [address] [place], [address] Bilirubin [Mass/Vol] 0.70 mg/dL Normal 0.20-1.00 [facility] Comment on above: Order Comment: Order Date: 07/16/24Order Info: [id number] - CMPOrder Info: [id number] - LIPIDOrder Info: [id number] - TSH Result Comment: For patients on eltrombopag therapy, use of Dimension [place] TBIL is not recommended. Performed By: #### L 500.4050, L501.9985, L506.1000, L500.4100, L100.0100 ####[facility] [address] [place], [address] BUN/CRE 13.1 RATIO Normal 10-20 [facility] Comment on above: Order Comment: Order Date: 07/16/24Order Info: [id number] - CMPOrder Info: [id number] - LIPIDOrder Info: [id number] - TSH Performed By: #### L 500.4050, L501.9985, L506.1000, L500.4100, L100.0100 ####[facility] [address] [place], [address] CA,Total 9.3 mg/dL Normal 8.5-10.1 [facility] Comment on above: Order Comment: Order Date: 07/16/24Order Info: [id number] - CMPOrder Info: [id number] - LIPIDOrder Info: [id number] - TSH Performed By: #### L 500.4050, L501.9985, L506.1000, L500.4100, L100.0100 ####[facility] [address] [place], [address] Chloride [Moles/Vol] 98 mmol/L Normal 98-107 [facility] Comment on above: Order Comment: Order Date: 07/16/24Order Info: [id number] - CMPOrder Info: [id number] - LIPIDOrder Info: [id number] - TSH Performed By: #### L 500.4050, L501.9985, L506.1000, L500.4100, L100.0100 ####[facility] [address] [place], [address] CO2 [Moles/Vol] 31.0 mmol/L Normal 21.0-32.0 [facility] Comment on above: Order Comment: Order Date: 07/16/24Order Info: [id number] - CMPOrder Info: [id number] - LIPIDOrder Info: [id number] - TSH Performed By: #### L 500.4050, L501.9985, L506.1000, L500.4100, L100.0100 ####[facility] [address] [place], [address] Creatinine [Mass/Vol] 0.84 mg/dL Normal 0.55-1.02 [facility] Comment on above: Order Comment: Order Date: 07/16/24Order Info: [id number] - CMPOrder Info: - LIPIDOrder Info: [id number] - TSH Result Comment: The validity of the calculated GFR GFRAA in patients over 70 years has not been determined. Clinical correlation is essential. Performed By: #### L 500.4050, L501.9985, L506.1000, L500.4100, L100.0100 ####[facility] [address] [place], [address] EST GFR - AA 84 mL/min Normal >60 [facility] Comment on above: Order Comment: Order Date: 07/16/24Order Info: [id number] - CMPOrder Info: [id number] - LIPIDOrder Info: [id number] - TSH Result Comment: Afri can Ukrainian GFR Calc Performed By: #### L 500.4050, L501.9985, L506.1000, L500.4100, L100.0100 ####[facility] [address] [place], [address] GAP 6 Normal 5-15 [facility] Comment on above: Order Comment: Order Date: 07/16/24Order Info: [id number] - CMPOrder Info: [id number] - LIPIDOrder Info: [id number] - TSH Performed By: #### L 500.4050, L501.9985, L506.1000, L500.4100, L100.0100 ####[facility] [address] [place], [address] GFR/1.73 sq M.predicted among non-blacks MDRD (S/P/Bld) [Vol rate/Area] 69 mL/min/{1.73_m2} Normal >60 [facility] Comment on above: Order Comment: Order Date: 07/16/24Order Info: [id number] - CMPOrder Info: [id number] - LIPIDOrder Info: [id number] - TSH Result Comment: Non- GFR Calc Performed By: #### L 500.4050, L501.9985, L506.1000, L500.4100, L100.0100 ####[facility] [address] [facility] [place], [address] Globulin (S) [Mass/Vol] 2.9 g/dL Normal 2.2-4.2 [facility] Comment on above: Order Comment: Order Date: 07/16/24Order Info: [id number]- - CMPOrder Info: [id number] - LIPIDOrder Info: [id number] - TSH Performed By: #### L 500.4050, L501.9985, L506.1000, L500.4100, L100.0100 ####[facility] [address] [place], [address] Glucose [Mass/Vol] 96 mg/dL Normal 74-106 [facility] Comment on above: Order Comment: Order Date: 07/16/24Order Info: [id number] - CMPOrder Info: [id number] - LIPIDOrder Info: [id number] - TSH Performed By: #### L 500.4050, L501.9985, L506.1000, L500.4100, L100.0100 ####[facility] [address] [place], [address] Potassium [Moles/Vol] 3.4 mmol/L Low 3.5-5.1 [facility] Comment on above: Order Comment: Order Date: 07/16/24Order Info: [id number] - CMPOrder Info: [id number] - LIPIDOrder Info: [id number] - TSH Performed By: #### L 500.4050, L501.9985, L506.1000, L500.4100, L100.0100 ####[facility] [address] [place], [address] Sodium [Moles/Vol] 135 mmol/L Low 136-145 [facility] Comment on above: Order Comment: Order Date: 07/16/24Order Info: [id number] - CMPOrder Info: [id number] - LIPIDOrder Info: [id number] - TSH Performed By: #### L 500.4050, L501.9985, L506.1000, L500.4100, L100.0100 ####[facility] [address] [place], [address] T PROT 6.7 g/dL Normal 6.4-8.2 [facility] Comment on above: Order Comment: Order Date: 07/16/24Order Info: [id number] - CMPOrder Info: [id number] - LIPIDOrder Info: [id number] - TSH Performed By: #### L 500.4050, L501.9985, L506.1000, L500.4100, L100.0100 ####[facility] [address] [place], [address] Urea nitrogen [Mass/Vol] 11 mg/dL Normal 7-18 [facility] Comment on above: Order Comment: Order Date: 07/16/24Order Info: [id number] - CMPOrder Info: [id number] - LIPIDOrder Info: [id number] - TSH Performed By: #### L 500.4050, L501.9985, L506.1000, L500.4100, L100.0100 ####[facility] [address] [place], [address] Hemoglobin A1con 07-16-2024 HbA1c (Bld) [Mass fraction] 6.4 % High 3.8-5.6 [facility] Comment on above: Order Comment: Order Date: 07/16/24Order Info: [id number] - A1C Result Comment: Norm al < 5.7 % Prediabetic 5.7 - 6.4 % Diabetic >or= 6.5 % Please note range changes. Performed By: #### L 500.4050, L501.9985, L506.1000, L500.4100, L100.0100 ####[facility] [address] [place], [address] Lipid Profileon 07-16-2024 Cholesterol [Mass/Vol] 193 mg/dL Normal 200 [facility] Comment on above: Order Comment: Order Date: 07/16/24Order Info: [id number] - CMPOrder Info: [id number] - LIPIDOrder Info: [id number] - TSH Result Comment: <200 mg/dL Desirable 200-240 mg/dL Borderline >240 mg/dL High Risk Performed By: #### L 500.4050, L501.9985, L506.1000, L500.4100, L100.0100 ####[facility] [address] [place], [address] Cholesterol in HDL [Mass/Vol] 46 mg/dL Normal [facility] Comment on above: Order Comment: Order Date: 07/16/24Order Info: [id number] - CMPOrder Info: [id number] - LIPIDOrder Info: [id number] - TSH Result Comment: The drugs N-Acetylcysteine and Metamizole may falsely depress this assay. Reference Range HDL <40 mg/dL Low HDL Cholesterol HDL >or= 60 mg/dL High HDL Cholesterol Performed By: #### L 500.4050, L501.9985, L506.1000, L500.4100, L100.0100 ####[facility] [address] [place], [address] Cholesterol in LDL [Mass/Vol] 117 mg/dL Normal 0-130 [facility] Comment on above: Order Comment: Order Date: 07/16/24Order Info: [id number] - CMPOrder Info: [id number] - LIPIDOrder Info: [id number] - TSH Performed By: #### L 500.4050, L501.9985, L506.1000, L500.4100, L100.0100 ####[facility] [address] [place], [address] Cholesterol in VLDL [Mass/Vol] 30 mg/dL Normal 5-40 [facility] Comment on above: Order Comment: Order Date: 07/16/24Order Info: [id number] - CMPOrder Info: [id number] - LIPIDOrder Info: [id number] - TSH Performed By: #### L 500.4050, L501.9985, L506.1000, L500.4100, L100.0100 ####[facility] [address] [place], [address] Triglyceride [Mass/Vol] 150 mg/dL Normal [facility] Comment on above: Order Comment: Order Date: 07/16/24Order Info: [id number] - CMPOrder Info: [id number] - LIPIDOrder Info: [id number] - TSH Result Comment: The drugs N-Acetylcysteine and Metamizole may falsely depress this assay. Serum Triglycerides Reference Interval Normal <150 mg/dL Borderline high 150 - 199 mg/dL High 200 - 499 mg/dL Very High > or = 500 mg/dL Performed By: #### L 500.4050, L501.9985, L506.1000, L500.4100, L100.0100 ####[facility] [address] [place], [address] Thyroid Stim Hormone (TSH)on 07-16-2024 TSH 0.939 uIU/mL Normal 0.358-3.740 [facility] Comment on above: Order Comment: Order Date: 07/16/24Order Info: [id number] - CMPOrder Info: [id number] - LIPIDOrder Info: [id number] - TSH Performed By: #### L 501.9520 ####[facility] [address] [place], [address] Vitamin D,25 Hydroxyon 07-16 Vitamin D 25-OH 13.4 ng/mL Normal [facility] Comment on above: Order Comment: Order Date: 07/16/24Order Info: [id number] - VITD25 Result Comment: Meli min D 25(OH) Status Range Deficiency <20 ng/mL (50nmol/L) Insufficiency 20 - 30 ng/mL (50 - 75 nmol/L) Sufficiency 30 - 100 ng/mL (75 - 250 nmol/L) Toxicity >100 ng/mL (>250 nmol/L) Performed By: #### L 500.4050, L501.9985, L506.1000, L500.4100, L100.0100 ####[facility] [address] [place], [place], [address] Basophil percentageOrdered B y: Maame Annanger on 12-29-2022 Bilirubin [Mass/Vol] 0.50 mg/dL 0.20-1.00 [facility] Comment on above: For patients on eltr ombopag therapy, use of Dimension [place] TBIL is not recommended. Chloride [Moles/Vol] 100 mmol/L 98-107 [facility] Cholesterol [Mass/Vol] 153 mg/dL <200 [facility] Comment on above: <200 mg/dL Desirable 200-240 mg/dL Borderline >240 mg/dL High Risk Glucose [Mass/Vol] 122 mg/dL 74-106 [facility] Comment on above: Fasting Glucose resu lt from 100 to 125 mg/dL suggests IMPAIRED HOMEOSTASIS per A.D.A. criteria. Potassium [Moles/Vol] 3.7 mmol/L 3.5-5.1 [facility] Comment on above: Slight Hemolysis, Re sult may be falsely increased. Protein [Mass/Vol] 6.7 g/dL 6.4-8.2 [facility] Sodium [Moles/Vol] 135 mmol/L 136-145 [facility] Triglyceride [Mass/Vol] 189 mg/dL <199 [facility] Comment on above: The drugs N-Acetylcy steine and Metamizole may falsely depress this assay.Serum Triglycerides Reference Interval Normal <150 mg/dL Borderline high 150 - 199 mg/dL High 200 - 499 mg/dL Very High > or = 500 mg/dL Laboratory - Chemistry and C hemistry - challengeOrdered By: Maame Chang on 12-29-2022 ALP [Catalytic activity/Vol] 85 U/L 45-117 [facility] ALT [Catalytic activity/Vol] 30 U/L 13-56 [facility] CO2 [Moles/Vol] 29.0 mmol/L 21.0-32.0 [facility] Globulin (S) [Mass/Vol] 2.9 g/dL 2.2-4.2 [facility] Urea nitrogen/Creatinine [Mass ratio] 17.2 mg/mg 10-20 [facility] No Panel InformationOrdered By: Maame Chang on 12-29-2022 Estimated GFR (MDRD) Amer 81 mL/min >60 [facility] Comment on above: GFR Calc Estimated GFR (MDRD) Non-Af Amer 67 mL/min >60 [facility] Comment on above: Non- GFR Calc Serum or plasma albumin roel urement (mass/volume)Ordered By: Maame Chang on 12-29-2022 Albumin [Mass/Vol] 3.8 g/dL 3.2-5.0 [facility] Serum or plasma albumin/glob ulin mass ratioOrdered By: Maame Chang on 12-29-2022 Albumin/Globulin [Mass ratio] 1.3 {ratio} 0.9-2.4 [facility] Serum or plasma calcium roel urement (mass/volume)Ordered By: Maame Chang on 12-29-2022 Calcium [Mass/Vol] 9.2 mg/dL 8.5-10.1 [facility] Serum or plasma cholesterol in HDL measurement (mass/volume)Ordered By: Maame Chang on 12-29-2022 Cholesterol in HDL [Mass/Vol] 50 mg/dL >40 [facility] Comment on above: The drugs N-Acetylcy steine and Metamizole may falsely depress this assay. Reference Range HDL <40 mg/dL Low HDL Cholesterol HDL >or= 60 mg/dL High HDL Cholesterol Serum or plasma cholesterol in VLDL measurement (mass/volume)Ordered By: Maame Chang on 12-29-2022 Cholesterol in VLDL [Mass/Vol] 38 mg/dL 5-40 [facility] Serum or plasma creatinine m easurement (mass/volume)Ordered By: Maame Chang on 12-29-2022 Creatinine [Mass/Vol] 0.87 mg/dL 0.55-1.02 [facility] Comment on above: The validity of the calculated GFR & GFRAA in patients over 70 years has not been determined. Clinical correlation is essential. Serum or plasma low density lipoprotein (LDL) cholesterol measurement (mass/volume)Ordered By: Maame Chang on 12-29-2022 Cholesterol in LDL [Mass/Vol] 65 mg/dL 0-130 [facility] Serum or plasma urea nitroge n measurement (mass/volume)Ordered By: Maame Chang on 12-29-2022 Urea nitrogen [Mass/Vol] 15 mg/dL 7-18 [facility] Thin prep Papanicolaou smear with manual screeningOrdered By: Maame Chang on 12-29-2022 Thin prep Papanicolaou smear with manual screening 18 U/L 15-37 [facility] Comment on above: Slight Hemolysis, Re sult may be falsely increased. Thin prep Papanicolaou smear with manual screening 6 5-15 [facility] Thin prep Papanicolaou smear with manual screening 14.4 mg/L NO RANGE EST. [facility] Whole blood hemoglobin A1c/t otal hemoglobin ratio (mass fraction)Ordered By: Maame Chang on 12-29-2022 HbA1c (Bld) [Mass fraction] 5.9 % 3.8-5.6 [facility] Comment on above: Normal < 5.7 % Predi abetic 5.7 - 6.4 % Diabetic >or= 6.5 % Please note range changes. Basophil percentageon 2021 Chloride [Moles/Vol] 101 mmol/L 98-107 [facility] Work Phone: Cholesterol [Mass/Vol] 139 mg/dL <200 [facility] Work Phone: Comment on above: <200 mg/dL Desirable 200-240 mg/dL Borderline >240 mg/dL High Risk Glucose [Mass/Vol] 119 mg/dL 74-106 [facility] Work Phone: Comment on above: Fasting Glucose resu lt from 100 to 125 mg/dL suggests IMPAIRED HOMEOSTASIS per A.D.A. criteria. Potassium [Moles/Vol] 3.7 mmol/L 3.5-5.1 [facility] Work Phone: Sodium [Moles/Vol] 134 mmol/L 136-145 [facility] Work Phone: Triglyceride [Mass/Vol] 177 mg/dL [facility] Work Phone: Comment on above: The drugs N-Acetylcy steine and Metamizole may falsely depress this assay.Serum Triglycerides Reference Interval Normal <150 mg/dL Borderline high 150 - 199 mg/dL High 200 - 499 mg/dL Very High > or = 500 mg/dL Laboratory - Chemistry and C hemistry - challengeon 12-28-2021 CO2 [Moles/Vol] 25.0 mmol/L 21.0-32.0 [facility] Work Phone: Urea nitrogen/Creatinine [Mass ratio] 13.9 mg/mg 10-20 [facility] Work Phone: No Panel Informationon 12-28 Hepatitis C Antibody Non-Reactive Nonreactive [facility] Work Phone: Comment on above: Non Reactive: < 0.8 Equivocal: >/= 0.8 to < 1.0 Reactive: >/= 1.0The CDC recommends that a reactive/equivocal HCV antibody result be followed up by the HCV Nucleic Acid Amplificationtest (064907) Estimated GFR (MDRD) Amer 91 mL/min >60 [facility] Work Phone: Comment on above: GFR Calc Estimated GFR (MDRD) Non-Af Amer 75 mL/min >60 [facility] Work Phone: Comment on above: Non- GFR Calc Serum or plasma calcium roel urement (mass/volume)on 12-28-2021 Calcium [Mass/Vol] 8.7 mg/dL 8.5-10.1 [facility] Work Phone: Serum or plasma cholesterol in HDL measurement (mass/volume)on 12-28-2021 Cholesterol in HDL [Mass/Vol] 54 mg/dL [facility] Work Phone: Comment on above: The drugs N-Acetylcy steine and Metamizole may falsely depress this assay. Reference Range HDL <40 mg/dL Low HDL Cholesterol HDL >or= 60 mg/dL High HDL Cholesterol Serum or plasma cholesterol in VLDL measurement (mass/volume)on 12-28-2021 Cholesterol in VLDL [Mass/Vol] 35 mg/dL 5-40 [facility] Work Phone: Serum or plasma creatinine m easurement (mass/volume)on 12-28-2021 Creatinine [Mass/Vol] 0.79 mg/dL 0.55-1.02 [facility] Work Phone: Comment on above: The validity of the calculated GFR & GFRAA in patients over 70 years has not been determined. Clinical correlation is essential. Serum or plasma low density lipoprotein (LDL) cholesterol measurement (mass/volume)on 12-28-2021 Cholesterol in LDL [Mass/Vol] 50 mg/dL 0-130 [facility] Work Phone: Serum or plasma urea nitroge n measurement (mass/volume)on 12-28-2021 Urea nitrogen [Mass/Vol] 11 mg/dL 7-18 [facility] Work Phone: Thin prep Papanicolaou smear with manual screeningon 12-28-2021 Thin prep Papanicolaou smear with manual screening 8 5-15 [facility] Work Phone: CNPTOUTREACHon 10-29-2020 CNPTOUTREACH Patient Outreach ([facility]) ZHENG ROY MARIE ([id number]) 1945 F Date Time Provider Department 10/29/20 [...] . Date Reviewed: 03/23/2019 Reviewed by: Marielos ([facility]) Raciel - Fully Assessed Order(s):SARS-COVID VACCINE 1ST DOSE APPT [[id number]] Order #: [id number] FUTURE Prescriptions as of 10/29/2020 Sig: POTASSIUM [...] Status:Closed by MARITZA, PRODUSER on 11/02/20 [facility] Vital Signs Date Time Vital Sign Value Performing Clinician Corie capps 02-26-2025 12:07-0400 Body temperature 97.7 [degF] Dr. Roseann Eli MD Work Phone: [facility] 02-26-2025 12:07-0400 Diastolic blood pressure 72 mm[Hg] Dr. Roseann Eli MD Work Phone: 3(846)214-459068 [place] [address] 02-26-2025 12:07-0400 Heart rate 78 /min Dr. Roseann Eli MD Work Phone: 7(608)976-272199 [place] [address] 02-26-2025 12:07-0400 Respiratory rate 18 /min Dr. Roseann Eli MD Work Phone: 9(845)984-105599 [place] [address] 02-26-2025 12:07-0400 SaO2% (BldA) [Mass fraction] 100 % Dr. Roseann Eli MD Work Phone: 9(544)624-631799 [place] [address] 02-26-2025 12:07-0400 Systolic blood pressure 160 mm[Hg] Dr. Roseann Eli MD Work Phone: 0(370)878-139499 [place] [address] 02-26-2025 09:44-0400 Body height 167.[address] Roseann Eli MD Work Phone: 1(255)636-936499 [place] [address] 02-26-2025 09:44-0400 Body mass index (BMI) [Ratio] 26.1 kg/m2 Dr. Roseann Eli MD Work Phone: 2(516)063-395499 [place] [address] 02-26-2025 09:44-0400 Body weight 73.[address] Roseann Eli MD Work Phone: 9(612)925-769099 [place] [address] 12-05-2024 16:56-0400 Body temperature 96.6 [degF] Pili Chakraborty MD Work Phone: 3(387)984-959699 [place] [address] 12-05-2024 16:56-0400 Diastolic blood pressure 94 mm[Hg] Pili Chakraborty MD Work Phone: 6(560)856-880899 [place] [address] 12-05-2024 16:56-0400 Heart rate 73 /min Pili Chakraborty MD Work Phone: 5(238)451-374199 [place] [address] 12-05-2024 16:56-0400 Respiratory rate 16 /min Pili Chakraborty MD Work Phone: 7(043)015-539468 [place] [address] 12-05-2024 16:56-0400 SaO2% (BldA) [Mass fraction] 100 % Pili Chakraborty MD Work Phone: [facility] 12-05-2024 16:56-0400 Systolic blood pressure 119 mm[Hg] Pili Chakraborty MD Work Phone: [facility] 12-05-2024 12:11-0400 Body height 167.64 cm Pili Chakraborty MD Work Phone: [facility] 12-05-2024 12:11-0400 Body mass index (BMI) [Ratio] 25.7 kg/m2 Pili Chakraborty MD Work Phone: [facility] 12-05-2024 12:11-0400 Body weight 72.5 kg Pili Chakraborty MD Work Phone: [facility] 11-29-2024 15:46-0400 Body temperature 98 [degF] Pili Chakraborty MD Work Phone: [facility] 11-29-2024 15:46-0400 Diastolic blood pressure 72 mm[Hg] Pili Chakraborty MD Work Phone: [facility] 11-29-2024 15:46-0400 Heart rate 79 /min Pili Chakraborty MD Work Phone: [facility] 11-29-2024 15:46-0400 Respiratory rate 18 /min Pili Chakraborty MD Work Phone: [facility] 11-29-2024 15:46-0400 SaO2% (BldA) [Mass fraction] 99 % Pili Chakraborty MD Work Phone: [facility] 11-29-2024 15:46-0400 Systolic blood pressure 183 mm[Hg] Pili Chakraborty MD Work Phone: [facility] 11-29-2024 12:35-0400 Body height 167.64 cm Pili Chakraborty MD Work Phone: [facility] 11-29-2024 12:35-0400 Body mass index (BMI) [Ratio] 26.2 kg/m2 Pili Chakraborty MD Work Phone: [facility] 11-29-2024 12:35-0400 Body weight 73.7 kg Pili Chakraborty MD Work Phone: [facility] 11-16-2024 20:28-0500 Body temperature 98 [degF] Pili Chakraborty MD Work Phone: [facility] 11-16-2024 20:28-0500 Diastolic blood pressure 73 mm[Hg] Pili Chakraborty MD Work Phone: [facility] 11-16-2024 20:28-0500 Heart rate 72 /min Pili Chakraborty MD Work Phone: 1(227)005-788699 [place] [address] 11-16-2024 20:28-0500 Respiratory rate 18 /min Pili Chakraborty MD Work Phone: 9(221)751-318263 [address] 11-16-2024 20:28-0500 SaO2% (BldA) [Mass fraction] 97 % Pili Chakraborty MD Work Phone: 5(573)611-217168 [place] [address] 11-16-2024 20:28-0500 Systolic blood pressure 149 mm[Hg] Pili Chakraborty MD Work Phone: 5(685)487-945999 [place] [address] 11-16-2024 18:16-0500 Body height 154.99 cm Pili Chakraborty MD Work Phone: 2(185)827-558799 [place] [address] 11-16-2024 18:16-0500 Body mass index (BMI) [Ratio] 32.5 kg/m2 Pili Chakraborty MD Work Phone: 6(187)026-265568 [place] [address] 11-16-2024 18:16-0500 Body weight 78.2 kg Pili Chakraborty MD Work Phone: 1(141)892-325263 [address] 09-30-2024 14:26-0500 Body mass index (BMI) [Ratio] 29.8 kg/m2 Pili Chakraborty MD Work Phone: 2(130)674-080068 [place] [address] 09-30-2024 14:26-0500 Body temperature 98.4 [degF] Pili Chakraborty MD Work Phone: 9(308)631-603568 [place] [address] 09-30-2024 14:26-0500 Body weight 71.66 kg Pili Chakraborty MD Work Phone: [facility] 09-30-2024 14:26-0500 Diastolic blood pressure 68 mm[Hg] Pili Chakraborty MD Work Phone: [facility] 09-30-2024 14:26-0500 Heart rate 86 /min Pili Chakraborty MD Work Phone: [facility] 09-30-2024 14:26-0500 Respiratory rate 15 /min Pili Chakraborty MD Work Phone: [facility] 09-30-2024 14:26-0500 SaO2% (BldA) [Mass fraction] 99 % Pili Chakraborty MD Work Phone: [facility] 09-30-2024 14:26-0500 Systolic blood pressure 142 mm[Hg] Pili Chakraborty MD Work Phone: [facility] 06-14-2022 09:13-0400 Body height 156.21 cm [facility] Work Phone: Encounters Encounter Date Encounter Type Care Provider Facility Start: 03-28-2025 ambulatory Epifanio Zamora [facility] Facil [facility] Start: 03-24-2025 ambulatory Epifanio Zamora [facility] Facil ity:[facility] Start: 02-26-2025 End: 02-26-2025 Emergency department patient [...] 11-13-2024 ambulatory Pili Chakraborty MD Work Phone: [facility] Work Phone: Start: 11-13-2024 End: 11-13-[address] Epifanio Zamora MD -[facility] Work Phone: Start: 11-13-[address] Epifanio adamson MD -[facility] Work Phone: Start: 11-13-2024 End: 11-13-2024 ambulatory Roseann S Joescobar Facility:[facility] Start: 11-01-2024 ambulatory Roseann S Jollimmanuel Facility: [facility] Start: 10-21-2024 ambulatory Roseann S Jolliff Facility: [facility] Start: 10-01-2024 End: 10-01-[address] Roseann Eli MD -[facility] Start: 09-30-2024 End: 09-30-[address] Silver Doe MD -[facility] Work Phone: Start: 09-30-2024 End: 10-01-2024 ambulatory Roseann S Jolliff Facility:[facility] Start: 07-16-2024 End: 07-16-2024 ambulatory Pili Chakraborty Facility:[facility] Start: 07-25-2023 End: 07-25-2023 ambulatory [facility] Work Phone: Start: 07-25-2023 End: 07-25-2023 Discharged Recurring [facility] Work Phone: Start: 12-29-2022 End: 12-29-2022 ambulatory [facility] Work Phone: Start: 12-29-2022 End: 12-29-2022 Patient encounter procedure [facility] Start: 06-14-2022 End: 06-14-2022 ambulatory [facility] Work Phone: Start: 06-14-2022 End: 06-14-2022 Patient encounter procedure [facility] Start: 12-28-2021 End: 12-28-2021 Patient encounter procedure [facility] Date Procedure Procedure Detail Performing [...] Date Care Activity Detail Author Start: 02-26-2025 [facility] Start: 02-26-2025 Plain x-ray of pelvi s and lower extremity HIP, UNI W/ Pelvis 2-3 Views [facility] Start: 02-26-2025 XR Pelvis and Hip Views [facility] Start: 12-05-2024 [facility] Start: 11-29-2024 [facility] Start: 11-29-2024 [facility] Start: 11-16-2024 [facility] MR Brain contrast [facility] Patient Education [facility] Work Phone: Patient referral [facility] Work Phone: Payers Date Payer Category Payer Self-pay [id number] 2021 Unknown [id number] Unknown [id number] Unknown [id number] 2.16.8 40.1.646202.3.579.2.462 Unknown [id number] 2.16.8 40.1.155983.3.579.2.462 Unknown [id number] 2.16.8 40.1.136012.3.579.2.462 Unknown [id number] 2.16.8 40.1.327814.3.579.2.462 Unknown [id number] 2.16.8 40.1.653222.3.579.2.462 Unknown [id number] 2.16.8 40.1.074465.3.579.2.462 Unknown [id number] 2.16.8 40.1.366495.3.579.2.462 Unknown [id number] 2.16.8 40.1.555740.3.579.2.462 Unknown [id number] 2.16.8 40.1.638872.3.579.2.462 Unknown [id number] 2.16.8 40.1.412995.3.579.2.462 Unknown [id number] 2.16.8 40.1.400725.3.579.2.462 Social History Date Type Detail Facility Tobacco smoking stat us NMIS Unknown if ever smoked [facility] Work Phone: Start: 1945 Sex Assigned At Female [facility] Start: 11-16-2024 End: 02-26-2025 Tobacco smoking status NHIS Never smoked tobacco (finding) [facility] Start: 11-16-2024 End: 12-10-2024 Sex Female (finding) [facility] Clinical Notes 09-30-2024 to 02-26-2025 Note Date & Type Note Facility 02-26-2025 Radiology Diagnostic study note [facility] Imaging Services [address] [place] [address] [id number] Brain/Head without Contrast MR#: [id number] Acct: [id number] Name: ZHENG ROY Rep #: [id number] : 1945 F 79 From: Christopher Hudson MD PCP: Dr. Epifanio Zamora DO Status: REG ER Study:Brain/Head without Contrast Date of Exa m: 02/26/25 Exam# [id number] Ordering Dr: Radha Marrero DO PROCEDURE: BRAIN/HEAD [...] CHRONIC CHANGES. NO ACUTE FINDINGS. Reading Location: [place] [address] CC: Dr. Sofia Marrero DO; Dr. Epifanio Zamora DO ~ Estate Administrator: Signed [facility] 12-05-2024 Discharge summary [facility] 12-05-2024 Radiology Diagnostic study note [facility] Services [address] [place] [address] Knee 4 or More Views MR#: [id number] Acct: [id number] Name: ZHENG ROY Rep #: [id number] : 1945 F 79 From: Veronika Llanos MD PCP: Dr. Epifanio Zamora DO Status: REG ER Study:Knee 4 or More Views Date of Exam: 12/05/24 Exam# [id number] Ordering Dr: David Gutierrez DO PROCEDURE: KNEE 4 OR MORE VIEWS 12/05/2024 REASON FOR EXAM: INJURY TECHNIQUE: 4 view(s) of the right knee COMPARISON: 12/05/2024 FINDINGS: No acute fracture or dislocation.No degenerative changes. No joint effusion. No soft tissue abnormality. RAD/Knee 4 or More Views IMPRESSION: No acute abnormality. Reading Location: [facility] CC: Dr. Sushil Gutierrez DO; Dr. Epifanio Zamora DO ~ Estate Administrator: Signed [facility] 12-05-2024 Radiology Diagnostic study note [facility] Services [address] [place] [address] HIP, UNI W/ Pelvis 2-3 Views MR#: [id number] Acct: [id number] Name: KIRILLBALAJI Rep #: [id number] : 1945 F 79 From: Veronika Llanos MD PCP: Dr. Epifanio Zamora DO Status: REG ER Study:HIP, UNI W/ Pelvis 2-3 Views Date of Ex am: 12/05/24 Exam# [id number] Ordering Dr: David Gutierrez DO PROCEDURE: HIP, [...] Gutierrez DO; Dr. Epifanio Zamora DO ~ Estate Administrator: Signed [facility] 12-05-2024 Radiology Diagnostic study note [facility] Imaging Services [address] [place] [address] [id number] Brain/Head without Contrast MR#: [id number] Acct: [id number] Name: ZHENG ROY Rep #: [id number] : 1945 F 79 From: Veronika Llanos MD PCP: Dr. Epifanio Zamora DO Status: REG ER Study:Brain/Head without Contrast Date of Exa m: 12/05/24 Exam# [id number] Ordering Dr: David Gutierrez DO PROCEDURE: BRAIN/HEAD [...] Gutierrez DO; Dr. Epifanio Zamora DO ~ Estate Administrator: Signed [facility] 12-05-2024 Discharge summary Note Date/Time December 05, 2024 4:30pm [facility] Medical Records Department [address] [place] [address] Emergency Department Summary 12/05/24 MR#: [id number] Acct: [id number] Name: ZHENG ROY Rep #:[id number] : 1945 79 From: Sushil Gilliland PCP: Dr. Epifanio Zamora DO Status:REG ER Location: ED HPI HPI - Fall History of Present Illness Chief Complaint: Fall Informant: patient, family, EMS and SNF Narrative Narrative: 79-year-old female from half-way facility presenting to the emergency room with [...] is no report of being on anticoagulants. [facility] Medical History Dementia Basal cell carcinoma [...] the patient can be discharged back to half-way facility. Follow-up as needed Tylenol for pain.. History & Record Review Discussion w/independent historian: Patient and Family Radiography Diagnostic Testing: Clinical Impression(s) from Imaging Studies Brain CT 12/05/24 12:58 IMPRESSION: 1. No acute intracranial abnormality. Reading Location: [facility] Knee X-Ray 12/05/24 12:58 IMPRESSION: No acute abnormality. Reading Location: [facility] Hip/Pelvis X-Ray 12/05/24 13:35 IMPRESSION: 1. No acute abnormality. Reading Location: [facility] Discharge Plan Triage Chief Complaint: [...] Care Provider] - As Needed Print Language: Omani Disposition Disposition: Home, Self Care What to do if you have Problems For any increased pain, shortness of breath, bleeding, nausea or vomiting, chestpain, or any unexpected problems, contact your Primary Care Provider. Call [facility] ([phone]) or report to the closest Emergency Room. Call 911 if necessary. 12/05/24 1630 <Electronically signed by Sushil Gutierrez DO> Cosigner Signature (if applicable): CC: Dr. Epifanio Zamora DO ~ Signed [facility] Work Phone: 1(321) 665-255603-21-2025 Radiology Diagnostic study note [facility] Imaging Services [address] [place] [address] Ribs Uni Min 3V w/PA Chest MR#: [id number] Acct: [id number] Name: ZHENG ROY Rep #: [id number] : 1945 F 79 From: Christopher Hudson MD PCP: Dr. Epifanio Zamora DO Status: REG ER Study:Ribs Uni Min 3V w/PA Chest Date of Exam : 11/29/24 Exam# [id number] Ordering Dr: Behzad Weber MD PROCEDURE: RIBS [...] No acute abnormality is seen. Reading Location: [place] [address] CC: Dr. Kenney Weber MD; Dr. Epifanio Zamora DO ~ Estate Administrator: Signed [facility]03-21-2025 Radiology Diagnostic study note [facility] Imaging Services [address] [place] [address] Brain/Head without Contrast MR#: [id number] Acct: [id number] Name: ZHENG ROY Rep #: [id number] : 1945 F 79 From: Bobbi Pressley MD PCP: Dr. Epifanio Zamora, Status: REG ER Study:Brain/Head without Contrast Date of Exa m: 11/29/24 Exam# [id number] Ordering Dr: Behzad Weber MD PROCEDURE: BRAIN/HEAD [...] 4. Additional description as above. Reading Location: [id number] CC: Dr. Kenney Weber MD; Dr. Epifanio Zamora DO ~ Estate Administrator: Signed [facility]03-08-2025 Discharge summary [facility] Medical Records Department [address] [place] [address] Emergency Department Summary 11/16/24 MR#: [id number] Acct: [id number] Name: ZHENG ROY Rep #:[id number] : 1945 79 From: Astrid EASTON PCP: Dr. Epifanio Zamora DO Status:REG ER Location: ED HPI History of Present Illness Chief Complaint: Fall Narrative Narrative: 79-year-old female had an unwitnessed fall at [facility]. She was apparently found on the ground facedown near the dining area. She has no external signs of injury but complains of left shoulder pain. She is not on blood thinners. Daughter states she has dementia and moved into [place] in September 2024 and since then has fallen a total of 2 times including today. She ambulates well without assistance or assistive devices. Patient is not sure whyshe fell off but can provide limited history secondary to dementia. Her daughter is here and states she is acting at baseline. [facility] Medical History (Updated 11/16/24 @ 19:22 [...] NO ACUTE FRACTURE OR DISLOCATION. Reading Location: [facility] Ribs w/Chest X-Ray 11/16/24 18:41 IMPRESSION: NO EVIDENCE OF ACUTE RIB FRACTURE OR PNEUMOTHORAX. Reading Location: [facility] Wrist X-Ray 11/16/24 18:41 IMPRESSION: No acute fracture or dislocation. Reading Location: [facility] ED attending interpretation of left shoulder shows [...] No acute fracture or dislocation. [facility] Dis[facility] Triage Chief Complaint: Fall [...] Referrals: Roseann Eli MD [Med Staff - [facility]] - Activity Restrictions/Additional Instructions: The x-ray showed no broken bones. I would treat your contusions with ice and Tylenol every 6 hours as needed. Print Language: Omani Disposition Disposition: Home, Self Care What to do if you have Problems For any increased pain, shortness of breath, bleeding, nausea or vomiting, chestpain, or any unexpected problems, contact your Primary Care Provider. Call [facility] ([phone]) or report tothe closest Emergency Room. Call 911 if necessary. 11/16/242009 Cosigner Signature (if applicable): 11/16/242025 CC: Dr. Epifanio Zamora DO ~ Signed [facility]03-08-2025 Radiology Diagnostic study note [facility] Imaging Services [address] [place], [place] [address] Ribs Uni Min 3V w/PA Chest MR#: [id number] Acct: [id number] Name: ZHENG ROY Rep #: [id number] : 1945 F 79 From: Tyson Rocha DO PCP: Dr. Epifanio Zamora DO Status: REG ER Study:Ribs Uni Min 3V w/PA Chest Date of Exam : 11/16/24 Exam# [id number] Ordering Dr: Anil Dozier MD PROCEDURE: RIBS [...] Zamora DO; Dr. Kalyan Dozier MD ~ Estate Administrator: Signed [facility]03-08-2025 Radiology Diagnostic study note [facility] Services [address] [place] [address] Wrist min 3 Views MR#: [id number] Acct: [id number] Name: ZHENG ROY Rep #: [id number] : 1945 F 79 From: Tyson Rocha DO PCP: Dr. Eipfanio Zamora DO Status: REG ER Study:Wrist min 3 Views Date of Exam: Exam# [id number] Ordering Dr: Anil Dozier MD PROCEDURE: WRIST MIN 3 VIEWS REASON FOR EXAM: Trauma. Pain. TECHNIQUE: 3 views of the left wrist COMPARISON: None FINDINGS: No visible fracture. No suspicious bone lesion. Normal alignment. Soft tissues are unremarkable. RAD/Wrist min 3 Views IMPRESSION: No acute fracture or dislocation. Reading Location: [facility] CC: Dr. Epifanio Zamora DO; Dr. Kalyan Dozier MD ~ Estate Administrator: Signed [facility]03-08-2025 Radiology Diagnostic study note [facility] Services [address] [place], [place] [id number] Shoulder min 2 Views MR#: [id number] Acct: [id number] Name: ZHENG ROY Rep #: [id number] : 1945 F 79 From: Tyson Rocha DO PCP: Dr. Epifanio Zamora DO Status: REG ER Study:Shoulder min 2 Views Date of Exam: 11/16/24 Exam# [id number] Ordering Dr: Astrid Saleh PROCEDURE: SHOULDER MIN [...] Dr. Epifanio Zamora DO; RUSTAM Shepard ~ Estate Administrator: Signed [facility]03-08-2025 Discharge summary Author Astrid Monae [facility] Note Date/Time November 16, 2024 8:26 pm [facility] Medical Records Department [address] [place] [address] Emergency Department Summary 11/16/24 MR#: [id number] Acct: [id number] Name: ZHENG ROY Rep #:[id number] : 1945 79 From: Astrid EASTON PCP: Dr. Epifanio Zamora DO Status:REG ER Location: ED HPI <RUSTAM Shepard - Last Filed: 11/16/24 20:10> History of Present Illness Chief Complaint: Fall Narrative Narrative: 79-year-old female had an unwitnessed fall at [facility]. She was apparently found on the ground facedown near the dining area. She has no external signs of injury but complains of left shoulder pain. She is not on blood thinners. Daughter states she has dementia and moved into [place] in September 2024 and since then has fallen a total of 2 times including today. She ambulates well without assistance or assistive devices. Patient is not sure whyshe fell off but can provide limited history secondary to dementia. Her daughter is here and states she is acting at baseline. [facility] <RUSTAM Shepard - Last Filed: 11/16/24 20:10> [facility] Medical History (Updated 11/16/24 @ 19:22 by [...] NO ACUTE FRACTURE OR DISLOCATION. Reading Location: [facility] Ribs w/Chest X-Ray 11/16/24 18:41 IMPRESSION: NO EVIDENCE OF ACUTE RIB FRACTURE OR PNEUMOTHORAX. [facility] Wrist X-Ray 11/16/24 18:41 IMPRESSION: No acute fracture or dislocation. Reading Location: [facility] ED attending interpretation of left shoulder shows no fracture or dislocation. ED attending interpretation of left wrist shows no fracture or dislocation. ED attending interpretation of left rib series shows no displaced rib fracture or pneumothorax. <Dr. Kalyan Dozier MD - Last Filed: 11/16/24 20:26> [facility] Narrative Medical decision making narrative: I have [...] NO ACUTE FRACTURE OR DISLOCATION. Reading [facility] Ribs w/Chest X-Ray 11/16/24 18:41 IMPRESSION: NO EVIDENCE OF ACUTE RIB FRACTURE OR PNEUMOTHORAX. [facility] Wrist X-Ray 11/16/24 18:41 IMPRESSION: No acute fracture or dislocation. Reading Location[facility] Discharge Plan Triage Chief Complaint: Fall ED [...] Referrals: Roseann Eli MD [Med Staff - [facility]] - Activity Restrictions/Additional Instructions: The x-ray showed no broken bones. I would treat your contusions with ice and Tylenol every 6 hours as needed. Print Language: Omani Disposition Disposition: Home, Self Care What to do if you have Problems For any increased pain, shortness of breath, bleeding, nausea or vomiting, chestpain, or any unexpected problems, contact your Primary Care Provider. Call [facility] ([phone]) or report to the closest Emergency Room. Call 911 if necessary. 11/16/242009 <Electronically signed by Astrid EASTON> Cosigner Signature (if applicable): 11/16/242025 <Electronically signed by Blade JONES> CC: Dr. 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 I would treat your contusions with ice and Tylenol every 6 hours as needed.[facility] Work Phone: Hospital Discharge instructionsAmbulatory Orders* Wheeled Walker Location: None Selected [facility] Work Phone: Reason for referral (narrative)No reason for referral information [facility] Work Phone: Summary Purpose Family History No Family History Records Found Relationship Condition Age at Onset Recorded Date/T paulo mother Cardiac disease Unknown Myocardial infarction Unknown father Cardiac disease Unknown Advance Directives No Advanced Directives Records Found Advance Directive Response Recorded Date/ Time Living Will Yes November 16, 2024 6:28pm Power of Drawer In [place] Yes November 16 6:28pm Name of Medical Power of Drawer In [place] ary November 16, 2024 6:28pm Advance Directive Response Recorded Date/ Time Living Will Yes November 16, 2024 7:28pm Do you have a Healthcare Power of Drawer In [place]? Yes November 16, 2024 7:28pm Name of Medical Power of Drawer In [place] ary November 16, 2024 7:28pm Living Will Yes November 29, 2024 12:42pm Do you have a Healthcare Power of Drawer In [place]? Yes November 29, 2024 12:42pm Name of Medical Power of Drawer [place] daughter November 29, 2024 12:42pm Advance Directive Response Recorded Date/ Time Living Will Yes November 16, 2024 7:28pm Do you have a Healthcare Power of Drawer In [place]? Yes November 16, 2024 7:28pm Name of Medical Power of Drawer In [place] ary November 16, 2024 7:28pm Living Will Yes November 29, 2024 12:42pm Do you have a Healthcare Power of Drawer In [place]? Yes November 29, 2024 12:42pm Name of Medical Power of Drawer [place] daughter November 29, 2024 12:42pm Living Will Yes December 05, 2024 12:18pm Do you have a Healthcare Power of Drawer In [place]? Yes December 05, 2024 12:18pm Name of Medical Power of Drawer In [place] ARY December 05, 2024 12:18pm Advance Directive Response Recorded Date/ Time Living Will Yes November 16, 2024 7:28pm Do you have a Healthcare Power of Drawer In [place]? Yes November 16, 2024 7:28pm Name of Medical Power of Drawer In [place] ary November 16, 2024 7:28pm Living Will Yes November 29, 2024 12:42pm Do you have a Healthcare Power of Drawer In [place]? Yes November 29, 2024 12:42pm Name of Medical Power of Drawer In [place] daughter November 29, 2024 12:42pm Living Will Yes December 05, 2024 12:18pm Do you have a Healthcare Power of Drawer In [place]? Yes December 05, 2024 12:18pm Name of Medical Power of Drawer In [place] ARY December 05, 2024 12:18pm Do you have a Healthcare Power of Drawer In [place]? Yes February 26, 2025 9:49am Chief Complaint [...] Date cognitive impairment September 30, 2024 2:22pm CUSTODIAL LAB WORK November 13, 2024 5: 00am fall November 16, 2024 6:15 pm fall with pain lt side rib area no loc M arch 2024 11:49am FALL December 05, 2024 12: 11pm Chief Complaint Admit Date CUSTODIAL LAB WORK November 13, 2024 5: 00am fall November 16, 2024 6:15 pm fall with pain lt side rib area no loc M arch 2024 11:49am FALL December 05, 2024 12: 11pm FALL February 26, 2025 9:43 am Additional Source Comments INFORMATION SOURCE (unrecogn ized section and content) DATE CREATED AUTHOR 11/02/2020 [facility] DATE CREATED AUTHOR AUTHOR'S ORGANIZ ATION 04/01/2025 [facility] Goals (unrecognized section and content) Goals may [...] 2024 End: December 05, 2024 Dr. Sushil Hauser , DO Emergency Provider Active Start: December [...] BE BASED ON THE PRIMARY CLINICAL RECORDS. [facility] [employer] [facility] provides no warranty or guarantee of the accuracy or completeness of information in this document.
[2025-04-01 09:04] LABS: Anion Gap 12 (5-15); BUN 16 mg/dL (4-19); BUN/Creat Ratio 20.4 RATIO (10-20); Calcium,Total 9.1 mg/dL (7.6-11.0); Carbon Dioxide 25.0 mmol/L (21.0-32.0); Chloride 100 mmol/L (98-108); Glucose 110 mg/dL (70-99); Potassium 3.8 mmol/L (3.3-5.1)
== END ==
LOC: OLS.BROOKB 05:00
PROVIDERS: Visit Provider Family Medicine
DX: R60.9 Edema, unspecified (principal); Z79.899 Other long term (current) drug therapy
CPT/HCPCS: 36415; 80048; 83036

== ENCOUNTER → 2025-08-05 04:00 | Outpatient (REF) | payer MEDICARE, SELFPAY ==
--- OUTSIDE RECORDS SUMMARY | 2025-08-05 03:20 | XMS RPT_ITS | CCD ---
Author Organization [facility] Care Team Providers Care Ornament Setter Name Role Phone Pili Chakraborty MD Primary [...] Provider Dr. Sofia Marrero DO Emergency Provider Jolliff, Roseann S Primary Care Unavailable Jolliff, Roseann S Attending Unavailable Jolliff, Roseann S Referring Unavailable Mylene, Chalon Primary Care Unavailable Mylene, Chalon Referring Unavailable Silver Doe Attending Unavailable Mylene, Chalon Primary Care Unavailable Mylene, Chalon Attending Unavailable Jolliff, Roseann S Primary Care Unavailable Mylene, Chalon Attending Unavailable Mylene, Chalon Referring Unavailable Jolliff, Roseann S Primary Care Unavailable Zamora OLS, Epifanio Attending Unavailable Zamora OLS, Epifanio Attending Unavailable Zamora OLS, Epifanio Referring Unavailable Zamora, Epifanio Primary Care Unavailable Zamora OLS, Epifanio Attending Unavailable Zamora, Epifanio Primary Care Unavailable Zamora OLS, Epifanio Attending Unavailable Zamora, Epifanio Primary Care Unavailable Jolliff, Roseann S Primary Care Unavailable SantiagoerBrianna Attending Unavailable SantiagoerBrianna Referring Unavailable Zamora, Epifanio Primary Care Unavailable Sushil Gutierrez Attending Unavailable Zamora, Epifanio Primary Care Unavailable Sofia Marrero Attending Unavailable Zamora, Epifanio Primary Care Unavailable Kalyan Dozier Attending Unavailable Zamora, Epifanio Primary Care Unavailable Kenney Weber Attending Unavailable Allergies Allergy Classification Reported Allergen(s) Allergy Type Date of Onset Reaction(s) Facility (5 sources) Albuterol Drug Allergy 5 swollen lips [facility] (5 sources) Doxycycline Drug Allergy 5 GI upset [facility] (5 sources) Glucocorticoid Receptor Agonists Allergy to substance 5 other [facility] Comment on above: 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 and steroids can make this worse (5 sources) montelukast Drug Allergy 5 Hives [facility] (5 sources) Penicillins Allergy to substance 5 unknown [facility] (6 sources) diphtheria, pertussis, tetanus vacc; Translations: [diphtheria, pertussis, tetanus vacc] Allergy to substance 5 [facility] (6 sources) influenza virus vaccine, specific; Translations: [influenza virus vaccine, specific] Allergy to substance 5 unknown [facility] (1 source) Albuterol Drug Allergy 5 [facility] Repository (1 source) Corticosteroids Drug allergy (disorder) 5 [facility] Rep[facility] (1 source) Doxycycline Drug Allergy 5 [facility] Repository (1 source) montelukast Drug Allergy 5 [facility] (1 source) Penicillins Drug allergy (disorder) 5 [facility] Repository Medications Current Medications Medication Drug Class(es) [...] (primary) hypertension; Translations: [Essential (primary) hypertension] Onset: 07-10-2025 Chronic Other aftercare (1 source) skilled nursing (current) use of oral hypoglycemic drugs; 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] Onset: 07-10-2025 Episodic Other aftercare (1 source) Other local company intermodal truck driver (current) drug therapy; Translations: [Other fdc (current) drug therapy] Onset: 07-10-2025 Episodic Other nervous system disorders (9 sources) [...] 12-05-2024 Episodic Residual codes; unclassified (1 source) Edema, unspecified; Translations: [Edema, unspecified] Onset: 07-10-2025 Episodic Superficial injury; contusion (20 sources) Contusion of left front wall of thorax, initial encounter; Translations: [Contusion of rib on left side] 11-16-2024 Episodic Urinary tract infections (1 source) Urinary tract infection, site not specified; Translations: [Urinary tract infection, site not specified] Onset: 07-10-2025 Episodic Past or Other Problems Problem Classification Problem Date Documented Da te Episodic/Chronic Other injuries and conditions due to external causes (1 source) Encounter for examination and observation following other accident; Translations: [Encounter for examination and observation following other accident] Onset: 03-04-2025 Episodic Other nervous system disorders (2 sources) Other [...] Auto (Unsp spec) [#/Vol] 1.13 10*3/uL 0.83-4.51 [facility] Absolute neutrophil countOrd ered By: Sofia Marrero on 02-26-2025 Neutrophils (Bld) [#/Vol] 6.2 10*3/uL 2.0-7.7 [facility] Anion gap in Serum or Plasma Ordered By: Sofia Marrero on 02-26-2025 Anion gap [Moles/Vol] 12 mmol/L 5-15 [facility] Automated lymphocyte count a s percentage of total leukocytesOrdered By: Sofia Marrero on 02-26-2025 Lymphocytes/100 WBC Auto (Unsp spec) 14.4 % Low 19-41 [facility] BUN/creatinine ratioOrdered By: Sofia Marrero on 02-26-2025 Urea nitrogen/Creatinine [Mass ratio] 13.4 mg/mg 06-30 [facility] Basic Metabolic Profile (BMP )on 02-26-2025 BUN/CRE 13.4 RATIO Normal 06-30 [facility] Comment on above: Performed By: #### L 500.2500 #### [facility] Laboratory [facility] [place], [address] Calcium [Mass/Vol] 9.2 mg/dL Normal 7.6-11.0 [facility] Comment on above: Performed By: #### L 500.2500 #### [facility] Laboratory [address] [place], [address] Chloride [Moles/Vol] 93 mmol/L Low 98-108 [facility] Comment on above: Performed By: #### L 500.2500 #### [facility] Laboratory [address] [place], [address] CO2 [Moles/Vol] 25.9 mmol/L Normal 21.0-32.0 [facility] Comment on above: Performed By: #### L 500.2500 #### [facility] Laboratory [address] [place], [address] Creatinine [Mass/Vol] 0.72 mg/dL Normal 0.70-1.20 [facility] Comment on above: Performed By: #### L 500.2500 #### [facility] Laboratory [address] [place], [address] ECRCL 57.50 ml/min Normal 50-250 [facility] Comment on above: Performed By: #### L 500.2500 #### [facility] Laboratory [address] [place], [address] GAP 12 Normal 5-15 [facility] Comment on above: Performed By: #### L 500.2500 #### [facility] Laboratory [address] [place], [address] GFR/1.73 sq M.predicted among non-blacks MDRD (S/P/Bld) [Vol rate/Area] 85 mL/min/{1.73_m2} Normal >60 [facility] Comment on above: Result Comment: mL/m in/1.73m2 CKD-EPI Creatinine Equation (2020) Performed By: #### L 500.2500 #### [facility] Laboratory [address] [place], [address] Glucose [Mass/Vol] 117 mg/dL High 70-99 [facility] Comment on above: Performed By: #### L 500.2500 #### [facility] Laboratory [address] [place], [address] Potassium [Moles/Vol] 4.0 mmol/L Normal 3.3-5.1 [facility] Comment on above: Result Comment: Hemo lysis present, Results??could be affected. ?? Performed By: #### L 500.2500 #### [facility] Laboratory [address] [place], [address] Sodium [Moles/Vol] 130 mmol/L Low 133-145 [facility] Comment on above: Performed By: #### L 500.2500 #### [facility] Laboratory [address] [place], [address] Urea nitrogen [Mass/Vol] 10 mg/dL Normal 4-19 [facility] Comment on above: Performed By: #### L 500.2500 #### [facility] Laboratory [address] [place], [address] BUN Normal 4-19 [facility] Comment on above: Result Comment: This specimen has been REJECTED due to Laboratory criteria: Hemolyzed. Carrie (ED) has been notified of need of recollection. 02/26/25 1054 Ralf L White Performed By: #### L 500.2500, L100.0100 #### [facility] Laboratory [address] [place], [address] BUN/CRE Normal 10-20 [facility] Comment on above: Result Comment: This specimen has been REJECTED due to Laboratory criteria: Hemolyzed. Carrie (ED) has been notified of need of recollection. 02/26/25 1054 Ralf L White Performed By: #### L 500.2500, L100.0100 #### [facility] Laboratory [address] [place], [address] Calcium Normal 7.6-11.0 [facility] Comment on above: Result Comment: This specimen has been REJECTED due to Laboratory criteria: Hemolyzed. Carrie (ED) has been notified of need of recollection. 02/26/25 1054 Ralf L White Performed By: #### L 500.2500, L100.0100 #### [facility] Laboratory [address] [place], [address] CL Normal 98-108 [facility] Comment on above: Result Comment: This specimen has been REJECTED due to Laboratory criteria: Hemolyzed. Carrie (ED) has been notified of need of recollection. 02/26/25 1054 Ralf L White Performed By: #### L 500.2500, L100.0100 #### [facility] Laboratory [address] [place], [address] CO2 Normal 21.0-32.0 [facility] Comment on above: Result Comment: This specimen has been REJECTED due to Laboratory criteria: Hemolyzed. Carrie (ED) has been notified of need of recollection. 02/26/25 1054 Ralf L White Performed By: #### L 500.2500, L100.0100 #### [facility] Laboratory [address] [place], [address] CREAT,SERUM Normal 0.70-1.20 [facility] Comment on above: Result Comment: This specimen has been REJECTED due to Laboratory criteria: Hemolyzed. Carrie (ED) has been notified of need of recollection. 02/26/25 1054 Ralf L White Performed By: #### L 500.2500, L100.0100 #### [facility] Laboratory [address] [place], [address] eGFR Normal >60 [facility] Comment on above: Result Comment: This specimen has been REJECTED due to Laboratory criteria: Hemolyzed. Carrie (ED) has been notified of need of recollection. 02/26/25 1054 Ralf L White Performed By: #### L 500.2500, L100.0100 #### [facility] Laboratory [address] [place], [address] GAP Normal 5-15 [facility] Comment on above: Result Comment: This specimen has been REJECTED due to Laboratory criteria: Hemolyzed. Carrie (ED) has been notified of need of recollection. 02/26/25 1054 Ralf L White Performed By: #### L 500.2500, L100.0100 #### [facility] Laboratory [address] [place], [address] GLU Normal 70-99 [facility] Comment on above: Result Comment: This specimen has been REJECTED due to Laboratory criteria: Hemolyzed. Carrie (ED) has been notified of need of recollection. 02/26/25 1054 Ralf L White Performed By: #### L 500.2500, L100.0100 #### [facility] Laboratory [address] [place], [address] Potassium Normal 3.3-5.1 [facility] Comment on above: Result Comment: This specimen has been REJECTED due to Laboratory criteria: Hemolyzed. Carrie (ED) has been notified of need of recollection. 02/26/25 1054 Ralf L White Performed By: #### L 500.2500, L100.0100 #### [facility] Laboratory [address] [place], [address] Basic Metabolic Profile (BMP) Normal 133-145 [facility] Comment on above: Result Comment: This specimen has been REJECTED due to Laboratory criteria: Hemolyzed. Carrie (ED) has been notified of need of recollection. 02/26/25 1054 Ralf L White Performed By: #### L 500.2500, L100.0100 #### [facility] Laboratory [address] [place], [address] Basophil percentageOrdered B y: Remus Ungur on 02-26-2025 Basophils/100 WBC (Bld) 0.6 % 0-1 [facility] Brain/Head without Contrasto n 02-26-2025 Brain/Head without Contrast [facility] Imaging Services [address] [place], [place] [address] Brain/Head without Contrast MR#: [id number] Acct: [id number] Name: ZHENG ROY Rep #: [id number] : 1945 F 79 From: Ezekiel lovelace MD PCP: Dr. Epifanio Zamora DO Status: REG ER Study: Brain/Head without Contrast Date of Exam: 02/09 05/05 Exam# [id number] Ordering Dr: Sofia Marrero DO PROCEDURE: BRAIN/HEAD [...] CHRONIC CHANGES. NO ACUTE FINDINGS. Reading Location: [facility] CC: Dr. Sofia Marrero DO; Dr. Epifanio Zamora DO Deportation Officer: Signed Normal [facility] CBC W/Diff, Automatedon 02-09 Absolute Lymph 1.13 X10 3/uL Normal 0.83-4.51 [facility] Comment on above: Performed By: #### L 500.2500, L100.0100 #### [facility] Laboratory [address] [place], [place], [address] Absolute Neut 6.2 X10 3/uL Normal 2.0-7.7 [facility] Comment on above: Performed By: #### L 500.2500, L100.0100 #### [facility] Laboratory [address] [place], [address] Basophils/100 WBC (Bld) 0.6 % Normal 0-1 [facility] Comment on above: Performed By: #### L 500.2500, L100.0100 #### [facility] Laboratory [address] [place], [address] Eosinophils/100 WBC (Bld) 0.5 % Normal 0-5 [facility] Comment on above: Performed By: #### L 500.2500, L100.0100 #### [facility] Laboratory [address] [place], [address] Erythrocyte distribution width (RBC) [Ratio] 12.3 % Normal 11.6-14.6 [facility] Comment on above: Performed By: #### L 500.2500, L100.0100 #### [facility] Laboratory [address] [place], [address] Hematocrit (Bld) [Volume fraction] 39.7 % Normal 37-47 [facility] Comment on above: Performed By: #### L 500.2500, L100.0100 #### [facility] Laboratory [address] [place], [address] Hemoglobin (Bld) [Mass/Vol] 14.0 g/dL Normal 12.0-15.0 [facility] Comment on above: Performed By: #### L 500.2500, L100.0100 #### [facility] Laboratory [address] [place], [address] IG% 0.500 Normal 0.0-0.9 [facility] Comment on above: Result Comment: IG% - Immature Granulocytes (promyelocytes, myelocytes and metamyelocytes) > 1% indicates that a LEFT SHIFT is Present. Performed By: #### L 500.2500, L100.0100 #### [facility] Laboratory [address] [place], [address] Lymphocytes/100 WBC (Bld) 14.4 % Low 19-41 [facility] Comment on above: Performed By: #### L 500.2500, L100.0100 #### [facility] Laboratory [address] [place], [address] MCH (RBC) [Entitic mass] 30.0 pg Normal 27.0-32.0 [facility] Comment on above: Performed By: #### L 500.2500, L100.0100 #### [facility] Laboratory [address] [place], [address] MCHC (RBC) [Mass/Vol] 35.3 g/dL Normal 32-36 [facility] Comment on above: Performed By: #### L 500.2500, L100.0100 #### [facility] Laboratory [address] [place], [address] MCV (RBC) [Entitic vol] 85.0 fL Normal 81-99 [facility] Comment on above: Performed By: #### L 500.2500, L100.0100 #### [facility] Laboratory [address] [place], [address] Monocytes/100 WBC (Bld) 5.1 % Normal 0-10 [facility] Comment on above: Performed By: #### L 500.2500, L100.0100 #### [facility] Laboratory [address] [place], [address] Neutrophils/100 WBC (Bld) 78.9 % High 47-70 [facility] Comment on above: Performed By: #### L 500.2500, L100.0100 #### [facility] Laboratory [address] [place], [address] Nucleated RBC (Bld) [#/Vol] 0 10*3/uL Normal 0-5 [facility] Comment on above: Performed By: #### L 500.2500, L100.0100 #### [facility] Laboratory [address] [place], [address] Platelet mean volume (Bld) [Entitic vol] 9.6 fL Normal 6.2-12.0 [facility] Comment on above: Performed By: #### L 500.2500, L100.0100 #### [facility] Laboratory [address] [place], [address] Platelets (Bld) [#/Vol] 297 10*3/uL Normal 150-450 [facility] Comment on above: Performed By: #### L 500.2500, L100.0100 #### [facility] Laboratory [address] [place], [address] RBC (Bld) [#/Vol] 4.67 10*6/uL Normal 4.2-5.4 [facility] Comment on above: Performed By: #### L 500.2500, L100.0100 #### [facility] Laboratory [address] [place], [address] RDW SD 37.8 fl Normal 35.1-43.9 [facility] Comment on above: Performed By: #### L 500.2500, L100.0100 #### [facility] Laboratory [address] [place], [address] WBC (Bld) [#/Vol] 7.9 10*3/uL Normal 4.4-11.0 [facility] Comment on above: Performed By: #### L 500.2500, L100.0100 #### [facility] Laboratory [address] [place], [address] Carbon dioxide, total [Moles /volume] in Central venous bloodOrdered By: Sofia Marrero on 02-26-2025 CO2 [Moles/Vol] 25.9 mmol/L 21.0-32.0 [facility] Chloride assayOrdered By: Radha Marrero on 02-26-2025 Chloride [Moles/Vol] 93 mmol/L Low 98-108 [facility] Emergency Department Summary on 02-26-2025 Emergency Department Summary [facility] Medical Records Department [address] [place] [address] Emergency Department Summary 02/26/25 MR#: [id number] Acct: [id number] Name: ZHENG ROY Rep #: [id number] : 1945 79 From: Sofia Marrero DO PCP: Dr. Epifanio Zamora, Status:DEP ER Location: ED HPI History of [...] no loss of consciousness. Patient from a retirement and has history of dementia. Patient not anticoagulated. She denies neck pain. She denies chest pain or abdominal pain. [facility] Medical History (Updated 02/26/25 @ 11:52 by [...] well nour (more content not included)... Normal [facility] Eosinophil percentageOrdered By: Sofia Marrero on 02-26-2025 Eosinophils/100 WBC (Bld) 0.5 % 0-5 [facility] Erythrocyte distribution wid th ratioOrdered By: [facility] on 02-26-2025 Erythrocyte distribution width (RBC) [Ratio] 12.3 % 11.6-14.6 [facility] Erythrocyte distribution wid th standard deviationOrdered By: Sofia Marrero on 02-26-2025 Erythrocyte distribution width (RBC) [Ratio] 37.8 fl 35.1-43.9 [facility] Glomerular filtration rate ( GFR) estimation/1.73 sq m using serum, plasma, or whole bOrdered By: Sofia Marrero on 02-26-2025 GFR/1.73 sq M.predicted among non-blacks MDRD (S/P/Bld) [Vol rate/Area] 85 mL/min/{1.73_m2} >60 [facility] Comment on above: mL/min/1.73m2 CKD-EP I Creatinine Equation (2020) HIP, UNI W/ Pelvis 2-3 Views on 02-26-2025 HIP, UNI W/ Pelvis 2-3 Views [facility] Imaging Services [address] [place] [address] HIP, UNI W/ Pelvis 2-3 Views MR#: [id number] Acct: [id number] Name: ZHENG ROY Rep #: [id number] : 1945 F 79 From: Ezekiel lovelace MD PCP: Dr. Epifanio Zamora DO Status: DEP ER Study: HIP, UNI W/ Pelvis 2-3 Views Date of Exam: Exam# [id number] Ordering Dr: Sofia Marrero DO PROCEDURE: HIP, [...] No acute abnormality is seen. Reading Location: [facility] CC: Dr. Sofia Marrero DO; Dr. Epifanio Zamora DO Deportation Officer: Signed Normal [facility] Hematocrit Auto (Bld) [Volum e fraction]Ordered By: Sofia Marrero on 02-26-2025 Hematocrit (Bld) [Volume fraction] 39.7 % 37-47 [facility] Hemoglobin measurementOrdere d By: Sofia Marrero on 02-26-2025 Hemoglobin (Bld) [Mass/Vol] 14.0 g/dL 12.0-15.0 [facility] Immature granulocytes/100 WB C Auto (Bld)Ordered By: Sofia Marrero on 02-26-2025 Immature granulocytes/100 WBC (Bld) 0.500 % 0.0-0.9 [facility] Comment on above: IG% - Immature Granu locytes (promyelocytes, myelocytes and metamyelocytes) > 1% indicates that a LEFT SHIFT is Present. MCV (mean corpuscular volume ) determinationOrdered By: Sofia Marrero on 02-26-2025 MCV (RBC) [Entitic vol] 85.0 fL 81-99 [facility] Mean corpuscular hemoglobin (MCH) determinationOrdered By: Sofia Marrero on 02-26-2025 MCH (RBC) [Entitic mass] 30.0 pg 27.0-32.0 [facility] Mean corpuscular hemoglobin concentration (MCHC) determinationOrdered By: Sofia Marrero on 02-26-2025 MCHC (RBC) [Mass/Vol] 35.3 g/dL 32-36 [facility] Mean platelet volume determi nationOrdered By: Sofia Marrero on 02-26-2025 Platelet mean volume (Bld) [Entitic vol] 9.6 fL 6.2-12.0 [facility] Monocyte percentageOrdered B y: Sofia Marrero on 02-26-2025 Monocytes/100 WBC (Bld) 5.1 % 0-10 [facility] Neutrophil percentageOrdered By: Sofia Marrero on 02-26-2025 Neutrophils/100 WBC (Bld) 78.9 % High 47-70 [facility] Nucleated red blood cell per centageOrdered By: Sofia Marrero on 02-26-2025 Nucleated RBC/100 WBC (Bld) [Ratio] 0 % 0-5 [facility] Platelet countOrdered By: Radha Marrero on 02-26-2025 Platelets (Bld) [#/Vol] 297 10*3/uL 150-450 [facility] Potassium measurement (mass/ volume)Ordered By: Sofia Marrero on 02-26-2025 Potassium (Unsp spec) [Mass/Vol] 4.0 mmol/L 3.3-5.1 [facility] Comment on above: Hemolysis present, R esults could be affected. RBC Auto (Bld) [#/Vol]Ordere d By: Sofia Marrero on 02-26-2025 RBC (Bld) [#/Vol] 4.67 10*6/uL 4.2-5.4 [facility] Serum creatinine measurement (mass/volume)Ordered By: Sofia Marrero on 02-26-2025 Creatinine [Mass/Vol] 0.72 mg/dL 0.70-1.20 [facility] Serum glucose measurement (m ass/volume)Ordered By: Sofia Marrero on 02-26-2025 Glucose [Mass/Vol] 117 mg/dL High 70-99 [facility] Serum or plasma calcium roel urement (mass/volume)Ordered By: Sofia Marrero on 02-26-2025 Calcium [Mass/Vol] 9.2 mg/dL 7.6-11.0 [facility] Serum or plasma urea nitroge n measurement (mass/volume)Ordered By: Sofia Birminghamrhina on 02-26-2025 Urea nitrogen [Mass/Vol] 10 mg/dL 4-19 [facility] Sodium levelOrdered By: Remu s Janes on 02-26-2025 Sodium [Moles/Vol] 130 mmol/L Low 133-145 [facility] White blood cell (WBC) count Ordered By: Remus Janes on 02-26-2025 WBC (Bld) [#/Vol] 7.9 10*3/uL 4.4-11.0 [facility] Brain/Head without Contrasto n 12-05-2024 Brain/Head without Contrast [facility] Imaging Services [address], [place] [address] Brain/Head without Contrast MR#: [id number] Acct: [id number] Name: ZHENG ROY Rep #: [id number] : 1945 F 79 From: Mary Ann Llanos MD PCP: Dr. Epifanio Zamora DO Status: REG ER Study: Brain/Head without Contrast Date of Exam: 11/10 04/04 Exam# [id number] Ordering Dr: Sushil Gutierrez DO PROCEDURE: BRAIN/HEAD [...] 1. No acute intracranial abnormality. Reading [facility] CC: Dr. Sushil Gutierrez DO; Dr. Epifanio Zamora DO Deportation Officer: Signed Normal [facility] Emergency Department Summary on 12-05-2024 Emergency Department Summary [facility] Medical Records Department [address] [place] [address] Emergency Department Summary 12/05/24 MR#: [id number] Acct: [id number] Name: ZHENG ROY Rep #: [id number] : 1945 79 From: Sushil Gutierrez DO [...] is no report of being on anticoagulants. [facility] Medical History Dementia Basal cell [...] non-tender Palpation: (more content not included)... Normal [facility] HIP, UNI W/ Pelvis 2-3 Views on 12-05-2024 HIP, UNI W/ Pelvis 2-3 Views [facility] Imaging Services [address] [place] [address] HIP, UNI W/ Pelvis 2-3 Views MR#: [id number] Acct: [id number] Name: ZHENG ROY Rep #: [id number] : 1945 F 79 From: Mary Ann Llanos MD PCP: Dr. Epifanio Zamora DO Status: REG ER Study: HIP, UNI W/ Pelvis 2-3 Views Date of Exam: Exam# [id number] Ordering Dr: Sushil Gutierrez DO PROCEDURE: HIP, [...] Sushil Gutierrez DO; Dr. Epifanio Zamora DO Deportation Officer: Signed Normal [facility] Knee 4 or More Viewson 12-05 Knee 4 or More Views [facility] Imaging Services [address] [place], [place] [id number] Knee 4 or More Views MR#: [id number] Acct: [id number] Name: ZHENG ROY Rep #: [id number] : 1945 F 79 From: Mary Ann Llanos MD PCP: Dr. Epifanio Zamora DO Status: REG ER Study: Knee 4 or More Views Date of Exam: 12/05/24 Exam# [id number] Ordering Dr: Sushil Gutierrez DO PROCEDURE: KNEE 4 OR MORE VIEWS 12/05/2024 REASON FOR EXAM: INJURY TECHNIQUE: 4 view(s) of the right knee COMPARISON: 12/05/2024 FINDINGS: No acute fracture or dislocation.No degenerative changes. No joint effusion. No soft tissue abnormality. RAD/Knee 4 or More Views IMPRESSION: No acute abnormality. Reading Location: [facility] CC: Dr. Sushil Gutierrez DO; Dr. Epifanio Zamora DO Deportation Officer: Signed Normal [facility] Absolute lymphocyte countOrd ered By: Kenney Weber on 11-29-2024 Lymphocytes Auto (Unsp spec) [#/Vol] 1.17 10*3/uL 0.83-4.51 [facility] Absolute neutrophil countOrd ered By: Kenney Weber on 11-29-2024 Neutrophils (Bld) [#/Vol] 7.5 10*3/uL 2.0-7.7 [facility] Anion gap in Serum or Plasma Ordered By: Kenney Weber on 11-29-2024 Anion gap [Moles/Vol] 12 mmol/L 5- [facility] Automated lymphocyte count a s percentage of total leukocytesOrdered By: Kenney Weber on 11-29-2024 Lymphocytes/100 WBC Auto (Unsp spec) 12.8 % Low - [facility] BUN/creatinine ratioOrdered By: Kenney Weber on 11-29-2024 Urea nitrogen/Creatinine [Mass ratio] 16.9 mg/mg - [facility] Basic Metabolic Profile (BMP )on 11-29-2024 BUN/CRE 16.9 RATIO Normal 06-30 [facility] Comment on above: Performed By: #### L 500.2500, L100.0100 ####[facility] [address] [place] [address] Calcium [Mass/Vol] 9.2 mg/dL Normal 7.6-11.0 [facility] Comment on above: Performed By: #### L 500.2500, L100.0100 ####[facility] [address] [place] [address] Chloride [Moles/Vol] 94 mmol/L Low 98-108 [facility] Comment on above: Performed By: #### L 500.2500, L100.0100 ####[facility] [address] [place], [address] CO2 [Moles/Vol] 22.8 mmol/L Normal 21.0-32.0 [facility] Comment on above: Performed By: #### L 500.2500, L100.0100 ####[facility] [address] [place], [address] Creatinine [Mass/Vol] 0.78 mg/dL Normal 0.70-1.20 [facility] Comment on above: Performed By: #### L 500.2500, L100.0100 ####[facility] [address] [place], [address] ECRCL 57.61 ml/min Normal 50-250 [facility] Comment on above: Performed By: #### L 500.2500, L100.0100 ####[facility] [address] [place], [address] GAP 12 Normal 5-15 [facility] Comment on above: Performed By: #### L 500.2500, L100.0100 ####[facility] [address] [place], [address] GFR/1.73 sq M.predicted among non-blacks MDRD (S/P/Bld) [Vol rate/Area] 77 mL/min/{1.73_m2} Normal >60 [facility] Comment on above: Result Comment: mL/m in/1.73m2 CKD-EPI Creatinine Equation (2020) Performed By: #### L 500.2500, L100.0100 ####[facility] [address] [place], [address] Glucose [Mass/Vol] 114 mg/dL High 70-99 [facility] Comment on above: Performed By: #### L 500.2500, L100.0100 ####[facility] [address] [place], [address] Potassium [Moles/Vol] 4.8 mmol/L Normal 3.3-5.1 [facility] Comment on above: Result Comment: Hemo lysis present, Results??could be affected. ?? Performed By: #### L 500.2500, L100.0100 ####[facility] [address] [place], [address] Sodium [Moles/Vol] 129 mmol/L Low 133-145 [facility] Comment on above: Performed By: #### L 500.2500, L100.0100 ####[facility] [address] [place], [address] Urea nitrogen [Mass/Vol] 13 mg/dL Normal 4-19 [facility] Comment on above: Performed By: #### L 500.2500, L100.0100 ####[facility] [address] [place], [address] Basophil percentageOrdered B y: Kenney Weber on 11-29-2024 Basophils/100 WBC (Bld) 0.5 % 0-1 [facility] Brain/Head without Contrasto n 11-29-2024 Brain/Head without Contrast [facility] Imaging Services [address] [place] [address] Brain/Head without Contrast MR#: [id number] Acct: [id number] Name: ZHENG ROY Rep #: [id number] : 1945 F 79 From: Cornell Pressley MD PCP: Dr. Epifanio Zamora DO Status: REG ER Study: Brain/Head without Contrast Date of Exam: 11/10 10/05 Exam# [id number] Ordering Dr: Kenney Weber MD PROCEDURE: BRAIN/HEAD [...] 4. Additional description as above. Reading Location: [id number] CC: Dr. Kenney Weber MD; Dr. Epifanio Zamora DO Deportation Officer: Signed Normal [facility] CBC W/Diff, Automatedon 11-10 Absolute Lymph 1.17 X10 3/uL Normal 0.83-4.51 [facility] Comment on above: Performed By: #### L 500.2500, L100.0100 ####[facility] [address] [place], [address] Absolute Neut 7.5 X10 3/uL Normal 2.0-7.7 [facility] Comment on above: Performed By: #### L 500.2500, L100.0100 ####[facility] [address] [place], [address] Basophils/100 WBC (Bld) 0.5 % Normal 0-1 [facility] Comment on above: Performed By: #### L 500.2500, L100.0100 ####[facility] [address] [place], [address] Eosinophils/100 WBC (Bld) 0.4 % Normal 0-5 [facility] Comment on above: Performed By: #### L 500.2500, L100.0100 ####[facility] [address] [place], [address] Erythrocyte distribution width (RBC) [Ratio] 11.9 % Normal 11.6-14.6 [facility] Comment on above: Performed By: #### L 500.2500, L100.0100 ####[facility] [address] [place], [address] Hematocrit (Bld) [Volume fraction] 39.8 % Normal 37-47 [facility] Comment on above: Performed By: #### L 500.2500, L100.0100 ####[facility] [address] [place], [address] Hemoglobin (Bld) [Mass/Vol] 13.9 g/dL Normal 12.0-15.0 [facility] Comment on above: Performed By: #### L 500.2500, L100.0100 ####[facility] [address] [place], [address] IG% 0.300 Normal 0.0-0.9 [facility] Comment on above: Result Comment: IG% - Immature Granulocytes (promyelocytes, myelocytes and metamyelocytes) > 1% indicates that a LEFT SHIFT is Present. Performed By: #### L 500.2500, L100.0100 ####[facility] [address] [place], [address] Lymphocytes/100 WBC (Bld) 12.8 % Low 19-41 [facility] Comment on above: Performed By: #### L 500.2500, L100.0100 ####[facility] [address] [place], [address] MCH (RBC) [Entitic mass] 30.5 pg Normal 27.0-32.0 [facility] Comment on above: Performed By: #### L 500.2500, L100.0100 ####[facility] [address] [place], [address] MCHC (RBC) [Mass/Vol] 34.9 g/dL Normal 32-36 [facility] Comment on above: Performed By: #### L 500.2500, L100.0100 ####[facility] [address] [place], [address] MCV (RBC) [Entitic vol] 87.5 fL Normal 81-99 [facility] Comment on above: Performed By: #### L 500.2500, L100.0100 ####[facility] [address] [place], [address] Monocytes/100 WBC (Bld) 4.5 % Normal 0-10 [facility] Comment on above: Performed By: #### L 500.2500, L100.0100 ####[facility] [address] [place], [address] Neutrophils/100 WBC (Bld) 81.5 % High 47-70 [facility] Comment on above: Performed By: #### L 500.2500, L100.0100 ####[facility] [address] [place], [address] Nucleated RBC (Bld) [#/Vol] 0 10*3/uL Normal 0-5 [facility] Comment on above: Performed By: #### L 500.2500, L100.0100 ####[facility] [address] [place], [address] Platelet mean volume (Bld) [Entitic vol] 9.7 fL Normal 6.2-12.0 [facility] Comment on above: Performed By: #### L 500.2500, L100.0100 ####[facility] [address] [place], [address] Platelets (Bld) [#/Vol] 302 10*3/uL Normal 150-450 [facility] Comment on above: Performed By: #### L 500.2500, L100.0100 ####[facility] [address] [place], [address] RBC (Bld) [#/Vol] 4.55 10*6/uL Normal 4.2-5.4 [facility] Comment on above: Performed By: #### L 500.2500, L100.0100 ####[facility] [address] [place], [address] RDW SD 38.4 fl Normal 35.1-43.9 [facility] Comment on above: Performed By: #### L 500.2500, L100.0100 ####[facility] [address] [place], [address] WBC (Bld) [#/Vol] 9.2 10*3/uL Normal 4.4-11.0 [facility] Comment on above: Performed By: #### L 500.2500, L100.0100 ####[facility] [address] [place], [address] Carbon dioxide, total [Moles /volume] in Central venous bloodOrdered By: Kenney Weber on 11-29-2024 CO2 [Moles/Vol] 22.8 mmol/L 21.0-32.0 [facility] Chloride assayOrdered By: Jostin Weber on 11-29-2024 Chloride [Moles/Vol] 94 mmol/L Low 98-108 [facility] Emergency Department Summary on 11-29-2024 Emergency Department Summary [facility] Medical Records Department [address] [place] [address] Emergency Department Summary 11/29/24 MR#: [id number] Acct: [id number] Name: ZHENG ROY Rep #: [id number] : 1945 79 From: Kenney Weber MD [...] She denies any vomiting. No recent illness. [facility] Medical History Dementia Basal cell [...] clear and moist mucous membranes HEENT Narrative: Buchanan-Hallpike recreates dizziness transiently bilaterally. No direction changing [...] non-distended Aus (more content not included)... Normal [facility] Eosinophil percentageOrdered By: Kenney Weber on 11-29-2024 Eosinophils/100 WBC (Bld) 0.4 % 0-5 [facility] Erythrocyte distribution wid th ratioOrdered By: Kenney Weber on 11-29-2024 Erythrocyte distribution width (RBC) [Ratio] 11.9 % 11.6-14.6 [facility] Erythrocyte distribution wid th standard deviationOrdered By: Kenney Weber on 11-29-2024 Erythrocyte distribution width (RBC) [Entitic vol] 38.4 fL 35.1-43.9 [facility] Erythrocyte distribution width (RBC) [Ratio] 38.4 fl 35.1-43.9 [facility] Estimation of creatinine quinn aranceOrdered By: Kenney Weber on 11-29-2024 Estimated Creatinine Clearance Calc 57.61 ml/min 50-250 [facility] GFR/1.73 sq M.predicted anali g non-blacks MDRD (S/P/Bld) [Vol rate/Area]Ordered By: Kenney Weber on 11-29-2024 Estimated GFR (MDRD) Non-Af Amer 77 >60 [facility] Comment on above: mL/min/1.73m2 CKD-EP I Creatinine Equation (2020) Glomerular filtration rate ( GFR) estimation/1.73 sq m using serum, plasma, or whole bOrdered By: Kenney Weber on 11-29-2024 GFR/1.73 sq M.predicted among non-blacks MDRD (S/P/Bld) [Vol rate/Area] 77 mL/min/{1.73_m2} >60 [facility] Comment on above: mL/min/1.73m2 CKD-EP I Creatinine Equation (2020) Hematocrit Auto (Bld) [Volum e fraction]Ordered By: Kenney Weber on 11-29-2024 Hematocrit (Bld) [Volume fraction] 39.8 % 37-47 [facility] Hemoglobin measurementOrdere d By: Kenney Weber on 11-29-2024 Hemoglobin (Bld) [Mass/Vol] 13.9 g/dL 12.0-15.0 [facility] Immature granulocytes/100 WB C Auto (Bld)Ordered By: Kenney Weber on 11-29-2024 Immature granulocytes/100 WBC (Bld) 0.300 % 0.0-0.9 [facility] Comment on above: IG% - Immature Granu locytes (promyelocytes, myelocytes and metamyelocytes) > 1% indicates that a LEFT SHIFT is Present. Lymphocytes Auto (Unsp spec) [#/Vol]Ordered By: Kenney Weber on 11-29-2024 Lymphocytes (Bld) [#/Vol] 1.17 10*3/uL 0.83-4.51 [facility] Lymphocytes/100 WBC Auto (Un sp spec)Ordered By: Kenney Weber on 11-29-2024 Lymphocytes/100 WBC (Bld) 12.8 % Low 19-41 [facility] MCV (mean corpuscular volume ) determinationOrdered By: Kenney Weber on 11-29-2024 MCV (RBC) [Entitic vol] 87.5 fL 81-99 [facility] Mean corpuscular hemoglobin (MCH) determinationOrdered By: Kenney Weber on 11-29-2024 MCH (RBC) [Entitic mass] 30.5 pg 27.0-32.0 [facility] Mean corpuscular hemoglobin concentration (MCHC) determinationOrdered By: Kenney Weber on 11-29-2024 MCHC (RBC) [Mass/Vol] 34.9 g/dL 32-36 [facility] Mean platelet volume determi nationOrdered By: Kenney Weber on 11-29-2024 Platelet mean volume (Bld) [Entitic vol] 9.7 fL 6.2-12.0 [facility] Monocyte percentageOrdered B y: Kenney Weber on 11-29-2024 Monocytes/100 WBC (Bld) 4.5 % 0-10 [facility] Neutrophil percentageOrdered By: Kenney Weber on 11-29-2024 Neutrophils/100 WBC (Bld) 81.5 % High 47-70 [facility] Nucleated red blood cell per centageOrdered By: Kenney Weber on 11-29-2024 Nucleated RBC/100 WBC (Bld) [Ratio] 0 % 0-5 [facility] Platelet countOrdered By: Jostin Weber on 11-29-2024 Platelets (Bld) [#/Vol] 302 10*3/uL 150-450 [facility] Potassium (Unsp spec) [Mass/ Vol]Ordered By: Kenney Weber on 11-29-2024 Potassium [Moles/Vol] 4.8 mmol/L 3.3-5.1 [facility] Comment on above: Hemolysis present, R esults could be affected. Potassium measurement (mass/ volume)Ordered By: Kenney Weber on 11-29-2024 Potassium (Unsp spec) [Mass/Vol] 4.8 mmol/L 3.3-5.1 [facility] Comment on above: Hemolysis present, R esults could be affected. RBC Auto (Bld) [#/Vol]Ordere d By: Kenney eWber on 11-29-2024 RBC (Bld) [#/Vol] 4.55 10*6/uL 4.2-5.4 [facility] Ribs Uni Min 3V w/PA Cheston 11-29-2024 Ribs Uni Min 3V w/PA Chest [facility] Imaging Services [address] [place] [address] Ribs Uni Min 3V w/PA Chest MR#: [id number] Acct: [id number] Name: ZHENG ROY Rep #: [id number] : 1945 F 79 From: Ezekiel lovelace MD PCP: Dr. Epifanio Zamora DO Status: REG ER Study: Ribs Uni Min 3V w/PA Chest Date of Exam: 11/29 Exam# [id number] Ordering Dr: Kenney Weber MD PROCEDURE: RIBS [...] No acute abnormality is seen. Reading Location: [place] [address] CC: Dr. Kenney Weber MD; Dr. Epifanio Zamora DO Deportation Officer: Signed Normal [facility] Serum creatinine measurement (mass/volume)Ordered By: Kenney Weber on 11-29-2024 Creatinine [Mass/Vol] 0.78 mg/dL 0.70-1.20 [facility] Serum glucose measurement (m ass/volume)Ordered By: Kenney Weber on 11-29-2024 Glucose [Mass/Vol] 114 mg/dL High 70-99 [facility] Serum or plasma calcium roel urement (mass/volume)Ordered By: Kenney Weber on 11-29-2024 Calcium [Mass/Vol] 9.2 mg/dL 7.6-11.0 [facility] Serum or plasma urea nitroge n measurement (mass/volume)Ordered By: Kenney Weber on 11-29-2024 Urea nitrogen [Mass/Vol] 13 mg/dL 4-19 [facility] Sodium levelOrdered By: Favio Weber on 11-29-2024 Sodium [Moles/Vol] 129 mmol/L Low 133-145 [facility] White blood cell (WBC) count Ordered By: Kenney Weber on 11-29-2024 WBC (Bld) [#/Vol] 9.2 10*3/uL 4.4-11.0 [facility] Emergency Department Summary on 11-16-2024 Emergency Department Summary [facility] Medical Records Department [address] [place] [address] Emergency Department Summary 11/16/24 MR#: [id number] Acct: [id number] Name: ZHENG ROY Rep #: [id number] : 1945 79 From: Astrid EASTON PCP: Dr. Epifanio Zamora, DO Status:REG ER Location: ED HPI History of Present Illness Chief Complaint: Fall Narrative Narrative: 79-year-old female had an unwitnessed fall at [facility]. She was apparently found on the ground facedown near the dining area. She has no external signs of injury but complains of left shoulder pain. She is not on blood thinners. Daughter states she has dementia and moved into [place] in September 2024 and since then has fallen a total of 2 times including today. She ambulates well without assistance or assistive devices. Patient is not sure why she fell off but can provide limited history secondary to dementia. Her daughter is here and states she is acting at baseline. [facility] Medical History (Updated 11/16/24 @ [...] Method Room (more content not included)... Normal [facility] Ribs Uni Min 3V w/PA Cheston 11-16-2024 Ribs Uni Min 3V w/PA Chest [facility] Imaging Services [address] [place], [place] [address] Ribs Uni Min 3V w/PA Chest MR#: [id number] Acct: [id number] Name: ZHENG ROY Rep #: [id number] : 1945 F 79 From: Meron Rocha DO PCP: Dr. Epifanio Zamora DO Status: REG ER Study: Ribs Uni Min 3V w/PA Chest Date of Exam: 11/16 Exam# [id number] Ordering Dr: Kalyan Dozier MD PROCEDURE: RIBS [...] Epifanio Zamora DO; Dr. Kalyan Dozier MD Deportation Officer: Signed Normal [facility] Shoulder min 2 Viewson 11-16 Shoulder min 2 Views [facility] Imaging Services [address] [place], [place] [address] Shoulder min 2 Views MR#: [id number] Acct: [id number] Name: ZHENG ROY Rep #: [id number] : 1945 F 79 From: Meron Rocha DO PCP: Dr. Epifanio Zamora DO Status: REG ER Study: Shoulder min 2 Views Date of Exam: 11/16/24 Exam# [id number] Ordering Dr: Astrid Monae PROCEDURE: SHOULDER MIN 2 VIEWS REASON FOR EXAM: Status post fall. Pain. TECHNIQUE: 4 view(s) of the left shoulder COMPARISON: None. FINDINGS: No fracture. No suspicious bone lesion. Normal alignment of the acromioclavicular and glenohumeral joints. Soft tissues are unremarkable. RAD/Shoulder min 2 Views IMPRESSION: NO ACUTE FRACTURE OR DISLOCATION. [facility] CC: Dr. Epifanio Zamora DO; RUSTAM Shepard Deportation Officer: Signed Normal [facility] Wrist min 3 Viewson 11-17-19 Wrist min 3 Views [facility] Imaging Services [address] [place] [id number] Wrist min 3 Views MR#: [id number] Acct: [id number] Name: ZHENG ROY Rep #: [id number] : 1945 F 79 From: Meron Rocha DO PCP: Dr. Epifanio Zamora DO Status: REG ER Study: Wrist min 3 Views Date of Exam: 11/16/24 Exam# [id number] Ordering Dr: Kalyan Dozier MD PROCEDURE: WRIST MIN 3 VIEWS REASON FOR EXAM: Trauma. Pain. TECHNIQUE: 3 views of the left wrist COMPARISON: None FINDINGS: No visible fracture. No suspicious bone lesion. Normal alignment. Soft tissues are unremarkable. RAD/Wrist min 3 Views IMPRESSION: No acute fracture or dislocation. Reading Location: [facility] CC: Dr. Epifanio Zamora DO; Dr. Kalyan Dozier MD Deportation Officer: Signed Normal [facility] Anion gap in Serum or Plasma Ordered By: Epifanio Zamora on 11-13-2024 Anion gap [Moles/Vol] 11 mmol/L 5-15 [facility] BUN/creatinine ratioOrdered By: Epifanio Zamora on 11-13-2024 Urea nitrogen/Creatinine [Mass ratio] 16.4 mg/mg 10-20 [facility] Bilirubin, totalOrdered By: Epifanio Zamora on 11-13-2024 Bilirubin [Mass/Vol] 0.46 mg/dL 0.00-1.30 [facility] Calculated very low density lipoprotein (VLDL) cholesterol measurementOrdered By: Epifanio Zamora on 11-13-2024 Calculated very low density lipoprotein (VLDL) cholesterol measurement 21 mg/dL 5-40 [facility] VLDL Cholesterol 21 mg/dL 5-40 [facility] Carbon dioxide, total [Moles /volume] in Central venous bloodOrdered By: Epifanio Zamora on 11-13-2024 CO2 [Moles/Vol] 24.0 mmol/L 21.0-32.0 [facility] Chloride assayOrdered By: Oswaldo Zamora on 11-13-2024 Chloride [Moles/Vol] 99 mmol/L 98-108 [facility] Erythrocyte distribution wid th ratioOrdered By: Epifanio Zamora on 11-13-2024 Erythrocyte distribution width (RBC) [Ratio] 12.0 % 11.6-14.6 [facility] Erythrocyte distribution wid th standard deviationOrdered By: Epifanio Zamora on 11-13-2024 Erythrocyte distribution width (RBC) [Entitic vol] 38.9 fL 35.1-43.9 [facility] Erythrocyte distribution width (RBC) [Ratio] 38.9 fl 35.1-43.9 [facility] GFR/1.73 sq M.predicted anali g non-blacks MDRD (S/P/Bld) [Vol rate/Area]Ordered By: Epifanio Zamora on 11-13-2024 Estimated GFR (MDRD) Non-Af Amer 84 >60 [facility] Comment on above: mL/min/1.73m2 CKD-EP I Creatinine Equation (2020) Glomerular filtration rate ( GFR) estimation/1.73 sq m using serum, plasma, or whole bOrdered By: Epifanio Zamora on 11-13-2024 GFR/1.73 sq M.predicted among non-blacks MDRD (S/P/Bld) [Vol rate/Area] 84 mL/min/{1.73_m2} >60 [facility] Comment on above: mL/min/1.73m2 CKD-EP I Creatinine Equation (2020) Hematocrit Auto (Bld) [Volum e fraction]Ordered By: Epifanio Zamora on 11-13-2024 Hematocrit (Bld) [Volume fraction] 41.6 % 37-47 [facility] Hemoglobin A1c percentageOrd ered By: Epifanio Zamora on 11-13-2024 HbA1c (Bld) [Mass fraction] 5.9 % >5.7 [facility] Hemoglobin measurementOrdere d By: Epifanio Zamora on 11-13-2024 Hemoglobin (Bld) [Mass/Vol] 14.3 g/dL 12.0-15.0 [facility] LDL calc ser/plasOrdered By: Eipfanio Zamora on 11-13-2024 Cholesterol in LDL [Mass/Vol] 133 mg/dL [facility] Comment on above: Bazikpkrpd=778-722 m g/dL & Higher Goyd=553 mg/dL or greater LDL Cholesterol, Calculated 133 mg/dL [facility] Comment on above: Ubutjqapuj=640-466 m g/dL & Higher Jgus=125 mg/dL or greater Laboratory - Chemistry and C hemistry - challengeOrdered By: Epifanio Zamora on 11-13-2024 AST [Catalytic activity/Vol] 19 U/L <32 [facility] MCV (mean corpuscular volume ) determinationOrdered By: Epifanio Zamora on 11-13-2024 MCV (RBC) [Entitic vol] 89.3 fL 81-99 [facility] Mean corpuscular hemoglobin (MCH) determinationOrdered By: Epifanio Zamora on 11-13-2024 MCH (RBC) [Entitic mass] 30.7 pg 27.0-32.0 [facility] Mean corpuscular hemoglobin concentration (MCHC) determinationOrdered By: Epifanio Zamora on 11-13-2024 MCHC (RBC) [Mass/Vol] 34.4 g/dL 32-36 [facility] Mean platelet volume determi nationOrdered By: Epifanio Zamora on 11-13-2024 Platelet mean volume (Bld) [Entitic vol] 10.5 fL 6.2-12.0 [facility] Platelet countOrdered By: Oswaldo Zamora on 11-13-2024 Platelets (Bld) [#/Vol] 314 10*3/uL 150-450 [facility] Potassium (Unsp spec) [Mass/ Vol]Ordered By: Epifanio Zamora on 11-13-2024 Potassium [Moles/Vol] 4.0 mmol/L 3.3-5.1 [facility] Potassium measurement (mass/ volume)Ordered By: Epifanio Zamora on 11-13-2024 Potassium (Unsp spec) [Mass/Vol] 4.0 mmol/L 3.3-5.1 [facility] RBC Auto (Bld) [#/Vol]Ordere d By: Epifanio Zamora on 11-13-2024 RBC (Bld) [#/Vol] 4.66 10*6/uL 4.2-5.4 [facility] Screening total cholesterol/ high density lipoprotein (HDL) cholesterol ratioOrdered By: Epifanio Zamora on 11-13-2024 Cholesterol.total/Genia sterol in HDL [Mass ratio] 3.62 {ratio} [facility] Serum creatinine measurement (mass/volume)Ordered By: Epifanio Zamora on 11-13-2024 Creatinine [Mass/Vol] 0.73 mg/dL 0.70-1.20 [facility] Serum globulin measurementOr dered By: Epifanio Zamora on 11-13-2024 Globulin (S) [Mass/Vol] 2.4 g/dL 2.2-4.2 [facility] Serum glucose measurement (m ass/volume)Ordered By: Epifanio Zamora on 11-13-2024 Glucose [Mass/Vol] 111 mg/dL High 70-99 [facility] Serum or plasma alanine anguiano otransferase (ALT) measurementOrdered By: Epifanio Zamora on 11-13-2024 ALT [Catalytic activity/Vol] 16 U/L <35 [facility] Serum or plasma albumin roel urement (mass/volume)Ordered By: Epifanio Zamora on 11-13-2024 Albumin [Mass/Vol] 4.0 g/dL 3.4-4.8 [facility] Serum or plasma albumin/glob ulin mass ratioOrdered By: Epifanio Zamora on 11-13-2024 Albumin/Globulin [Mass ratio] 1.7 {ratio} 0.9-2.4 [facility] Serum or plasma alkaline migeul sphatase measurementOrdered By: Epifanio Zamora on 11-13-2024 ALP [Catalytic activity/Vol] 63 U/L 35-104 [facility] Serum or plasma calcium roel urement (mass/volume)Ordered By: Epifanio Zamora on 11-13-2024 Calcium [Mass/Vol] 8.9 mg/dL 7.6-11.0 [facility] Serum or plasma cholesterol in HDL measurement (mass/volume)Ordered By: Epifanio Zamora on 11-13-2024 Cholesterol in HDL [Mass/Vol] 59 mg/dL >40 [facility] Comment on above: National Cholesterol Education Program (NCEP) guidelines:<40 mg/dL: Low HDL-cholesterol (major risk factor for CHD)>= 60 mg/dL: High HDL-cholesterol (negative risk factor for CHD)HDL-cholesterol is affected by a number of factors, e.g. smoking, exercise, hormones, sex and age. Serum or plasma cholesterol measurement (mass/volume)Ordered By: Epifanio Zamora on 11-13-2024 Cholesterol [Mass/Vol] 212 mg/dL High <201 [facility] Comment on above: Cholesterol level, D esirable <200 mg/dLBorderline high cholesterol 200-239 mg/dLHigh cholesterol >=240 mg/dLRecommendations of the NCEP Adult Treatment Panel for the following risk-cutoff thresholds for the [place] population. Serum or plasma urea nitroge n measurement (mass/volume)Ordered By: Epifanio Zamora on 11-13-2024 Urea nitrogen [Mass/Vol] 12 mg/dL 4-19 [facility] Sodium levelOrdered By: Delvin Zamora on 11-13-2024 Sodium [Moles/Vol] 134 mmol/L 133-145 [facility] TSH DL <= 0.005 mIU/L QnOrde red By: Epifanio Zamora on 11-13-2024 Thyroid Stimulating Hormone (TSH) 1.320 uIU/mL 0.300-4.200 [facility] TSH Qn 1.320 uIU/mL 0.300-4.200 [facility] ThyroxineOrdered By: Epifanio arevalo on 11-13-2024 T4 [Mass/Vol] 8.6 ug/dL 4.8-13.9 [facility] Total proteinOrdered By: Eliezer Zamora on 11-13-2024 Protein [Mass/Vol] 6.4 g/dL 5.9-8.4 [facility] Triglycerides measurementOrd ered By: Epifanio Zamora on 11-13-2024 Triglyceride [Mass/Vol] 103 mg/dL <199 [facility] Comment on above: The drugs N-Acetylcy steine and Metamizole may falsely depress this assay. Normal range: <150 mg/dLBorderline High: 150-199 mg/dLHigh: 200-499 mg/dLVery High: >500 mg/dL Vitamin D, 25-hydroxyOrdered By: Epifanio Zamora on 11-13-2024 Vitamin D 25-Hydroxy 37.1 ng/mL 30-100 [facility] Comment on above: Vitamin D StatusDefi ciency: <20 ng/mL (50nmol/L)Insufficiency: 20-30 ng/mL (50-75 nmol/L)Sufficiency: 30-100 ng/mL (75-250 nmol/L)Toxicity: >100 ng/mL (>250 nmol/L) White blood cell (WBC) count Ordered By: Epifanio Zamora on 11-13-2024 WBC (Bld) [#/Vol] 8.2 10*3/uL 4.4-11.0 [facility] Absolute neutrophil countOrd ered By: Roseann Eli on 10-01-2024 Neutrophils (Bld) [#/Vol] 4.6 10*3/uL 2.0-7.7 [facility] Albumin to globulin ratioOrd ered By: Roseann Eli on 10-01-2024 Albumin/Globulin [Mass ratio] 1.2 {ratio} 0.9-2.4 [facility] BNP (brain natriuretic pepti de measurement)Ordered By: Roseann Eli on 10-01-2024 Natriuretic peptide B (Bld) [Mass/Vol] 96.8 pg/mL Normal 0-100 [facility] Comment on above: Performed By: #### L 501.4440, L100.0100, L503.6620, L500.4050 ####[facility] [address] [place], [address] Basophil percentageOrdered B y: Roseann Buenoescobar on 10-01-2024 Basophils/100 WBC (Bld) 0.6 % 0-1 [facility] Bilirubin, totalOrdered By: Roseann Eli on 10-01-2024 Bilirubin [Mass/Vol] 0.30 mg/dL 0.20-1.00 [facility] Comment on above: For patients on eltr ombopag therapy, use of Dimension [place] TBIL is not recommended. Blood urea nitrogen (BUN)/cr eatinine ratioOrdered By: Roseann Eli on 10-01-2024 Urea nitrogen/Creatinine [Mass ratio] 10.7 mg/mg 10-20 [facility] CBC W/Diff, Automatedon 09-12 Absolute Lymph 1.27 X10 3/uL Normal 0.83-4.51 [facility] Comment on above: Performed By: #### L 501.9520, L100.0100, L503.6620, L500.4050 #### [facility] Laboratory [address] [place], [address] Absolute Neut 4.6 X10 3/uL Normal 2.0-7.7 [facility] Comment on above: Performed By: #### L 501.9520, L100.0100, L503.6620, L500.4050 #### [facility] [address] [place], [address] Basophils/100 WBC (Bld) 0.6 % Normal 0-1 [facility] Comment on above: Performed By: #### L 501.9520, L100.0100, L503.6620, L500.4050 #### [facility] [address] [place], [address] Eosinophils/100 WBC (Bld) 0.6 % Normal 0-5 [facility] Comment on above: Performed By: #### L 501.9520, L100.0100, L503.6620, L500.4050 #### [facility] [address] [place], [address] Erythrocyte distribution width (RBC) [Ratio] 12.6 % Normal 11.6-14.6 [facility] Comment on above: Performed By: #### L 501.9520, L100.0100, L503.6620, L500.4050 #### [facility] [address] [place], [address] Hematocrit (Bld) [Volume fraction] 39.1 % Normal 37-47 [facility] Comment on above: Performed By: #### L 501.9520, L100.0100, L503.6620, L500.4050 #### [facility] [address] [place], [address] Hemoglobin (Bld) [Mass/Vol] 12.7 g/dL Normal 12.0-15.0 [facility] Comment on above: Performed By: #### L 501.9520, L100.0100, L503.6620, L500.4050 #### [facility] [address] [place], [address] IG% 0.600 Normal 0.0-0.9 [facility] Comment on above: Result Comment: IG% - Immature Granulocytes (promyelocytes, myelocytes and metamyelocytes) > 1% indicates that a LEFT SHIFT is Present. Performed By: #### L 501.9520, L100.0100, L503.6620, L500.4050 #### [facility] [address] [place], [address] Lymphocytes/100 WBC (Bld) 20.1 % Normal 19-41 [facility] Comment on above: Performed By: #### L 501.9520, L100.0100, L503.6620, L500.4050 #### [facility] [address] [place], [address] MCH (RBC) [Entitic mass] 30.1 pg Normal 27.0-32.0 [facility] Comment on above: Performed By: #### L 501.9520, L100.0100, L503.6620, L500.4050 #### [facility] [address] [place], [address] MCHC (RBC) [Mass/Vol] 32.5 g/dL Normal 32-36 [facility] Comment on above: Performed By: #### L 501.9520, L100.0100, L503.6620, L500.4050 #### [facility] [address] [place], [address] MCV (RBC) [Entitic vol] 92.7 fL Normal 81-99 [facility] Comment on above: Performed By: #### L 501.9520, L100.0100, L503.6620, L500.4050 #### [facility] [address] [place], [address] Monocytes/100 WBC (Bld) 4.9 % Normal 0-10 [facility] Comment on above: Performed By: #### L 501.9520, L100.0100, L503.6620, L500.4050 #### [facility] [address] [place], [address] Neutrophils/100 WBC (Bld) 73.2 % High 47-70 [facility] Comment on above: Performed By: #### L 501.9520, L100.0100, L503.6620, L500.4050 #### [facility] [address] [place], [address] Nucleated RBC (Bld) [#/Vol] 0 10*3/uL Normal 0-5 [facility] Comment on above: Performed By: #### L 501.9520, L100.0100, L503.6620, L500.4050 #### [facility] [address] [place], [address] Platelet mean volume (Bld) [Entitic vol] 10.5 fL Normal 6.2-12.0 [facility] Comment on above: Performed By: #### L 501.9520, L100.0100, L503.6620, L500.4050 #### [facility] [address] [place], [address] Platelets (Bld) [#/Vol] 315 10*3/uL Normal 150-450 [facility] Comment on above: Performed By: #### L 501.9520, L100.0100, L503.6620, L500.4050 #### [facility] [address] [place], [address] RBC (Bld) [#/Vol] 4.22 10*6/uL Normal 4.2-5.4 [facility] Comment on above: Performed By: #### L 501.9520, L100.0100, L503.6620, L500.4050 #### [facility] [address] [place], [address] RDW SD 43.1 fl Normal 35.1-43.9 [facility] Comment on above: Performed By: #### L 501.9520, L100.0100, L503.6620, L500.4050 #### [facility] [address] [place], [address] WBC (Bld) [#/Vol] 6.3 10*3/uL Normal 4.4-11.0 [facility] Comment on above: Performed By: #### L 501.9520, L100.0100, L503.6620, L500.4050 #### [facility] [address] [place], [address] Carbon dioxide measurementOr dered By: Roseann Eli on 10-01-2024 CO2 [Moles/Vol] 28.0 mmol/L 21.0-32.0 [facility] Chloride measurementOrdered By: Roseann Eli on 10-01-2024 Chloride [Moles/Vol] 106 mmol/L 98-107 [facility] Comprehensive Metabolic Prof ilon 10-01-2024 Albumin [Mass/Vol] 3.5 g/dL Normal 3.2-5.0 [facility] Comment on above: Performed By: #### L 501.9520, L100.0100, L503.6620, L500.4050 ####[facility] [address] [place], [address] Albumin/Globulin [Mass ratio] 1.2 {ratio} Normal 0.9-2.4 [facility] Comment on above: Performed By: #### L 501.9520, L100.0100, L503.6620, L500.4050 ####[facility] [address] [place], [address] ALK P 53 U/L Normal 45-117 [facility] Comment on above: Performed By: #### L 501.9520, L100.0100, L503.6620, L500.4050 ####[facility] [address] [place], [address] ALT [Catalytic activity/Vol] 33 U/L Normal 13-56 [facility] Comment on above: Performed By: #### L 501.9520, L100.0100, L503.6620, L500.4050 ####[facility] [address] [place], [address] AST [Catalytic activity/Vol] 17 U/L Normal 15-37 [facility] Comment on above: Performed By: #### L 501.9520, L100.0100, L503.6620, L500.4050 ####[facility] [address] [place], [address] Bilirubin [Mass/Vol] 0.30 mg/dL Normal 0.20-1.00 [facility] Comment on above: Result Comment: For patients on eltrombopag therapy, use of Dimension [place] TBIL is not recommended. Performed By: #### L 501.9520, L100.0100, L503.6620, L500.4050 ####[facility] [address] [place], [address] BUN/CRE 10.7 RATIO Normal 10-20 [facility] Comment on above: Performed By: #### L 501.9520, L100.0100, L503.6620, L500.4050 ####[facility] [address] [place], [address] CA,Total 9.3 mg/dL Normal 8.5-10.1 [facility] Comment on above: Performed By: #### L 501.9520, L100.0100, L503.6620, L500.4050 ####[facility] [address] [place], [address] Chloride [Moles/Vol] 106 mmol/L Normal 98-107 [facility] Comment on above: Performed By: #### L 501.9520, L100.0100, L503.6620, L500.4050 ####[facility] [address] [place], [address] CO2 [Moles/Vol] 28.0 mmol/L Normal 21.0-32.0 [facility] Comment on above: Performed By: #### L 501.9520, L100.0100, L503.6620, L500.4050 ####[facility] [address] [place], [address] Creatinine [Mass/Vol] 0.75 mg/dL Normal 0.55-1.02 [facility] Comment on above: Result Comment: The validity of the calculated GFR GFRAA in patients over 70 years has not been determined. Clinical correlation is essential. Performed By: #### L 501.9520, L100.0100, L503.6620, L500.4050 ####[facility] [address] [place], [address] EST GFR - AA 96 mL/min Normal >60 [facility] Comment on above: Result Comment: Afri can [place] GFR Calc Performed By: #### L 501.9520, L100.0100, L503.6620, L500.4050 ####[facility] [address] [place], [address] GAP 6 Normal 5-15 [facility] Comment on above: Performed By: #### L 501.9520, L100.0100, L503.6620, L500.4050 ####[facility] [address] [place], [address] GFR/1.73 sq M.predicted among non-blacks MDRD (S/P/Bld) [Vol rate/Area] 79 mL/min/{1.73_m2} Normal >60 [facility] Comment on above: Result Comment: Non- GFR Calc Performed By: #### L 501.9520, L100.0100, L503.6620, L500.4050 ####[facility] [address] [place], [address] Globulin (S) [Mass/Vol] 2.9 g/dL Normal 2.2-4.2 [facility] Comment on above: Performed By: #### L 501.9520, L100.0100, L503.6620, L500.4050 ####[facility] [address] [place], [address] Glucose [Mass/Vol] 108 mg/dL High 74-106 [facility] Comment on above: Result Comment: Fast ing Glucose result from 100 to 125 mg/dL suggests IMPAIRED HOMEOSTASIS per A.D.A. criteria. Performed By: #### L 501.9520, L100.0100, L503.6620, L500.4050 ####[facility] [address] [place], [address] Potassium [Moles/Vol] 3.7 mmol/L Normal 3.5-5.1 [facility] Comment on above: Performed By: #### L 501.9520, L100.0100, L503.6620, L500.4050 ####[facility] [address] [place], [address] Sodium [Moles/Vol] 139 mmol/L Normal 136-145 [facility] Comment on above: Performed By: #### L 501.9520, L100.0100, L503.6620, L500.4050 ####[facility] [address] [place], [address] T PROT 6.4 g/dL Normal 6.4-8.2 [facility] Comment on above: Performed By: #### L 501.9520, L100.0100, L503.6620, L500.4050 ####[facility] [address] [place], [address] Urea nitrogen [Mass/Vol] 8 mg/dL Normal 7-18 [facility] Comment on above: Performed By: #### L 501.9520, L100.0100, L503.6620, L500.4050 ####[facility] [address] [place], [address] Eosinophil percentageOrdered By: Roseann Eli on 10-01-2024 Eosinophils/100 WBC (Bld) 0.6 % 0-5 [facility] Erythrocyte distribution wid th ratioOrdered By: Roseann Eli on 10-01-2024 Erythrocyte distribution width (RBC) [Ratio] 12.6 % 11.6-14.6 [facility] Erythrocyte distribution wid th standard deviationOrdered By: Roseann Eli on 10-01-2024 Erythrocyte distribution width (RBC) [Entitic vol] 43.1 fL 35.1-43.9 [facility] Estimated glomerular filtrat ion rate (GFR) AmericanOrdered By: Roseann Eli on 10-01-2024 Estimated GFR (MDRD) Amer 96 mL/min >60 [facility] Comment on above: GFR Calc Glomerular filtration rate ( GFR) estimationOrdered By: Roseann Eli on 10-01-2024 Estimated GFR (MDRD) Non-Af Amer 79 mL/min >60 [facility] Comment on above: Non- GFR Calc Glucose measurementOrdered B y: Roseann Eli on 10-01-2024 Glucose [Mass/Vol] 108 mg/dL High 74-106 [facility] Comment on above: Fasting Glucose resu lt from 100 to 125 mg/dL suggests IMPAIRED HOMEOSTASIS per A.D.A. criteria. Hematocrit Auto (Bld) [Volum e fraction]Ordered By: Roseann Eli on 10-01-2024 Hematocrit (Bld) [Volume fraction] 39.1 % 37-47 [facility] Hemoglobin measurementOrdere d By: Roseann Eli on 10-01-2024 Hemoglobin (Bld) [Mass/Vol] 12.7 g/dL 12.0-15.0 [facility] Immature granulocytes/100 WB C Auto (Bld)Ordered By: Roseann Eli on 10-01-2024 Immature granulocytes/100 WBC (Bld) 0.600 % 0.0-0.9 [facility] Comment on above: IG% - Immature Granu locytes (promyelocytes, myelocytes and metamyelocytes) > 1% indicates that a LEFT SHIFT is Present. Laboratory - Chemistry and C hemistry - challengeOrdered By: Roseann Eli on 10-01-2024 AST [Catalytic activity/Vol] 17 U/L 15-37 [facility] Lymphocytes Auto (Unsp spec) [#/Vol]Ordered By: Roseann Eli on 10-01-2024 Lymphocytes (Bld) [#/Vol] 1.27 10*3/uL 0.83-4.51 [facility] Lymphocytes/100 WBC Auto (Un sp spec)Ordered By: Roseann Eli on 10-01-2024 Lymphocytes/100 WBC (Bld) 20.1 % 19-41 [facility] MCV (mean corpuscular volume ) determinationOrdered By: Roseann Eli on 10-01-2024 MCV (RBC) [Entitic vol] 92.7 fL 81-99 [facility] Mean corpuscular hemoglobin (MCH) determinationOrdered By: Roseann Eli on 10-01-2024 MCH (RBC) [Entitic mass] 30.1 pg 27.0-32.0 [facility] Mean corpuscular hemoglobin concentration (MCHC) determinationOrdered By: Roseann Eli on 10-01-2024 MCHC (RBC) [Mass/Vol] 32.5 g/dL 32-36 [facility] Mean platelet volume determi nationOrdered By: Roseann Eli on 10-01-2024 Platelet mean volume (Bld) [Entitic vol] 10.5 fL 6.2-12.0 [facility] Monocyte percentageOrdered B y: Roseann Eli on 10-01-2024 Monocytes/100 WBC (Bld) 4.9 % 0-10 [facility] Neutrophil percentageOrdered By: Roseann Eli on 10-01-2024 Neutrophils/100 WBC (Bld) 73.2 % High 47-70 [facility] Nucleated red blood cell per centageOrdered By: Roseann Eli on 10-01-2024 Nucleated RBC/100 WBC (Bld) [Ratio] 0 % 0-5 [facility] Platelet countOrdered By: Nathaly Eli on 10-01-2024 Platelets (Bld) [#/Vol] 315 10*3/uL 150-450 [facility] Potassium measurementOrdered By: Roseann Eli on 10-01-2024 Potassium [Moles/Vol] 3.7 mmol/L 3.5-5.1 [facility] RBC Auto (Bld) [#/Vol]Ordere d By: Roseann Eli on 10-01-2024 RBC (Bld) [#/Vol] 4.22 10*6/uL 4.2-5.4 [facility] Serum anion gap measurementO rdered By: Roseann Eli on 10-01-2024 Anion gap [Moles/Vol] 6 mmol/L 5-15 [facility] Serum globulin measurementOr dered By: Roseann Eli on 10-01-2024 Globulin (S) [Mass/Vol] 2.9 g/dL 2.2-4.2 [facility] Serum or plasma alanine anguiano otransferase (ALT) measurementOrdered By: Roseann Eli on 10-01-2024 ALT [Catalytic activity/Vol] 33 U/L 13-56 [facility] Serum or plasma albumin roel urement (mass/volume)Ordered By: Roseann Eli on 10-01-2024 Albumin [Mass/Vol] 3.5 g/dL 3.2-5.0 [facility] Serum or plasma alkaline miguel sphatase measurementOrdered By: Roseann Eli on 10-01-2024 ALP [Catalytic activity/Vol] 53 U/L 45-117 [facility] Serum or plasma calcium roel urement (mass/volume)Ordered By: Roseann Eli on 10-01-2024 Calcium [Mass/Vol] 9.3 mg/dL 8.5-10.1 [facility] Serum or plasma creatinine m easurement (mass/volume)Ordered By: Roseann Eli on 10-01-2024 Creatinine [Mass/Vol] 0.75 mg/dL 0.55-1.02 [facility] Comment on above: The validity of the calculated GFR & GFRAA in patients over 70 years has not been determined. Clinical correlation is essential. Serum or plasma urea nitroge n measurement (mass/volume)Ordered By: Roseann Eli on 10-01-2024 Urea nitrogen [Mass/Vol] 8 mg/dL 7-18 [facility] Sodium levelOrdered By: Roseann Eli on 10-01-2024 Sodium [Moles/Vol] 139 mmol/L 136-145 [facility] TSH QnOrdered By: Roseann hewitt on 10-01-2024 Thyroid Stimulating Hormone (TSH) 1.010 uIU/mL 0.358-3.740 [facility] Thyroid Stim Hormone (TSH)on 10-01-2024 TSH 1.010 uIU/mL Normal 0.358-3.740 [facility] Comment on above: Performed By: #### L 501.9520, L100.0100, L503.6620, L500.4050 ####[facility] [address] [place], [address] Total proteinOrdered By: Roseann Buenoramírezimmanuel on 10-01-2024 Protein [Mass/Vol] 6.4 g/dL 6.4-8.2 [facility] White blood cell (WBC) count Ordered By: Roseann Isabelimmanuel on 10-01-2024 WBC (Bld) [#/Vol] 6.3 10*3/uL 4.4-11.0 [facility] Neurology Visit Reporton Neurology Visit Report [facility] [address], [address] [place], [place] [address] OFFICE VISIT Date of Service: 09/30/24 MR#: [id number] Acct: [id number] Name: ZHENG ROY Rep #: [id number] : 1945 Provider: Dr. Silver sanchez MD Age/Sex: 79/F Location[place] [facility] [place] Status: Signed HPI HPI Chief Complaint: Establish Care Details: The patient is a 79-year-old right handed female who presents to [facility]. She was referred 08/07/[address] Pili Chakraborty with [facility] for cognitive impairment.??? This lady presents with her blxloa-up-ozd for evaluation of cognitive impairment. Patient had a recent episode of calling her nrqgqu-yc-nst for help. It seems that there was [...] she gave the impression of having a "masked facies". Motor examination no definite focal weakness identified. [...] 4 extre (more content not included)... Normal [facility] CBC W/Diff, Automatedon 11-0 Absolute Lymph 1.41 X10 3/uL Normal 0.83-4.51 [facility] Comment on above: Order Comment: Order Date: 07/16/24Order Info: [id number] - CBCD Performed By: #### L 500.4050, L501.9985, L506.1000, L500.4100, L100.0100 ####[facility] [address] [place], [place], [phone]) Absolute Neut 5.3 X10 3/uL Normal 2.0-7.7 [facility] Comment on above: Order Comment: Order Date: 07/16/24Order Info: [id number] - CBCD Performed By: #### L 500.4050, L501.9985, L506.1000, L500.4100, L100.0100 ####[facility] [address] [place], [address] Basophils/100 WBC (Bld) 0.7 % Normal 0-1 [facility] Comment on above: Order Comment: Order Date: 07/16/24Order Info: [id number] - CBCD Performed By: #### L 500.4050, L501.9985, L506.1000, L500.4100, L100.0100 ####[facility] [address] [place], [address] Eosinophils/100 WBC (Bld) 0.7 % Normal 0-5 [facility] Comment on above: Order Comment: Order Date: 07/16/24Order Info: [id number] - CBCD Performed By: #### L 500.4050, L501.9985, L506.1000, L500.4100, L100.0100 ####[facility] [address] [place], [address] Erythrocyte distribution width (RBC) [Ratio] 12.3 % Normal 11.6-14.6 [facility] Comment on above: Order Comment: Order Date: 07/16/24Order Info: [id number] - CBCD Performed By: #### L 500.4050, L501.9985, L506.1000, L500.4100, L100.0100 ####[facility] [address] [place], [address] Hematocrit (Bld) [Volume fraction] 41.0 % Normal 37-47 [facility] Comment on above: Order Comment: Order Date: 07/16/24Order Info: [id number] - CBCD Performed By: #### L 500.4050, L501.9985, L506.1000, L500.4100, L100.0100 ####[facility] [address] [place], [address] Hemoglobin (Bld) [Mass/Vol] 13.8 g/dL Normal 12.0-15.0 [facility] Comment on above: Order Comment: Order Date: 07/16/24Order Info: [id number] - CBCD Performed By: #### L 500.4050, L501.9985, L506.1000, L500.4100, L100.0100 ####[facility] [address] [place], [address] IG% 0.400 Normal 0.0-0.9 [facility] Comment on above: Order Comment: Order Date: 07/16/24Order Info: [id number] - CBCD Result Comment: IG% - Immature Granulocytes (promyelocytes, myelocytes and metamyelocytes) > 1% indicates that a LEFT SHIFT is Present. Performed By: #### L 500.4050, L501.9985, L506.1000, L500.4100, L100.0100 ####[facility] [address] [place], [address] Lymphocytes/100 WBC (Bld) 19.3 % Normal 19-41 [facility] Comment on above: Order Comment: Order Date: 07/16/24Order Info: [id number] - CBCD Performed By: #### L 500.4050, L501.9985, L506.1000, L500.4100, L100.0100 ####[facility] [address] [place], [address] MCH (RBC) [Entitic mass] 30.4 pg Normal 27.0-32.0 [facility] Comment on above: Order Comment: Order Date: 07/16/24Order Info: [id number] - CBCD Performed By: #### L 500.4050, L501.9985, L506.1000, L500.4100, L100.0100 ####[facility] [address] [place], [address] MCHC (RBC) [Mass/Vol] 33.7 g/dL Normal 32-36 [facility] Comment on above: Order Comment: Order Date: 07/16/24Order Info: [id number] - CBCD Performed By: #### L 500.4050, L501.9985, L506.1000, L500.4100, L100.0100 ####[facility] [address] [place], [address] MCV (RBC) [Entitic vol] 90.3 fL Normal 81-99 [facility] Comment on above: Order Comment: Order Date: 07/16/24Order Info: [id number] - CBCD Performed By: #### L 500.4050, L501.9985, L506.1000, L500.4100, L100.0100 ####[facility] [address] [place], [address] Monocytes/100 WBC (Bld) 6.0 % Normal 0-10 [facility] Comment on above: Order Comment: Order Date: 07/16/24Order Info: [id number] - CBCD Performed By: #### L 500.4050, L501.9985, L506.1000, L500.4100, L100.0100 ####[facility] [address] [place], [address] Neutrophils/100 WBC (Bld) 72.9 % High 47-70 [facility] Comment on above: Order Comment: Order Date: 07/16/24Order Info: [id number] - CBCD Performed By: #### L 500.4050, L501.9985, L506.1000, L500.4100, L100.0100 ####[facility] [address] [place], [address] Nucleated RBC (Bld) [#/Vol] 0 10*3/uL Normal 0-5 [facility] Comment on above: Order Comment: Order Date: 07/16/24Order Info: [id number] - CBCD Performed By: #### L 500.4050, L501.9985, L506.1000, L500.4100, L100.0100 ####[facility] [address] [place], [address] Platelet mean volume (Bld) [Entitic vol] 10.6 fL Normal 6.2-12.0 [facility] Comment on above: Order Comment: Order Date: 07/16/24Order Info: [id number] - CBCD Performed By: #### L 500.4050, L501.9985, L506.1000, L500.4100, L100.0100 ####[facility] [address] [place], [address] Platelets (Bld) [#/Vol] 320 10*3/uL Normal 150-450 [facility] Comment on above: Order Comment: Order Date: 07/16/24Order Info: [id number] - CBCD Performed By: #### L 500.4050, L501.9985, L506.1000, L500.4100, L100.0100 ####[facility] [address] [place], [address] RBC (Bld) [#/Vol] 4.54 10*6/uL Normal 4.2-5.4 [facility] Comment on above: Order Comment: Order Date: 07/16/24Order Info: [id number] - CBCD Performed By: #### L 500.4050, L501.9985, L506.1000, L500.4100, L100.0100 ####[facility] [address] [place], [address] RDW SD 40.6 fl Normal 35.1-43.9 [facility] Comment on above: Order Comment: Order Date: 07/16/24Order Info: [id number] - CBCD Performed By: #### L 500.4050, L501.9985, L506.1000, L500.4100, L100.0100 ####[facility] [address] [place], [address] WBC (Bld) [#/Vol] 7.3 10*3/uL Normal 4.4-11.0 [facility] Comment on above: Order Comment: Order Date: 07/16/24Order Info: [id number] - CBCD Performed By: #### L 500.4050, L501.9985, L506.1000, L500.4100, L100.0100 ####[facility] [address] [place], [address] Comprehensive Metabolic Prof ilon 07-16-2024 Albumin [Mass/Vol] 3.8 g/dL Normal 3.2-5.0 [facility] Comment on above: Order Comment: Order Date: 07/16/24Order Info: [id number] - CMPOrder Info: [id number] - LIPIDOrder Info: [id number] - TSH Performed By: #### L 500.4050, L501.9985, L506.1000, L500.4100, L100.0100 ####[facility] [address] [place], [address] Albumin/Globulin [Mass ratio] 1.3 {ratio} Normal 0.9-2.4 [facility] Comment on above: Order Comment: Order Date: 07/16/24Order Info: 86-1 - CMPOrder Info: [id number] - LIPIDOrder Info: [id number] - TSH Performed By: #### L 500.4050, L501.9985, L506.1000, L500.4100, L100.0100 ####[facility] [address] [place], [address] ALK P 70 U/L Normal 45-117 [facility] Comment on above: Order Comment: Order Date: 07/16/24Order Info: [id number] - CMPOrder Info: [id number] - LIPIDOrder Info: [id number] - TSH Performed By: #### L 500.4050, L501.9985, L506.1000, L500.4100, L100.0100 ####[facility] [address] [place], [address] ALT [Catalytic activity/Vol] 37 U/L Normal 13-56 [facility] Comment on above: Order Comment: Order Date: 07/16/24Order Info: [id number] - CMPOrder Info: [id number] - LIPIDOrder Info: [id number] - TSH Performed By: #### L 500.4050, L501.9985, L506.1000, L500.4100, L100.0100 ####[facility] [address] [place], [address] AST [Catalytic activity/Vol] 32 U/L Normal 15-37 [facility] Comment on above: Order Comment: Order Date: 07/16/24Order Info: [id number] - CMPOrder Info: [id number] - LIPIDOrder Info: [id number] - TSH Performed By: #### L 500.4050, L501.9985, L506.1000, L500.4100, L100.0100 ####[facility] [address] [place], [address] Bilirubin [Mass/Vol] 0.70 mg/dL Normal 0.20-1.00 [facility] Comment on above: Order Comment: Order Date: 07/16/24Order Info: [id number] - CMPOrder Info: [id number] - LIPIDOrder Info: [id number] - TSH Result Comment: For patients on eltrombopag therapy, use of Dimension [place] TBIL is not recommended. Performed By: #### L 500.4050, L501.9985, L506.1000, L500.4100, L100.0100 ####[facility] [address] [place], [address] BUN/CRE 13.1 RATIO Normal 10-20 [facility] Comment on above: Order Comment: Order Date: 07/16/24Order Info: [id number] - CMPOrder Info: [id number] - LIPIDOrder Info: [id number] - TSH Performed By: #### L 500.4050, L501.9985, L506.1000, L500.4100, L100.0100 ####[facility] [address] [place], [address] CA,Total 9.3 mg/dL Normal 8.5-10.1 [facility] Comment on above: Order Comment: Order Date: 07/16/24Order Info: 07-1 - CMPOrder Info: [id number] - LIPIDOrder Info: [id number] - TSH Performed By: #### L 500.4050, L501.9985, L506.1000, L500.4100, L100.0100 ####[facility] [address] [place], [address] Chloride [Moles/Vol] 98 mmol/L Normal 98-107 [facility] Comment on above: Order Comment: Order Date: 07/16/24Order Info: 86-1 - CMPOrder Info: [id number] - LIPIDOrder Info: 3 - TSH Performed By: #### L 500.4050, L501.9985, L506.1000, L500.4100, L100.0100 ####[facility] [address] [place], [address] CO2 [Moles/Vol] 31.0 mmol/L Normal 21.0-32.0 [facility] Comment on above: Order Comment: Order Date: 07/16/24Order Info: [id number] - CMPOrder Info: [id number] - LIPIDOrder Info: 3 - TSH Performed By: #### L 500.4050, L501.9985, L506.1000, L500.4100, L100.0100 ####[facility] [address] [place], [address] Creatinine [Mass/Vol] 0.84 mg/dL Normal 0.55-1.02 [facility] Comment on above: Order Comment: Order Date: 07/16/24Order Info: [id number] - CMPOrder Info: [id number] - LIPIDOrder Info: 3 - TSH Result Comment: The validity of the calculated GFR GFRAA in patients over 70 years has not been determined. Clinical correlation is essential. Performed By: #### L 500.4050, L501.9985, L506.1000, L500.4100, L100.0100 ####[facility] [address] [place], [address] EST GFR - AA 84 mL/min Normal >60 [facility] Comment on above: Order Comment: Order Date: 07/16/24Order Info: 785- - CMPOrder Info: [id number] - LIPIDOrder Info: [id number] - TSH Result Comment: Afri can Micronesian GFR Calc Performed By: #### L 500.4050, L501.9985, L506.1000, L500.4100, L100.0100 ####[facility] [address] [place], [address] GAP 6 Normal 5-15 [facility] Comment on above: Order Comment: Order Date: 07/16/24Order Info: [id number]- - CMPOrder Info: - LIPIDOrder Info: [id number] - TSH Performed By: #### L 500.4050, L501.9985, L506.1000, L500.4100, L100.0100 ####[facility] [address] [place], [address] GFR/1.73 sq M.predicted among non-blacks MDRD (S/P/Bld) [Vol rate/Area] 69 mL/min/{1.73_m2} Normal >60 [facility] Comment on above: Order Comment: Order Date: 07/16/24Order Info: [id number] - CMPOrder Info: [id number] - LIPIDOrder Info: 3 - TSH Result Comment: Non- GFR Calc Performed By: #### L 500.4050, L501.9985, L506.1000, L500.4100, L100.0100 ####[facility] [address] [place], [address] Globulin (S) [Mass/Vol] 2.9 g/dL Normal 2.2-4.2 [facility] Comment on above: Order Comment: Order Date: 07/16/24Order Info: [id number]- - CMPOrder Info: [id number] - LIPIDOrder Info: [id number] - TSH Performed By: #### L 500.4050, L501.9985, L506.1000, L500.4100, L100.0100 ####[facility] [address] [place], [address] Glucose [Mass/Vol] 96 mg/dL Normal 74-106 [facility] Comment on above: Order Comment: Order Date: 07/16/24Order Info: [id number] - CMPOrder Info: [id number] - LIPIDOrder Info: [id number] - TSH Performed By: #### L 500.4050, L501.9985, L506.1000, L500.4100, L100.0100 ####[facility] [address] [place], [address] Potassium [Moles/Vol] 3.4 mmol/L Low 3.5-5.1 [facility] Comment on above: Order Comment: Order Date: 07/16/24Order Info: 07-1 - CMPOrder Info: [id number] - LIPIDOrder Info: [id number] - TSH Performed By: #### L 500.4050, L501.9985, L506.1000, L500.4100, L100.0100 ####[facility] [address] [place], [address] Sodium [Moles/Vol] 135 mmol/L Low 136-145 [facility] Comment on above: Order Comment: Order Date: 07/16/24Order Info: [id number] - CMPOrder Info: [id number] - LIPIDOrder Info: [id number] - TSH Performed By: #### L 500.4050, L501.9985, L506.1000, L500.4100, L100.0100 ####[facility] [address] [place], [address] T PROT 6.7 g/dL Normal 6.4-8.2 [facility] Comment on above: Order Comment: Order Date: 07/16/24Order Info: [id number] - CMPOrder Info: [id number] - LIPIDOrder Info: [id number] - TSH Performed By: #### L 500.4050, L501.9985, L506.1000, L500.4100, L100.0100 ####[facility] [address] [place], [address] Urea nitrogen [Mass/Vol] 11 mg/dL Normal 7-18 [facility] Comment on above: Order Comment: Order Date: 07/16/24Order Info: [id number]- - CMPOrder Info: [id number] - LIPIDOrder Info: [id number] - TSH Performed By: #### L 500.4050, L501.9985, L506.1000, L500.4100, L100.0100 ####[facility] [address] [place], [address] Hemoglobin A1con 07-16-2024 HbA1c (Bld) [Mass fraction] 6.4 % High 3.8-5.6 [facility] Comment on above: Order Comment: Order Date: 07/16/24Order Info: [id number] - A1C Result Comment: Norm al < 5.7 % Prediabetic 5.7 - 6.4 % Diabetic >or= 6.5 % Please note range changes. Performed By: #### L 500.4050, L501.9985, L506.1000, L500.4100, L100.0100 ####[facility] [address] [place], [address] Lipid Profileon 07-16-2024 Cholesterol [Mass/Vol] 193 mg/dL Normal 200 [facility] Comment on above: Order Comment: Order Date: 07/16/24Order Info: 785- - CMPOrder Info: [id number] - LIPIDOrder Info: [id number] - TSH Result Comment: <200 mg/dL Desirable 200-240 mg/dL Borderline >240 mg/dL High Risk Performed By: #### L 500.4050, L501.9985, L506.1000, L500.4100, L100.0100 ####[facility] [address] [place], [address] Cholesterol in HDL [Mass/Vol] 46 mg/dL Normal [facility] Comment on above: Order Comment: Order Date: 07/16/24Order Info: 86-1 - CMPOrder Info: [id number] - LIPIDOrder Info: [id number] - TSH Result Comment: The drugs N-Acetylcysteine and Metamizole may falsely depress this assay. Reference Range HDL <40 mg/dL Low HDL Cholesterol HDL >or= 60 mg/dL High HDL Cholesterol Performed By: #### L 500.4050, L501.9985, L506.1000, L500.4100, L100.0100 ####[facility] [address] [place], [address] Cholesterol in LDL [Mass/Vol] 117 mg/dL Normal 0-130 [facility] Comment on above: Order Comment: Order Date: 07/16/24Order Info: [id number]- - CMPOrder Info: [id number] - LIPIDOrder Info: [id number] - TSH Performed By: #### L 500.4050, L501.9985, L506.1000, L500.4100, L100.0100 ####[facility] [address] [place], [address] Cholesterol in VLDL [Mass/Vol] 30 mg/dL Normal 5-40 [facility] Comment on above: Order Comment: Order Date: 07/16/24Order Info: [id number]- - CMPOrder Info: [id number] - LIPIDOrder Info: [id number] - TSH Performed By: #### L 500.4050, L501.9985, L506.1000, L500.4100, L100.0100 ####[facility] [address] [place], [address] Triglyceride [Mass/Vol] 150 mg/dL Normal [facility] Comment on above: Order Comment: Order Date: 07/16/24Order Info: [id number]- - CMPOrder Info: [id number] - LIPIDOrder Info: [id number] - TSH Result Comment: The drugs N-Acetylcysteine and Metamizole may falsely depress this assay. Serum Triglycerides Reference Interval Normal <150 mg/dL Borderline high 150 - 199 mg/dL High 200 - 499 mg/dL Very High > or = 500 mg/dL Performed By: #### L 500.4050, L501.9985, L506.1000, L500.4100, L100.0100 ####[facility] [address] [place], [place], [id number] Thyroid Stim Hormone (TSH)on 07-16-2024 TSH 0.939 uIU/mL Normal 0.358-3.740 [facility] Comment on above: Order Comment: Order Date: 07/16/24Order Info: [id number] - CMPOrder Info: [id number] - LIPIDOrder Info: [id number] - TSH Performed By: #### L 501.9520 ####[facility] [address] [place], [place], [id number] Vitamin D,25 Hydroxyon 07-16 Vitamin D 25-OH 13.4 ng/mL Normal [facility] Comment on above: Order Comment: Order Date: 07/16/24Order Info: [id number] - VITD25 Result Comment: Meli min D 25(OH) Status Range Deficiency <20 ng/mL (50nmol/L) Insufficiency 20 - 30 ng/mL (50 - 75 nmol/L) Sufficiency 30 - 100 ng/mL (75 - 250 nmol/L) Toxicity >100 ng/mL (>250 nmol/L) Performed By: #### L 500.4050, L501.9985, L506.1000, L500.4100, L100.0100 ####[facility] [address] [place], [place], [address] Basophil percentageOrdered B y: Maame Chang on 12-29-2022 Bilirubin [Mass/Vol] 0.50 mg/dL 0.20-1.00 [facility] Comment on above: For patients on eltr ombopag therapy, use of Dimension [place] TBIL is not recommended. Chloride [Moles/Vol] 100 mmol/L 98-107 [facility] Cholesterol [Mass/Vol] 153 mg/dL <200 [facility] Comment on above: <200 mg/dL Desirable 200-240 mg/dL Borderline >240 mg/dL High Risk Glucose [Mass/Vol] 122 mg/dL 74-106 [facility] Comment on above: Fasting Glucose resu lt from 100 to 125 mg/dL suggests IMPAIRED HOMEOSTASIS per A.D.A. criteria. Potassium [Moles/Vol] 3.7 mmol/L 3.5-5.1 [facility] Comment on above: Slight Hemolysis, Re sult may be falsely increased. Protein [Mass/Vol] 6.7 g/dL 6.4-8.2 [facility] Sodium [Moles/Vol] 135 mmol/L 136-145 [facility] Triglyceride [Mass/Vol] 189 mg/dL <199 [facility] Comment on above: The drugs N-Acetylcy steine and Metamizole may falsely depress this assay.Serum Triglycerides Reference Interval Normal <150 mg/dL Borderline high 150 - 199 mg/dL High 200 - 499 mg/dL Very High > or = 500 mg/dL Laboratory - Chemistry and C hemistry - challengeOrdered By: Maame Chang on 12-29-2022 ALP [Catalytic activity/Vol] 85 U/L 45-117 [facility] ALT [Catalytic activity/Vol] 30 U/L 13-56 [facility] CO2 [Moles/Vol] 29.0 mmol/L 21.0-32.0 [facility] Globulin (S) [Mass/Vol] 2.9 g/dL 2.2-4.2 [facility] Urea nitrogen/Creatinine [Mass ratio] 17.2 mg/mg 10-20 [facility] No Panel InformationOrdered By: Maame Chang on 12-29-2022 Estimated GFR (MDRD) Amer 81 mL/min >60 [facility] Comment on above: GFR Calc Estimated GFR (MDRD) Non-Af Amer 67 mL/min >60 [facility] Comment on above: Non- GFR Calc Serum or plasma albumin roel urement (mass/volume)Ordered By: Maame Chang on 12-29-2022 Albumin [Mass/Vol] 3.8 g/dL 3.2-5.0 [facility] Serum or plasma albumin/glob ulin mass ratioOrdered By: Maame Chang on 12-29-2022 Albumin/Globulin [Mass ratio] 1.3 {ratio} 0.9-2.4 [facility] Serum or plasma calcium roel urement (mass/volume)Ordered By: Maame Chang on 12-29-2022 Calcium [Mass/Vol] 9.2 mg/dL 8.5-10.1 [facility] Serum or plasma cholesterol in HDL measurement (mass/volume)Ordered By: Maame Chang on 12-29-2022 Cholesterol in HDL [Mass/Vol] 50 mg/dL >40 [facility] Comment on above: The drugs N-Acetylcy steine and Metamizole may falsely depress this assay. Reference Range HDL <40 mg/dL Low HDL Cholesterol HDL >or= 60 mg/dL High HDL Cholesterol Serum or plasma cholesterol in VLDL measurement (mass/volume)Ordered By: Maame Chang on 12-29-2022 Cholesterol in VLDL [Mass/Vol] 38 mg/dL 5-40 [facility] Serum or plasma creatinine m easurement (mass/volume)Ordered By: Maame Chang on 12-29-2022 Creatinine [Mass/Vol] 0.87 mg/dL 0.55-1.02 [facility] Comment on above: The validity of the calculated GFR & GFRAA in patients over 70 years has not been determined. Clinical correlation is essential. Serum or plasma low density lipoprotein (LDL) cholesterol measurement (mass/volume)Ordered By: Maame Chang on 12-29-2022 Cholesterol in LDL [Mass/Vol] 65 mg/dL 0-130 [facility] Serum or plasma urea nitroge n measurement (mass/volume)Ordered By: Maame Chang on 12-29-2022 Urea nitrogen [Mass/Vol] 15 mg/dL 7-18 [facility] Thin prep Papanicolaou smear with manual screeningOrdered By: Maame Chang 12-29-2022 Thin prep Papanicolaou smear with manual screening 18 U/L 15-37 [facility] Comment on above: Slight Hemolysis, Re sult may be falsely increased. Thin prep Papanicolaou smear with manual screening 6 5-15 [facility] Thin prep Papanicolaou smear with manual screening 14.4 mg/L NO RANGE EST. [facility] Whole blood hemoglobin A1c/t otal hemoglobin ratio (mass fraction)Ordered By: Maame Chang on 12-29-2022 HbA1c (Bld) [Mass fraction] 5.9 % 3.8-5.6 [facility] Comment on above: Normal < 5.7 % Predi abetic 5.7 - 6.4 % Diabetic >or= 6.5 % Please note range changes. Basophil percentageon 2021 Chloride [Moles/Vol] 101 mmol/L 98-107 [facility] Work Phone: Cholesterol [Mass/Vol] 139 mg/dL <200 [facility] Work Phone: Comment on above: <200 mg/dL Desirable 200-240 mg/dL Borderline >240 mg/dL High Risk Glucose [Mass/Vol] 119 mg/dL 74-106 [facility] Work Phone: Comment on above: Fasting Glucose resu lt from 100 to 125 mg/dL suggests IMPAIRED HOMEOSTASIS per A.D.A. criteria. Potassium [Moles/Vol] 3.7 mmol/L 3.5-5.1 [facility] Work Phone: Sodium [Moles/Vol] 134 mmol/L 136-145 [facility] Work Phone: Triglyceride [Mass/Vol] 177 mg/dL [facility] Work Phone: Comment on above: The drugs N-Acetylcy steine and Metamizole may falsely depress this assay.Serum Triglycerides Reference Interval Normal <150 mg/dL Borderline high 150 - 199 mg/dL High 200 - 499 mg/dL Very High > or = 500 mg/dL Laboratory - Chemistry and C hemistry - challengeon 12-28-2021 CO2 [Moles/Vol] 25.0 mmol/L 21.0-32.0 [facility] Work Phone: Urea nitrogen/Creatinine [Mass ratio] 13.9 mg/mg 10-20 [facility] Work Phone: No Panel Informationon 12-28 Hepatitis C Antibody Non-Reactive Nonreactive [facility] Work Phone: Comment on above: Non Reactive: < 0.8 Equivocal: >/= 0.8 to < 1.0 Reactive: >/= 1.0The CDC recommends that a reactive/equivocal HCV antibody result be followed up by the HCV Nucleic Acid Amplificationtest (278221) Estimated GFR (MDRD) Amer 91 mL/min >60 [facility] Work Phone: Comment on above: GFR Calc Estimated GFR (MDRD) Non-Af Amer 75 mL/min >60 [facility] Work Phone: Comment on above: Non- GFR Calc Serum or plasma calcium roel urement (mass/volume)on 12-28-2021 Calcium [Mass/Vol] 8.7 mg/dL 8.5-10.1 [facility] Work Phone: Serum or plasma cholesterol in HDL measurement (mass/volume)on 12-28-2021 Cholesterol in HDL [Mass/Vol] 54 mg/dL [facility] Work Phone: Comment on above: The drugs N-Acetylcy steine and Metamizole may falsely depress this assay. Reference Range HDL <40 mg/dL Low HDL Cholesterol HDL >or= 60 mg/dL High HDL Cholesterol Serum or plasma cholesterol in VLDL measurement (mass/volume)on 12-28-2021 Cholesterol in VLDL [Mass/Vol] 35 mg/dL 5-40 [facility] Work Phone: Serum or plasma creatinine m easurement (mass/volume)on 12-28-2021 Creatinine [Mass/Vol] 0.79 mg/dL 0.55-1.02 [facility] Work Phone: Comment on above: The validity of the calculated GFR & GFRAA in patients over 70 years has not been determined. Clinical correlation is essential. Serum or plasma low density lipoprotein (LDL) cholesterol measurement (mass/volume)on 12-28-2021 Cholesterol in LDL [Mass/Vol] 50 mg/dL 0-130 [facility] Work Phone: Serum or plasma urea nitroge n measurement (mass/volume)on 12-28-2021 Urea nitrogen [Mass/Vol] 11 mg/dL 7-18 [facility] Work Phone: Thin prep Papanicolaou smear with manual screeningon 12-28-2021 Thin prep Papanicolaou smear with manual screening 8 5-15 [facility] Work Phone: CNPTOUTREACHon 10-29-2020 [facility] Patient Outreach (COVAMN) ZHENG RYO ([id number]) 1945 F Date Time Provider Department 10/29/20 [...] . Date Reviewed: 03/23/2019 Reviewed by: Marielos ([facility]) Raciel - Fully Assessed Order(s):SARS-COVID VACCINE 1ST DOSE APPT [[id number]] Order #: [id number] FUTURE Prescriptions as of 10/29/2020 Sig: POTASSIUM [...] 10/29/2020 (None) Letter Text Encounter Status:Closed by EPIC, PRODUSER on 11/02/20 Normal [facility] Vital Signs Date Time Vital Sign Value Performing Clinician Corie capps 02-26-2025 12:07-0400 Body temperature 97.7 [degF] Dr. Roseann Eli MD Work Phone: [facility] 02-26-2025 12:07-0400 Diastolic blood pressure 72 mm[Hg] Dr. Roseann Eli MD Work Phone: [facility] 02-26-2025 12:07-0400 Heart rate 78 /min Dr. Roseann Eli MD Work Phone: [facility] 02-26-2025 12:07-0400 Respiratory rate 18 /min Dr. Roseann Eli MD Work Phone: [facility] 02-26-2025 12:07-0400 SaO2% (BldA) [Mass fraction] 100 % Dr. Roseann Eli MD Work Phone: [facility] 02-26-2025 12:07-0400 Systolic blood pressure 160 mm[Hg] Dr. Roseann Eli MD Work Phone: [facility] 02-26-2025 09:44-0400 Body height 167.[address] Roseann Eli MD Work Phone: [facility] 02-26-2025 09:44-0400 Body mass index (BMI) [Ratio] 26.1 kg/m2 Dr. Roseann Eli MD Work Phone: [facility] 02-26-2025 09:44-0400 Body weight 73.[address] Roseann Eli MD Work Phone: [facility] 12-05-2024 16:56-0400 Body temperature 96.6 [degF] Pili Chakraborty MD Work Phone: [facility] 12-05-2024 16:56-0400 Diastolic blood pressure 94 mm[Hg] Pili Chakraborty MD Work Phone: [facility] 12-05-2024 16:56-0400 Heart rate 73 /min Pili Chakraborty MD Work Phone: [facility] 12-05-2024 16:56-0400 Respiratory rate 16 /min Pili Chakraborty MD Work Phone: [facility] 12-05-2024 16:56-0400 SaO2% (BldA) [Mass fraction] 100 % Pili Chakraborty MD Work Phone: [facility] 12-05-2024 16:56-0400 Systolic blood pressure 119 mm[Hg] Pili Chakraborty MD Work Phone: [facility] 12-05-2024 12:11-0400 Body height 167.64 cm Pili Chakraborty MD Work Phone: [facility] 12-05-2024 12:11-0400 Body mass index (BMI) [Ratio] 25.7 kg/m2 Pili Chakraborty MD Work Phone: [facility] 12-05-2024 12:11-0400 Body weight 72.5 kg Pili Chakraborty MD Work Phone: [facility] 11-29-2024 15:46-0400 Body temperature 98 [degF] Pili Chakraborty MD Work Phone: [facility] 11-29-2024 15:46-0400 Diastolic blood pressure 72 mm[Hg] Pili Chakraborty MD Work Phone: [facility] 11-29-2024 15:46-0400 Heart rate 79 /min Pili Chakraborty MD Work Phone: [facility] 11-29-2024 15:46-0400 Respiratory rate 18 /min Pili Chakraborty MD Work Phone: [facility] 11-29-2024 15:46-0400 SaO2% (BldA) [Mass fraction] 99 % Pili Chakraborty MD Work Phone: [facility] 11-29-2024 15:46-0400 Systolic blood pressure 183 mm[Hg] Pili Chakraborty MD Work Phone: [facility] 11-29-2024 12:35-0400 Body height 167.64 cm Pili Chakraborty MD Work Phone: [facility] 11-29-2024 12:35-0400 Body mass index (BMI) [Ratio] 26.2 kg/m2 Pili Chakraborty MD Work Phone: [facility] 11-29-2024 12:35-0400 Body weight 73.7 kg Pili Chakraborty MD Work Phone: [facility] 11-16-2024 20:28-0500 Body temperature 98 [degF] Pili Chakraborty MD Work Phone: [facility] 11-16-2024 20:28-0500 Diastolic blood pressure 73 mm[Hg] Pili Chakraborty MD Work Phone: [facility] 11-16-2024 20:28-0500 Heart rate 72 /min Pili Chakraborty MD Work Phone: [facility] 11-16-2024 20:28-0500 Respiratory rate 18 /min Pili Chakraborty MD Work Phone: [facility] 11-16-2024 20:28-0500 SaO2% (BldA) [Mass fraction] 97 % Pili Chakraborty MD Work Phone: [facility] 11-16-2024 20:28-0500 Systolic blood pressure 149 mm[Hg] Pili Chakraborty MD Work Phone: [facility] 11-16-2024 18:16-0500 Body height 154.99 cm Pili Chakraborty MD Work Phone: [facility] 11-16-2024 18:16-0500 Body mass index (BMI) [Ratio] 32.5 kg/m2 Pili Chakraborty MD Work Phone: [facility] 11-16-2024 18:16-0500 Body weight 78.2 kg Pili Chakraborty MD Work Phone: [facility] 09-30-2024 14:26-0500 Body mass index (BMI) [Ratio] 29.8 kg/m2 Pili Chakraborty MD Work Phone: [facility] 09-30-2024 14:26-0500 Body temperature 98.4 [degF] Pili Chakraborty MD Work Phone: [facility] 09-30-2024 14:26-0500 Body weight 71.66 kg Pili Chakraborty MD Work Phone: [facility] 09-30-2024 14:26-0500 Diastolic blood pressure 68 mm[Hg] Pili Chakraborty MD Work Phone: [facility] 09-30-2024 14:26-0500 Heart rate 86 /min Pili Chakraborty MD Work Phone: [facility] 09-30-2024 14:26-0500 Respiratory rate 15 /min Pili Chakraborty MD Work Phone: [facility] 09-30-2024 14:26-0500 SaO2% (BldA) [Mass fraction] 99 % Pili Chakraborty MD Work Phone: [facility] 09-30-2024 14:26-0500 Systolic blood pressure 142 mm[Hg] Pili Chakraborty MD Work Phone: [facility] 06-14-2022 09:13-0400 Body height 156.21 cm [facility] Work Phone: Encounters Encounter Date Encounter Type Care Provider Facility Start: 04-01-2025 End: 04-01-2025 ambulatory Epifanio CARTER Facility:[facility] Start: 03-28-2025 End: 03-28-2025 ambulatory Epifanio CARTER Facility:[facility] Start: 03-24-2025 End: 03-24-2025 ambulatory Epifanio CARTER Facility:[facility] Start: 02-26-2025 End: 02-26-2025 Emergency department patient [...] 11-13-2024 ambulatory Pili Chakraborty MD Work Phone: [facility] Work Phone: Start: 11-13-2024 End: 11-13-[address] Epifanio Zamora MD -[facility] Work Phone: Start: 11-13-[address] Epifanio adamson MD -[facility] [place] Work Phone: Start: 11-13-2024 End: 11-13-2024 ambulatory Roseann S Jolliff Facility:[facility] Start: 11-01-2024 ambulatory Roseann S Jolliff Facility: [facility] Start: 10-21-2024 ambulatory Roseann S Jolliff Facility: [facility] Start: 10-01-2024 End: 10-01-[address] Roseann Eli MD -[facility] Start: 09-30-2024 End: 09-30-[address] Silver Doe MD -[facility] Work Phone: Start: 09-30-2024 End: 10-01-2024 ambulatory Roseann S Jolliff Facility:[facility] Start: 07-16-2024 End: 07-16-2024 ambulatory Pili Chakraborty Facility:[facility] Start: 07-25-2023 End: 07-25-2023 ambulatory [facility] Work Phone: Start: 07-25-2023 End: 07-25-2023 Discharged Recurring [facility]-Physical Therapy Work Phone: Start: 12-29-2022 End: 12-29-2022 ambulatory [facility] Work Phone: Start: 12-29-2022 End: 12-29-2022 Patient encounter procedure [facility] Start: 06-14-2022 End: 06-14-2022 ambulatory [facility] Work Phone: Start: 06-14-2022 End: 06-14-2022 Patient encounter procedure [facility]-Outpatient Bone Densitometry Start: 12-28-2021 End: 12-28-2021 [facility] Date Procedure Procedure Detail Performing Clinician [...] Date Care Activity Detail Author Start: 02-26-2025 [facility] Start: 02-26-2025 Plain x-ray of pelvi s and lower extremity HIP, UNI W/ Pelvis 2-3 Views [facility] Start: 02-26-2025 XR Pelvis and Hip Views [facility] Start: 12-05-2024 [facility] Start: 11-29-2024 [facility] Start: 11-29-2024 [facility] Start: 11-16-2024 [facility] MR Brain WO contrast [facility] Patient Education [facility] Work Phone: Patient referral [facility] Work Phone: Payers Date Payer Category Payer Self-pay [id number] 2021 Unknown [id number] Unknown [id number] 2.16.8 [id number] Unknown [id number] 2.16.8 [id number] Unknown [id number] 2.16.8 [id number] Unknown [id number] 2.16.8 [id number] Unknown [id number] 2.16.8 [id number] Unknown [id number] 2.16.8 [id number] Unknown [id number] 2.16.8 [id number] Unknown [id number] 2.16.8 [id number] Unknown [id number] 2.16.8 [id number] Unknown [id number] 2.16.8 [id number] Unknown [id number] 2.16.8 [id number] Unknown [id number] 2.16.8 [id number] Unknown [id number] 2.16.8 [id number] Social History Date Type Detail Facility Tobacco smoking stat us NMIS Unknown if ever smoked [facility] Work Phone: Start: 1945 Sex Assigned At Female [facility] Start: 11-16-2024 End: 02-26-2025 Tobacco smoking status NHIS Never smoked tobacco (finding) [facility] Start: 11-16-2024 End: 12-10-2024 Sex Female (finding) [facility] Clinical Notes 09-30-2024 to 02-26-2025 Note Date & Type Note Facility 02-26-2025 Radiology Diagnostic study note [facility] Imaging Services [address] [place] [address] [id number] Brain/Head without Contrast MR#: [id number] Acct: [id number] Name: ZHENG ROY Rep #: [id number] : 1945 F 79 From: Christopher Hudson MD PCP: Dr. Epifanio Zamora DO Status: REG ER Study:Brain/Head without Contrast Date of Exa m: 02/26/25 Exam# [id number] Ordering Dr: Radha Marrero DO PROCEDURE: BRAIN/HEAD [...] CHRONIC CHANGES. NO ACUTE FINDINGS. Reading Location: [place] [address] CC: Dr. Sofia Marrero DO; Dr. Epifanio Zamora DO ~ Deportation Officer: Signed [facility] 12-05-2024 Discharge summary [facility] 12-05-2024 Radiology Diagnostic study note [facility] Imaging Services [address] [place] [address] Knee 4 or More Views MR#: [id number] Acct: [id number] Name: ZHENG ROY Rep #: [id number] : 1945 F 79 From: Veronika Llanos MD PCP: Dr. Epifanio Zamora DO Status: REG ER Study:Knee 4 or More Views Date of Exam: 12/05/24 Exam# [id number] Ordering Dr: David Gutierrez DO PROCEDURE: KNEE 4 OR MORE VIEWS 12/05/2024 REASON FOR EXAM: INJURY TECHNIQUE: 4 view(s) of the right knee COMPARISON: 12/05/2024 FINDINGS: No acute fracture or dislocation.No degenerative changes. No joint effusion. No soft tissue abnormality. RAD/Knee 4 or More Views IMPRESSION: No acute abnormality. Reading [facility] CC: Dr. Sushil Gutierrez DO; Dr. Epifanio Zamora DO ~ Deportation Officer: Signed [facility] 12-05-2024 Radiology Diagnostic study note [facility] Imaging Services [address] [place] [address] HIP, UNI W/ Pelvis 2-3 Views MR#: [id number] Acct: [id number] Name: ZHENG ROY Rep #: [id number] : 1945 F 79 From: Veronika Llanos MD PCP: Dr. Epifanio Zamora DO Status: REG ER Study:HIP, UNI W/ Pelvis 2-3 Views Date of Ex am: 12/05/24 Exam# [id number] Ordering Dr: David Gutierrez DO PROCEDURE: HIP, [...] IMPRESSION: 1. No acute abnormality. Reading Location: [facility] CC: Dr. Sushil Gutierrez DO; Dr. Epifanio Zamora DO ~ Deportation Officer: Signed [facility] 12-05-2024 Radiology Diagnostic study note [facility] Imaging Services [address] [place] [address] Brain/Head without Contrast MR#: [id number] Acct: [id number] Name: ZHENG ROY Rep #: [id number] : 1945 F 79 From: Veronika Llanos MD PCP: Dr. Epifanio Zamora DO Status: REG ER Study:Brain/Head without Contrast Date of Exa m: 12/05/24 Exam# [id number] Ordering Dr: David Gutierrez DO PROCEDURE: BRAIN/HEAD [...] 1. No acute intracranial abnormality. Reading Location[facility] CC: Dr. Sushil Gutierrez DO; Dr. Epifanio Zamora DO ~ Deportation Officer: Signed [facility] 12-05-2024 Discharge summary Note Date/Time December 05, 2024 4:[facility] Department [address] [place] [address] Emergency Department Summary 12/05/24 MR#: [id number] Acct: [id number] Name: ZHENG ROY Rep #:[id number] : 1945 79 From: Sushil Gilliland PCP: [...] is no report of being on anticoagulants. [facility] Medical History Dementia Basal cell [...] 1. No acute intracranial abnormality. Reading Location: [facility] Knee X-Ray 12/05/24 12:58 IMPRESSION: No acute abnormality. Reading Location: [facility] Hip/Pelvis X-Ray 12/05/24 13:35 IMPRESSION: 1. No acute abnormality. Reading Location: [facility] Discharge Plan Triage Chief Complaint: [...] Care Provider] - As Needed Print Language: Irish Disposition Disposition: Home, Self Care What to do if you have Problems For any increased pain, shortness of breath, bleeding, nausea or vomiting, chestpain, or any unexpected problems, contact your Primary Care Provider. Call [facility] ([phone]) or report to the closest Emergency Room. Call 911 if necessary. 12/05/24 1630 <Electronically signed by Sushil Gutierrez DO> Cosigner Signature (if applicable): CC: Dr. Epifanio Zamora DO ~ Signed [facility] Work Phone: 1(243) 605-936303-21-2025 Radiology Diagnostic study note [facility] Imaging Services [address] [place] [address] Ribs Uni Min 3V w/PA Chest MR#: [id number] Acct: [id number] Name: ZHENG ROY Rep #: [id number] : 1945 F 79 From: Christopher Hudson MD PCP: Dr. Epifanio Zamora DO Status: REG ER Study:Ribs Uni Min 3V w/PA Chest Date of Exam : 11/29/24 Exam# [id number] Ordering Dr: Behzad Weber MD PROCEDURE: RIBS [...] No acute abnormality is seen. Reading Location: [facility] CC: Dr. Kenney Weber MD; Dr. Epifanio Zamora DO ~ Deportation Officer: Signed [facility]03-21-2025 Radiology Diagnostic study note [facility] Imaging Services [address] [place] [address] Brain/Head without Contrast MR#: [id number] Acct: [id number] Name: ZHENG ROY Rep #: [id number] : 1945 F 79 From: Bobbi Pressley MD PCP: Dr. Epifanio Zamora DO Status: REG ER Study:Brain/Head without Contrast Date of Exa m: 11/29/24 Exam# [id number] Ordering Dr: Behzad Weber MD PROCEDURE: BRAIN/HEAD [...] 4. Additional description as above. Reading Location: [facility] CC: Dr. Kenney Weber MD; Dr. Epifanio Zamora DO ~ Deportation Officer: Signed [facility]03-08-2025 Discharge summary [facility] Medical Records Department [address] [place] [address] Emergency Department Summary 11/16/24 MR#: [id number] Acct: [id number] Name: ZHENG ROY Rep #:[id number] : 1945 79 From: Astrid EASTON PCP: Dr. Epifanio Zamora, DO Status:REG ER Location: ED HPI History of Present Illness Chief Complaint: Fall Narrative Narrative: 79-year-old female had an unwitnessed fall at [facility]. She was apparently found on the ground facedown near the dining area. She has no external signs of injury but complains of left shoulder pain. She is not on blood thinners. Daughter states she has dementia and moved into [facility] in September 2024 and since then has fallen a total of 2 times including today. She ambulates well without assistance or assistive devices. Patient is not sure whyshe fell off but can provide limited history secondary to dementia. Her daughter is here and states she is acting at baseline. [facility] Medical History (Updated 11/16/24 @ [...] NO ACUTE FRACTURE OR DISLOCATION. [facility] Ribs w/Chest X-Ray 11/16/24 18:41 IMPRESSION: NO EVIDENCE OF ACUTE RIB FRACTURE OR PNEUMOTHORAX. Reading Location: [facility] Wrist X-Ray 11/16/24 18:41 IMPRESSION: No acute fracture or dislocation. Reading Location: [facility] ED attending interpretation of left shoulder shows [...] NO ACUTE FRACTURE OR DISLOCATION. Reading [facility] Ribs w/Chest X-Ray 11/16/24 18:41 IMPRESSION: NO EVIDENCE OF ACUTE RIB FRACTURE OR PNEUMOTHORAX. [facility] 11/16/24 18:41 IMPRESSION: No acute fracture or dislocation. Reading [facility] Discharge Plan Triage Chief Complaint: Fall ED [...] Referrals: Roseann Eli MD [Med Staff - Crystal Report Developer] - Activity Restrictions/Additional Instructions: The x-ray showed no broken bones. I would treat your contusions with ice and Tylenol every 6 hours as needed. Print Language: Irish Disposition Disposition: Home, Self Care What to do if you have Problems For any increased pain, shortness of breath, bleeding, nausea or vomiting, chestpain, or any unexpected problems, contact your Primary Care Provider. Call [facility] ([phone]) or report tothe closest Emergency Room. Call 911 if necessary. 11/16/242009 Cosigner Signature (if applicable): 11/16/242025 CC: Dr. Epifanio Zamora DO ~ Signed [facility]03-08-2025 Radiology Diagnostic study note [facility] Imaging Services [address] [place] [address] Ribs Uni Min 3V w/PA Chest MR#: [id number] Acct: [id number] Name: ZHENG ROY Rep #: [id number] : 1945 F 79 From: Tyson Rocha DO PCP: Dr. Epifanio Zamora DO Status: REG ER Study:Ribs Uni Min 3V w/PA Chest Date of Exam : 11/16/24 Exam# [id number] Ordering Dr: Anil Dozier MD PROCEDURE: RIBS [...] ACUTE RIB FRACTURE OR PNEUMOTHORAX. Reading Location: [facility] CC: Dr. Epifanio Zamora DO; Dr. Kalyan Dozier MD ~ Deportation Officer: Signed [facility]03-08-2025 Radiology Diagnostic study note [facility] Imaging Services [address] [facility] [place] [address] Wrist min 3 Views MR#: [id number] Acct: [id number] Name: ZHENG ROY Rep #: [id number] : 1945 F 79 From: Tyson Rocha DO PCP: Dr. Epifanio Zamora DO Status: REG ER Study:Wrist min 3 Views Date of Exam: Exam# [id number] Ordering Dr: Anil Dozier MD PROCEDURE: WRIST MIN 3 VIEWS REASON FOR EXAM: Trauma. Pain. TECHNIQUE: 3 views of the left wrist COMPARISON: None FINDINGS: No visible fracture. No suspicious bone lesion. Normal alignment. Soft tissues are unremarkable. RAD/Wrist min 3 Views IMPRESSION: No acute fracture or dislocation. Reading Location: [facility] CC: Dr. Epifanio Zamora DO; Dr. Kalyan Dozier MD ~ Deportation Officer: Signed [facility]03-08-2025 Radiology Diagnostic study note [facility] Imaging Services [address] [place] [address] Shoulder min 2 Views MR#: [id number] Acct: [id number] Name: ZHENG ROY Rep #: [id number] : 1945 F 79 From: Tyson Rocha DO PCP: Dr. Epifanio Zamora DO Status: REG ER Study:Shoulder min 2 Views Date of Exam: 11/16/24 Exam# [id number] Ordering Dr: Astrid Saleh PROCEDURE: SHOULDER MIN [...] Dr. Epifanio Zamora DO; RUSTAM Shepard ~ Deportation Officer: Signed [facility]03-08-2025 Discharge summary Author Astrid Monae [facility] Note Date/Time November 16, 2024 8:26 pm [facility] Medical Records Department [address] [place] [address] Emergency Department Summary 11/16/24 MR#: [id number] Acct: [id number] Name: ZHENG ROY Rep #:[id number] : 1945 79 From: Astrid EASTON PCP: Dr. Epifanio Zamora, DO Status:REG ER Location: ED HPI <RUSTAM Shepard - Last Filed: 11/16/24 20:10> History of Present Illness Chief Complaint: Fall Narrative Narrative: 79-year-old female had an unwitnessed fall at [facility]. She was apparently found on the ground facedown near the dining area. She has no external signs of injury but complains of left shoulder pain. She is not on blood thinners. Daughter states she has dementia and moved into [facility] in September 2024 and since then has fallen a total of 2 times including today. She ambulates well without assistance or assistive devices. Patient is not sure whyshe fell off but can provide limited history secondary to dementia. Her daughter is here and states she is acting at baseline. [facility] <RUSTAM Shepard - Last Filed: 11/16/24 20:10> [facility] Medical History (Updated 11/16/24 @ 19:22 by [...] acute fracture or dislocation. Reading Location: [facility] ED attending interpretation of left shoulder shows no fracture or dislocation. ED attending interpretation of left wrist shows no fracture or dislocation. ED attending interpretation of left rib series shows no displaced rib fracture or pneumothorax. <Dr. Kalyan Dozier MD - Last Filed: 11/16/24 20:26> [facility] Narrative Medical decision making narrative: I [...] NO ACUTE FRACTURE OR DISLOCATION. Reading [facility] Ribs w/Chest X-Ray 11/16/24 18:41 IMPRESSION: NO EVIDENCE OF ACUTE RIB FRACTURE OR PNEUMOTHORAX. Reading Location[facility] Wrist [facility] 11/16/24 18:41 IMPRESSION: No acute fracture or dislocation. [facility] T[facility] Chief Complaint: Fall [...] Referrals: Roseann Eli MD [Med Staff - Crystal Report Developer] - Activity Restrictions/Additional Instructions: The x-ray showed no broken bones. I would treat your contusions with ice and Tylenol every 6 hours as needed. Print Language: Irish Disposition Disposition: Home, Self Care What to do if you have Problems For any increased pain, shortness of breath, bleeding, nausea or vomiting, chestpain, or any unexpected problems, contact your Primary Care Provider. Call [facility] ([phone]) or report to the closest Emergency Room. Call 911 if necessary. 11/16/242009 <Electronically signed by Astrid EASTON> Cosigner Signature (if applicable): 11/16/242025 <Electronically signed by Blade JONES> CC: Dr. 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 I would treat your contusions with ice and Tylenol every 6 hours as needed.[facility] Work Phone: Hospital Discharge instructionsAmbulatory Orders* Wheeled Walker Location: None Selected [facility] Work Phone: Reason for referral (narrative)No reason for referral information [facility] Work Phone: Summary Purpose Family History No Family History Records Found Relationship Condition Age at Onset Recorded Date/T paulo mother Cardiac disease Unknown Myocardial infarction Unknown father Cardiac disease Unknown Advance Directives No Advanced Directives Records Found Advance Directive Response Recorded Date/ Time Living Will Yes November 16, 2024 6:28pm Power of Home Help Aide Yes November 16 6:28pm Name of Medical Power of Home Help Aide ary November 16, 2024 6:28pm Advance Directive Response Recorded Date/ Time Living Will Yes November 16, 2024 7:28pm Do you have a Healthcare Power of Home Help Aide? Yes November 16, 2024 7:28pm Name of Medical Power of Home Help Aide ary November 16, 2024 7:28pm Living Will Yes November 29, 2024 12:42pm Do you have a Healthcare Power of Home Help Aide? Yes November 29, 2024 12:42pm Name of Medical Power of Home Help Aide daughter November 29, 2024 12:42pm Advance Directive Response Recorded Date/ Time Living Will Yes November 16, 2024 7:28pm Do you have a Healthcare Power of Home Help Aide? Yes November 16, 2024 7:28pm Name of Medical Power of Home Help Aide ary November 16, 2024 7:28pm Living Will Yes November 29, 2024 12:42pm Do you have a Healthcare Power of Home Help Aide? Yes November 29, 2024 12:42pm Name of Medical Power of Home Help Aide daughter November 29, 2024 12:42pm Living Will Yes December 05, 2024 12:18pm Do you have a Healthcare Power of Home Help Aide? Yes December 05, 2024 12:18pm Name of Medical Power of Home Help Aide ARY December 05, 2024 12:18pm Advance Directive Response Recorded Date/ Time Living Will Yes November 16, 2024 7:28pm Do you have a Healthcare Power of Home Help Aide? Yes November 16, 2024 7:28pm Name of Medical Power of Home Help Aide ary November 16, 2024 7:28pm Living Will Yes November 29, 2024 12:42pm Do you have a Healthcare Power of Home Help Aide? Yes November 29, 2024 12:42pm Name of Medical Power of Home Help Aide daughter November 29, 2024 12:42pm Living Will Yes December 05, 2024 12:18pm Do you have a Healthcare Power of Home Help Aide? Yes December 05, 2024 12:18pm Name of Medical Power of Home Help Aide ARY December 05, 2024 12:18pm Do you have a Healthcare Power of Home Help Aide? Yes February 26, 2025 9:49am Chief Complaint [...] Date cognitive impairment September 30, 2024 2:22pm LONG-TERM LAB WORK November 13, 2024 5: 00am fall November 16, 2024 6:15 pm fall with pain lt side rib area no loc M arch 2024 11:49am FALL December 05, 2024 12: 11pm Chief Complaint Admit Date LONG-TERM LAB WORK November 13, 2024 5: 00am fall November 16, 2024 6:15 pm fall with pain lt side rib area no loc M arch 2024 11:49am FALL December 05, 2024 12: 11pm FALL February 26, 2025 9:43 am Additional Source Comments INFORMATION SOURCE (unrecogn ized section and content) DATE CREATED AUTHOR 11/02/2020 [facility] DATE CREATED AUTHOR AUTHOR'S ORGANIZ ATION 07/12/2025 [facility] Goals (unrecognized section and content) [...] Kay MD Family Provider Active Maame Chang , DO Primary Care Provider Active Team Status: Inactive Member Role Status Dates Maame Chang , DO Primary Care Provider, Attending Provider Active Team Status: Inactive Member Role Status Dates Maame Chang , DO Primary Care Provider Active Dr. Kristopher Zaldivar , DO Attending Provider, Referring Provider Active Team Status: Active Member Role Status Dates Dr. Epifanio Zamora , DO Primary Care Provider Active Team Status: [...] 2024 End: November 16, 2024 Dr. Epifanio Zaomra DO Primary Care Provider Active Start: November [...] BE BASED ON THE PRIMARY CLINICAL RECORDS. [facility] provides no warranty or guarantee of the accuracy or completeness of information in this document.
[2025-08-05 09:36] LABS: Anion Gap 12 (5-15); BUN 19 mg/dL (4-19); BUN/Creat Ratio 23.8 RATIO (10-20); Calcium,Total 9.2 mg/dL (7.6-11.0); Carbon Dioxide 25.0 mmol/L (21.0-32.0); Chloride 102 mmol/L (98-108); Glucose 91 mg/dL (70-99); Potassium 3.7 mmol/L (3.3-5.1); Pro- Brain NATRIURETIC PEPTIDE 104 pg/mL (<=1800)
[2025-08-06 08:08] LABS: Prealbumin 21 mg/dL (9-32)
== END ==
LOC: OLS.BROOKB 04:00
PROVIDERS: Referring Provider Family Medicine; Visit Provider Family Medicine
DX: I10 Essential (primary) hypertension (principal); Z79.899 Other long term (current) drug therapy; R73.03 Prediabetes; R60.0 Localized edema
CPT/HCPCS: 36415; 80048; 83036; 83880; 84134

== ENCOUNTER → 2025-09-02 04:00 | Outpatient (REF) | payer MEDICARE, SELFPAY ==
--- OUTSIDE RECORDS SUMMARY | 2025-09-02 03:14 | XMS RPT_ITS | CCD ---
Author Organization [facility] Care Team Providers Care Computer Applications Engineer Name Role Phone Pili Chakraborty MD Primary [...] Dr. Kenney Weber MD Emergency Provider Dr. uSshil Gutierrez DO Emergency Provider Dr. 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 and steroids can make this worse (5 sources) montelukast Drug Allergy 5 Hives [facility] (5 sources) Penicillins Allergy to substance 5 unknown [facility] (6 sources) diphtheria, pertussis, tetanus vacc; Translations: [diphtheria, pertussis, tetanus vacc] Allergy to substance 5 [facility] (6 sources) influenza virus vaccine, specific; Translations: [influenza virus vaccine, specific] Allergy to substance 5 unknown [facility] (1 source) Albuterol Drug Allergy 5 [facility] Repository (1 source) Corticosteroids Drug allergy (disorder) 5 [facility] Repository (1 source) Doxycycline Drug Allergy 5 [facility] Repository (1 source) montelukast Drug Allergy 5 [facility] Repository (1 source) Penicillins Drug allergy (disorder) 5 [facility] Repository Medications Current Medications Medication Drug Class(es) [...] Onset: 07-10-2025 Chronic Other aftercare (1 source) nursing home (current) use of oral hypoglycemic drugs; Translations: [enrollment processor (current) use of oral hypoglycemic drugs] Onset: 07-10-2025 Episodic Other aftercare (1 source) Other hog feeder (current) drug therapy; Translations: [Other assisted (current) drug therapy] Onset: 07-10-2025 Episodic Other [...] Auto (Unsp spec) [#/Vol] 1.13 10*3/uL 0.83-4.51 [facility] Absolute neutrophil countOrd ered By: Sofia Marrero on 02-26-2025 Neutrophils (Bld) [#/Vol] 6.2 10*3/uL 2.0-7.7 [facility] Anion gap in Serum or Plasma Ordered By: Sofia Marrero on 02-26-2025 Anion gap [Moles/Vol] 12 mmol/L 5-15 [facility] Automated lymphocyte count a s percentage of total leukocytesOrdered By: Sofia Marrero on 02-26-2025 Lymphocytes/100 WBC Auto (Unsp spec) 14.4 % Low 19-41 [facility] BUN/creatinine ratioOrdered By: Sofia Marrero on 02-26-2025 Urea nitrogen/Creatinine [Mass ratio] 13.4 mg/mg 06-30 [facility] Basic Metabolic Profile (BMP )on 02-26-2025 BUN/CRE 13.4 RATIO Normal 06-30 [facility] Comment on above: Performed By: #### L 500.2500 #### [facility] Laboratory [facility] [place], [address] Calcium [Mass/Vol] 9.2 mg/dL Normal 7.6-11.0 [facility] Comment on above: Performed By: #### L 500.2500 #### [facility] [address] [place], [address] Chloride [Moles/Vol] 93 mmol/L Low 98-108 [facility] Comment on above: Performed By: #### L 500.2500 #### [facility] [address] [place], [address] CO2 [Moles/Vol] 25.9 mmol/L Normal 21.0-32.0 [facility] Comment on above: Performed By: #### L 500.2500 #### [facility] [address] [place], [address] Creatinine [Mass/Vol] 0.72 mg/dL Normal 0.70-1.20 [facility] Comment on above: Performed By: #### L 500.2500 #### [facility] [address] [place], [address] ECRCL 57.50 ml/min Normal 50-250 [facility] Comment on above: Performed By: #### L 500.2500 #### [facility] [address] [place], [address] GAP 12 Normal 5-15 [facility] Comment on above: Performed By: #### L 500.2500 #### [facility] [address] [place], [address] GFR/1.73 sq M.predicted among non-blacks MDRD (S/P/Bld) [Vol rate/Area] 85 mL/min/{1.73_m2} Normal >60 [facility] Comment on above: Result Comment: mL/m in/1.73m2 CKD-EPI Creatinine Equation (2020) Performed By: #### L 500.2500 #### [facility] [address] [place], [address] Glucose [Mass/Vol] 117 mg/dL High 70-99 [facility] Comment on above: Performed By: #### L 500.2500 #### [facility] [address] [place], [address] Potassium [Moles/Vol] 4.0 mmol/L Normal 3.3-5.1 [facility] Comment on above: Result Comment: Hemo lysis present, Results??could be affected. ?? Performed By: #### L 500.2500 #### [facility] [address] [place], [address] Sodium [Moles/Vol] 130 mmol/L Low 133-145 [facility] Comment on above: Performed By: #### L 500.2500 #### [facility] [address] [place], [address] Urea nitrogen [Mass/Vol] 10 mg/dL Normal 4-19 [facility] Comment on above: Performed By: #### L 500.2500 #### [facility] [address] [place], [address] BUN Normal 4-19 [facility] Comment on above: Result Comment: This specimen has been REJECTED due to Laboratory criteria: Hemolyzed. Carrie (ED) has been notified of need of recollection. 02/26/25 1054 Ralf L White Performed By: #### L 500.2500, L100.0100 #### [facility] [address] [place], [address] BUN/CRE Normal 10-20 [facility] Comment on above: Result Comment: This specimen has been REJECTED due to Laboratory criteria: Hemolyzed. Carrie (ED) has been notified of need of recollection. 02/26/25 1054 Ralf L White Performed By: #### L 500.2500, L100.0100 #### [facility] [address] [place], [address] Calcium Normal 7.6-11.0 [facility] Comment on above: Result Comment: This specimen has been REJECTED due to Laboratory criteria: Hemolyzed. Carrie (ED) has been notified of need of recollection. 02/26/25 1054 Ralf L White Performed By: #### L 500.2500, L100.0100 #### [facility] [address] [place], [address] CL Normal 98-108 [facility] Comment on above: Result Comment: This specimen has been REJECTED due to Laboratory criteria: Hemolyzed. Carrie (ED) has been notified of need of recollection. 02/26/25 1054 Ralf L White Performed By: #### L 500.2500, L100.0100 #### [facility] [address] [place], [address] CO2 Normal 21.0-32.0 [facility] Comment on above: Result Comment: This specimen has been REJECTED due to Laboratory criteria: Hemolyzed. Carrie (ED) has been notified of need of recollection. 02/26/25 1054 Ralf L White Performed By: #### L 500.2500, L100.0100 #### [facility] [address] [place], [address] CREAT,SERUM Normal 0.70-1.20 [facility] Comment on above: Result Comment: This specimen has been REJECTED due to Laboratory criteria: Hemolyzed. Carrie (ED) has been notified of need of recollection. 02/26/25 1054 Ralf L White Performed By: #### L 500.2500, L100.0100 #### [facility] [address] [place], [address] eGFR Normal >60 [facility] Comment on above: Result Comment: This specimen has been REJECTED due to Laboratory criteria: Hemolyzed. Carrie (ED) has been notified of need of recollection. 02/26/25 1054 Ralf L White Performed By: #### L 500.2500, L100.0100 #### [facility] [address] [place], [address] GAP Normal 5-15 [facility] Comment on above: Result Comment: This specimen has been REJECTED due to Laboratory criteria: Hemolyzed. Carrie (ED) has been notified of need of recollection. 02/26/25 1054 Ralf L White Performed By: #### L 500.2500, L100.0100 #### [facility] [address] [place], [address] GLU Normal 70-99 [facility] Comment on above: Result Comment: This specimen has been REJECTED due to Laboratory criteria: Hemolyzed. Carrie (ED) has been notified of need of recollection. 02/26/25 1054 Ralf L White Performed By: #### L 500.2500, L100.0100 #### [facility] [address] [place], [address] Potassium Normal 3.3-5.1 [facility] Comment on above: Result Comment: This specimen has been REJECTED due to Laboratory criteria: Hemolyzed. Carrie (ED) has been notified of need of recollection. 02/26/25 1054 Ralf L White Performed By: #### L 500.2500, L100.0100 #### [facility] [address] [place], [address] Basic Metabolic Profile (BMP) Normal 133-145 [facility] Comment on above: Result Comment: This specimen has been REJECTED due to Laboratory criteria: Hemolyzed. Carrie (ED) has been notified of need of recollection. 02/26/25 1054 Ralf L White Performed By: #### L 500.2500, L100.0100 #### [facility] [address] [place], [address] Basophil percentageOrdered B y: Remus Ungur on 02-26-2025 Basophils/100 WBC (Bld) 0.6 % 0-1 [facility] Brain/Head without Contrasto n 02-26-2025 Brain/Head without Contrast [facility] Imaging Services [address] [place], [place] [address] Brain/Head without Contrast MR#: [id number] Acct: [id number] Name: ZHENG ROY Rep #: [id number] : 1945 F 79 From: Ezekiel lovelace MD PCP: Dr. Epifanio Zamora DO Status: REG ER Study: Brain/Head without Contrast Date of Exam: 02/09 05/05 Exam# [id number] Ordering Dr: Sofia Marrero DO PROCEDURE: BRAIN/HEAD [...] CHRONIC CHANGES. NO ACUTE FINDINGS. Reading Location: [facility] CC: Dr. Sofia Marrero DO; Dr. Epifanio Zamora DO Woods Overseer: Signed Normal [facility] CBC W/Diff, Automatedon 02-09 Absolute Lymph 1.13 X10 3/uL Normal 0.83-4.51 [facility] Comment on above: Performed By: #### L 500.2500, L100.0100 #### [facility] [address] [place], [place], [address] Absolute Neut 6.2 X10 3/uL Normal 2.0-7.7 [facility] Comment on above: Performed By: #### L 500.2500, L100.0100 #### [facility] [address] [place], [address] Basophils/100 WBC (Bld) 0.6 % Normal 0-1 [facility] Comment on above: Performed By: #### L 500.2500, L100.0100 #### [facility] [address] [place], [address] Eosinophils/100 WBC (Bld) 0.5 % Normal 0-5 [facility] Comment on above: Performed By: #### L 500.2500, L100.0100 #### [facility] [address] [place], [address] Erythrocyte distribution width (RBC) [Ratio] 12.3 % Normal 11.6-14.6 [facility] Comment on above: Performed By: #### L 500.2500, L100.0100 #### [facility] [address] [place], [address] Hematocrit (Bld) [Volume fraction] 39.7 % Normal 37-47 [facility] Comment on above: Performed By: #### L 500.2500, L100.0100 #### [facility] [address] [place], [address] Hemoglobin (Bld) [Mass/Vol] 14.0 g/dL Normal 12.0-15.0 [facility] Comment on above: Performed By: #### L 500.2500, L100.0100 #### [facility] [address] [place], [address] IG% 0.500 Normal 0.0-0.9 [facility] Comment on above: Result Comment: IG% - Immature Granulocytes (promyelocytes, myelocytes and metamyelocytes) > 1% indicates that a LEFT SHIFT is Present. Performed By: #### L 500.2500, L100.0100 #### [facility] [address] [place], [address] Lymphocytes/100 WBC (Bld) 14.4 % Low 19-41 [facility] Comment on above: Performed By: #### L 500.2500, L100.0100 #### [facility] [address] [place], [address] MCH (RBC) [Entitic mass] 30.0 pg Normal 27.0-32.0 [facility] Comment on above: Performed By: #### L 500.2500, L100.0100 #### [facility] [address] [place], [address] MCHC (RBC) [Mass/Vol] 35.3 g/dL Normal 32-36 [facility] Comment on above: Performed By: #### L 500.2500, L100.0100 #### [facility] [address] [place], [address] MCV (RBC) [Entitic vol] 85.0 fL Normal 81-99 [facility] Comment on above: Performed By: #### L 500.2500, L100.0100 #### [facility] [address] [place], [address] Monocytes/100 WBC (Bld) 5.1 % Normal 0-10 [facility] Comment on above: Performed By: #### L 500.2500, L100.0100 #### [facility] [address] [place], [address] Neutrophils/100 WBC (Bld) 78.9 % High 47-70 [facility] Comment on above: Performed By: #### L 500.2500, L100.0100 #### [facility] [address] [place], [address] Nucleated RBC (Bld) [#/Vol] 0 10*3/uL Normal 0-5 [facility] Comment on above: Performed By: #### L 500.2500, L100.0100 #### [facility] [address] [place], [address] Platelet mean volume (Bld) [Entitic vol] 9.6 fL Normal 6.2-12.0 [facility] Comment on above: Performed By: #### L 500.2500, L100.0100 #### [facility] [address] [place], [address] Platelets (Bld) [#/Vol] 297 10*3/uL Normal 150-450 [facility] Comment on above: Performed By: #### L 500.2500, L100.0100 #### [facility] [address] [place], [address] RBC (Bld) [#/Vol] 4.67 10*6/uL Normal 4.2-5.4 [facility] Comment on above: Performed By: #### L 500.2500, L100.0100 #### [facility] [address] [place], [address] RDW SD 37.8 fl Normal 35.1-43.9 [facility] Comment on above: Performed By: #### L 500.2500, L100.0100 #### [facility] [address] [place], [address] WBC (Bld) [#/Vol] 7.9 10*3/uL Normal 4.4-11.0 [facility] Comment on above: Performed By: #### L 500.2500, L100.0100 #### [facility] [address] [place], [address] Carbon dioxide, total [Moles /volume] in Central venous bloodOrdered By: Sofia Marrero on 02-26-2025 CO2 [Moles/Vol] 25.9 mmol/L 21.0-32.0 [facility] Chloride assayOrdered By: Radha Marrero on 02-26-2025 Chloride [Moles/Vol] 93 mmol/L Low 98-108 [facility] Emergency Department Summary on 02-26-2025 Emergency Department Summary [facility] Medical Records Department [address] [place] [address] Emergency Department Summary 02/26/25 MR#: [id number] Acct: [id number] Name: ZHENG ROY Rep #: [id number] : 1945 79 From: Sofia Marrero DO [...] no loss of consciousness. Patient from a custodial and has history of dementia. Patient not anticoagulated. She denies neck pain. She denies chest pain or abdominal pain. [facility] Medical History (Updated 02/26/25 @ 11:52 [...] well nour (more content not included)... Normal [facility] Eosinophil percentageOrdered By: Sofia Marrero on 02-26-2025 Eosinophils/100 WBC (Bld) 0.5 % 0-5 [facility] Erythrocyte distribution wid th ratioOrdered By: [facility] Marre[facility] on 02-26-2025 Erythrocyte distribution width (RBC) [Ratio] 12.3 % 11.6-14.6 [facility] Erythrocyte distribution wid th standard deviationOrdered By: Sofia Marrero on 02-26-2025 Erythrocyte distribution width (RBC) [Ratio] 37.8 fl 35.1-43.9 [facility] Glomerular filtration rate ( GFR) estimation/1.73 sq m using serum, plasma, or whole bOrdered By: Sofia Marrero on 02-26-2025 GFR/1.73 sq M.predicted among non-blacks MDRD (S/P/Bld) [Vol rate/Area] 85 mL/min/{1.73_m2} >60 [facility] Comment on above: mL/min/1.73m2 CKD-EP I Creatinine Equation (2020) HIP, UNI W/ Pelvis 2-3 Views on 02-26-2025 HIP, UNI W/ Pelvis 2-3 Views [facility] Imaging Services [address] [place] [address] HIP, UNI W/ Pelvis 2-3 Views MR#: [id number] Acct: [id number] Name: ZHENG ROY Rep #: [id number] : 1945 F 79 From: Ezekiel lovelace MD PCP: Dr. Epifanio Zamora DO Status: DEP ER Study: HIP, UNI W/ Pelvis 2-3 Views Date of Exam: Exam# [id number] Ordering Dr: Sofia Marrero DO PROCEDURE: HIP, [...] No acute abnormality is seen. Reading Location: [facility] CC: Dr. Sofia Marrero DO; Dr. Epifanio Zamora DO Woods Overseer: Signed Normal [facility] Hematocrit Auto (Bld) [Volum e fraction]Ordered By: Sofia Marrero on 02-26-2025 Hematocrit (Bld) [Volume fraction] 39.7 % 37-47 [facility] Hemoglobin measurementOrdere d By: Sofia Marrero on 02-26-2025 Hemoglobin (Bld) [Mass/Vol] 14.0 g/dL 12.0-15.0 [facility] Immature granulocytes/100 WB C Auto (Bld)Ordered By: Sofia Marrero on 02-26-2025 Immature granulocytes/100 WBC (Bld) 0.500 % 0.0-0.9 [facility] Comment on above: IG% - Immature Granu locytes (promyelocytes, myelocytes and metamyelocytes) > 1% indicates that a LEFT SHIFT is Present. MCV (mean corpuscular volume ) determinationOrdered By: Sofia Marrero on 02-26-2025 MCV (RBC) [Entitic vol] 85.0 fL 81-99 [facility] Mean corpuscular hemoglobin (MCH) determinationOrdered By: Sofia Marrero on 02-26-2025 MCH (RBC) [Entitic mass] 30.0 pg 27.0-32.0 [facility] Mean corpuscular hemoglobin concentration (MCHC) determinationOrdered By: Sofia Marrero on 02-26-2025 MCHC (RBC) [Mass/Vol] 35.3 g/dL 32-36 [facility] Mean platelet volume determi nationOrdered By: Sofia Marrero on 02-26-2025 Platelet mean volume (Bld) [Entitic vol] 9.6 fL 6.2-12.0 [facility] Monocyte percentageOrdered B y: Sofia Marrero on 02-26-2025 Monocytes/100 WBC (Bld) 5.1 % 0-10 [facility] Neutrophil percentageOrdered By: Sofia Marrero on 02-26-2025 Neutrophils/100 WBC (Bld) 78.9 % High 47-70 [facility] Nucleated red blood cell per centageOrdered By: Sofia Marrero on 02-26-2025 Nucleated RBC/100 WBC (Bld) [Ratio] 0 % 0-5 [facility] Platelet countOrdered By: Radha Marrero on 02-26-2025 Platelets (Bld) [#/Vol] 297 10*3/uL 150-450 [facility] Potassium measurement (mass/ volume)Ordered By: Sofia Marrero on 02-26-2025 Potassium (Unsp spec) [Mass/Vol] 4.0 mmol/L 3.3-5.1 [facility] Comment on above: Hemolysis present, R esults could be affected. RBC Auto (Bld) [#/Vol]Ordere d By: Sofia Marrero on 02-26-2025 RBC (Bld) [#/Vol] 4.67 10*6/uL 4.2-5.4 [facility] Serum creatinine measurement (mass/volume)Ordered By: Sofia Marrero on 02-26-2025 Creatinine [Mass/Vol] 0.72 mg/dL 0.70-1.20 [facility] Serum glucose measurement (m ass/volume)Ordered By: Sofia Marrero on 02-26-2025 Glucose [Mass/Vol] 117 mg/dL High 70-99 [facility] Serum or plasma calcium roel urement (mass/volume)Ordered By: Sofia Marrero on 02-26-2025 Calcium [Mass/Vol] 9.2 mg/dL 7.6-11.0 [facility] Serum or plasma urea nitroge n measurement (mass/volume)Ordered By: Sofia Birminghamrhina on 02-26-2025 Urea nitrogen [Mass/Vol] 10 mg/dL 4-19 [facility] Sodium levelOrdered By: Remu s Janes on 02-26-2025 Sodium [Moles/Vol] 130 mmol/L Low 133-145 [facility] White blood cell (WBC) count Ordered By: Remus Janes on 02-26-2025 WBC (Bld) [#/Vol] 7.9 10*3/uL 4.4-11.0 [facility] Brain/Head without Contrasto n 12-05-2024 Brain/Head without Contrast [facility] Imaging Services [address] [place], [place] [address] Brain/Head without Contrast MR#: [id number] Acct: [id number] Name: ZHENG ROY Rep #: [id number] : 1945 F 79 From: Mary Ann Llanos MD PCP: Dr. Epifanio Zamora DO Status: REG ER Study: Brain/Head without Contrast Date of Exam: 11/10 04/04 Exam# [id number] Ordering Dr: Sushil Gutierrez DO PROCEDURE: BRAIN/HEAD [...] 1. No acute intracranial abnormality. [facility]: Dr. Sushil Gutierrez DO; Dr. Epifanio Zamora DO Woods Overseer: Signed Normal [facility] Emergency Department Summary on 12-05-2024 Emergency Department Summary [facility] Medical Records Department [address] [place] [address] Emergency Department Summary 12/05/24 MR#: [id number] Acct: [id number] Name: ZHENG ROY Rep #: [id number] : 1945 79 From: Sushil Gutierrez DO PCP: Dr. Epifanio Zamora DO Status:REG ER Location: ED HPI HPI - Fall History of Present Illness Chief Complaint: Fall Informant: patient, family, EMS and SNF Narrative Narrative: 79-year-old female from [facility] facility presenting to the emergency room with [...] is no report of being on anticoagulants. [facility] Medical History Dementia Basal cell carcinoma [...] non-tender Palpation: (more content not included)... Normal [facility] HIP, UNI W/ Pelvis 2-3 Views on 12-05-2024 HIP, UNI W/ Pelvis 2-3 Views [facility] Imaging Services [address] [place] [address] HIP, UNI W/ Pelvis 2-3 Views MR#: [id number] Acct: [id number] Name: ZHENG ROY Rep #: [id number] : 1945 F 79 From: Mary Ann Llanos MD PCP: Dr. Epifanio Zamora DO Status: REG ER Study: HIP, UNI W/ Pelvis 2-3 Views Date of Exam: Exam# [id number] Ordering Dr: Sushil Gutierrez DO PROCEDURE: HIP, [...] Sushil Gutierrez DO; Dr. Epifanio Zamora DO Woods Overseer: Signed Normal [facility] Knee 4 or More Viewson 12-05 Knee 4 or More Views [facility] Imaging Services [address] [place], [place] [address] Knee 4 or More Views MR#: [id number] Acct: [id number] Name: ZEHNG ROY Rep #: [id number] : 1945 F 79 From: Mary Ann Llanos MD PCP: Dr. Epifanio Zamora DO Status: REG ER Study: Knee 4 or More Views Date of Exam: 12/05/24 Exam# [id number] Ordering Dr: Sushil Gutierrez DO PROCEDURE: KNEE 4 OR MORE VIEWS 12/05/2024 REASON FOR EXAM: INJURY TECHNIQUE: 4 view(s) of the right knee COMPARISON: 12/05/2024 FINDINGS: No acute fracture or dislocation.No degenerative changes. No joint effusion. No soft tissue abnormality. RAD/Knee 4 or More Views IMPRESSION: No acute abnormality. Reading Location: [facility] CC: Dr. Sushil Gutierrez DO; Dr. Epifanio Zamora DO Woods Overseer: Signed Normal [facility] Absolute lymphocyte countOrd ered By: Kenney Weber on 11-29-2024 Lymphocytes Auto (Unsp spec) [#/Vol] 1.17 10*3/uL 0.83-4.51 [facility] Absolute neutrophil countOrd ered By: Kenney Weber on 11-29-2024 Neutrophils (Bld) [#/Vol] 7.5 10*3/uL 2.0-7.7 [facility] Anion gap in Serum or Plasma Ordered By: Kenney Weber on 11-29-2024 Anion gap [Moles/Vol] 12 mmol/L 5- [facility] Automated lymphocyte count a s percentage of total leukocytesOrdered By: Kenney Weber on 11-29-2024 Lymphocytes/100 WBC Auto (Unsp spec) 12.8 % Low - [facility] BUN/creatinine ratioOrdered By: Kenney Weber on 11-29-2024 Urea nitrogen/Creatinine [Mass ratio] 16.9 mg/mg - [facility] Basic Metabolic Profile (BMP )on 11-29-2024 BUN/CRE 16.9 RATIO Normal 06-30 [facility] Comment on above: Performed By: #### L 500.2500, L100.0100 ####[facility] [id number] [place], [address] Calcium [Mass/Vol] 9.2 mg/dL Normal 7.6-11.0 [facility] Comment on above: Performed By: #### L 500.2500, L100.0100 ####[facility] [address] [place], [address] Chloride [Moles/Vol] 94 mmol/L Low 98-108 [facility] Comment on above: Performed By: #### L 500.2500, L100.0100 ####[facility] [address] [place], [address] CO2 [Moles/Vol] 22.8 mmol/L Normal 21.0-32.0 [facility] Comment on above: Performed By: #### L 500.2500, L100.0100 ####[facility] [address] [place], [address] Creatinine [Mass/Vol] 0.78 mg/dL Normal 0.70-1.20 [facility] Comment on above: Performed By: #### L 500.2500, L100.0100 ####[facility] [address] [place], [address] ECRCL 57.61 ml/min Normal 50-250 [facility] Comment on above: Performed By: #### L 500.2500, L100.0100 ####[facility] [address] [place], [address] GAP 12 Normal 5-15 [facility] Comment on above: Performed By: #### L 500.2500, L100.0100 ####[facility] [address] [place], [address] GFR/1.73 sq M.predicted among non-blacks MDRD (S/P/Bld) [Vol rate/Area] 77 mL/min/{1.73_m2} Normal >60 [facility] Comment on above: Result Comment: mL/m in/1.73m2 CKD-EPI Creatinine Equation (2020) Performed By: #### L 500.2500, L100.0100 ####[facility] [address] [place], [address] Glucose [Mass/Vol] 114 mg/dL High 70-99 [facility] Comment on above: Performed By: #### L 500.2500, L100.0100 ####[facility] [address] [place], [address] Potassium [Moles/Vol] 4.8 mmol/L Normal 3.3-5.1 [facility] Comment on above: Result Comment: Hemo lysis present, Results??could be affected. ?? Performed By: #### L 500.2500, L100.0100 ####[facility] [address] [place], [address] Sodium [Moles/Vol] 129 mmol/L Low 133-145 [facility] Comment on above: Performed By: #### L 500.2500, L100.0100 ####[facility] [address] [place], [address] Urea nitrogen [Mass/Vol] 13 mg/dL Normal 4-19 [facility] Comment on above: Performed By: #### L 500.2500, L100.0100 ####[facility] [address] [place], [address] Basophil percentageOrdered B y: Kenney Weebr on 11-29-2024 Basophils/100 WBC (Bld) 0.5 % 0-1 [facility] Brain/Head without Contrasto n 11-29-2024 Brain/Head without Contrast [facility] [address] [place] [address] Brain/Head without Contrast MR#: [id number] Acct: [id number] Name: ZHENG ROY Rep #: [id number] : 1945 F 79 From: Cornell Pressley MD PCP: Dr. Epifanio Zamora DO Status: REG ER Study: Brain/Head without Contrast Date of Exam: 11/10 10/05 Exam# [id number] Ordering Dr: Kenney Weber MD PROCEDURE: BRAIN/HEAD [...] 4. Additional description as above. Reading Location: [id number] CC: Dr. Kenney Weber MD; Dr. Epifanio Zamora DO Woods Overseer: Signed Normal [facility] CBC W/Diff, Automatedon 11-10 Absolute Lymph 1.17 X10 3/uL Normal 0.83-4.51 [facility] Comment on above: Performed By: #### L 500.2500, L100.0100 ####[facility] [address] [place], [address] Absolute Neut 7.5 X10 3/uL Normal 2.0-7.7 [facility] Comment on above: Performed By: #### L 500.2500, L100.0100 ####[facility] [address] [place], [address] Basophils/100 WBC (Bld) 0.5 % Normal 0-1 [facility] Comment on above: Performed By: #### L 500.2500, L100.0100 ####[facility] [address] [place], [address] Eosinophils/100 WBC (Bld) 0.4 % Normal 0-5 [facility] Comment on above: Performed By: #### L 500.2500, L100.0100 ####[facility] [address] [place], [address] Erythrocyte distribution width (RBC) [Ratio] 11.9 % Normal 11.6-14.6 [facility] Comment on above: Performed By: #### L 500.2500, L100.0100 ####[facility] [address] [place], [address] Hematocrit (Bld) [Volume fraction] 39.8 % Normal 37-47 [facility] Comment on above: Performed By: #### L 500.2500, L100.0100 ####[facility] [address] [place], [address] Hemoglobin (Bld) [Mass/Vol] 13.9 g/dL Normal 12.0-15.0 [facility] Comment on above: Performed By: #### L 500.2500, L100.0100 ####[facility] [address] [place], [address] IG% 0.300 Normal 0.0-0.9 [facility] Comment on above: Result Comment: IG% - Immature Granulocytes (promyelocytes, myelocytes and metamyelocytes) > 1% indicates that a LEFT SHIFT is Present. Performed By: #### L 500.2500, L100.0100 ####[facility] [address] [place], [address] Lymphocytes/100 WBC (Bld) 12.8 % Low 19-41 [facility] Comment on above: Performed By: #### L 500.2500, L100.0100 ####[facility] [address] [place], [address] MCH (RBC) [Entitic mass] 30.5 pg Normal 27.0-32.0 [facility] Comment on above: Performed By: #### L 500.2500, L100.0100 ####[facility] [address] [place], [address] MCHC (RBC) [Mass/Vol] 34.9 g/dL Normal 32-36 [facility] Comment on above: Performed By: #### L 500.2500, L100.0100 ####[facility] [address] [place], [address] MCV (RBC) [Entitic vol] 87.5 fL Normal 81-99 [facility] Comment on above: Performed By: #### L 500.2500, L100.0100 ####[facility] [address] [place], [address] Monocytes/100 WBC (Bld) 4.5 % Normal 0-10 [facility] Comment on above: Performed By: #### L 500.2500, L100.0100 ####[facility] [address] [place], [address] Neutrophils/100 WBC (Bld) 81.5 % High 47-70 [facility] Comment on above: Performed By: #### L 500.2500, L100.0100 ####[facility] [address] [place], [address] Nucleated RBC (Bld) [#/Vol] 0 10*3/uL Normal 0-5 [facility] Comment on above: Performed By: #### L 500.2500, L100.0100 ####[facility] [address] [place], [address] Platelet mean volume (Bld) [Entitic vol] 9.7 fL Normal 6.2-12.0 [facility] Comment on above: Performed By: #### L 500.2500, L100.0100 ####[facility] [address] [place], [address] Platelets (Bld) [#/Vol] 302 10*3/uL Normal 150-450 [facility] Comment on above: Performed By: #### L 500.2500, L100.0100 ####[facility] [address] [place], [address] RBC (Bld) [#/Vol] 4.55 10*6/uL Normal 4.2-5.4 [facility] Comment on above: Performed By: #### L 500.2500, L100.0100 ####[facility] [address] [place], [address] RDW SD 38.4 fl Normal 35.1-43.9 [facility] Comment on above: Performed By: #### L 500.2500, L100.0100 ####[facility] [address] [place], [address] WBC (Bld) [#/Vol] 9.2 10*3/uL Normal 4.4-11.0 [facility] Comment on above: Performed By: #### L 500.2500, L100.0100 ####[facility] [address] [place], [address] Carbon dioxide, total [Moles /volume] in Central venous bloodOrdered By: Kenney Weber on 11-29-2024 CO2 [Moles/Vol] 22.8 mmol/L 21.0-32.0 [facility] Chloride assayOrdered By: Jostin Weber on 11-29-2024 Chloride [Moles/Vol] 94 mmol/L Low 98-108 [facility] Emergency Department Summary on 11-29-2024 Emergency Department Summary [facility] Medical Records Department [address] [place] [address] Emergency Department Summary 11/29/24 MR#: [id number] Acct: [id number] Name: ZHENG ROY Rep #: [id number] : 1945 79 From: Kenney Weber MD [...] She denies any vomiting. No recent illness. [facility] Medical History Dementia Basal cell carcinoma [...] clear and moist mucous membranes HEENT Narrative: Tuckerman-Hallpike recreates dizziness transiently bilaterally. No direction changing [...] non-distended Aus (more content not included)... Normal [facility] Eosinophil percentageOrdered By: Kenney Weber on 11-29-2024 Eosinophils/100 WBC (Bld) 0.4 % 0-5 [facility] Erythrocyte distribution wid th ratioOrdered By: Kenney Weber on 11-29-2024 Erythrocyte distribution width (RBC) [Ratio] 11.9 % 11.6-14.6 [facility] Erythrocyte distribution wid th standard deviationOrdered By: Kenney Weber on 11-29-2024 Erythrocyte distribution width (RBC) [Entitic vol] 38.4 fL 35.1-43.9 [facility] Erythrocyte distribution width (RBC) [Ratio] 38.4 fl 35.1-43.9 [facility] Estimation of creatinine quinn aranceOrdered By: Kenney Weber on 11-29-2024 Estimated Creatinine Clearance Calc 57.61 ml/min 50-250 [facility] GFR/1.73 sq M.predicted anali g non-blacks MDRD (S/P/Bld) [Vol rate/Area]Ordered By: Kenney Weber on 11-29-2024 Estimated GFR (MDRD) Non-Af Amer 77 >60 [facility] Comment on above: mL/min/1.73m2 CKD-EP I Creatinine Equation (2020) Glomerular filtration rate ( GFR) estimation/1.73 sq m using serum, plasma, or whole bOrdered By: Kenney Weber on 11-29-2024 GFR/1.73 sq M.predicted among non-blacks MDRD (S/P/Bld) [Vol rate/Area] 77 mL/min/{1.73_m2} >60 [facility] Comment on above: mL/min/1.73m2 CKD-EP I Creatinine Equation (2020) Hematocrit Auto (Bld) [Volum e fraction]Ordered By: Kenney Weber on 11-29-2024 Hematocrit (Bld) [Volume fraction] 39.8 % 37-47 [facility] Hemoglobin measurementOrdere d By: Kenney Weber on 11-29-2024 Hemoglobin (Bld) [Mass/Vol] 13.9 g/dL 12.0-15.0 [facility] Immature granulocytes/100 WB C Auto (Bld)Ordered By: Kenney Weber on 11-29-2024 Immature granulocytes/100 WBC (Bld) 0.300 % 0.0-0.9 [facility] Comment on above: IG% - Immature Granu locytes (promyelocytes, myelocytes and metamyelocytes) > 1% indicates that a LEFT SHIFT is Present. Lymphocytes Auto (Unsp spec) [#/Vol]Ordered By: Kenney Weber on 11-29-2024 Lymphocytes (Bld) [#/Vol] 1.17 10*3/uL 0.83-4.51 [facility] Lymphocytes/100 WBC Auto (Un sp spec)Ordered By: Kenney Weber on 11-29-2024 Lymphocytes/100 WBC (Bld) 12.8 % Low 19-41 [facility] MCV (mean corpuscular volume ) determinationOrdered By: Kenney Weber on 11-29-2024 MCV (RBC) [Entitic vol] 87.5 fL 81-99 [facility] Mean corpuscular hemoglobin (MCH) determinationOrdered By: Kenney Weber on 11-29-2024 MCH (RBC) [Entitic mass] 30.5 pg 27.0-32.0 [facility] Mean corpuscular hemoglobin concentration (MCHC) determinationOrdered By: Kenney Weber on 11-29-2024 MCHC (RBC) [Mass/Vol] 34.9 g/dL 32-36 [facility] Mean platelet volume determi nationOrdered By: Kenney Weber on 11-29-2024 Platelet mean volume (Bld) [Entitic vol] 9.7 fL 6.2-12.0 [facility] Monocyte percentageOrdered B y: Kenney Weber on 11-29-2024 Monocytes/100 WBC (Bld) 4.5 % 0-10 [facility] Neutrophil percentageOrdered By: Kenney Weber on 11-29-2024 Neutrophils/100 WBC (Bld) 81.5 % High 47-70 [facility] Nucleated red blood cell per centageOrdered By: Kenney Weber on 11-29-2024 Nucleated RBC/100 WBC (Bld) [Ratio] 0 % 0-5 [facility] Platelet countOrdered By: Jostin Weber on 11-29-2024 Platelets (Bld) [#/Vol] 302 10*3/uL 150-450 [facility] Potassium (Unsp spec) [Mass/ Vol]Ordered By: Kenney Weber on 11-29-2024 Potassium [Moles/Vol] 4.8 mmol/L 3.3-5.1 [facility] Comment on above: Hemolysis present, R esults could be affected. Potassium measurement (mass/ volume)Ordered By: Kenney Weber on 11-29-2024 Potassium (Unsp spec) [Mass/Vol] 4.8 mmol/L 3.3-5.1 [facility] Comment on above: Hemolysis present, R esults could be affected. RBC Auto (Bld) [#/Vol]Ordere d By: Kenney Weber on 11-29-2024 RBC (Bld) [#/Vol] 4.55 10*6/uL 4.2-5.4 [facility] Ribs Uni Min 3V w/PA Cheston 11-29-2024 Ribs Uni Min 3V w/PA Chest [facility] [address] [place] [address] Ribs Uni Min 3V w/PA Chest MR#: [id number] Acct: [id number] Name: ZHENG ROY Rep #: [id number] : 1945 F 79 From: Ezekiel lovelace MD PCP: Dr. Epifanio Zamora DO Status: REG ER Study: Ribs Uni Min 3V w/PA Chest Date of Exam: 11/29 Exam# [id number] Ordering Dr: Kenney Weber MD PROCEDURE: RIBS [...] No acute abnormality is seen. Reading Location: [place] [address] CC: Dr. Kenney Weber MD; Dr. Epifanio Zamora DO Woods Overseer: Signed Normal [facility] Serum creatinine measurement (mass/volume)Ordered By: Kenney Weber on 11-29-2024 Creatinine [Mass/Vol] 0.78 mg/dL 0.70-1.20 [facility] Serum glucose measurement (m ass/volume)Ordered By: Kenney Weber on 11-29-2024 Glucose [Mass/Vol] 114 mg/dL High 70-99 [facility] Serum or plasma calcium roel urement (mass/volume)Ordered By: Kenney Weber on 11-29-2024 Calcium [Mass/Vol] 9.2 mg/dL 7.6-11.0 [facility] Serum or plasma urea nitroge n measurement (mass/volume)Ordered By: Kenney Weber on 11-29-2024 Urea nitrogen [Mass/Vol] 13 mg/dL 4-19 [facility] Sodium levelOrdered By: Favio Weber on 11-29-2024 Sodium [Moles/Vol] 129 mmol/L Low 133-145 [facility] White blood cell (WBC) count Ordered By: Kenney Weber on 11-29-2024 WBC (Bld) [#/Vol] 9.2 10*3/uL 4.4-11.0 [facility] Emergency Department Summary on 11-16-2024 Emergency Department Summary [facility] Medical Records Department [address] [place] [address] Emergency Department Summary 11/16/24 MR#: [id number] Acct: [id number] Name: ZHENG ROY Rep #: [id number] : 1945 79 From: Astrid EASTON PCP: Dr. Epifanio Zamora, DO Status:REG ER Location: ED HPI History of Present Illness Chief Complaint: Fall Narrative Narrative: 79-year-old female had an unwitnessed fall at [facility]. She was apparently found on the ground facedown near the dining area. She has no external signs of injury but complains of left shoulder pain. She is not on blood thinners. Daughter states she has dementia and moved into [place] in September 2024 and since then has fallen a total of 2 times including today. She ambulates well without assistance or assistive devices. Patient is not sure why she fell off but can provide limited history secondary to dementia. Her daughter is here and states she is acting at baseline. [facility] Medical History (Updated 11/16/24 @ 19:22 [...] Method Room (more content not included)... Normal [facility] Ribs Uni Min 3V w/PA Cheston 11-16-2024 Ribs Uni Min 3V w/PA Chest [facility] [address] [place], [place] [address] Ribs Uni Min 3V w/PA Chest MR#: [id number] Acct: [id number] Name: ZHENG ROY Rep #: [id number] : 1945 F 79 From: Meron Rocha DO PCP: Dr. Epifanio Zamora DO Status: REG ER Study: Ribs Uni Min 3V w/PA Chest Date of Exam: 11/16 Exam# [id number] Ordering Dr: Kalyan Dozier MD PROCEDURE: RIBS [...] Epifanio Zamora DO; Dr. Kalyan Dozier MD Woods Overseer: Signed Normal [facility] Shoulder min 2 Viewson 11-16 Shoulder min 2 Views [facility] [address] [place], [place] [address] Shoulder min 2 Views MR#: [id number] Acct: [id number] Name: ZHENG ROY Rep #: [id number] : 1945 F 79 From: Meron Rocha DO PCP: Dr. Epifanio Zamora DO Status: REG ER Study: Shoulder min 2 Views Date of Exam: 11/16/24 Exam# [id number] Ordering Dr: Astrid Monae PROCEDURE: SHOULDER MIN 2 VIEWS REASON FOR EXAM: Status post fall. Pain. TECHNIQUE: 4 view(s) of the left shoulder COMPARISON: None. FINDINGS: No fracture. No suspicious bone lesion. Normal alignment of the acromioclavicular and glenohumeral joints. Soft tissues are unremarkable. RAD/Shoulder min 2 Views IMPRESSION: NO ACUTE FRACTURE OR DISLOCATION. [facility] CC: Dr. Epifanio Zamora DO; RUSTAM Shepard Woods Overseer: Signed Normal [facility] Wrist min 3 Viewson 11-17-19 Wrist min 3 Views [facility] [address] [place] [id number] Wrist min 3 Views MR#: [id number] Acct: [id number] Name: ZHENG ROY Rep #: [id number] : 1945 F 79 From: Meron Rocha DO PCP: Dr. Epifanio Zamora DO Status: REG ER Study: Wrist min 3 Views Date of Exam: 11/16/24 Exam# [id number] Ordering Dr: Kalyan Dozier MD PROCEDURE: WRIST MIN 3 VIEWS REASON FOR EXAM: Trauma. Pain. TECHNIQUE: 3 views of the left wrist COMPARISON: None FINDINGS: No visible fracture. No suspicious bone lesion. Normal alignment. Soft tissues are unremarkable. RAD/Wrist min 3 Views IMPRESSION: No acute fracture or dislocation. Reading Location: [facility] CC: Dr. Epifanio Zamora DO; Dr. Kalyan Dozier MD Woods Overseer: Signed Normal [facility] Anion gap in Serum or Plasma Ordered By: Epifanio Zamora on 11-13-2024 Anion gap [Moles/Vol] 11 mmol/L 5-15 [facility] BUN/creatinine ratioOrdered By: Epifanio Zamora on 11-13-2024 Urea nitrogen/Creatinine [Mass ratio] 16.4 mg/mg 10-20 [facility] Bilirubin, totalOrdered By: Epifanio Zamora on 11-13-2024 Bilirubin [Mass/Vol] 0.46 mg/dL 0.00-1.30 [facility] Calculated very low density lipoprotein (VLDL) cholesterol measurementOrdered By: Epifanio Zamora on 11-13-2024 Calculated very low density lipoprotein (VLDL) cholesterol measurement 21 mg/dL 5-40 [facility] VLDL Cholesterol 21 mg/dL 5-40 [facility] Carbon dioxide, total [Moles /volume] in Central venous bloodOrdered By: Epifanio Zamora on 11-13-2024 CO2 [Moles/Vol] 24.0 mmol/L 21.0-32.0 [facility] Chloride assayOrdered By: Oswaldo Zamora on 11-13-2024 Chloride [Moles/Vol] 99 mmol/L 98-108 [facility] Erythrocyte distribution wid th ratioOrdered By: Epifanio Zamora on 11-13-2024 Erythrocyte distribution width (RBC) [Ratio] 12.0 % 11.6-14.6 [facility] Erythrocyte distribution wid th standard deviationOrdered By: Epifanio Zamora on 11-13-2024 Erythrocyte distribution width (RBC) [Entitic vol] 38.9 fL 35.1-43.9 [facility] Erythrocyte distribution width (RBC) [Ratio] 38.9 fl 35.1-43.9 [facility] GFR/1.73 sq M.predicted anali g non-blacks MDRD (S/P/Bld) [Vol rate/Area]Ordered By: Epifanio Zamora on 11-13-2024 Estimated GFR (MDRD) Non-Af Amer 84 >60 [facility] Comment on above: mL/min/1.73m2 CKD-EP I Creatinine Equation (2020) Glomerular filtration rate ( GFR) estimation/1.73 sq m using serum, plasma, or whole bOrdered By: Epifanio Zamora on 11-13-2024 GFR/1.73 sq M.predicted among non-blacks MDRD (S/P/Bld) [Vol rate/Area] 84 mL/min/{1.73_m2} >60 [facility] Comment on above: mL/min/1.73m2 CKD-EP I Creatinine Equation (2020) Hematocrit Auto (Bld) [Volum e fraction]Ordered By: Epifanio Zamora on 11-13-2024 Hematocrit (Bld) [Volume fraction] 41.6 % 37-47 [facility] Hemoglobin A1c percentageOrd ered By: Epifanio Zamora on 11-13-2024 HbA1c (Bld) [Mass fraction] 5.9 % >5.7 [facility] Hemoglobin measurementOrdere d By: Epifanio Zamora on 11-13-2024 Hemoglobin (Bld) [Mass/Vol] 14.3 g/dL 12.0-15.0 [facility] LDL calc ser/plasOrdered By: Epifanio Zamora on 11-13-2024 Cholesterol in LDL [Mass/Vol] 133 mg/dL [facility] Comment on above: Ifcpjssmzc=957-087 m g/dL & Higher Sorf=216 mg/dL or greater LDL Cholesterol, Calculated 133 mg/dL [facility] Comment on above: Uiptugxoqd=201-809 m g/dL & Higher Psdb=718 mg/dL or greater Laboratory - Chemistry and C hemistry - challengeOrdered By: Epifanio Zamora on 11-13-2024 AST [Catalytic activity/Vol] 19 U/L <32 [facility] MCV (mean corpuscular volume ) determinationOrdered By: Epifanio Zamora on 11-13-2024 MCV (RBC) [Entitic vol] 89.3 fL 81-99 [facility] Mean corpuscular hemoglobin (MCH) determinationOrdered By: Epifanio Zamora on 11-13-2024 MCH (RBC) [Entitic mass] 30.7 pg 27.0-32.0 [facility] Mean corpuscular hemoglobin concentration (MCHC) determinationOrdered By: Epifanio Zamora on 11-13-2024 MCHC (RBC) [Mass/Vol] 34.4 g/dL 32-36 [facility] Mean platelet volume determi nationOrdered By: Epifanio Zamora on 11-13-2024 Platelet mean volume (Bld) [Entitic vol] 10.5 fL 6.2-12.0 [facility] Platelet countOrdered By: Oswaldo Zamora on 11-13-2024 Platelets (Bld) [#/Vol] 314 10*3/uL 150-450 [facility] Potassium (Unsp spec) [Mass/ Vol]Ordered By: Epifanio Zamora on 11-13-2024 Potassium [Moles/Vol] 4.0 mmol/L 3.3-5.1 [facility] Potassium measurement (mass/ volume)Ordered By: Epifanio Zamora on 11-13-2024 Potassium (Unsp spec) [Mass/Vol] 4.0 mmol/L 3.3-5.1 [facility] RBC Auto (Bld) [#/Vol]Ordere d By: Epifanio Zamora on 11-13-2024 RBC (Bld) [#/Vol] 4.66 10*6/uL 4.2-5.4 [facility] Screening total cholesterol/ high density lipoprotein (HDL) cholesterol ratioOrdered By: Epifanio Zamora on 11-13-2024 Cholesterol.total/Genia sterol in HDL [Mass ratio] 3.62 {ratio} [facility] Serum creatinine measurement (mass/volume)Ordered By: Epifanio Zamora on 11-13-2024 Creatinine [Mass/Vol] 0.73 mg/dL 0.70-1.20 [facility] Serum globulin measurementOr dered By: Epifanio Zamora on 11-13-2024 Globulin (S) [Mass/Vol] 2.4 g/dL 2.2-4.2 [facility] Serum glucose measurement (m ass/volume)Ordered By: Epifanio Zamora on 11-13-2024 Glucose [Mass/Vol] 111 mg/dL High 70-99 [facility] Serum or plasma alanine anguiano otransferase (ALT) measurementOrdered By: Epifanio Zamora on 11-13-2024 ALT [Catalytic activity/Vol] 16 U/L <35 [facility] Serum or plasma albumin roel urement (mass/volume)Ordered By: Epifanio Zamora on 11-13-2024 Albumin [Mass/Vol] 4.0 g/dL 3.4-4.8 [facility] Serum or plasma albumin/glob ulin mass ratioOrdered By: Epifanio Zamora on 11-13-2024 Albumin/Globulin [Mass ratio] 1.7 {ratio} 0.9-2.4 [facility] Serum or plasma alkaline miguel sphatase measurementOrdered By: Epifanio Zamora on 11-13-2024 ALP [Catalytic activity/Vol] 63 U/L 35-104 [facility] Serum or plasma calcium roel urement (mass/volume)Ordered By: Epifanio Zamora on 11-13-2024 Calcium [Mass/Vol] 8.9 mg/dL 7.6-11.0 [facility] Serum or plasma cholesterol in HDL measurement (mass/volume)Ordered By: Epifanio Zamora on 11-13-2024 Cholesterol in HDL [Mass/Vol] 59 mg/dL >40 [facility] Comment on above: National Cholesterol Education Program (NCEP) guidelines:<40 mg/dL: Low HDL-cholesterol (major risk factor for CHD)>= 60 mg/dL: High HDL-cholesterol (negative risk factor for CHD)HDL-cholesterol is affected by a number of factors, e.g. smoking, exercise, hormones, sex and age. Serum or plasma cholesterol measurement (mass/volume)Ordered By: Epifanio Zamora on 11-13-2024 Cholesterol [Mass/Vol] 212 mg/dL High <201 [facility] Comment on above: Cholesterol level, D esirable <200 mg/dLBorderline high cholesterol 200-239 mg/dLHigh cholesterol >=240 mg/dLRecommendations of the NCEP Adult Treatment Panel for the following risk-cutoff thresholds for the [place] population. Serum or plasma urea nitroge n measurement (mass/volume)Ordered By: Epifanio Zamora on 11-13-2024 Urea nitrogen [Mass/Vol] 12 mg/dL 4-19 [facility] Sodium levelOrdered By: Delvin Zamora on 11-13-2024 Sodium [Moles/Vol] 134 mmol/L 133-145 [facility] TSH DL <= 0.005 mIU/L QnOrde red By: Epifanio Zamora on 11-13-2024 Thyroid Stimulating Hormone (TSH) 1.320 uIU/mL 0.300-4.200 [facility] TSH Qn 1.320 uIU/mL 0.300-4.200 [facility] ThyroxineOrdered By: Epifanio arevalo on 11-13-2024 T4 [Mass/Vol] 8.6 ug/dL 4.8-13.9 [facility] Total proteinOrdered By: Eliezer Zamora on 11-13-2024 Protein [Mass/Vol] 6.4 g/dL 5.9-8.4 [facility] Triglycerides measurementOrd ered By: Epifanio Zamora on 11-13-2024 Triglyceride [Mass/Vol] 103 mg/dL <199 [facility] Comment on above: The drugs N-Acetylcy steine and Metamizole may falsely depress this assay. Normal range: <150 mg/dLBorderline High: 150-199 mg/dLHigh: 200-499 mg/dLVery High: >500 mg/dL Vitamin D, 25-hydroxyOrdered By: Epifanio Zamora on 11-13-2024 Vitamin D 25-Hydroxy 37.1 ng/mL 30-100 [facility] Comment on above: Vitamin D StatusDefi ciency: <20 ng/mL (50nmol/L)Insufficiency: 20-30 ng/mL (50-75 nmol/L)Sufficiency: 30-100 ng/mL (75-250 nmol/L)Toxicity: >100 ng/mL (>250 nmol/L) White blood cell (WBC) count Ordered By: Epifanio Zamora on 11-13-2024 WBC (Bld) [#/Vol] 8.2 10*3/uL 4.4-11.0 [facility] Absolute neutrophil countOrd ered By: Roseann Eli on 10-01-2024 Neutrophils (Bld) [#/Vol] 4.6 10*3/uL 2.0-7.7 [facility] Albumin to globulin ratioOrd ered By: Roseann Eli on 10-01-2024 Albumin/Globulin [Mass ratio] 1.2 {ratio} 0.9-2.4 [facility] BNP (brain natriuretic pepti de measurement)Ordered By: Roseann Eli on 10-01-2024 Natriuretic peptide B (Bld) [Mass/Vol] 96.8 pg/mL Normal 0-100 [facility] Comment on above: Performed By: #### L 501.7898, L100.0100, L503.6620, L500.4050 ####[facility] [address] [place], [address] Basophil percentageOrdered B y: Roseann Buenoescobar on 10-01-2024 Basophils/100 WBC (Bld) 0.6 % 0-1 [facility] Bilirubin, totalOrdered By: Roseann Eli on 10-01-2024 Bilirubin [Mass/Vol] 0.30 mg/dL 0.20-1.00 [facility] Comment on above: For patients on eltr ombopag therapy, use of Dimension [place] TBIL is not recommended. Blood urea nitrogen (BUN)/cr eatinine ratioOrdered By: Roseann Eli on 10-01-2024 Urea nitrogen/Creatinine [Mass ratio] 10.7 mg/mg 10-20 [facility] CBC W/Diff, Automatedon 09-12 Absolute Lymph 1.27 X10 3/uL Normal 0.83-4.51 [facility] Comment on above: Performed By: #### L 501.9520, L100.0100, L503.6620, L500.4050 #### [facility] [address] [place], [address] Absolute Neut 4.6 X10 3/uL Normal 2.0-7.7 [facility] Comment on above: Performed By: #### L 501.9520, L100.0100, L503.6620, L500.4050 #### [facility] [address] [place], [address] Basophils/100 WBC (Bld) 0.6 % Normal 0-1 [facility] Comment on above: Performed By: #### L 501.9520, L100.0100, L503.6620, L500.4050 #### [facility] [address] [place], [address] Eosinophils/100 WBC (Bld) 0.6 % Normal 0-5 [facility] Comment on above: Performed By: #### L 501.9520, L100.0100, L503.6620, L500.4050 #### [facility] [address] [place], [address] Erythrocyte distribution width (RBC) [Ratio] 12.6 % Normal 11.6-14.6 [facility] Comment on above: Performed By: #### L 501.9520, L100.0100, L503.6620, L500.4050 #### [facility] [address] [place], [address] Hematocrit (Bld) [Volume fraction] 39.1 % Normal 37-47 [facility] Comment on above: Performed By: #### L 501.9520, L100.0100, L503.6620, L500.4050 #### [facility] [address] [place], [address] Hemoglobin (Bld) [Mass/Vol] 12.7 g/dL Normal 12.0-15.0 [facility] Comment on above: Performed By: #### L 501.9520, L100.0100, L503.6620, L500.4050 #### [facility] [address] [place], [address] IG% 0.600 Normal 0.0-0.9 [facility] Comment on above: Result Comment: IG% - Immature Granulocytes (promyelocytes, myelocytes and metamyelocytes) > 1% indicates that a LEFT SHIFT is Present. Performed By: #### L 501.9520, L100.0100, L503.6620, L500.4050 #### [facility] [address] [place], [address] Lymphocytes/100 WBC (Bld) 20.1 % Normal 19-41 [facility] Comment on above: Performed By: #### L 501.9520, L100.0100, L503.6620, L500.4050 #### [facility] [address] [place], [address] MCH (RBC) [Entitic mass] 30.1 pg Normal 27.0-32.0 [facility] Comment on above: Performed By: #### L 501.9520, L100.0100, L503.6620, L500.4050 #### [facility] [address] [place], [address] MCHC (RBC) [Mass/Vol] 32.5 g/dL Normal 32-36 [facility] Comment on above: Performed By: #### L 501.9520, L100.0100, L503.6620, L500.4050 #### [facility] [address] [place], [address] MCV (RBC) [Entitic vol] 92.7 fL Normal 81-99 [facility] Comment on above: Performed By: #### L 501.9520, L100.0100, L503.6620, L500.4050 #### [facility] [address] [place], [address] Monocytes/100 WBC (Bld) 4.9 % Normal 0-10 [facility] Comment on above: Performed By: #### L 501.9520, L100.0100, L503.6620, L500.4050 #### [facility] [address] [place], [address] Neutrophils/100 WBC (Bld) 73.2 % High 47-70 [facility] Comment on above: Performed By: #### L 501.9520, L100.0100, L503.6620, L500.4050 #### [facility] [address] [place], [address] Nucleated RBC (Bld) [#/Vol] 0 10*3/uL Normal 0-5 [facility] Comment on above: Performed By: #### L 501.9520, L100.0100, L503.6620, L500.4050 #### [facility] [address] [place], [address] Platelet mean volume (Bld) [Entitic vol] 10.5 fL Normal 6.2-12.0 [facility] Comment on above: Performed By: #### L 501.9520, L100.0100, L503.6620, L500.4050 #### [facility] [address] [place], [address] Platelets (Bld) [#/Vol] 315 10*3/uL Normal 150-450 [facility] Comment on above: Performed By: #### L 501.9520, L100.0100, L503.6620, L500.4050 #### [facility] [address] [place], [address] RBC (Bld) [#/Vol] 4.22 10*6/uL Normal 4.2-5.4 [facility] Comment on above: Performed By: #### L 501.9520, L100.0100, L503.6620, L500.4050 #### [facility] [address] [place], [address] RDW SD 43.1 fl Normal 35.1-43.9 [facility] Comment on above: Performed By: #### L 501.9520, L100.0100, L503.6620, L500.4050 #### [facility] [address] [place], [address] WBC (Bld) [#/Vol] 6.3 10*3/uL Normal 4.4-11.0 [facility] Comment on above: Performed By: #### L 501.9520, L100.0100, L503.6620, L500.4050 #### [facility] [address] [place], [address] Carbon dioxide measurementOr dered By: Roseann Eli on 10-01-2024 CO2 [Moles/Vol] 28.0 mmol/L 21.0-32.0 [facility] Chloride measurementOrdered By: Roseann Eli on 10-01-2024 Chloride [Moles/Vol] 106 mmol/L 98-107 [facility] Comprehensive Metabolic Prof ilon 10-01-2024 Albumin [Mass/Vol] 3.5 g/dL Normal 3.2-5.0 [facility] Comment on above: Performed By: #### L 501.9520, L100.0100, L503.6620, L500.4050 ####[facility] [address] [place], [address] Albumin/Globulin [Mass ratio] 1.2 {ratio} Normal 0.9-2.4 [facility] Comment on above: Performed By: #### L 501.9520, L100.0100, L503.6620, L500.4050 ####[facility] [address] [place], [address] ALK P 53 U/L Normal 45-117 [facility] Comment on above: Performed By: #### L 501.9520, L100.0100, L503.6620, L500.4050 ####[facility] [address] [place], [address] ALT [Catalytic activity/Vol] 33 U/L Normal 13-56 [facility] Comment on above: Performed By: #### L 501.9520, L100.0100, L503.6620, L500.4050 ####[facility] [address] [place], [address] AST [Catalytic activity/Vol] 17 U/L Normal 15-37 [facility] Comment on above: Performed By: #### L 501.9520, L100.0100, L503.6620, L500.4050 ####[facility] [address] [place], [address] Bilirubin [Mass/Vol] 0.30 mg/dL Normal 0.20-1.00 [facility] Comment on above: Result Comment: For patients on eltrombopag therapy, use of Dimension [place] TBIL is not recommended. Performed By: #### L 501.9520, L100.0100, L503.6620, L500.4050 ####[facility] [address] [place], [address] BUN/CRE 10.7 RATIO Normal 10-20 [facility] Comment on above: Performed By: #### L 501.9520, L100.0100, L503.6620, L500.4050 ####[facility] [address] [place], [address] CA,Total 9.3 mg/dL Normal 8.5-10.1 [facility] Comment on above: Performed By: #### L 501.9520, L100.0100, L503.6620, L500.4050 ####[facility] [address] [place], [address] Chloride [Moles/Vol] 106 mmol/L Normal 98-107 [facility] Comment on above: Performed By: #### L 501.9520, L100.0100, L503.6620, L500.4050 ####[facility] [address] [place], [address] CO2 [Moles/Vol] 28.0 mmol/L Normal 21.0-32.0 [facility] Comment on above: Performed By: #### L 501.9520, L100.0100, L503.6620, L500.4050 ####[facility] [address] [place], [address] Creatinine [Mass/Vol] 0.75 mg/dL Normal 0.55-1.02 [facility] Comment on above: Result Comment: The validity of the calculated GFR GFRAA in patients over 70 years has not been determined. Clinical correlation is essential. Performed By: #### L 501.9520, L100.0100, L503.6620, L500.4050 ####[facility] [address] [place], [address] EST GFR - AA 96 mL/min Normal >60 [facility] Comment on above: Result Comment: Afri can Israeli GFR Calc Performed By: #### L 501.9520, L100.0100, L503.6620, L500.4050 ####[facility] [address] [place], [address] GAP 6 Normal 5-15 [facility] Comment on above: Performed By: #### L 501.9520, L100.0100, L503.6620, L500.4050 ####[facility] [address] [place], [address] GFR/1.73 sq M.predicted among non-blacks MDRD (S/P/Bld) [Vol rate/Area] 79 mL/min/{1.73_m2} Normal >60 [facility] Comment on above: Result Comment: Non- GFR Calc Performed By: #### L 501.9520, L100.0100, L503.6620, L500.4050 ####[facility] [address] [place], [address] Globulin (S) [Mass/Vol] 2.9 g/dL Normal 2.2-4.2 [facility] Comment on above: Performed By: #### L 501.9520, L100.0100, L503.6620, L500.4050 ####[facility] [address] [place], [address] Glucose [Mass/Vol] 108 mg/dL High 74-106 [facility] Comment on above: Result Comment: Fast ing Glucose result from 100 to 125 mg/dL suggests IMPAIRED HOMEOSTASIS per A.D.A. criteria. Performed By: #### L 501.9520, L100.0100, L503.6620, L500.4050 ####[facility] [address] [place], [address] Potassium [Moles/Vol] 3.7 mmol/L Normal 3.5-5.1 [facility] Comment on above: Performed By: #### L 501.9520, L100.0100, L503.6620, L500.4050 ####[facility] [address] [place], [address] Sodium [Moles/Vol] 139 mmol/L Normal 136-145 [facility] Comment on above: Performed By: #### L 501.9520, L100.0100, L503.6620, L500.4050 ####[facility] [address] [place], [address] T PROT 6.4 g/dL Normal 6.4-8.2 [facility] Comment on above: Performed By: #### L 501.9520, L100.0100, L503.6620, L500.4050 ####[facility] [address] [place], [address] Urea nitrogen [Mass/Vol] 8 mg/dL Normal 7-18 [facility] Comment on above: Performed By: #### L 501.9520, L100.0100, L503.6620, L500.4050 ####[facility] [address] [place], [address] Eosinophil percentageOrdered By: Roseann Eli on 10-01-2024 Eosinophils/100 WBC (Bld) 0.6 % 0-5 [facility] Erythrocyte distribution wid th ratioOrdered By: Roseann Eli on 10-01-2024 Erythrocyte distribution width (RBC) [Ratio] 12.6 % 11.6-14.6 [facility] Erythrocyte distribution wid th standard deviationOrdered By: Roseann Eli on 10-01-2024 Erythrocyte distribution width (RBC) [Entitic vol] 43.1 fL 35.1-43.9 [facility] Estimated glomerular filtrat ion rate (GFR) AmericanOrdered By: Roseann Eli on 10-01-2024 Estimated GFR (MDRD) Amer 96 mL/min >60 [facility] Comment on above: GFR Calc Glomerular filtration rate ( GFR) estimationOrdered By: Roseann Eli on 10-01-2024 Estimated GFR (MDRD) Non-Af Amer 79 mL/min >60 [facility] Comment on above: Non- GFR Calc Glucose measurementOrdered B y: Roseann Eli on 10-01-2024 Glucose [Mass/Vol] 108 mg/dL High 74-106 [facility] Comment on above: Fasting Glucose resu lt from 100 to 125 mg/dL suggests IMPAIRED HOMEOSTASIS per A.D.A. criteria. Hematocrit Auto (Bld) [Volum e fraction]Ordered By: Roseann Eli on 10-01-2024 Hematocrit (Bld) [Volume fraction] 39.1 % 37-47 [facility] Hemoglobin measurementOrdere d By: Roseann Eli on 10-01-2024 Hemoglobin (Bld) [Mass/Vol] 12.7 g/dL 12.0-15.0 [facility] Immature granulocytes/100 WB C Auto (Bld)Ordered By: Roseann Eli on 10-01-2024 Immature granulocytes/100 WBC (Bld) 0.600 % 0.0-0.9 [facility] Comment on above: IG% - Immature Granu locytes (promyelocytes, myelocytes and metamyelocytes) > 1% indicates that a LEFT SHIFT is Present. Laboratory - Chemistry and C hemistry - challengeOrdered By: Roseann Eli on 10-01-2024 AST [Catalytic activity/Vol] 17 U/L 15-37 [facility] Lymphocytes Auto (Unsp spec) [#/Vol]Ordered By: Roseann Eli on 10-01-2024 Lymphocytes (Bld) [#/Vol] 1.27 10*3/uL 0.83-4.51 [facility] Lymphocytes/100 WBC Auto (Un sp spec)Ordered By: Roseann Eli on 10-01-2024 Lymphocytes/100 WBC (Bld) 20.1 % 19-41 [facility] MCV (mean corpuscular volume ) determinationOrdered By: Roseann Eli on 10-01-2024 MCV (RBC) [Entitic vol] 92.7 fL 81-99 [facility] Mean corpuscular hemoglobin (MCH) determinationOrdered By: Roseann Eli on 10-01-2024 MCH (RBC) [Entitic mass] 30.1 pg 27.0-32.0 [facility] Mean corpuscular hemoglobin concentration (MCHC) determinationOrdered By: Roseann Eli on 10-01-2024 MCHC (RBC) [Mass/Vol] 32.5 g/dL 32-36 [facility] Mean platelet volume determi nationOrdered By: Roseann Eli on 10-01-2024 Platelet mean volume (Bld) [Entitic vol] 10.5 fL 6.2-12.0 [facility] Monocyte percentageOrdered B y: Roseann Eli on 10-01-2024 Monocytes/100 WBC (Bld) 4.9 % 0-10 [facility] Neutrophil percentageOrdered By: Roseann Eli on 10-01-2024 Neutrophils/100 WBC (Bld) 73.2 % High 47-70 [facility] Nucleated red blood cell per centageOrdered By: Roseann Eli on 10-01-2024 Nucleated RBC/100 WBC (Bld) [Ratio] 0 % 0-5 [facility] Platelet countOrdered By: Nathaly Eli on 10-01-2024 Platelets (Bld) [#/Vol] 315 10*3/uL 150-450 [facility] Potassium measurementOrdered By: Roseann Eli on 10-01-2024 Potassium [Moles/Vol] 3.7 mmol/L 3.5-5.1 [facility] RBC Auto (Bld) [#/Vol]Ordere d By: Roseann Eli on 10-01-2024 RBC (Bld) [#/Vol] 4.22 10*6/uL 4.2-5.4 [facility] Serum anion gap measurementO rdered By: Roseann Eli on 10-01-2024 Anion gap [Moles/Vol] 6 mmol/L 5-15 [facility] Serum globulin measurementOr dered By: Roseann Eli on 10-01-2024 Globulin (S) [Mass/Vol] 2.9 g/dL 2.2-4.2 [facility] Serum or plasma alanine anguiano otransferase (ALT) measurementOrdered By: Roseann Eli on 10-01-2024 ALT [Catalytic activity/Vol] 33 U/L 13-56 [facility] Serum or plasma albumin roel urement (mass/volume)Ordered By: Roseann Eli on 10-01-2024 Albumin [Mass/Vol] 3.5 g/dL 3.2-5.0 [facility] Serum or plasma alkaline miguel sphatase measurementOrdered By: Roseann Eli on 10-01-2024 ALP [Catalytic activity/Vol] 53 U/L 45-117 [facility] Serum or plasma calcium roel urement (mass/volume)Ordered By: Roseann Eli on 10-01-2024 Calcium [Mass/Vol] 9.3 mg/dL 8.5-10.1 [facility] Serum or plasma creatinine m easurement (mass/volume)Ordered By: Roseann Eli on 10-01-2024 Creatinine [Mass/Vol] 0.75 mg/dL 0.55-1.02 [facility] Comment on above: The validity of the calculated GFR & GFRAA in patients over 70 years has not been determined. Clinical correlation is essential. Serum or plasma urea nitroge n measurement (mass/volume)Ordered By: Roseann Eli on 10-01-2024 Urea nitrogen [Mass/Vol] 8 mg/dL 7-18 [facility] Sodium levelOrdered By: Roseann Eli on 10-01-2024 Sodium [Moles/Vol] 139 mmol/L 136-145 [facility] TSH QnOrdered By: Roseann hewitt on 10-01-2024 Thyroid Stimulating Hormone (TSH) 1.010 uIU/mL 0.358-3.740 [facility] Thyroid Stim Hormone (TSH)on 10-01-2024 TSH 1.010 uIU/mL Normal 0.358-3.740 [facility] Comment on above: Performed By: #### L 501.9520, L100.0100, L503.6620, L500.4050 ####[facility] [address] [place], [address] Total proteinOrdered By: Roseann Buenoramírezimmanuel on 10-01-2024 Protein [Mass/Vol] 6.4 g/dL 6.4-8.2 [facility] White blood cell (WBC) count Ordered By: Roseann Isabelimmanuel on 10-01-2024 WBC (Bld) [#/Vol] 6.3 10*3/uL 4.4-11.0 [facility] Neurology Visit Reporton Neurology Visit Report [facility] [address], [address] [place], [place] [address] OFFICE VISIT Date of Service: 09/30/24 MR#: [id number] Acct: [id number] Name: ZHENG ROY Rep #: [id number] : 1945 Provider: Dr. Silver sanchez MD Age/Sex: 79/F [place] [facility] [place]: Signed HPI HPI Chief Complaint: Establish Care Details: The patient is a 79-year-old right handed female who presents to [facility]. She was referred 08/07/[address] Pili Chakraborty with [facility] for cognitive impairment.??? This lady presents with her sneceb-ij-drw for evaluation of cognitive impairment. Patient had a recent episode of calling her hlaicg-mt-smb for help. It seems that there was [...] 4 extre (more content not included)... Normal [facility] CBC W/Diff, Automatedon 11-0 Absolute Lymph 1.41 X10 3/uL Normal 0.83-4.51 [facility] Comment on above: Order Comment: Order Date: 07/16/24Order Info: 0184-1 - CBCD Performed By: #### L 500.4050, L501.9985, L506.1000, L500.4100, L100.0100 ####[facility] [address] [place], [address] Absolute Neut 5.3 X10 3/uL Normal 2.0-7.7 [facility] Comment on above: Order Comment: Order Date: 07/16/24Order Info: 0184-1 - CBCD Performed By: #### L 500.4050, L501.9985, L506.1000, L500.4100, L100.0100 ####[facility] [address] [place], [address] Basophils/100 WBC (Bld) 0.7 % Normal 0-1 [facility] Comment on above: Order Comment: Order Date: 07/16/24Order Info: 0184-1 - CBCD Performed By: #### L 500.4050, L501.9985, L506.1000, L500.4100, L100.0100 ####[facility] [address] [place], [address] Eosinophils/100 WBC (Bld) 0.7 % Normal 0-5 [facility] Comment on above: Order Comment: Order Date: 07/16/24Order Info: 0184-1 - CBCD Performed By: #### L 500.4050, L501.9985, L506.1000, L500.4100, L100.0100 ####[facility] [address] [place], [address] Erythrocyte distribution width (RBC) [Ratio] 12.3 % Normal 11.6-14.6 [facility] Comment on above: Order Comment: Order Date: 07/16/24Order Info: 018- - CBCD Performed By: #### L 500.4050, L501.9985, L506.1000, L500.4100, L100.0100 ####[facility] [address] [place], [address] Hematocrit (Bld) [Volume fraction] 41.0 % Normal 37-47 [facility] Comment on above: Order Comment: Order Date: 07/16/24Order Info: 018- - CBCD Performed By: #### L 500.4050, L501.9985, L506.1000, L500.4100, L100.0100 ####[facility] [address] [place], [address] Hemoglobin (Bld) [Mass/Vol] 13.8 g/dL Normal 12.0-15.0 [facility] Comment on above: Order Comment: Order Date: 07/16/24Order Info: 0184-1 - CBCD Performed By: #### L 500.4050, L501.9985, L506.1000, L500.4100, L100.0100 ####[facility] [address] [place], [address] IG% 0.400 Normal 0.0-0.9 [facility] Comment on above: Order Comment: Order Date: 07/16/24Order Info: 0184-1 - CBCD Result Comment: IG% - Immature Granulocytes (promyelocytes, myelocytes and metamyelocytes) > 1% indicates that a LEFT SHIFT is Present. Performed By: #### L 500.4050, L501.9985, L506.1000, L500.4100, L100.0100 ####[facility] [address] [place], [address] Lymphocytes/100 WBC (Bld) 19.3 % Normal 19-41 [facility] Comment on above: Order Comment: Order Date: 07/16/24Order Info: 0184-1 - CBCD Performed By: #### L 500.4050, L501.9985, L506.1000, L500.4100, L100.0100 ####[facility] [address] [place], [address] MCH (RBC) [Entitic mass] 30.4 pg Normal 27.0-32.0 [facility] Comment on above: Order Comment: Order Date: 07/16/24Order Info: 0184-1 - CBCD Performed By: #### L 500.4050, L501.9985, L506.1000, L500.4100, L100.0100 ####[facility] [address] [place], [address] MCHC (RBC) [Mass/Vol] 33.7 g/dL Normal 32-36 [facility] Comment on above: Order Comment: Order Date: 07/16/24Order Info: 0184-1 - CBCD Performed By: #### L 500.4050, L501.9985, L506.1000, L500.4100, L100.0100 ####[facility] [address] [place], [address] MCV (RBC) [Entitic vol] 90.3 fL Normal 81-99 [facility] Comment on above: Order Comment: Order Date: 07/16/24Order Info: [id number] - CBCD Performed By: #### L 500.4050, L501.9985, L506.1000, L500.4100, L100.0100 ####[facility] [address] [place], [address] Monocytes/100 WBC (Bld) 6.0 % Normal 0-10 [facility] Comment on above: Order Comment: Order Date: 07/16/24Order Info: [id number] - CBCD Performed By: #### L 500.4050, L501.9985, L506.1000, L500.4100, L100.0100 ####[facility] [address] [place], [address] Neutrophils/100 WBC (Bld) 72.9 % High 47-70 [facility] Comment on above: Order Comment: Order Date: 07/16/24Order Info: [id number] - CBCD Performed By: #### L 500.4050, L501.9985, L506.1000, L500.4100, L100.0100 ####[facility] [address] [place], [address] Nucleated RBC (Bld) [#/Vol] 0 10*3/uL Normal 0-5 [facility] Comment on above: Order Comment: Order Date: 07/16/24Order Info: [id number] - CBCD Performed By: #### L 500.4050, L501.9985, L506.1000, L500.4100, L100.0100 ####[facility] [address] [place], [address] Platelet mean volume (Bld) [Entitic vol] 10.6 fL Normal 6.2-12.0 [facility] Comment on above: Order Comment: Order Date: 07/16/24Order Info: [id number] - CBCD Performed By: #### L 500.4050, L501.9985, L506.1000, L500.4100, L100.0100 ####[facility] [address] [place], [address] Platelets (Bld) [#/Vol] 320 10*3/uL Normal 150-450 [facility] Comment on above: Order Comment: Order Date: 07/16/24Order Info: [id number] - CBCD Performed By: #### L 500.4050, L501.9985, L506.1000, L500.4100, L100.0100 ####[facility] [address] [place], [address] RBC (Bld) [#/Vol] 4.54 10*6/uL Normal 4.2-5.4 [facility] Comment on above: Order Comment: Order Date: 07/16/24Order Info: [id number] - CBCD Performed By: #### L 500.4050, L501.9985, L506.1000, L500.4100, L100.0100 ####[facility] [address] [place], [address] RDW SD 40.6 fl Normal 35.1-43.9 [facility] Comment on above: Order Comment: Order Date: 07/16/24Order Info: [id number] - CBCD Performed By: #### L 500.4050, L501.9985, L506.1000, L500.4100, L100.0100 ####[facility] [address] [place], [address] WBC (Bld) [#/Vol] 7.3 10*3/uL Normal 4.4-11.0 [facility] Comment on above: Order Comment: Order Date: 07/16/24Order Info: [id number] - CBCD Performed By: #### L 500.4050, L501.9985, L506.1000, L500.4100, L100.0100 ####[facility] [address] [place], [address] Comprehensive Metabolic Prof ilon 07-16-2024 Albumin [Mass/Vol] 3.8 g/dL Normal 3.2-5.0 [facility] Comment on above: Order Comment: Order Date: 07/16/24Order Info: [id number] - CMPOrder Info: [id number] - LIPIDOrder Info: [id number] - TSH Performed By: #### L 500.4050, L501.9985, L506.1000, L500.4100, L100.0100 ####[facility] [address] [place], [address] Albumin/Globulin [Mass ratio] 1.3 {ratio} Normal 0.9-2.4 [facility] Comment on above: Order Comment: Order Date: 07/16/24Order Info: [id number] - CMPOrder Info: [id number] - LIPIDOrder Info: [id number] - TSH Performed By: #### L 500.4050, L501.9985, L506.1000, L500.4100, L100.0100 ####[facility] [address] [place], [address] ALK P 70 U/L Normal 45-117 [facility] Comment on above: Order Comment: Order Date: 07/16/24Order Info: [id number] - CMPOrder Info: [id number] - LIPIDOrder Info: [id number] - TSH Performed By: #### L 500.4050, L501.9985, L506.1000, L500.4100, L100.0100 ####[facility] [address] [place], [address] ALT [Catalytic activity/Vol] 37 U/L Normal 13-56 [facility] Comment on above: Order Comment: Order Date: 07/16/24Order Info: [id number] - CMPOrder Info: [id number] - LIPIDOrder Info: [id number] - TSH Performed By: #### L 500.4050, L501.9985, L506.1000, L500.4100, L100.0100 ####[facility] [address] [place], [address] AST [Catalytic activity/Vol] 32 U/L Normal 15-37 [facility] Comment on above: Order Comment: Order Date: 07/16/24Order Info: [id number] - CMPOrder Info: [id number] - LIPIDOrder Info: [id number] - TSH Performed By: #### L 500.4050, L501.9985, L506.1000, L500.4100, L100.0100 ####[facility] [address] [place], [address] Bilirubin [Mass/Vol] 0.70 mg/dL Normal 0.20-1.00 [facility] Comment on above: Order Comment: Order Date: 07/16/24Order Info: 07-1 - CMPOrder Info: [id number] - LIPIDOrder Info: [id number] - TSH Result Comment: For patients on eltrombopag therapy, use of Dimension [place] TBIL is not recommended. Performed By: #### L 500.4050, L501.9985, L506.1000, L500.4100, L100.0100 ####[facility] [address] [place], [address] BUN/CRE 13.1 RATIO Normal 10-20 [facility] Comment on above: Order Comment: Order Date: 07/16/24Order Info: [id number] - CMPOrder Info: [id number] - LIPIDOrder Info: [id number] - TSH Performed By: #### L 500.4050, L501.9985, L506.1000, L500.4100, L100.0100 ####[facility] [address] [place], [address] CA,Total 9.3 mg/dL Normal 8.5-10.1 [facility] Comment on above: Order Comment: Order Date: 07/16/24Order Info: [id number]- - CMPOrder Info: [id number] - LIPIDOrder Info: 3 - TSH Performed By: #### L 500.4050, L501.9985, L506.1000, L500.4100, L100.0100 ####[facility] [address] [place], [address] Chloride [Moles/Vol] 98 mmol/L Normal 98-107 [facility] Comment on above: Order Comment: Order Date: 07/16/24Order Info: [id number] - CMPOrder Info: [id number] - LIPIDOrder Info: 3 - TSH Performed By: #### L 500.4050, L501.9985, L506.1000, L500.4100, L100.0100 ####[facility] [address] [place], [address] CO2 [Moles/Vol] 31.0 mmol/L Normal 21.0-32.0 [facility] Comment on above: Order Comment: Order Date: 07/16/24Order Info: [id number] - CMPOrder Info: [id number] - LIPIDOrder Info: [id number] - TSH Performed By: #### L 500.4050, L501.9985, L506.1000, L500.4100, L100.0100 ####[facility] [address] [place], [address] Creatinine [Mass/Vol] 0.84 mg/dL Normal 0.55-1.02 [facility] Comment on above: Order Comment: Order Date: 07/16/24Order Info: [id number]- - CMPOrder Info: [id number] - LIPIDOrder Info: 3 - TSH Result Comment: The validity of the calculated GFR GFRAA in patients over 70 years has not been determined. Clinical correlation is essential. Performed By: #### L 500.4050, L501.9985, L506.1000, L500.4100, L100.0100 ####[facility] [address] [place], [address] EST GFR - AA 84 mL/min Normal >60 [facility] Comment on above: Order Comment: Order Date: 07/16/24Order Info: [id number] - CMPOrder Info: [id number] - LIPIDOrder Info: [id number] - TSH Result Comment: Afri can Israeli GFR Calc Performed By: #### L 500.4050, L501.9985, L506.1000, L500.4100, L100.0100 ####[facility] [address] [place], [address] GAP 6 Normal 5-15 [facility] Comment on above: Order Comment: Order Date: 07/16/24Order Info: [id number]- - CMPOrder Info: [id number] - LIPIDOrder Info: [id number] - TSH Performed By: #### L 500.4050, L501.9985, L506.1000, L500.4100, L100.0100 ####[facility] [address] [place], [address] GFR/1.73 sq M.predicted among non-blacks MDRD (S/P/Bld) [Vol rate/Area] 69 mL/min/{1.73_m2} Normal >60 [facility] Comment on above: Order Comment: Order Date: 07/16/24Order Info: [id number]- - CMPOrder Info: [id number] - LIPIDOrder Info: [id number] - TSH Result Comment: Non- GFR Calc Performed By: #### L 500.4050, L501.9985, L506.1000, L500.4100, L100.0100 ####[facility] [address] [place], [address] Globulin (S) [Mass/Vol] 2.9 g/dL Normal 2.2-4.2 [facility] Comment on above: Order Comment: Order Date: 07/16/24Order Info: [id number]- - CMPOrder Info: [id number] - LIPIDOrder Info: [id number] - TSH Performed By: #### L 500.4050, L501.9985, L506.1000, L500.4100, L100.0100 ####[facility] [address] [place], [address] Glucose [Mass/Vol] 96 mg/dL Normal 74-106 [facility] Comment on above: Order Comment: Order Date: 07/16/24Order Info: [id number] - CMPOrder Info: [id number] - LIPIDOrder Info: [id number] - TSH Performed By: #### L 500.4050, L501.9985, L506.1000, L500.4100, L100.0100 ####[facility] [address] [place], [address] Potassium [Moles/Vol] 3.4 mmol/L Low 3.5-5.1 [facility] Comment on above: Order Comment: Order Date: 07/16/24Order Info: 07-1 - CMPOrder Info: [id number] - LIPIDOrder Info: [id number] - TSH Performed By: #### L 500.4050, L501.9985, L506.1000, L500.4100, L100.0100 ####[facility] [address] [place], [address] Sodium [Moles/Vol] 135 mmol/L Low 136-145 [facility] Comment on above: Order Comment: Order Date: 07/16/24Order Info: [id number] - CMPOrder Info: [id number] - LIPIDOrder Info: [id number] - TSH Performed By: #### L 500.4050, L501.9985, L506.1000, L500.4100, L100.0100 ####[facility] [address] [place], [address] T PROT 6.7 g/dL Normal 6.4-8.2 [facility] Comment on above: Order Comment: Order Date: 07/16/24Order Info: [id number] - CMPOrder Info: [id number] - LIPIDOrder Info: [id number] - TSH Performed By: #### L 500.4050, L501.9985, L506.1000, L500.4100, L100.0100 ####[facility] [address] [place], [address] Urea nitrogen [Mass/Vol] 11 mg/dL Normal 7-18 [facility] Comment on above: Order Comment: Order Date: 07/16/24Order Info: [id number]- - CMPOrder Info: [id number] - LIPIDOrder Info: [id number] - TSH Performed By: #### L 500.4050, L501.9985, L506.1000, L500.4100, L100.0100 ####[facility] [address] [place], [address] Hemoglobin A1con 07-16-2024 HbA1c (Bld) [Mass fraction] 6.4 % High 3.8-5.6 [facility] Comment on above: Order Comment: Order Date: 07/16/24Order Info: [id number] - A1C Result Comment: Norm al < 5.7 % Prediabetic 5.7 - 6.4 % Diabetic >or= 6.5 % Please note range changes. Performed By: #### L 500.4050, L501.9985, L506.1000, L500.4100, L100.0100 ####[facility] [address] [place], [address] Lipid Profileon 07-16-2024 Cholesterol [Mass/Vol] 193 mg/dL Normal 200 [facility] Comment on above: Order Comment: Order Date: 07/16/24Order Info: 07- - CMPOrder Info: [id number] - LIPIDOrder Info: [id number] - TSH Result Comment: <200 mg/dL Desirable 200-240 mg/dL Borderline >240 mg/dL High Risk Performed By: #### L 500.4050, L501.9985, L506.1000, L500.4100, L100.0100 ####[facility] [address] [place], [address] Cholesterol in HDL [Mass/Vol] 46 mg/dL Normal [facility] Comment on above: Order Comment: Order Date: 07/16/24Order Info: [id number] - CMPOrder Info: [id number] - LIPIDOrder Info: [id number] - TSH Result Comment: The drugs N-Acetylcysteine and Metamizole may falsely depress this assay. Reference Range HDL <40 mg/dL Low HDL Cholesterol HDL >or= 60 mg/dL High HDL Cholesterol Performed By: #### L 500.4050, L501.9985, L506.1000, L500.4100, L100.0100 ####[facility] [address] [place], [address] Cholesterol in LDL [Mass/Vol] 117 mg/dL Normal 0-130 [facility] Comment on above: Order Comment: Order Date: 07/16/24Order Info: [id number]- - CMPOrder Info: [id number] - LIPIDOrder Info: [id number] - TSH Performed By: #### L 500.4050, L501.9985, L506.1000, L500.4100, L100.0100 ####[facility] [address] [place], [address] Cholesterol in VLDL [Mass/Vol] 30 mg/dL Normal 5-40 [facility] Comment on above: Order Comment: Order Date: 07/16/24Order Info: [id number]- - CMPOrder Info: [id number] - LIPIDOrder Info: [id number] - TSH Performed By: #### L 500.4050, L501.9985, L506.1000, L500.4100, L100.0100 ####[facility] [address] [place], [address] Triglyceride [Mass/Vol] 150 mg/dL Normal [facility] Comment on above: Order Comment: Order Date: 07/16/24Order Info: [id number] - CMPOrder Info: [id number] - LIPIDOrder Info: [id number] - TSH Result Comment: The drugs N-Acetylcysteine and Metamizole may falsely depress this assay. Serum Triglycerides Reference Interval Normal <150 mg/dL Borderline high 150 - 199 mg/dL High 200 - 499 mg/dL Very High > or = 500 mg/dL Performed By: #### L 500.4050, L501.9985, L506.1000, L500.4100, L100.0100 ####[facility] [address] [place], [place], [id number] Thyroid Stim Hormone (TSH)on 07-16-2024 TSH 0.939 uIU/mL Normal 0.358-3.740 [facility] Comment on above: Order Comment: Order Date: 07/16/24Order Info: [id number] - CMPOrder Info: [id number] - LIPIDOrder Info: [id number] - TSH Performed By: #### L 501.9520 ####[facility] [address] [place], [place], [address] Vitamin D,25 Hydroxyon 07-16 Vitamin D 25-OH 13.4 ng/mL Normal [facility] Comment on above: Order Comment: Order Date: 07/16/24Order Info: [id number] - [id number] Result Comment: Meli min D 25(OH) Status Range Deficiency <20 ng/mL (50nmol/L) Insufficiency 20 - 30 ng/mL (50 - 75 nmol/L) Sufficiency 30 - 100 ng/mL (75 - 250 nmol/L) Toxicity >100 ng/mL (>250 nmol/L) Performed By: #### L 500.4050, L501.9985, L506.1000, L500.4100, L100.0100 ####[facility] [address] [place], [place], [address] Basophil percentageOrdered B y: Maame Chang on 12-29-2022 Bilirubin [Mass/Vol] 0.50 mg/dL 0.20-1.00 [facility] Comment on above: For patients on eltr ombopag therapy, use of Dimension [place] TBIL is not recommended. Chloride [Moles/Vol] 100 mmol/L 98-107 [facility] Cholesterol [Mass/Vol] 153 mg/dL <200 [facility] Comment on above: <200 mg/dL Desirable 200-240 mg/dL Borderline >240 mg/dL High Risk Glucose [Mass/Vol] 122 mg/dL 74-106 [facility] Comment on above: Fasting Glucose resu lt from 100 to 125 mg/dL suggests IMPAIRED HOMEOSTASIS per A.D.A. criteria. Potassium [Moles/Vol] 3.7 mmol/L 3.5-5.1 [facility] Comment on above: Slight Hemolysis, Re sult may be falsely increased. Protein [Mass/Vol] 6.7 g/dL 6.4-8.2 [facility] Sodium [Moles/Vol] 135 mmol/L 136-145 [facility] Triglyceride [Mass/Vol] 189 mg/dL <199 [facility] Comment on above: The drugs N-Acetylcy steine and Metamizole may falsely depress this assay.Serum Triglycerides Reference Interval Normal <150 mg/dL Borderline high 150 - 199 mg/dL High 200 - 499 mg/dL Very High > or = 500 mg/dL Laboratory - Chemistry and C hemistry - challengeOrdered By: Maame Chang on 12-29-2022 ALP [Catalytic activity/Vol] 85 U/L 45-117 [facility] ALT [Catalytic activity/Vol] 30 U/L 13-56 [facility] CO2 [Moles/Vol] 29.0 mmol/L 21.0-32.0 [facility] Globulin (S) [Mass/Vol] 2.9 g/dL 2.2-4.2 [facility] Urea nitrogen/Creatinine [Mass ratio] 17.2 mg/mg 10-20 [facility] No Panel InformationOrdered By: Maame Chang on 12-29-2022 Estimated GFR (MDRD) Amer 81 mL/min >60 [facility] Comment on above: GFR Calc Estimated GFR (MDRD) Non-Af Amer 67 mL/min >60 [facility] Comment on above: Non- GFR Calc Serum or plasma albumin roel urement (mass/volume)Ordered By: Maame Chang on 12-29-2022 Albumin [Mass/Vol] 3.8 g/dL 3.2-5.0 [facility] Serum or plasma albumin/glob ulin mass ratioOrdered By: Maame Chang on 12-29-2022 Albumin/Globulin [Mass ratio] 1.3 {ratio} 0.9-2.4 [facility] Serum or plasma calcium roel urement (mass/volume)Ordered By: Maame Chang on 12-29-2022 Calcium [Mass/Vol] 9.2 mg/dL 8.5-10.1 [facility] Serum or plasma cholesterol in HDL measurement (mass/volume)Ordered By: Maame Chang on 12-29-2022 Cholesterol in HDL [Mass/Vol] 50 mg/dL >40 [facility] Comment on above: The drugs N-Acetylcy steine and Metamizole may falsely depress this assay. Reference Range HDL <40 mg/dL Low HDL Cholesterol HDL >or= 60 mg/dL High HDL Cholesterol Serum or plasma cholesterol in VLDL measurement (mass/volume)Ordered By: Maame Chang on 12-29-2022 Cholesterol in VLDL [Mass/Vol] 38 mg/dL 5-40 [facility] Serum or plasma creatinine m easurement (mass/volume)Ordered By: Maame Chang on 12-29-2022 Creatinine [Mass/Vol] 0.87 mg/dL 0.55-1.02 [facility] Comment on above: The validity of the calculated GFR & GFRAA in patients over 70 years has not been determined. Clinical correlation is essential. Serum or plasma low density lipoprotein (LDL) cholesterol measurement (mass/volume)Ordered By: Maame Chang on 12-29-2022 Cholesterol in LDL [Mass/Vol] 65 mg/dL 0-130 [facility] Serum or plasma urea nitroge n measurement (mass/volume)Ordered By: Maame Chang on 12-29-2022 Urea nitrogen [Mass/Vol] 15 mg/dL 7-18 [facility] Thin prep Papanicolaou smear with manual screeningOrdered By: Maame Chang 12-29-2022 Thin prep Papanicolaou smear with manual screening 18 U/L 15-37 [facility] Comment on above: Slight Hemolysis, Re sult may be falsely increased. Thin prep Papanicolaou smear with manual screening 6 5-15 [facility] Thin prep Papanicolaou smear with manual screening 14.4 mg/L NO RANGE EST. [facility] Whole blood hemoglobin A1c/t otal hemoglobin ratio (mass fraction)Ordered By: Maame Chang on 12-29-2022 HbA1c (Bld) [Mass fraction] 5.9 % 3.8-5.6 [facility] Comment on above: Normal < 5.7 % Predi abetic 5.7 - 6.4 % Diabetic >or= 6.5 % Please note range changes. Basophil percentageon 2021 Chloride [Moles/Vol] 101 mmol/L 98-107 [facility] Work Phone: Cholesterol [Mass/Vol] 139 mg/dL <200 [facility] Work Phone: Comment on above: <200 mg/dL Desirable 200-240 mg/dL Borderline >240 mg/dL High Risk Glucose [Mass/Vol] 119 mg/dL 74-106 [facility] Work Phone: Comment on above: Fasting Glucose resu lt from 100 to 125 mg/dL suggests IMPAIRED HOMEOSTASIS per A.D.A. criteria. Potassium [Moles/Vol] 3.7 mmol/L 3.5-5.1 [facility] Work Phone: Sodium [Moles/Vol] 134 mmol/L 136-145 [facility] Work Phone: Triglyceride [Mass/Vol] 177 mg/dL [facility] Work Phone: Comment on above: The drugs N-Acetylcy steine and Metamizole may falsely depress this assay.Serum Triglycerides Reference Interval Normal <150 mg/dL Borderline high 150 - 199 mg/dL High 200 - 499 mg/dL Very High > or = 500 mg/dL Laboratory - Chemistry and C hemistry - challengeon 12-28-2021 CO2 [Moles/Vol] 25.0 mmol/L 21.0-32.0 [facility] Work Phone: Urea nitrogen/Creatinine [Mass ratio] 13.9 mg/mg 10- [facility] Work Phone: No Panel Informationon 12-28 Hepatitis C Antibody Non-Reactive Nonreactive [facility] Work Phone: Comment on above: Non Reactive: < 0.8 Equivocal: >/= 0.8 to < 1.0 Reactive: >/= 1.0The [facility] recommends that a reactive/equivocal HCV antibody result be followed up by the HCV Nucleic Acid Amplificationtest (759681) Estimated GFR (MDRD) Amer 91 mL/min >60 [facility] Work Phone: Comment on above: GFR Calc Estimated GFR (MDRD) Non-Af Amer 75 mL/min >60 [facility] Work Phone: Comment on above: Non- GFR Calc Serum or plasma calcium roel urement (mass/volume)on 12-28-2021 Calcium [Mass/Vol] 8.7 mg/dL 8.5-10.1 [facility] Work Phone: Serum or plasma cholesterol in HDL measurement (mass/volume)on 12-28-2021 Cholesterol in HDL [Mass/Vol] 54 mg/dL [facility] Work Phone: Comment on above: The drugs N-Acetylcy steine and Metamizole may falsely depress this assay. Reference Range HDL <40 mg/dL Low HDL Cholesterol HDL >or= 60 mg/dL High HDL Cholesterol Serum or plasma cholesterol in VLDL measurement (mass/volume)on 12-28-2021 Cholesterol in VLDL [Mass/Vol] 35 mg/dL 5-40 [facility] Work Phone: Serum or plasma creatinine m easurement (mass/volume)on 12-28-2021 Creatinine [Mass/Vol] 0.79 mg/dL 0.55-1.02 [facility] Work Phone: Comment on above: The validity of the calculated GFR & GFRAA in patients over 70 years has not been determined. Clinical correlation is essential. Serum or plasma low density lipoprotein (LDL) cholesterol measurement (mass/volume)on 12-28-2021 Cholesterol in LDL [Mass/Vol] 50 mg/dL 0-130 [facility] Work Phone: Serum or plasma urea nitroge n measurement (mass/volume)on 12-28-2021 Urea nitrogen [Mass/Vol] 11 mg/dL 7-18 [facility] Work Phone: Thin prep Papanicolaou smear with manual screeningon 12-28-2021 Thin prep Papanicolaou smear with manual screening 8 5-15 [facility] Work Phone: CNPTOUTREACHon 10-29-2020 [facility] Outreach ([facility]) ZHENG ROY ([id number]) 1945 F Date Time Provider Department 10/29/20 [...] . Date Reviewed: 03/23/2019 Reviewed by: Marielos ([facility]) Raciel - Fully Assessed Order(s):SARS-COVID VACCINE 1ST DOSE APPT [[id number]] Order #: [id number] FUTURE Prescriptions as of 10/29/2020 Sig: POTASSIUM [...] Status:Closed by EPIC, PRODUSER on 11/02/20 Normal [facility] Vital Signs Date Time Vital Sign Value Performing Clinician Corie capps 02-26-2025 12:07-0400 Body temperature 97.7 [degF] Dr. Roseann Eli MD Work Phone: [facility] 02-26-2025 12:07-0400 Diastolic blood pressure 72 mm[Hg] Dr. Roseann Eli MD Work Phone: [facility] 02-26-2025 12:07-0400 Heart rate 78 /min Dr. Roseann Eli MD Work Phone: [facility] 02-26-2025 12:07-0400 Respiratory rate 18 /min Dr. Roseann Eli MD Work Phone: [facility] 02-26-2025 12:07-0400 SaO2% (BldA) [Mass fraction] 100 % Dr. Roseann Eli MD Work Phone: [facility] 02-26-2025 12:07-0400 Systolic blood pressure 160 mm[Hg] Dr. Roseann Eli MD Work Phone: [facility] 02-26-2025 09:44-0400 Body height 167.[address] Roseann Eli MD Work Phone: [facility] 02-26-2025 09:44-0400 Body mass index (BMI) [Ratio] 26.1 kg/m2 Dr. Roseann Eli MD Work Phone: [facility] 02-26-2025 09:44-0400 Body weight 73.[address] Roseann Eli MD Work Phone: [facility] 12-05-2024 16:56-0400 Body temperature 96.6 [degF] Pili Chakraborty MD Work Phone: [facility] 12-05-2024 16:56-0400 Diastolic blood pressure 94 mm[Hg] Pili Chakraborty MD Work Phone: [facility] 12-05-2024 16:56-0400 Heart rate 73 /min Pili Chakraborty MD Work Phone: [facility] 12-05-2024 16:56-0400 Respiratory rate 16 /min Pili Chakraborty MD Work Phone: [facility] 12-05-2024 16:56-0400 SaO2% (BldA) [Mass fraction] 100 % Pili Chakraborty MD Work Phone: [facility] 12-05-2024 16:56-0400 Systolic blood pressure 119 mm[Hg] Pili Chakraborty MD Work Phone: [facility] 12-05-2024 12:11-0400 Body height 167.64 cm iPli Chakraborty MD Work Phone: [facility] 12-05-2024 12:11-0400 Body mass index (BMI) [Ratio] 25.7 kg/m2 Pili Chakraborty MD Work Phone: [facility] 12-05-2024 12:11-0400 Body weight 72.5 kg Pili Chakraborty MD Work Phone: [facility] 11-29-2024 15:46-0400 Body temperature 98 [degF] Pili Chakraborty MD Work Phone: [facility] 11-29-2024 15:46-0400 Diastolic blood pressure 72 mm[Hg] Pili Chakraborty MD Work Phone: [facility] 11-29-2024 15:46-0400 Heart rate 79 /min Pili Chakraborty MD Work Phone: [facility] 11-29-2024 15:46-0400 Respiratory rate 18 /min Pili Chakraborty MD Work Phone: [facility] 11-29-2024 15:46-0400 SaO2% (BldA) [Mass fraction] 99 % Pili Chakraborty MD Work Phone: [facility] 11-29-2024 15:46-0400 Systolic blood pressure 183 mm[Hg] Pili Chakraborty MD Work Phone: [facility] 11-29-2024 12:35-0400 Body height 167.64 cm Pili Chakraborty MD Work Phone: [facility] 11-29-2024 12:35-0400 Body mass index (BMI) [Ratio] 26.2 kg/m2 Pili Chakraborty MD Work Phone: [facility] 11-29-2024 12:35-0400 Body weight 73.7 kg Pili Chakraborty MD Work Phone: [facility] 11-16-2024 20:28-0500 Body temperature 98 [degF] Pili Chakraborty MD Work Phone: [phone] [place] [address] 11-16-2024 20:28-0500 Diastolic blood pressure 73 mm[Hg] Pili Chakraborty MD Work Phone: [facility] 11-16-2024 20:28-0500 Heart rate 72 /min Pili Chakraborty MD Work Phone: [facility] 11-16-2024 20:28-0500 Respiratory rate 18 /min Pili Chakraborty MD Work Phone: [facility] 11-16-2024 20:28-0500 SaO2% (BldA) [Mass fraction] 97 % Pili Chakraborty MD Work Phone: [facility] 11-16-2024 20:28-0500 Systolic blood pressure 149 mm[Hg] Pili Chakraborty MD Work Phone: [facility] 11-16-2024 18:16-0500 Body height 154.99 cm Pili Chakraborty MD Work Phone: [facility] 11-16-2024 18:16-0500 Body mass index (BMI) [Ratio] 32.5 kg/m2 Pili Chakraborty MD Work Phone: [facility] 11-16-2024 18:16-0500 Body weight 78.2 kg Pili Chakraborty MD Work Phone: [facility] 09-30-2024 14:26-0500 Body mass index (BMI) [Ratio] 29.8 kg/m2 Pili Chakraborty MD Work Phone: [facility] 09-30-2024 14:26-0500 Body temperature 98.4 [degF] Pili Chakraborty MD Work Phone: [facility] 09-30-2024 14:26-0500 Body weight 71.66 kg Pili Chakraborty MD Work Phone: [facility] 09-30-2024 14:26-0500 Diastolic blood pressure 68 mm[Hg] Pili Chakraborty MD Work Phone: [facility] 09-30-2024 14:26-0500 Heart rate 86 /min Pili Chakraborty MD Work Phone: [facility] 09-30-2024 14:26-0500 Respiratory rate 15 /min Pili Chakraborty MD Work Phone: [facility] 09-30-2024 14:26-0500 SaO2% (BldA) [Mass fraction] 99 % Pili Chakraborty MD Work Phone: [facility] 09-30-2024 14:26-0500 Systolic blood pressure 142 mm[Hg] Pili Chakraborty MD Work Phone: [facility] 06-14-2022 09:13-0400 Body height 156.21 cm [facility] Work Phone: Encounters Encounter Date Encounter Type Care Provider Facility Start: 04-01-2025 End: 04-01-2025 ambulatory Epifanio CARTER Facility:[facility] Start: 03-28-2025 End: 03-28-2025 ambulatory Epifanio CARTER Facility:[facility] Start: 03-24-2025 End: 03-24-2025 ambulatory Epifanio CARTER Facility:[facility] Start: 02-26-2025 End: 02-26-2025 Emergency department patient [...] 11-13-2024 ambulatory Pili Chakraborty MD Work Phone: [facility] Work Phone: Start: 11-13-2024 End: 11-13-[address] Epfianio Zamora MD -[facility] Work Phone: Start: 11-13-[address] Epifanio adamson MD -[facility] Work Phone: Start: 11-13-2024 End: 11-13-2024 ambulatory Roseann S Sreedhar Facility:[facility] Start: 11-01-2024 ambulatory Roseann S Jolliff Facility: [facility] Start: 10-21-2024 ambulatory Roseann S Jolliff Facility: [facility] Start: 10-01-2024 End: 10-01-[address] [facility] Start: 09-30-2024 End: 09-30-[address] Silver Doe MD -[facility] Work Phone: Start: 09-30-2024 End: 10-01-2024 ambulatory Roseann S Joescobar Facility:[facility] Start: 07-16-2024 End: 07-16-2024 ambulatory Pili Chakraborty Facility:[facility] Start: 07-25-2023 End: 07-25-2023 ambulatory [facility] Work Phone: Start: 07-25-2023 End: 07-25-2023 Discharged Recurring [facility]-Physical Therapy Work Phone: Start: 12-29-2022 End: 12-29-2022 ambulatory [facility] Work Phone: Start: 12-29-2022 End: 12-29-2022 Patient encounter [facility] Start: 06-14-2022 End: 06-14-2022 ambulatory [facility] Work Phone: Start: 06-14-2022 End: 06-14-2022 Patient encounter procedure [facility]-Outpatient Bone Densitometry Start: 12-28-2021 End: 12-28-2021 Patient encounter procedure [facility]-Laboratory, [facility] Procedures Date Procedure Procedure Detail Performing Clinician [...] Date Care Activity Detail Author Start: 02-26-2025 [facility] Start: 02-26-2025 Plain x-ray of pelvi s and lower extremity HIP, UNI W/ Pelvis 2-3 Views [facility] Start: 02-26-2025 XR Pelvis and Hip Views [facility] Start: 12-05-2024 [facility] Start: 11-29-2024 [facility] Start: 11-29-2024 [facility] Start: 11-16-2024 [facility] MR Brain WO contrast [facility] Patient Education [facility] Work Phone: Patient referral [facility] Work Phone: Payers Date Payer Category Payer Self-pay [id number] 2021 Unknown [id number] Unknown [id number] 2.16.8 [id number] Unknown [id number] 2.16.8 [id number] Unknown [id number] 2.16.8 [id number] Unknown [id number] 2.16.8 [id number] Unknown [id number] 2.16.8 [id number] Unknown [id number] 2.16.8 [id number] Unknown [id number] 2.16.8 [id number] Unknown [id number] 2.16.8 [id number] Unknown [id number] 2.16.8 [id number] Unknown [id number] 2.16.8 [id number] Unknown [id number] 2.16.8 [id number] Unknown [id number] 2.16.8 [id number] Unknown [id number] 2.16.8 [id number] Social History Date Type Detail Facility Tobacco smoking stat us CAIS Unknown if ever smoked [facility] Work Phone: Start: 1945 Sex Assigned At Female [facility] Start: 11-16-2024 End: 02-26-2025 Tobacco smoking status NHIS Never smoked tobacco (finding) [facility] Start: 11-16-2024 End: 12-10-2024 Sex Female (finding) [facility] Clinical Notes 09-30-2024 to 02-26-2025 Note Date & Type Note Facility 02-26-2025 Radiology Diagnostic study note [facility] [address], [place] [address] Brain/Head without Contrast MR#: [id number] Acct: [id number] Name: ZHENG ROY Rep #: [id number] : 1945 F 79 From: Christopher Hudson MD PCP: Dr. Epifanio Zamora DO Status: REG ER Study:Brain/Head without Contrast Date of Exa m: 02/26/25 Exam# [id number] Ordering Dr: Radha Marrero DO PROCEDURE: BRAIN/HEAD [...] CHRONIC CHANGES. NO ACUTE FINDINGS. Reading Location: [place] [address] CC: Dr. Sofia Marrero DO; Dr. Epifanio Zamora DO ~ Woods Overseer: Signed [facility] 12-05-2024 Discharge summary [facility] 12-05-2024 Radiology Diagnostic study note [facility] [address] [place] [address] Knee 4 or More Views MR#: [id number] Acct: [id number] Name: ZHENG ROY Rep #: [id number] : 1945 F 79 From: Veronika Llanos MD PCP: Dr. Epifanio Zamora DO Status: REG ER Study:Knee 4 or More Views Date of Exam: 12/05/24 Exam# [id number] Ordering Dr: David Gutierrez DO PROCEDURE: KNEE 4 OR MORE VIEWS 12/05/2024 REASON FOR EXAM: INJURY TECHNIQUE: 4 view(s) of the right knee COMPARISON: 12/05/2024 FINDINGS: No acute fracture or dislocation.No degenerative changes. No joint effusion. No soft tissue abnormality. RAD/Knee 4 or More Views IMPRESSION: No acute abnormality. Reading Location: [facility] CC: Dr. Sushil Gutierrez DO; Dr. Epifanio Zamora DO ~ Woods Overseer: Signed [facility] 12-05-2024 Radiology Diagnostic study note [facility] [address] [place] [address] HIP, UNI W/ Pelvis 2-3 Views MR#: [id number] Acct: [id number] Name: ZHENG ROY Rep #: [id number] : 1945 F 79 From: Veronika Llanos MD PCP: Dr. Epifanio Zamora DO Status: REG ER Study:HIP, UNI W/ Pelvis 2-3 Views Date of Ex am: 12/05/24 Exam# [id number] Ordering Dr: David Gutierrez DO PROCEDURE: HIP, [...] Gutierrez DO; Dr. Epifanio Zamora DO ~ Woods Overseer: Signed [facility] 12-05-2024 Radiology Diagnostic study note [facility] [address] [place] [address] Brain/Head without Contrast MR#: [id number] Acct: [id number] Name: ZHENG ROY Rep #: [id number] : 1945 F 79 From: Veronika Llanos MD PCP: Dr. Epifanio Zamora DO Status: REG ER Study:Brain/Head without Contrast Date of Exa m: 12/05/24 Exam# [id number] Ordering Dr: David Gutierrez DO PROCEDURE: BRAIN/HEAD [...] Gutierrez DO; Dr. Epifanio Zamora DO ~ Woods Overseer: Signed [facility] 12-05-2024 Discharge summary Note Date/Time December 05, 2024 4:30pm [facility] Medical Records Department [address] [place] [address] Emergency Department Summary 12/05/24 MR#: [id number] Acct: [id number] Name: ZHENG RYO Rep #:[id number] : 1945 79 From: Sushil Gilliland PCP: Dr. Epifanio Zamora DO Status:REG ER Location: ED HPI HPI - Fall History of Present Illness Chief Complaint: Fall Informant: patient, family, EMS and SNF Narrative Narrative: 79[facility]-old [facility] from [facility] presenting to the emergency room with [...] is no report of being on anticoagulants. [facility] Medical History Dementia Basal cell carcinoma [...] the patient can be discharged back to [facility] facility. Follow-up as needed Tylenol for pain.. [...] Care Provider] - As Needed Print Language: Nicaraguan Disposition Disposition: Home, Self Care What to do if you have Problems For any increased pain, shortness of breath, bleeding, nausea or vomiting, chestpain, or any unexpected problems, contact your Primary Care Provider. Call [facility] ([phone]) or report to the closest Emergency Room. Call 911 if necessary. 12/05/24 1630 <Electronically signed by Sushil Gutierrez DO> Cosigner Signature (if applicable): CC: Dr. Epifanio Zamora DO ~ Signed [facility] Work Phone: 1(746) 885-618803-21-2025 Radiology Diagnostic study note [facility] [address] [place] [address] Ribs Uni Min 3V w/PA Chest MR#: [id number] Acct: [id number] Name: ZHENG ROY Rep #: [id number] : 1945 F 79 From: Christopher Hudson MD PCP: Dr. Epifanio Zamora DO Status: REG ER Study:Ribs Uni Min 3V w/PA Chest Date of Exam : 11/29/24 Exam# [id number] Ordering Dr: Behzad Weber MD PROCEDURE: RIBS [...] No acute abnormality is seen. Reading Location: [facility] CC: Dr. Kenney Weber MD; Dr. Epifanio Zamora DO ~ Woods Overseer: Signed [facility]03-21-2025 Radiology Diagnostic study note [facility] [address] [place] [address] Brain/Head without Contrast MR#: [id number] Acct: [id number] Name: ZHENG ROY Rep #: [id number] : 1945 F 79 From: Bobbi Pressley MD PCP: Dr. Epifanio Zamora DO Status: REG ER Study:Brain/Head without Contrast Date of Exa m: 11/29/24 Exam# [id number] Ordering Dr: Behzad Weber MD PROCEDURE: BRAIN/HEAD [...] 4. Additional description as above. Reading Location: [facility] CC: Dr. Kenney Weber MD; Dr. Epifanio Zamora DO ~ Woods Overseer: Signed [facility]03-08-2025 Discharge summary [facility] Medical Records Department [address] [place] [address] Emergency Department Summary 11/16/24 MR#: [id number] Acct: [id number] Name: ZHENG ROY Rep #:[id number] : 1945 79 From: Astrid EASTON PCP: Dr. Epifanio Zamora, DO Status:REG ER Location: ED HPI History of Present Illness Chief Complaint: Fall Narrative Narrative: 79-year-old female had an unwitnessed fall at [facility]. She was apparently found on the ground facedown near the dining area. She has no external signs of injury but complains of left shoulder pain. She is not on blood thinners. Daughter states she has dementia and moved into [place] in September 2024 and since then has fallen a total of 2 times including today. She ambulates well without assistance or assistive devices. Patient is not sure whyshe fell off but can provide limited history secondary to dementia. Her daughter is here and states she is acting at baseline. [facility] Medical History (Updated 11/16/24 @ 19:22 [...] NO ACUTE FRACTURE OR DISLOCATION. Reading Location: [facility] Ribs w/Chest X-Ray 11/16/24 18:41 IMPRESSION: NO EVIDENCE OF ACUTE RIB FRACTURE OR PNEUMOTHORAX. [facility] 11/16/24 18:41 IMPRESSION: No acute fracture or dislocation. [facility] attending interpretation of left shoulder shows [...] NO ACUTE FRACTURE OR DISLOCATION. [facility] Ribs w/Chest X-Ray 11/16/24 18:41 IMPRESSION: NO EVIDENCE OF ACUTE RIB FRACTURE OR PNEUMOTHORAX. [facility] 11/16/24 18:41 IMPRESSION: No acute fracture or dislocation. Reading Location: [facility] Discharge Plan Triage Chief Complaint: Fall [...] Referrals: Roseann Eli MD [Med Staff - Box Lining Machine Feeder] - Activity Restrictions/Additional Instructions: The x-ray showed no broken bones. I would treat your contusions with ice and Tylenol every 6 hours as needed. Print Language: Nicaraguan Disposition Disposition: Home, Self Care What to do if you have Problems For any increased pain, shortness of breath, bleeding, nausea or vomiting, chestpain, or any unexpected problems, contact your Primary Care Provider. Call [facility] ([phone]) or report tothe closest Emergency Room. Call 911 if necessary. 11/16/242009 Cosigner Signature (if applicable): 11/16/242025 CC: Dr. Epifanio Zamora DO ~ Signed [facility]03-08-2025 Radiology Diagnostic study note [facility] Services [address] [place] [address] Ribs Uni Min 3V w/PA Chest MR#: [id number] Acct: [id number] Name: ZHNEG ROY Rep #: [id number] : 1945 F 79 From: Tyson Rocha DO PCP: Dr. Epifanio Zamora DO Status: REG ER Study:Ribs Uni Min 3V w/PA Chest Date of Exam : 11/16/24 Exam# [id number] Ordering Dr: Anil Dozier MD PROCEDURE: RIBS [...] Zamora DO; Dr. Kalyan Dozier MD ~ Woods Overseer: Signed [facility]03-08-2025 Radiology Diagnostic study note [facility] [address] [facility] [place] [address] Wrist min 3 Views MR#: [id number] Acct: [id number] Name: ZHENG ROY Rep #: [id number] : 1945 F 79 From: Tyson Rocha DO PCP: Dr. Epifanio Zamora DO Status: REG ER Study:Wrist min 3 Views Date of Exam: Exam# [id number] Ordering Dr: Anil Dozier MD PROCEDURE: WRIST MIN 3 VIEWS REASON FOR EXAM: Trauma. Pain. TECHNIQUE: 3 views of the left wrist COMPARISON: None FINDINGS: No visible fracture. No suspicious bone lesion. Normal alignment. Soft tissues are unremarkable. RAD/Wrist min 3 Views IMPRESSION: No acute fracture or dislocation. Reading Location: [facility] CC: Dr. Epifanio Zamora DO; Dr. Kalyan Dozier MD ~ Woods Overseer: Signed [facility]03-08-2025 Radiology Diagnostic study note [facility] [address] [place] [address] Shoulder min 2 Views MR#: [id number] Acct: [id number] Name: ZHENG ROY Rep #: [id number] : 1945 F 79 From: Tyson Rocha DO PCP: Dr. Epifanio Zamora DO Status: REG ER Study:Shoulder min 2 Views Date of Exam: 11/16/24 Exam# [id number] Ordering Dr: Astrid Saleh PROCEDURE: SHOULDER MIN [...] Dr. Epifanio Zamora DO; RUSTAM Shepard ~ Woods Overseer: Signed [facility]03-08-2025 Discharge summary Author Astrid Monae [facility] Note Date/Time November 16, 2024 8:26 pm [facility] Medical Records Department [address] [place] [address] Emergency Department Summary 11/16/24 MR#: [id number] Acct: [id number] Name: ZHENG ROY Rep #:[id number] : 1945 79 From: Astrid EASTON PCP: Dr. Epifanio Zamora, DO Status:REG ER Location: ED HPI <RUSTAM Shepard - Last Filed: 11/16/24 20:10> History of Present Illness Chief Complaint: Fall Narrative Narrative: 79-year-old female had an unwitnessed fall at [facility] care unit. She was apparently found on the ground facedown near the dining area. She has no external signs of injury but complains of left shoulder pain. She is not on blood thinners. Daughter states she has dementia and moved into [place] in September 2024 and since then has fallen a total of 2 times including today. She ambulates well without assistance or assistive devices. Patient is not sure whyshe fell off but can provide limited history secondary to dementia. Her daughter is here and states she is acting at baseline. [facility] <RUSTAM Shepard - Last Filed: 11/16/24 20:10> [facility] Medical History (Updated 11/16/24 @ [...] <RUSTAM Shepard - Last Filed: 11/16/24 20:10> [facility] MDM Narrative Medical decision making narrative: History [...] Dozier MD - Last Filed: 11/16/24 20:26> [facility] Narrative Medical decision making narrative: I have [...] NO ACUTE FRACTURE OR DISLOCATION. [facility] Ribs w/Chest X-Ray 11/16/24 18:41 IMPRESSION: NO EVIDENCE OF ACUTE RIB FRACTURE OR PNEUMOTHORAX. [facility] Wrist X-Ray 11/16/24 18:41 IMPRESSION: No acute fracture or dislocation. Reading Location: [facility] Discharge Plan Triage Chief Complaint: Fall [...] Provider: Epifanio Zamora Referrals: Roseann Eli MD [[facility] Staff - Box Lining Machine Feeder] - Activity Restrictions/Additional Instructions: The x-ray showed no broken bones. I would treat your contusions with ice and Tylenol every 6 hours as needed. Print Language: Nicaraguan Disposition Disposition: Home, Self Care What to do if you have Problems For any increased pain, shortness of breath, bleeding, nausea or vomiting, chestpain, or any unexpected problems, contact your Primary Care Provider. Call [facility] ([phone]) or report to the closest Emergency Room. Call 911 if necessary. 11/16/242009 <Electronically signed by Astrid EASTON> Cosigner Signature (if applicable): 11/16/242025 <Electronically signed by Blade JONES> CC: Dr. 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 I would treat your contusions with ice and Tylenol every 6 hours as needed.[facility] Work Phone: Hospital Discharge instructionsAmbulatory Orders* Wheeled Walker Location: None Selected [facility] Work Phone: Reason for referral (narrative)No [facility] Work Phone: Summary Purpose Family History No Family History Records Found Relationship Condition Age at Onset Recorded Date/T paulo mother Cardiac disease Unknown Myocardial infarction Unknown father Cardiac disease Unknown Advance Directives No Advanced Directives Records Found Advance Directive Response Recorded Date/ Time Living Will Yes November 16, 2024 6:28pm Power of Pens And Pencils Repairer Yes November 16 6:28pm Name of Medical Power of Pens And Pencils Repairer ary November 16, 2024 6:28pm Advance Directive Response Recorded Date/ Time Living Will Yes November 16, 2024 7:28pm Do you have a Healthcare Power of Pens And Pencils Repairer? Yes November 16, 2024 7:28pm Name of Medical Power of Pens And Pencils Repairer ary November 16, 2024 7:28pm Living Will Yes November 29, 2024 12:42pm Do you have a Healthcare Power of Pens And Pencils Repairer? Yes November 29, 2024 12:42pm Name of Medical Power of Pens And Pencils Repairer daughter November 29, 2024 12:42pm Advance Directive Response Recorded Date/ Time Living Will Yes November 16, 2024 7:28pm Do you have a Healthcare Power of Pens And Pencils Repairer? Yes November 16, 2024 7:28pm Name of Medical Power of Pens And Pencils Repairer ary November 16, 2024 7:28pm Living Will Yes November 29, 2024 12:42pm Do you have a Healthcare Power of Pens And Pencils Repairer? Yes November 29, 2024 12:42pm Name of Medical Power of Pens And Pencils Repairer daughter November 29, 2024 12:42pm Living Will Yes December 05, 2024 12:18pm Do you have a Healthcare Power of Pens And Pencils Repairer? Yes December 05, 2024 12:18pm Name of Medical Power of Pens And Pencils Repairer ARY December 05, 2024 12:18pm Advance Directive Response Recorded Date/ Time Living Will Yes November 16, 2024 7:28pm Do you have a Healthcare Power of Pens And Pencils Repairer? Yes November 16, 2024 7:28pm Name of Medical Power of Pens And Pencils Repairer ary November 16, 2024 7:28pm Living Will Yes November 29, 2024 12:42pm Do you have a Healthcare Power of Pens And Pencils Repairer? Yes November 29, 2024 12:42pm Name of Medical Power of Pens And Pencils Repairer daughter November 29, 2024 12:42pm Living Will Yes December 05, 2024 12:18pm Do you have a Healthcare Power of Pens And Pencils Repairer? Yes December 05, 2024 12:18pm Name of Medical Power of Pens And Pencils Repairer ARY December 05, 2024 12:18pm Do you have a Healthcare Power of Pens And Pencils Repairer? Yes February 26, 2025 9:49am Chief Complaint [...] lt side rib area no loc M 2024 11:49am Chief Complaint Admit Date cognitive impairment September 30, 2024 2:22pm [facility] November 13, 2024 5: 00am fall November 16, 2024 6:15 pm fall with pain lt side rib area no loc M arch 2024 11:49am FALL December 05, 2024 12: 11pm Chief Complaint Admit Date [facility] WORK November 13, 2024 5: 00am fall November 16, 2024 6:15 pm fall with pain lt side rib area no loc M arch 2024 11:49am FALL December 05, 2024 12: 11pm FALL February 26, 2025 9:43 am Additional Source Comments INFORMATION SOURCE (unrecogn ized section and content) DATE CREATED AUTHOR 11/02/2020 [facility] DATE CREATED AUTHOR AUTHOR'S ORGANIZ ATION 07/12/2025 [facility] Goals (unrecognized section and content) [...] 30, 2024 End: September 30, 2024 Dr. Silvre Doe MD Attending Provider Active Start: September [...] BE BASED ON THE PRIMARY CLINICAL RECORDS. [facility] [employer] provides no warranty or guarantee of the accuracy or completeness of [phone] in [phone] [id number]
[2025-09-02 07:46] LABS: Hematocrit 35.6 % (37-47); Hemoglobin 12.0 g/dL (12.0-15.0); Mean Corp Hgb Conc 33.7 g/dL (32-36); Mean Corpuscular Volume 89.9 fL (81-99); Mean Platelet Vol. 10.6 fl (6.2-12.0); Platelet Count 229 K/mm3 (150-450); RBC Distribution Width CV 12.5 % (11.6-14.6); RBC Distribution Width SD 41.5 fl (35.1-43.9); Red Blood Count 3.96 M/mm3 (4.2-5.4); White Blood Count 6.4 K/mm3 (4.4-11.0)
[2025-09-02 08:07] LABS: AST(SGOT) 15 U/L (<=31); Alanine Aminotransfer ALT/SGPT 11 U/L (<=34); Albumin, Serum 3.7 g/dL (3.4-4.8); Alkaline Phosphatase 45 U/L (35-104); Anion Gap 9 (7-18); BUN 24 mg/dL (4-19); BUN/Creat Ratio 32.3 RATIO (10-20); Calcium,Total 8.8 mg/dL (7.6-11.0); Carbon Dioxide 26.9 mmol/L (20.0-29.0); Chloride 102 mmol/L (96-106); Cholesterol 165 mg/dL (<=200); Globulin 2.0 g/dL (2.2-4.2); Glucose 91 mg/dL (70-99); Low Density Lipoprotein Calc. 98 mg/dL; Potassium 3.7 mmol/L (3.5-5.1); T4 Total, Thyroxin 6.5 ug/dL (4.8-13.9); Triglycerides 66 mg/dL; Very Low Density Lipoprotein 13 mg/dL (5-40); cholesterol:hdl ratio screen 3.03
== END ==
LOC: OLS.BROOKB 04:00
PROVIDERS: Referring Provider Family Medicine; Visit Provider Family Medicine
DX: I10 Essential (primary) hypertension (principal); F03.90 Unspecified dementia, unspecified severity, without behavioral disturbance, psychotic disturbance, mood disturbance, and anxiety
CPT/HCPCS: 36415; 80053; 80061; 84436; 84443; 85027